=== PATIENT | male | born 1985 | race Caucasian/White ===

== ENCOUNTER → 2017-10-22 01:42 | Outpatient (CLI) | payer MEDICARE, MEDICAID, SELFPAY ==
--- NOTE | 2017-10-22 16:04 | DI.REPORT_ITS ---
SYMPTOM/DIAGNOSIS: HYPOTHYROIDISM E03.9 THYROID ULTRASOUND: The right lobe of the thyroid measures 5.3 x 1.5 x 1.7 cm. The left lobe measures 6 x 17 x 1.4 cm. The overall echotexture is heterogeneous. There are areas of more normal appearing thyroid tissue in both lobes. No solid or cystic masses. The isthmus appears thickened and heterogeneous. IMPRESSION: Enlarged, heterogeneous thyroid.
== END ==
PROVIDERS: PCP Nurse Practitioner; Visit Provider Nurse Practitioner
DX: E03.9 Hypothyroidism, unspecified (principal)
CPT/HCPCS: 76536

== ENCOUNTER → 2017-11-06 14:18 | Outpatient (REF) | payer MEDICARE, MEDICAID, SELFPAY ==
[2017-11-06 22:29] LABS: TSH 4.42 uIU/mL (0.358-3.74)
== END ==
LOC: NCHCN 14:18
PROVIDERS: PCP Nurse Practitioner; Visit Provider Nurse Practitioner
DX: E04.9 Nontoxic goiter, unspecified (principal); E03.9 Hypothyroidism, unspecified
CPT/HCPCS: 84443

== ENCOUNTER 2018-01-09 13:29 | Outpatient (REF) | payer MEDICARE, MEDICAID, SELFPAY ==
[2018-01-09 14:24] LABS: TSH 2.37 uIU/mL (0.358-3.74)
== END 2018-01-09 13:49 ==
LOC: NCHCN 13:29
PROVIDERS: PCP Nurse Practitioner; Visit Provider Nurse Practitioner
DX: E03.9 Hypothyroidism, unspecified (principal)
CPT/HCPCS: 84443

== ENCOUNTER 2018-04-15 10:17 | Outpatient (REF) | payer MEDICARE, MEDICAID, SELFPAY ==
[2018-04-15 13:50] LABS: TSH 1.97 uIU/mL (0.358-3.74)
== END 2018-04-15 10:37 ==
LOC: NCHCN 10:17
PROVIDERS: PCP Nurse Practitioner; Visit Provider Nurse Practitioner
DX: E04.9 Nontoxic goiter, unspecified (principal)
CPT/HCPCS: 84443

== ENCOUNTER 2018-07-04 12:08 | Outpatient (REF) | payer MEDICARE, MEDICAID, SELFPAY ==
[2018-07-04 21:36] LABS: Abs Immature Grans 0.05 k/cumm (0.0-0.09); Absolute Basophil Count 0.05 k/cumm (0.0-0.2); Absolute Eosinophil Count 0.43 k/cumm (0.0-0.7); Absolute Lymphocyte Count 2.55 k/cumm (1.2-3.4); Absolute Monocyte Count 0.87 k/cumm (0.11-0.7); Basophils % 0.4; Eosinophils % 3.6; HCT 40.2 % (40.0-50.0); Immature Grans % 0.4; Lymphocytes % 21.5; Mean Corp. HGB Concentration 32.3 g/dL (32.0-36.0); Mean Corpuscular Volume 86.5 fL (80-95); Mean Platelet Volume 10.8 fL (8.0-11.0); Monocytes % 7.3; Neutrophils % 66.8; Platelet Count 389 x1000/uL (130-400); RBC 4.65 m/cumm (4.50-6.00); RBC Distribution Width 13.2 % (11.8-14.1); White Blood Cell Count 11.87 k/cumm (4.4-10.8)
[2018-07-04 21:37] LABS: Absolute Neutrophil Count 7.93 k/cumm (1.2-6.7)
[2018-07-04 22:04] LABS: C-Reactive Protein 5.84 mg/dL (0.0-0.3); Uric Acid 8.3 mg/dL (3.5-7.2)
[2018-07-04 23:03] LABS: ESR 50 MM/HR (0-15)
[2018-07-08 11:12] LABS: Rheumatoid Factor <8 IU/mL (<12.5)
[2018-07-08 11:51] LABS: Cyclic Citrullinated Peptide <2.5 U/mL (<5.0)
== END 2018-07-04 12:28 ==
LOC: NCHCN 12:08
PROVIDERS: PCP Nurse Practitioner; Visit Provider Internal Medicine
DX: R05 Cough (principal); M12.872 Other specific arthropathies, not elsewhere classified, left ankle and foot
CPT/HCPCS: 85652; 86200; 84550; 85025; 86140; 86431

== ENCOUNTER 2018-07-04 13:53 | Outpatient (CLI) | payer MEDICARE, MEDICAID, SELFPAY ==
--- NOTE | 2018-07-04 12:17 | DI.RAD_ITS ---
SYMPTOMS/DIAGNOSIS: LT ANKLE PAIN, M25.572, ACUTE PAIN AND SWELLING LATERAL ASPECT OF FOOT AND ANKLE LEFT ANKLE: There is some soft tissue swelling about the ankle. There is no evidence of a fracture or dislocation. The mortise joint is well maintained.
== END 2018-07-04 14:13 ==
PROVIDERS: PCP Nurse Practitioner; Visit Provider Internal Medicine
DX: M25.572 Pain in left ankle and joints of left foot (principal); M79.89 Other specified soft tissue disorders
CPT/HCPCS: 73610

== ENCOUNTER 2018-08-20 09:58 | Outpatient (REF) | payer MEDICARE, MEDICAID, SELFPAY ==
[2018-08-20 13:32] LABS: Uric Acid 7.8 mg/dL (3.5-7.2)
== END 2018-08-20 10:18 ==
LOC: NCHCN 09:58
PROVIDERS: PCP Nurse Practitioner; Visit Provider Internal Medicine
DX: M10.9 Gout, unspecified (principal); E79.0 Hyperuricemia without signs of inflammatory arthritis and tophaceous disease
CPT/HCPCS: 84550

== ENCOUNTER 2018-09-24 08:54 | Outpatient (REF) | payer MEDICARE, MEDICAID, SELFPAY ==
[2018-09-24 13:32] LABS: Uric Acid 5.8 mg/dL (3.5-7.2)
== END 2018-09-24 09:14 ==
LOC: NCHCN 08:54
PROVIDERS: PCP Nurse Practitioner; Visit Provider Nurse Practitioner Family
DX: M10.9 Gout, unspecified (principal)
CPT/HCPCS: 84550

== ENCOUNTER 2019-05-02 12:13 | Outpatient (REF) | payer MEDICARE, MEDICAID, SELFPAY ==
[2019-05-02 13:29] LABS: Glucose 133 mg/dL (74-106); TSH 3.46 uIU/mL (0.36-3.74)
== END 2019-05-02 12:33 ==
LOC: NCHCN 12:13
PROVIDERS: PCP Nurse Practitioner; Visit Provider Internal Medicine
DX: E03.9 Hypothyroidism, unspecified (principal); R73.03 Prediabetes
CPT/HCPCS: 82947; 84443

== ENCOUNTER 2019-07-24 09:15 | Outpatient (REF) | payer MEDICARE, MEDICAID, SELFPAY ==
[2019-07-25 09:03] LABS: ALT 38 U/L (16-63); AST 19 U/L (15-37); Anion Gap 7.4 mmol/L (3-11); BUN 13 mg/dL (7-18); CO2 30.6 mmol/L (21.0-32.0); CREATININE 1.44 mg/dL (0.70-1.30); Calcium 9.8 mg/dL (8.5-10.1); Chloride 102 mmol/L (98-107); Estimated GFR 56.85 (mL/min/1.73m2); Glucose 102 mg/dL (74-106); Potassium 4.6 mmol/L (3.5-5.1); Sodium 140 mmol/L (136-145)
[2019-07-25 09:10] LABS: Hemoglobin A1C 6.4 % (3.8-5.6)
[2019-07-25 11:35] LABS: Calculated LDL 155 mg/dL (<100); Cholesterol 210 mg/dL (<200); HDL Cholesterol 30 mg/dL (40-60); Triglyceride 128 mg/dL (<150)
== END 2019-07-24 09:35 ==
LOC: NCHCN 09:15
PROVIDERS: PCP Nurse Practitioner; Visit Provider Nurse Practitioner Family
DX: E11.9 Type 2 diabetes mellitus without complications (principal); E78.5 Hyperlipidemia, unspecified; E79.0 Hyperuricemia without signs of inflammatory arthritis and tophaceous disease; E03.9 Hypothyroidism, unspecified
CPT/HCPCS: 80048; 80061; 83036; 84450; 84460

== ENCOUNTER 2019-08-22 13:32 | Outpatient (REF) | payer MEDICARE, MEDICAID, SELFPAY ==
[2019-08-22 21:23] LABS: BUN 15 mg/dL (7-18); CREATININE 1.45 mg/dL (0.70-1.30); Calcium 9.6 mg/dL (8.5-10.1); Chloride 102 mmol/L (98-107); Glucose 120 mg/dL (74-106); Potassium 4.4 mmol/L (3.5-5.1); Sodium 140 mmol/L (136-145)
== END 2019-08-22 13:52 ==
LOC: NCHCN 13:32
PROVIDERS: PCP Nurse Practitioner; Visit Provider Nurse Practitioner Family
DX: E11.9 Type 2 diabetes mellitus without complications (principal); R94.4 Abnormal results of kidney function studies
CPT/HCPCS: 80048

== ENCOUNTER 2019-10-30 20:02 | Outpatient (REF) | payer MEDICARE, MEDICAID, SELFPAY ==
[2019-10-30 21:18] LABS: Anion Gap 8.7 mmol/L (3-11); BUN 20 mg/dL (7-18); CO2 29.3 mmol/L (21.0-32.0); CREATININE 1.37 mg/dL (0.70-1.30); Calcium 9.7 mg/dL (8.5-10.1); Chloride 101 mmol/L (98-107); Estimated GFR 59.84 (mL/min/1.73m2); Glucose 102 mg/dL (74-106); Sodium 139 mmol/L (136-145); Uric Acid 5.9 mg/dL (3.5-7.2)
== END 2019-10-30 20:22 ==
LOC: NCHCN 20:02
PROVIDERS: PCP Nurse Practitioner; Visit Provider Nurse Practitioner Family
DX: E11.9 Type 2 diabetes mellitus without complications (principal); R94.4 Abnormal results of kidney function studies; M10.9 Gout, unspecified
CPT/HCPCS: 80048; 84550

== ENCOUNTER 2020-02-07 22:40 | Emergency (ER) | payer MEDICARE, MEDICAID, SELFPAY ==
[2020-02-07 22:45] VITALS: BP 131/99; PULSE 114; RESP 16; TEMP 36.6; O2SAT 97
--- NOTE | 2020-02-07 22:52 | ED.GENADUL_ITS ---
Discharge Plan Disposition Patient Disposition: HOME Condition: Stable Discharge Details Clinical Impression: Laceration of thumb Primary Care Provider: Makayla Noland ED Provider: Fawn Mancera Home Meds and New Rx's Prescriptions: No Action metformin 500 mg tablet 500 mg PO BID RF: 0 allopurinol 100 mg tablet 200 mg PO DAILY RF: 0 levothyroxine 75 mcg tablet 75 mcg PO DAILY RF: 0 Discharge Instructions Instructions: Laceration (ED) Additional Instructions: Have sutures removed in 5 to 7 days. You may return here or be seen by your primary care provider. Allow to dry every day. No soaking. After 12 to 24 hours you may wash under running soap and water. Return to the ED for any signs of infection including increased redness, swelling, increased pain or concerns. Please take Tylenol or Ibuprofen with food every 4-6 hours as needed for pain and swelling. Referrals: Makayla Noland [Primary Care Provider] - Discharge Data Discharge Date/Time-TO BE ENTERED AT DEPARTURE: 02/08/20 00:35 Medical Decision Making 34-year-old male presents to the ER with left thumb laceration which occurred approximately 20 minutes prior to arrival. Patient states that he was trying to cut a coconut when the knife slipped and lacerated his left thumb. He is up-to-date on his tetanus shot he reports that he has had been this year. Bleeding is controlled upon arrival. There is a approximately 1 cm flap type laceration noted to the lateral aspect of his left thumb. Patient has no other complaints at this time. 2300: Patient became pale, began falling forward, was caught by a staff member. Patient was placed in bed, vital signs taken. He is hypotensive with systolic blood pressure in the 80s, heart rate 63. It appears that patient had a vasovagal response. Incident lasted approximately 5 seconds and he became more alert and oriented. Patient is laying supine at this time. Wound was cleaned irrigated with normal saline, chlorhexidine. Digital block performed with 1% lidocaine for sided ring block, anesthesia achieved. Patient tolerated well. Wound was well approximated with 4 four-point 0 Ethilon sutures simple interrupted sutures placed. See procedure note above. Dressing and splint applied by medical staff physician prior to discharge. Patient instructed to have sutures removed in 5 to 7 days she verbalizes understanding peer discussed home care and strict return instructions, verbalized understanding. HPI General Mode of arrival: ambulatory . Date/Time Provider Initiated Documentation: 02/07/20 22:41 . Limitations to Documentation: no limitations . Information obtained by: patient . HPI Narrative: 34-year-old male presents to the ER with left thumb laceration which occurred approximately 20 minutes prior to arrival. Patient states that he was trying to cut a coconut when the knife slipped and lacerated his left thumb. He is up-to-date on his tetanus shot he reports that he has had been this year. Bleeding is controlled upon arrival. There is a approximately 1 cm flap type laceration noted to the lateral aspect of his left thumb. Patient has no other complaints at this time. Related Data Home Medications Medication Instructions Recorded Confirmed allopurinol 200 mg PO DAILY 02/07/20 02/07/20 levothyroxine 75 mcg PO DAILY 02/07/20 02/07/20 metformin 500 mg PO BID 02/07/20 02/07/20 Allergies Allergy/AdvReac Type Severity Reaction Status Date / Time No Known Allergies Allergy Unverified 02/07/20 22:45 General Stated Complaint: Laceration SCOTT: 4 Review of Systems All systems reviewed & are unremarkable except as noted in HPI and below Integumentary/Breasts Skin/Breast: Reports wounds (Left thumb laceration) PFSH Social History Smoking risk assessment performed?: No Do you feel safe at home: Yes Do you feel safe in your relationship?: Yes Exam Skin Wounds: wounds noted Extrem Left upper extremity: hand Details: laceration (Left thumb 1 cm flap) thumb radial aspect distal Course Vital Signs Vital signs: Vital Signs Temperature 36.6 C 02/07/20 22:45 Pulse 114 H 02/07/20 22:45 Respiratory Rate 16 02/07/20 22:45 Blood Pressure 131/99 H 02/07/20 22:45 Pulse Oximetry 97 02/07/20 22:45 Temperature 36.6 C 02/07/20 22:45 Temperature Source Skin 02/07/20 22:45 Pulse 114 H 02/07/20 22:45 Respiratory Rate 16 02/07/20 22:45 Blood Pressure 131/99 H 02/07/20 22:45 Blood Pressure Position Sitting 02/07/20 22:45 Pulse Oximetry 97 02/07/20 22:45 Oxygen Delivery Method Room Air 02/07/20 22:45 Oxygen Flow Rate 0 02/07/20 22:45 Pain Level 2 02/07/20 22:45 Procedures Laceration Laceration 1: Site: hand (Left thumb) Side (If applicable): left Size (cm): 1.0 Description: flap Depth: simple, single layer Local Anesthetic: Lidocaine 1% Amount of anesthesia used (mL): 3 Pre-repair: wound explored, irrigated extensively and deep structures intact Skin layer closed with: nylon Size (cm): 4-0 Number of sutures: 4 Technique: simple, interrupted
--- NOTE | 2020-02-07 22:55 | NUR.NOTE ---
Nursing Note: Patient called out for assistance, felt warm. Staff to bedside and patient felt faint, set back on the bed and vitals obtained, blood pressure was soft. Gingerale provided, cold cloth provided. Provided Mancera aware.
[2020-02-07 23:00] VITALS: BP 89/46; PULSE 61; O2SAT 93
[2020-02-07 23:06] VITALS: BP 102/71; PULSE 95; O2SAT 94
--- NOTE | 2020-02-07 23:06 | NUR.NOTE ---
Nursing Note: Patient reports feeling better. Reports he gets hot with his mask on sometimes. Blood pressure trending up.
[2020-02-07 23:16] VITALS: BP 105/62; PULSE 84; O2SAT 93
[2020-02-07 23:31] VITALS: BP 102/63; PULSE 79; O2SAT 96
[2020-02-07 23:46] VITALS: BP 105/62; PULSE 83; O2SAT 96
[2020-02-08] MEDS: Lidocaine 1% Pres-Free 30 ML VIAL IJ (00:13)
[2020-02-08 00:31] VITALS: BP 104/55; PULSE 86; O2SAT 96
== END 2020-02-08 00:35 | disposition home or self-care (01) ==
PROVIDERS: Emergency Provider Registered Nurse Emergency; PCP Nurse Practitioner Family
DX: S61.012A Laceration without foreign body of left thumb without damage to nail, initial encounter (principal); W26.0XXA Contact with knife, initial encounter; R55 Syncope and collapse
CPT/HCPCS: 12001

== ENCOUNTER 2020-04-07 13:47 | Outpatient (REF) | payer MEDICARE, MEDICAID, SELFPAY ==
[2020-04-07 14:30] LABS: Anion Gap 9.3 mmol/L (3-11); BUN 17 mg/dL (7-18); CO2 28.7 mmol/L (21.0-32.0); CREATININE 1.43 mg/dL (0.70-1.30); Calcium 9.8 mg/dL (8.5-10.1); Chloride 101 mmol/L (98-107); Estimated GFR 56.95 (mL/min/1.73m2); Glucose 115 mg/dL (74-106); Potassium 4.1 mmol/L (3.5-5.1); Sodium 139 mmol/L (136-145); TSH (W/Ref FT4) 6.86 uIU/mL (0.36-3.74)
[2020-04-07 14:53] LABS: FREE T4 0.88 ng/dL (0.76-1.46)
[2020-04-07 15:12] LABS: Hemoglobin A1C 6.2 % (<5.7)
== END 2020-04-07 14:07 ==
LOC: NCHCN 13:47
PROVIDERS: PCP Nurse Practitioner Family; Visit Provider Nurse Practitioner Family
DX: E03.9 Hypothyroidism, unspecified (principal); E11.9 Type 2 diabetes mellitus without complications; R94.4 Abnormal results of kidney function studies
CPT/HCPCS: 80048; 83036; 84439; 84443

== ENCOUNTER 2020-07-08 16:53 | Outpatient (REF) | payer MEDICARE, MEDICAID, SELFPAY ==
[2020-07-08 14:22] LABS: Hemoglobin A1C 6.2 % (<5.7)
[2020-07-08 14:50] LABS: CREATININE 1.3 mg/dL (0.70-1.30); TSH (W/Ref FT4) 10.07 uIU/mL (0.36-3.74)
[2020-07-08 15:06] LABS: FREE T4 0.79 ng/dL (0.76-1.46)
== END 2020-07-08 16:54 | disposition home or self-care (01) ==
LOC: NCHCN 16:53
PROVIDERS: PCP Nurse Practitioner Family; Visit Provider Nurse Practitioner Family
DX: E03.9 Hypothyroidism, unspecified (principal); E11.9 Type 2 diabetes mellitus without complications; R94.4 Abnormal results of kidney function studies
CPT/HCPCS: 82565; 83036; 84439; 84443

== ENCOUNTER 2020-10-06 12:57 | Outpatient (REF) | payer MEDICARE, MEDICAID, SELFPAY ==
[2020-10-06 22:08] LABS: TSH (W/Ref FT4) 6.56 uIU/mL (0.36-3.74); Uric Acid 7.2 mg/dL (3.5-7.2)
[2020-10-06 22:32] LABS: FREE T4 0.94 ng/dL (0.76-1.46)
== END 2020-10-06 12:58 | disposition home or self-care (01) ==
LOC: NCHCN 12:57
PROVIDERS: PCP Nurse Practitioner Family; Visit Provider Nurse Practitioner Family
DX: E03.9 Hypothyroidism, unspecified (principal); E79.0 Hyperuricemia without signs of inflammatory arthritis and tophaceous disease
CPT/HCPCS: 84439; 84443; 84550

== ENCOUNTER 2021-01-07 10:24 | Outpatient (REF) | payer MEDICARE, MEDICAID, SELFPAY ==
[2021-01-07 14:51] LABS: Hemoglobin A1C 6.2 % (<5.7)
[2021-01-07 15:25] LABS: TSH (W/Ref FT4) 5.31 uIU/mL (0.36-3.74)
[2021-01-07 15:43] LABS: FREE T4 0.89 ng/dL (0.76-1.46)
== END 2021-01-07 10:25 | disposition home or self-care (01) ==
LOC: NCHCN 10:24
PROVIDERS: PCP Nurse Practitioner Family; Visit Provider Nurse Practitioner Family
DX: E11.9 Type 2 diabetes mellitus without complications (principal); E03.9 Hypothyroidism, unspecified
CPT/HCPCS: 83036; 84439; 84443

== ENCOUNTER 2021-04-07 09:32 | Outpatient (REF) | payer MEDICARE, MEDICAID, SELFPAY ==
[2021-04-07 16:14] LABS: Anion Gap 9.4 mmol/L (3-11); BUN 13 mg/dL (7-18); CO2 27.6 mmol/L (21.0-32.0); CREATININE 1.2 mg/dL (0.70-1.30); Calcium 9.1 mg/dL (8.5-10.1); Chloride 104 mmol/L (98-107); Glucose 100 mg/dL (74-106); Potassium 4.2 mmol/L (3.5-5.1); Sodium 141 mmol/L (136-145); TSH (W/Ref FT4) 3.24 uIU/mL (0.36-3.74); Uric Acid 6.4 mg/dL (3.5-7.2)
== END 2021-04-07 09:33 | disposition home or self-care (01) ==
LOC: NCHCN 09:32
PROVIDERS: PCP Nurse Practitioner Family; Visit Provider Nurse Practitioner Family
DX: E03.9 Hypothyroidism, unspecified (principal); E11.9 Type 2 diabetes mellitus without complications; M10.9 Gout, unspecified
CPT/HCPCS: 80048; 84443; 84550

== ENCOUNTER 2022-02-01 21:04 | Emergency (ER) | payer MEDICARE, MEDICAID, SELFPAY ==
[2022-02-01 21:08] VITALS: BP 159/84; PULSE 102; RESP 18; TEMP 36.8
--- NOTE | 2022-02-01 21:26 | W.ED.GENAD ---
Discharge Plan Disposition Patient Disposition: Home Condition: Improving Discharge Details Clinical Impression: Acute effusion of right ear Primary Care Provider: Makayla Noland ED Provider: Costa Xiong Home Meds and New Rx's Prescriptions: New prednisone 50 mg tablet 50 mg PO DAILY 5 Days Qty: 5 0RF Continued metformin 500 mg tablet 500 mg PO BID Label Comments: TAKE ONE TABLET BY MOUTH TWICE A DAY allopurinol 100 mg tablet 200 mg PO DAILY Label Comments: TAKE TWO TABLETS BY MOUTH EVERY DAY levothyroxine 75 mcg tablet 75 mcg PO DAILY Label Comments: TAKE ONE TABLET BY MOUTH EVERY DAY Discharge Instructions Additional Instructions: Benadryl 25 to 50 mg at bedtime for 1 week's time. Claritin 10 mg, available [id number], once daily for 1 week's time. Take prednisone as prescribed. Tylenol and ibuprofen as needed for pain. May return to the ER for any acute concerns. Medical Decision Making 36-year-old male presents with bilateral ear pain for proxy 1 week's time. He has evidence of congestion but not acute otitis media. We will treat with anti-inflammatory as well as decongestion. Discussed with him home management. He is stable for discharge to home. Sign Out No HPI General Mode of arrival: ambulatory. Date/Time Provider Initiated Documentation: 02/01/22 21:06. Limitations to Documentation: no limitations. Information obtained by: patient. History of Present Illness 36 year old M presents to the emergency department with the chief complaint of Bilateral right greater than left ear pain for about 1 week, described as moderate, Quality is described as dull, and is localized to the head. Patient reports no radiation. Patient started experiencing this day(s) and it has been intermittent. No relieving factors improve symptom(s), No exacerbating factors reported . Patient notes denies cough, fever/chills, headaches and nausea/vomiting. Patient did receive the following treatments prior to arrival, none Related Data Home Medications Medication Instructions Recorded Confirmed allopurinol 100 mg tablet 200 mg PO DAILY 02/07/20 02/07/20 levothyroxine 75 mcg tablet 75 mcg PO DAILY 02/07/20 02/07/20 metformin 500 mg tablet 500 mg PO BID 02/07/20 02/07/20 prednisone 50 mg tablet 50 mg PO DAILY 5 days #5 tabs 02/01/22 Previous Rx's Medication Instructions Recorded prednisone 50 mg tablet 50 mg PO DAILY 5 days #5 tabs 02/01/22 Allergies Allergy/AdvReac Type Severity Reaction Status Date / Time No Known Allergies Allergy Unverified 02/07/20 22:45 General Stated Complaint: EarProblem SCOTT: 4 Review of Systems Narrative: No fever, cough, recent illness. Denies smoking or vaping. 6 systems reviewed and otherwise negative over the [facility] All Active Problems (Updated 02/01/22 @ 21:28 by Costa Xiong MD) Acute effusion of right ear (Acute) Social History Smoking/Tobacco Use Status: Never Smoking risk assessment performed?: Yes Alcohol Intake: never Substance use type: does not use Do you feel safe at home: Yes Do you feel safe in your relationship?: Yes Exam Narrative Exam Narrative: GEN: awake, alert, oriented 3. Pleasant, well groomed, interactive. HEAD: Normocephalic, atraumatic ENT: Mucous membranes moist, oropharynx unremarkable, right tympanic membrane is clear with fluid filled behind, no erythema, left tympanic membrane unremarkable. External ear exam unremarkable EYES: PERRL, EOMI NECK: Full ROM, no JEY, no menigismus CHEST/RESP: Nontender, clear to auscultation bilateral, no wheeze/rhonchi/rales CARDIOVASCULAR: RRR, no murmur, rub christofer. 2+ Rad pulse bilateral EXT: Full ROM, no edema, no rash Neuro: Grossly normal neurologic exam, conversant, interactive. Psych: Speech fluent, thoughts congruent, affect normal Course Vital Signs Vital signs: Vital Signs Temperature 36.8 C 02/01/22 21:08 Pulse 102 H 02/01/22 21:08 Respiratory Rate 18 02/01/22 21:08 Blood Pressure 159/84 H 02/01/22 21:08 Temperature 36.8 C 02/01/22 21:08 Temperature Source Oral 02/01/22 21:08 Pulse 102 H 02/01/22 21:08 Respiratory Rate 18 02/01/22 21:08 Respiratory Effort 02/01/22 21:15 Blood Pressure 159/84 H 02/01/22 21:08 Blood Pressure Position Sitting 02/01/22 21:08 Oxygen Delivery Method Room Air 02/01/22 21:08 Oxygen Flow Rate 0 02/01/22 21:08 Pain Level 5 02/01/22 21:15
== END 2022-02-01 21:36 | disposition home or self-care (01) ==
LOC: ER 21:43
PROVIDERS: Emergency Provider Emergency Medicine; PCP Nurse Practitioner Family
DX: H92.01 Otalgia, right ear (principal)
CPT/HCPCS: 99283

== ENCOUNTER 2022-02-10 16:42 | Emergency (ER) | payer MEDICARE, MEDICAID, SELFPAY ==
--- NOTE | 2022-02-10 16:30 | RT.EKG_ITS ---
APPROVED REPORT Exam: Resting ECG Reason for Exam: DIZZINESS Patient Location: E HR:104 bpm ECG Measurements Heart Rate 104 AXIS [place] 131 P 37 QRSd 80 QRS 46 QT 332 T 49 QTc 437 Conclusion Sinus tachycardia...rate> 99 Normal [place] Normal Electrocardiogram except for rate
[2022-02-10 16:47] VITALS: BP 125/89; PULSE 114; RESP 18; TEMP 37; O2SAT 98
--- NOTE | 2022-02-10 17:30 | DI.CT_ITS ---
Exam(s) CT HEAD WO EXAM: CT HEAD WO CLINICAL HISTORY: AMS, Dizziness. TECHNIQUE: Imaging Protocol: Axial computed tomography images with coronal and sagittal reformatted images were created and reviewed COMPARISON: No exams were available for comparison FINDINGS: The ventricular system is normal in appearance. No evidence of acute intracranial hemorrhage, mass effect, or midline shift. The orbital structures are unremarkable. The temporal bone structures appear intact. Calvarium: Normal. Visualized Paranasal sinuses/Mastoids: Clear. IMPRESSION: Normal cranial CT. RADIATION DOSE DELIVERED: 817.9mGy.cm Total DLP 817.9mGy.cm Total DLP DATA REPOSITORY: All CT scans at this facility are submitted to the National Radiology Data Registry (NRDR) Dose Index Registry (DIR) with the [employer] (A[employer]). RADIATION OPTIMIZATION: All CT scans at this facility use at least one of these dose optimization te chniques: automated exposure control; mA and/or kV adjustment per patient size (includes targeted exa ms where dose is matched to clinical indication); or iterative reconstruction.
--- NOTE | 2022-02-10 17:31 | W.ED.GENAD ---
Discharge Plan Disposition Patient Disposition: Home Condition: Stable Discharge Details Clinical Impression: Hypothyroidism, Hyponatremia Primary Care Provider: Makayla Noland ED Provider: Fawn Mancera Home Meds and New Rx's Prescriptions: Continued metformin 500 mg tablet 500 mg PO BID Label Comments: TAKE ONE TABLET BY MOUTH TWICE A DAY allopurinol 100 mg tablet 200 mg PO DAILY Label Comments: TAKE TWO TABLETS BY MOUTH EVERY DAY levothyroxine 75 mcg tablet 75 mcg PO DAILY Label Comments: TAKE ONE TABLET BY MOUTH EVERY DAY Discharge Instructions Instructions: Hyponatremia (ED), Hypothyroidism (ED) Additional Instructions: Your TSH level is high today at 6.07, free T4 0.71, your sodium is slightly low at 130. No evidence of any intracranial abnormality no bleeding. Please discuss this results with your primary care provider please continue to take your levothyroxine and your previously prescribed medications. Follow up with primary care provider in 3-5 days. Return to ED sooner if any worsening or concerns. Increase oral fluids. Please take Tylenol or Ibuprofen with food every 4-6 hours as needed for pain and swelling. If you continue to have these episodes after speaking with your primary care provider you may consider speaking with a behavioral health specialist. [facility] human services office offers counseling. Referrals: Makayla Noland [Primary Care Provider] - 3 days Medical Decision Making 36-year-old transgendered male with a past medical history of hypothyroidism, presents to the ER with a chief complaint of having periods of spacing out states he feels like he knows what is going on around him he can hear people but he cannot respond. He said that it is happened multiple times today. He reports he does have some mild headaches every now and then. Denies any visual disturbances reports before the episodes he gets really tired. He denies any syncopal episodes denies any recent head trauma, denies any fever chills abdominal pain nausea vomiting diarrhea no problems urinating. Denies any other associated symptoms Labs, TSH, CT head without contrast ordered. CT within normal limits, labs see below, sodium 130 glucose 110, TSH is elevated at 6.07 Free T4 0.71. This could account for patient's symptoms. No evidence of any intracranial abnormality. This all may be behavioral as well. Patient avoids eye contact during my exam appears anxious. Instructed on home care and follow-up verbalized understanding. Medical Records Medical records reviewed: Yes I reviewed the patient's medical records. Lab Data Lab results reviewed: Yes I reviewed the patient's lab results. Labs: Laboratory Tests Range/Units 02/10/22 02/10/22 17:50 18:16 WBC (4.4-10.8) 10^3/uL 11.43 H RBC (4.36-5.78) 10^6/uL 4.84 Hgb (13.5-17.5) g/dL 13.9 Hct (40.0-50.0) % 41.3 MCV (80-95) fL 85 MCH (27.0-33.0) pg 28.7 MCHC (32.0-36.0) % 33.7 RDW (11.8-14.1) % 12.5 Plt Count (130-400) 10^3/uL 337 MPV (8.0-11.0) fL 9.9 Immature Gran % 0.3 Neutrophils % 67.6 Lymphocytes % 22.0 Monocytes % 8.6 Eosinophils % 0.9 Basophils % 0.6 Nucleated RBC % (0.0-0.3) % 0.0 Absolute Neutrophils (1.2-6.7) 10^3/uL 7.73 H Absolute Lymphocytes (1.2-3.4) 10^3/uL 2.51 Absolute Monocytes (0.1-0.8) 10^3/uL 0.98 H Absolute Eosinophils (0.0-0.7) 10^3/uL 0.10 Absolute Basophils (0.0-0.2) 10^3/uL 0.07 Sodium (136-145) mmol/L 130 L Potassium (3.5-5.1) mmol/L 4.1 Chloride (98-107) mmol/L 97 L Carbon Dioxide (21.0-32.0) mmol/L 27.7 Anion Gap (3-11) mmol/L 5.3 BUN (7-18) mg/dL 17 Creatinine (0.70-1.30) mg/dL 1.1 Est GFR (CKD-EPI 2020) (mL/min/1.73m2) 89.78 Glucose (74-106) mg/dL 110 H Calcium (8.5-10.1) mg/dL 9.7 Total Bilirubin (0.2-1.0) mg/dL 0.3 AST (15-37) U/L 25 ALT (16-63) U/L 30 Alkaline Phosphatase (46-116) U/L 86 Total Protein (6.4-8.2) g/dL 8.2 Albumin (3.4-5.0) g/dL 4.0 TSH (0.36-3.74) uIU/mL 6.07 H Free T4 (0.76-1.46) ng/dL 0.71 L Sign Out No HPI General Mode of arrival: ambulatory. Date/Time Provider Initiated Documentation: 02/10/22 17:22. Limitations to Documentation: no limitations. Information obtained by: patient, RN notes reviewed and old records reviewed. HPI Narrative: 36-year-old transgendered male with a past medical history of hypothyroidism, presents to the ER with a chief complaint of having periods of spacing out states he feels like he knows what is going on around him he can hear people but he cannot respond. He said that it is happened multiple times today. He reports he does have some mild headaches every now and then. Denies any visual disturbances reports before the episodes he gets really tired. He denies any syncopal episodes denies any recent head trauma, denies any fever chills abdominal pain nausea vomiting diarrhea no problems urinating. Denies any other associated symptoms Related Data Home Medications Medication Instructions Recorded Confirmed allopurinol 100 mg tablet 200 mg PO DAILY 02/07/20 02/07/20 levothyroxine 75 mcg tablet 75 mcg PO DAILY 02/07/20 02/07/20 metformin 500 mg tablet 500 mg PO BID 02/07/20 02/07/20 Allergies Allergy/AdvReac Type Severity Reaction Status Date / Time No Known Allergies Allergy Unverified 02/07/20 22:45 General Stated Complaint: GenMedical SCOTT: 3 Review of Systems All systems reviewed & are unremarkable except as noted in HPI and below Constitutional Constitutional: Reports as per HPI, Denies fever(s) and Reports headache(s) ENT Ears, Nose, Mouth, and Throat: Reports dizziness and Reports headache(s) Cardiovascular Cardiovascular: Denies syncope Musculoskeletal Musculoskeletal: Denies numbness Neurologic Neurologic: Reports as per HPI, Reports behavioral changes, Reports confusion, Reports dizziness, Denies syncope, Reports headache(s), Denies numbness and Denies seizure-like activity Psychiatric Psychiatric: Reports behavioral changes and Reports confusion [facility] All Active Problems (Updated 02/10/22 @ 19:07 by Fawn Mancera NP) Acute effusion of right ear (Acute) Hypothyroidism (Chronic) Hyponatremia (Acute) Social History Smoking/Tobacco Use Status: Never Smoking risk assessment performed?: Yes Alcohol Intake: never Substance use type: does not use Do you feel safe at home: Yes Do you feel safe in your relationship?: Yes Exam Narrative Exam Narrative: Constitutional: Alert and oriented x3. Appears stated age. Normal body habitus. Head: Normocephalic, no trauma. Eyes: Pupils PERRL, Red reflex noted, EOM's intact. Eyelids symmetrical without lesions, discharge, or swelling. ENT: Bilateral TM's WNL, External ear normal to inspection, no mastoid TTP, swelling, or erythema, Nasal turbinates WNL, no nasal discharge. Normal dentition, Posterior pharynx WNL, no exudate. Chest: RRR, Normal S1, S2, distal pulses intact. Resp: Lungs clear to auscultation bilaterally, no wheezes, rales, or rhonchi. Abdomen: Soft, non-distended, Normoactive bowel sounds all 4 quads. Musculoskeletal: Normal gait, 5/5 strength to all four extremities. Skin: No suspicious rashes or lesions. Capillary refill less than 2 sec. Neurologic: Cranial nerves II-XII intact. Alert and oriented x 3. Motor: No deficits noted. Sensory: Intact bilaterally all 4 extremities. Reflexes: DTR's intact bilaterally.. Hematologic/Lymphatic: No ecchymosis, no lymphadenopathy. Psych Appearance: well kempt Affect: blunted Attitude: avoids eye contact Thought Content: normal Insight: insight good Judgment: judgment good Course Vital Signs Vital signs: Vital Signs Temperature 37 C 02/10/22 16:47 Pulse 114 H 02/10/22 16:47 Respiratory Rate 18 02/10/22 16:47 Blood Pressure 125/89 02/10/22 16:47 Pulse Oximetry 98 02/10/22 16:47 Temperature 37 C 02/10/22 16:47 Temperature Source Tympanic 02/10/22 16:47 Pulse 114 H 02/10/22 16:47 Respiratory Rate 18 02/10/22 16:47 Respiratory Effort 02/10/22 17:03 Respiratory Depth Normal 02/10/22 17:03 Respiratory Pattern Normal 02/10/22 17:03 Blood Pressure 125/89 02/10/22 16:47 Blood Pressure Position Supine 02/10/22 16:47 Pulse Oximetry 98 02/10/22 16:47 Oxygen Delivery Method Room Air 02/10/22 16:47 Oxygen Flow Rate 0 02/10/22 16:47 Pain Level 0 02/10/22 16:47
[2022-02-10 18:20] LABS: Abs Immature Grans 0.04 10^3/uL (0.0-0.06); Absolute Basophil Count 0.07 10^3/uL (0.0-0.2); Absolute Monocyte Count 0.98 10^3/uL (0.1-0.8); Basophils % 0.6; Eosinophils % 0.9; HCT 41.3 % (40.0-50.0); HGB 13.9 g/dL (13.5-17.5); Immature Grans % 0.3; MCH 28.7 pg (27.0-33.0); MCHC 33.7 % (32.0-36.0); MCV 85 fL (80-95); MPV 9.9 fL (8.0-11.0); Monocytes % 8.6; Neutrophils % 67.6; Platelet Count 337 10^3/uL (130-400); RBC 4.84 10^6/uL (4.36-5.78); RDW 12.5 % (11.8-14.1); RDW-SD 38.6 fL; WBC 11.43 10^3/uL (4.4-10.8)
[2022-02-10 18:21] LABS: Absolute Lymphocyte Count 2.51 10^3/uL (1.2-3.4); Absolute Neutrophil Count 7.73 10^3/uL (1.2-6.7)
[2022-02-10 18:24] LABS: ALT 30 U/L (16-63); AST 25 U/L (15-37); Alkaline Phosphatase 86 U/L (46-116); Anion Gap 5.3 mmol/L (3-11); BUN 17 mg/dL (7-18); Bilirubin, Total 0.3 mg/dL (0.2-1.0); CO2 27.7 mmol/L (21.0-32.0); CREATININE 1.1 mg/dL (0.70-1.30); Calcium 9.7 mg/dL (8.5-10.1); Chloride 97 mmol/L (98-107); Estimated GFR 89.78 (mL/min/1.73m2); Glucose 110 mg/dL (74-106); Potassium 4.1 mmol/L (3.5-5.1); Sodium 130 mmol/L (136-145); TSH (W/Ref FT4) 6.07 uIU/mL (0.36-3.74); Total Protein 8.2 g/dL (6.4-8.2)
--- NOTE | 2022-02-10 18:40 | DI.VRAD_ITS ---
PROCEDURE INFORMATION: Exam: CT Head Without Contrast Exam date and time: 02/10/2022 6:31 PM Age: 36 years old Clinical indication: Other: AMS, dizziness TECHNIQUE: Imaging protocol: Computed tomography of the head without contrast. COMPARISON: No relevant prior studies available. FINDINGS: Brain: Cerebral sulci show bilateral symmetry with no supratentorial mass or mass effect detected. Brainstem and cerebellum are unremarkable. There is no evidence of acute transcortical infarction or recent intracranial hemorrhage. Cerebral ventricles: Ventricular and cisternal spaces are normal in size and configuration and there is no midline shift or hydrocephalus seen. Paranasal sinuses: Minimal mucosal disease is seen along the posterior margin of the smaller right maxillary sinus with other paranasal sinuses grossly clear throughout. Mastoid air cells: Grossly clear bilaterally. Bones/joints: Bony calvarium and skull base are intact and no acute fractures are detected. Soft tissues: Unremarkable. IMPRESSION: Unremarkable noncontrast head CT with no evidence of an acute intracranial process. Dictated and Authenticated by: Saroj Eduardo MD. Ordering:MILKA Augustine MD
[2022-02-10 18:42] LABS: FREE T4 0.71 ng/dL (0.76-1.46)
[2022-02-10 19:14] VITALS: BP 112/82; PULSE 113; RESP 18; TEMP 36.8; O2SAT 96
== END 2022-02-10 19:18 | disposition home or self-care (01) ==
PROVIDERS: Emergency Provider Registered Nurse Emergency; PCP Nurse Practitioner Family
DX: E87.1 Hypo-osmolality and hyponatremia (principal); E03.9 Hypothyroidism, unspecified; R94.6 Abnormal results of thyroid function studies
CPT/HCPCS: 36415; 80053; 93005; 99284; 70450; 84439; 84443; 85025; 93010; 99285

== ENCOUNTER 2022-02-16 21:17 | Emergency (ER) | payer MEDICARE, MEDICAID, SELFPAY ==
[2022-02-16 21:23] VITALS: BP 120/87; PULSE 112; RESP 15; TEMP 36.8; O2SAT 100
--- NOTE | 2022-02-16 21:45 | RT.EKG_ITS ---
APPROVED REPORT Exam: Resting ECG Reason for Exam: dizziness Patient Location: E HR:101 bpm ECG Measurements Heart Rate 101 AXIS [place] 142 P 34 QRSd 79 QRS 39 QT 328 T 47 QTc 425 Conclusion Sinus tachycardia...rate> 99 Physician: no stemi
--- NOTE | 2022-02-16 21:49 | ED.GENADUL_ITS ---
Discharge Plan Disposition Patient Disposition: Home Condition: Good Discharge Details Clinical Impression: Syncopal episodes Primary Care Provider: Makayla Noland ED Provider: Evan Najera Home Meds and New Rx's Prescriptions: No Action metformin 500 mg tablet 500 mg PO BID Label Comments: TAKE ONE TABLET BY MOUTH TWICE A DAY allopurinol 100 mg tablet 200 mg PO DAILY Label Comments: TAKE TWO TABLETS BY MOUTH EVERY DAY levothyroxine 75 mcg tablet 75 mcg PO DAILY Label Comments: TAKE ONE TABLET BY MOUTH EVERY DAY Discharge Instructions Additional Instructions: At this time your symptoms are concerning for potential absence seizure. You will be contacted by respiratory therapy tomorrow for placement of your Holter monitor. Please get plenty of sleep, stay well-hydrated, avoid climbing ladde rs, operating heavy machinery, utilizing firearms, driving, or swimming out of the concern that 1 of these episodes could occur while performing this. We have placed a referral with our neurologist for follow-up on this. You will likely need an EEG and potentially an MRI in the future. If you notice any worsening of your symptoms, or any new symptoms such as vomiting, diarrhea, fever, chills, shortness of breath, chest pain, numbness, weakness, or fainting , please return immediately to the emergency department for reevaluation. Please follow up with your primary care provider as soon as possible for reassessment and reevaluation. As always, it was a pleasure participating in your medical care today. Referrals: Makayla Noland [Primary Care Provider] - Discharge Orders Other Ambulatory Orders: Holter Monitor (Routine) Timeframe: 1 Week Facility: [facility] - Location: Respiratory Therapy Ordered By: Evan Najera Discharge Data Discharge Date/Time-TO BE ENTERED AT DEPARTURE: 02/16/22 22:01 Medical Decision Making This is a 36-year-old male who identifies as Elsa who presents today for evaluation of seizure-like events. Patient states that for the last 3 months he has been having these events. He develops mild headaches, often brought on by flashes of light or bright lights or loud noise. Shortly after this he will blank out and stare for a few seconds, and then return to his normal actions and habits. He gets slightly dizzy when this occurs. Patient is adopted and does not know his family history well. He does have thyroid dysfunction, and had mild hyponatremia few days ago on recent assessment. Recently on 02/10/2022 the patient was here for headache, CT scan of the head was negative, laboratory work-up was benign aside from minimally low sodium. He is followed up closely with his primary care provider within the last 48 hours, and his Seroquel and levothyroxine have been readjusted. He presents today for continued symptoms of the blackouts which have been going on for the last 3 months. No other complaints at this time. No fever, chills, neck pain, room spinning sensation, vomiting, diarrhea, or trauma. Exam demonstrates a well-appearing patient, no evidence of acute neurologic deficit on exam. No evidence of significant abnormality clinically. Patient had an appropriately thorough work-up on her last visit, and with the notable ch ronicity of her symptoms, and no acute changes otherwise, I do not see any indication at this time for additional laboratory or imaging evaluation. I did discuss this with the patient and the patient's father at bedside, they agree with this plan and do not want additional testing at this time either. However when I do feel the patient would benefit with would be further neurology follow- up on an outpatient basis for potential EEG and MRI not emergently. We will place neurology referral. Additionally I have recommended to the patient to wear glasses/sunglasses at all times to prevent the perpetuation of the symptoms from right and flashes. I recommended avoidance of watching any shows that could potentially have this. I suspect that the patient's symptoms are likely related to absence seizure's potentially, but there may be another psychosocial component as well. Discussed red flags for which to return. I have extensively reviewed the treatment plan and discharge instructions with the patient and their family. I have addressed all patient concerns at this time. The patient and family was made aware of what symptoms to monitor for that would warrant a return to the emergency department. Discussed the plan with the patient and family, they demonstrate verbal understanding and agreement with our assessment and plan at this time. The documentation in this chart was dictated using [employer] dictation software. Please excuse any dictation errors. Additionally screening EKG was performed and is unremarkable. We will place an order for Holter monitor to make sure that there is not a cardiac component associated with the patient's episodes. Sign Out No HPI General Date/Time Provider Initiated Documentation: 02/16/22 21:33 . HPI Narrative: This is a 36-year-old male who identifies as Elsa who presents today for evaluation of seizure-like events. Patient states that for the last 3 months she has been having these events. He develops mild headaches, often brought on by flashes of light or bright lights or loud noise. Shortly after this she will blank out and stare for a few seconds, and then return to her normal actions and habits. SHe gets slightly dizzy when this occurs. Patient is adopted and does not knowher family history well. SHe does have thyroid dysfunction, and had mild hyponatremia few days ago on recent assessment. Recently on 02/10/2022 the patient was here for headache, CT scan of the head was negative, laboratory work-up was benign aside from minimally low sodium. SHe is followed up closely with her primary care provider within the last 48 hours, and her Seroquel and levothyroxine have been readjusted. SHe presents today for continued symptoms of the blackouts which have been going on for the last 3 months. No other complaints at this time. No fever, chills, neck pain, room spinning sensation, vomiting, diarrhea, or trauma. Related Data Home Medications Medication Instructions Recorded Confirmed allopurinol 100 mg tablet 200 mg PO DAILY 02/07/20 02/07/20 levothyroxine 75 mcg tablet 75 mcg PO DAILY 02/07/20 02/07/20 metformin 500 mg tablet 500 mg PO BID 02/07/20 02/07/20 Allergies Allergy/AdvReac Type Severity Reaction Status Date / Time No Known Allergies Allergy Unverified 02/07/20 22:45 General Stated Complaint: GenMedical SCOTT: 3 Review of Systems All systems reviewed & are unremarkable except as noted in HPI and below PFSH All Active Problems Acute effusion of right ear (Acute) Hypothyroidism (Chronic) Hyponatremia (Acute) Syncopal episodes (Chronic) Social History Smoking/Tobacco Use Status: Never Smoking risk assessment performed?: Yes Alcohol Intake: never Substance use type: does not use Do you feel safe at home: Yes Do you feel safe in your relationship?: Yes Exam Narrative Exam Narrative: 1.Const: Well-nourished, Well-developed, appearing stated age 2.Eyes: PERRL, no conjunctival injection, and symmetrical lids. 3.ENT: Atraumatic external nose and ears. Moist MM. Neck: Symmetric, trachea midline, No thyromegaly. No evidence of otitis media. 4.CVS: +S1/S2, No murmurs or gallops. Peripheral pulses 2+ and equal in all extremities. Brisk capillary refill in all extremities. 5.RESP: Unlabored respiratory effort. Clear to auscultation bilaterally. No wheezes rales or rhonchi 6.GI: Soft, Nontender/Nondistended, No hepatosplenomegaly. No guarding or rebound. 7.MSK: Normocephalic/Atraumatic, Extremities w/o deformity or ttp No cyanosis or clubbing, Normal movement of all extremities 8.Skin: Warm, Dry. No rashes or lesions. 9.Neuro: benefits analyst II-XII grossly intact. Sensation grossly intact, no focal neurologic deficits. All 6 cardinal planes of vision are fully intact. No evidence of rotatory or vertical nystagmus. The patient demonstrated a normal [id number], good dexterity. There was no evidence of dysdiadochokinesia. Patient was able to ambulate without difficulty. There was no wide-based gait. Romberg testing was normal. [id number] testing was normal. Sensation was intact bilaterally as well as muscle strength bilaterally for all extremities. Patient was able to verbalize butter cup with no slurring, or miss pronunciation 10.Psych: (AAO) x3. Appropriate mood and affect, but somewhat flat affect Course Vital Signs Vital signs: Vital Signs Temperature 36.8 C 02/16/22 21:23 Pulse 112 H 02/16/22 21:23 Respiratory Rate 15 02/16/22 21:23 Blood Pressure 120/87 02/16/22 21:23 Pulse Oximetry 100 02/16/22 21:23 Temperature 36.8 C 02/16/22 21:23 Temperature Source Tympanic 02/16/22 21:23 Pulse 112 H 02/16/22 21:23 Respiratory Rate 15 02/16/22 21:23 Respiratory Effort 02/16/22 21:34 Respiratory Depth Normal 02/16/22 21:34 Respiratory Pattern Normal 02/16/22 21:34 Blood Pressure 120/87 02/16/22 21:23 Blood Pressure Position Sitting 02/16/22 21:23 Pulse Oximetry 100 02/16/22 21:23 Oxygen Delivery Method Room Air 02/16/22 21:23 Oxygen Flow Rate 0 02/16/22 21:23 Pain Level 6 02/16/22 21:23
--- NOTE | 2022-02-16 22:39 | NUR.NOTE ---
Referral faxed to [facility] Neurology to f/u in 2 weeks for a suspected Absence Seizure.Nursing Note:
== END 2022-02-16 22:01 | disposition home or self-care (01) ==
PROVIDERS: Emergency Provider Student in an Organized Health Care Education/Training Program; PCP Nurse Practitioner Family
DX: R55 Syncope and collapse (principal); E87.1 Hypo-osmolality and hyponatremia; E07.9 Disorder of thyroid, unspecified
CPT/HCPCS: 93005; 99283; 93010; 99282

== ENCOUNTER 2022-03-06 13:21 | Emergency (ER) | payer MEDICARE, MEDICAID, SELFPAY ==
[2022-03-06 13:24] VITALS: BP 129/84; PULSE 94; RESP 16; TEMP 36.8; O2SAT 98
--- NOTE | 2022-03-06 14:05 | NUR.NOTE ---
Nursing Note: patients friend showed this scrip a text from patient to friend; text stated that the patient wants to kill herself because the family is refusing the call her by the correct pronouns or by the preferred name. patient identifies as a female and wants to be called Elsa.
[2022-03-06 15:09] LABS: Abs Immature Grans 0.08 10^3/uL (0.0-0.06); Absolute Basophil Count 0.07 10^3/uL (0.0-0.2); Absolute Eosinophil Count 0.09 10^3/uL (0.0-0.7); Absolute Neutrophil Count 10.85 10^3/uL (1.2-6.7); Basophils % 0.5; Eosinophils % 0.6; HCT 43.9 % (40.0-50.0); HGB 14.5 g/dL (13.5-17.5); Immature Grans % 0.6; Lymphocytes % 18.7; MCH 28.6 pg (27.0-33.0); MCV 87 fL (80-95); MPV 9.8 fL (8.0-11.0); Monocytes % 4.8; Neutrophils % 74.8; Platelet Count 410 10^3/uL (130-400); RBC 5.07 10^6/uL (4.36-5.78); RDW 12.5 % (11.8-14.1); RDW-SD 39.4 fL; WBC 14.51 10^3/uL (4.4-10.8)
[2022-03-06 15:13] LABS: Absolute Lymphocyte Count 2.71 10^3/uL (1.2-3.4)
[2022-03-06 15:14] LABS: *AMPHETAMINES SCREEN URINE Negative (Negative); *BARBITURATES SCREEN URINE Negative (Negative); *BENZODIAZEPINES SCREEN URINE Negative (Negative); Cannabinoids THC Negative (Negative); Cocaine Screen,Urine Negative (Negative); METHADONE URINE SCREEN Negative (Negative); OPIATES URINE SCREEN Negative (Negative)
[2022-03-06 15:15] LABS: Tricyclic Antidepressants Negative (Negative)
--- NOTE | 2022-03-06 15:26 | NUR.NOTE ---
Patient arguing, quietly, with visitor and had asked friend to leave. This health science writer opened door and let visitor know that our priority is to keep the patient safe and comfortable and if the patient wanted her to leave, this health science writer was going to have to ask her to leave. Nursing Note:
--- NOTE | 2022-03-06 15:33 | ED.GENADUL_ITS ---
Discharge Plan Discharge Details Chief Complaint: PsychEval Primary Care Provider: Dao Howell ED Provider: Drew Turpin Home Meds and New Rx's Prescriptions: No Action sertraline 100 mg tablet 100 mg PO DAILY levothyroxine 137 mcg capsule 137 mcg PO DAILY spironolactone 50 mg tablet 50 mg PO BID estradiol 2 mg tablet 2 mg PO BID allopurinol 100 mg tablet 200 mg PO DAILY Label Comments: TAKE TWO TABLETS BY MOUTH EVERY DAY Medical Decision Making 1600 --36-year-old transgender female here with depression and suicidal ideation without specific plan. Patient is here voluntarily. Plan for medical screening and will consult [facility] human services crisis screener. One-to-one patient observer has been ordered. Interim safety care plan established. HPI General Mode of arrival: ambulatory . Date/Time Provider Initiated Documentation: 03/06/22 13:58 . Limitations to Documentation: no limitations . Information obtained by: patient . HPI Narrative: 36-year-old transgender female here with chief complaint of depression. Patient notes depression worsening over the past few weeks and now feeling suicidal. She has no specific suicidal plan. Symptoms are severe. She notes significant stressor including family members not acknowledging her gender status. Patient denies harmful ingestion. She does note that she is attempted to cut her wrist in the past. Related Data Home Medications Medication Instructions Recorded Confirmed allopurinol 100 mg tablet 200 mg PO DAILY 02/07/20 03/06/22 estradiol 2 mg tablet 2 mg PO BID 02/20/22 03/06/22 levothyroxine 137 mcg capsule 137 mcg PO DAILY 02/20/22 03/06/22 sertraline 100 mg tablet 100 mg PO DAILY 02/20/22 03/06/22 spironolactone 50 mg tablet 50 mg PO BID 02/20/22 03/06/22 Allergies Allergy/AdvReac Type Severity Reaction Status Date / Time No Known Allergies Allergy Unverified 03/06/22 13:27 General Stated Complaint: PsychEval SCOTT: 2 Review of Systems All systems reviewed & are unremarkable except as noted in HPI and below Constitutional Constitutional: Denies fever(s) Cardiovascular Cardiovascular: Reports as per HPI PFSH All Active Problems Hypothyroidism (Chronic) Hyponatremia (Acute) Syncopal episodes (Chronic) Medical History Anxiety with depression Developmental delay, mild Dyspraxia Gout Hyperlipidemia Hyperuricemia Nonspecific paroxysmal spell Obesity Suicidal thoughts Transgender Type 2 diabetes mellitus Social History Smoking/Tobacco Use Status: Former Tobacco Use Smoking risk assessment performed?: Yes Alcohol Intake: never Substance use type: does not use Do you feel safe at home: Yes Do you feel safe in your relationship?: Yes Exam Const General: cooperative and no acute distress HENMT Mouth: moist mucous membranes Eyes Conjunctivae: normal conjunctivae Sclera: normal sclerae Neck Neck: trachea midline and supple Thyroid: thyroid normal Resp Auscultation: clear to auscultation bilaterally, no rales, no rhonchi and no wheezes Cardio Rate: regular rate and not tachycardic Rhythm: regular rhythm GI Palpation: soft, not firm, no guarding, no masses, not rigid and nontender Skin General skin exam: no rashes or lesions noted Neuro General: patient alert, patient awake and tone normal Extrem General: no edema Other: Healed scars with no lacerations bilateral wrists Psych Appearance: grossly normal Mental Status: mental status grossly normal and other (depressed) Mood: anxious mood and other (depressed) Affect: sad Attitude: cooperative Course Vital Signs Vital signs: Vital Signs Temperature 36.8 C 03/06/22 13:24 Pulse 94 H 03/06/22 13:24 Respiratory Rate 16 03/06/22 13:24 Blood Pressure 129/84 03/06/22 13:24 Pulse Oximetry 98 03/06/22 13:24 Temperature 36.8 C 03/06/22 13:24 Temperature Source Oral 03/06/22 13:24 Pulse 94 H 03/06/22 13:24 Respiratory Rate 16 03/06/22 13:24 Respiratory Effort 03/06/22 13:29 Blood Pressure 129/84 03/06/22 13:24 Blood Pressure Position Sitting 03/06/22 13:24 Pulse Oximetry 98 03/06/22 13:24 Oxygen Delivery Method Room Air 03/06/22 13:24 Oxygen Flow Rate 0 03/06/22 13:24 Pain Level 0 03/06/22 13:24 Lab/Test Results Lab/Test Results: Laboratory Tests Range/Units 03/06/22 03/06/22 14:55 14:57 WBC (4.4-10.8) 10^3/uL 14.51 H RBC (4.36-5.78) 10^6/uL 5.07 Hgb (13.5-17.5) g/dL 14.5 Hct (40.0-50.0) % 43.9 MCV (80-95) fL 87 MCH (27.0-33.0) pg 28.6 MCHC (32.0-36.0) % 33.0 RDW (11.8-14.1) % 12.5 Plt Count (130-400) 10^3/uL 410 H MPV (8.0-11.0) fL 9.8 Immature Gran % 0.6 Neutrophils % 74.8 Lymphocytes % 18.7 Monocytes % 4.8 Eosinophils % 0.6 Basophils % 0.5 Nucleated RBC % (0.0-0.3) % 0.0 Absolute Neutrophils (1.2-6.7) 10^3/uL 10.85 H Absolute Lymphocytes (1.2-3.4) 10^3/uL 2.71 Absolute Monocytes (0.1-0.8) 10^3/uL 0.70 Absolute Eosinophils (0.0-0.7) 10^3/uL 0.09 Absolute Basophils (0.0-0.2) 10^3/uL 0.07 Urine Opiates Screen (Negative) Negative Urine Methadone Screen (Negative) Negative Ur Barbiturates Screen (Negative) Negative Ur Tricyclics Screen (Negative) Negative Ur Amphetamines Screen (Negative) Negative U Benzodiazepines Scrn (Negative) Negative Urine Cocaine Screen (Negative) Negative Ur THC Screen (Negative) Negative
[2022-03-06 15:41] LABS: Acetaminophen < 2 ug/mL (10-30); Salicylate < 2.8 mg/dL (<2.8)
[2022-03-06 15:43] LABS: ALT 30 U/L (16-63); AST 22 U/L (15-37); Albumin 4.4 g/dL (3.4-5.0); Alkaline Phosphatase 89 U/L (46-116); Anion Gap 7.4 mmol/L (3-11); BUN 21 mg/dL (7-18); Bilirubin, Total 0.4 mg/dL (0.2-1.0); CO2 29.6 mmol/L (21.0-32.0); CREATININE 1.2 mg/dL (0.70-1.30); Calcium 9.7 mg/dL (8.5-10.1); Chloride 99 mmol/L (98-107); Estimated GFR 80.88 (mL/min/1.73m2); Glucose 107 mg/dL (74-106); Potassium 4.1 mmol/L (3.5-5.1); Sodium 136 mmol/L (136-145); TSH (W/Ref FT4) 1.29 uIU/mL (0.36-3.74); Total Protein 9.2 g/dL (6.4-8.2)
[2022-03-06] MEDS: LORazepam 1 MG TAB PO (16:04)
[2022-03-06 16:25] LABS: Source Nasal/Nares
[2022-03-06 16:35] LABS: COVID-19 PCR Negative (Negative)
--- NOTE | 2022-03-06 17:56 | ED.PROG_ITS ---
Date of service: 03/06/22 Time of Service: 17:56 Medical Decision Making This is a 36-year-old male patient who identifies as Elsa, whom I assumed care of from my colleague Dr. Drew Turpin, pending medical clearance and mental health evaluation for ongoing depression and thoughts of SI, no specific plan. Laboratory values reveal mild nonspecific leukocytosis. No obvious signs of infection. Will add on Covid. COVID-negative Patient is now medically cleared and will request a mental health evaluation. Mental health evaluation completed. Please see their note. Disposition is to safety plan home, patient has a therapist appointment tomorrow at 0930 and a care bed may open tomorrow or the next day that the patient may decide to go to. I discussed this plan with the patient who initially felt as though this was appropriate but before discharge wondered if this was the most appropriate plan. Would still like to be discharged home but would like to talk to mental health once again. Denies any active suicidal thoughts or desire to harm themselves. I did request that mental health evaluate the patient once again. Reevaluation was complete and the plan is to check in with the patient this evening between 8-9 PM as a check-in safety call. Patient believes this is satisfactory, feels safe and would like to be discharged home. The new safety plan was provided to the patient. Standard discharge and return precautions were provided. Patient understands, is agreeable to this plan, and has no additional questions or concerns upon discharge. This documentation was generated using [employer] dictation system, please disregard any oddities of phrase or misspellings. Medical Records Medical records reviewed: Yes I reviewed the patient's medical records. Lab Data Lab results reviewed: Yes I reviewed the patient's lab results. Labs: Laboratory Tests Range/Units 03/06/22 03/06/22 03/06/22 14:55 14:57 14:57 WBC (4.4-10.8) 10^3/uL RBC (4.36-5.78) 10^6/uL Hgb (13.5-17.5) g/dL Hct (40.0-50.0) % MCV (80-95) fL MCH (27.0-33.0) pg MCHC (32.0-36.0) % RDW (11.8-14.1) % Plt Count (130-400) 10^3/uL MPV (8.0-11.0) fL Immature Gran % Neutrophils % Lymphocytes % Monocytes % Eosinophils % Basophils % Nucleated RBC % (0.0-0.3) % Absolute Neutrophils (1.2-6.7) 10^3/uL Absolute Lymphocytes (1.2-3.4) 10^3/uL Absolute Monocytes (0.1-0.8) 10^3/uL Absolute Eosinophils (0.0-0.7) 10^3/uL Absolute Basophils (0.0-0.2) 10^3/uL Sodium (136-145) mmol/L 136 Potassium (3.5-5.1) mmol/L 4.1 Chloride (98-107) mmol/L 99 Carbon Dioxide (21.0-32.0) mmol/L 29.6 Anion Gap (3-11) mmol/L 7.4 BUN (7-18) mg/dL 21 H Creatinine (0.70-1.30) mg/dL 1.2 Est GFR (CKD-EPI 2020) (mL/min/1.73m2) 80.88 Glucose (74-106) mg/dL 107 H Calcium (8.5-10.1) mg/dL 9.7 Total Bilirubin (0.2-1.0) mg/dL 0.4 AST (15-37) U/L 22 ALT (16-63) U/L 30 Alkaline Phosphatase (46-116) U/L 89 Total Protein (6.4-8.2) g/dL 9.2 H Albumin (3.4-5.0) g/dL 4.4 TSH (0.36-3.74) uIU/mL 1.29 Salicylates (<2.8) mg/dL < 2.8 Urine Opiates Screen (Negative) Negative Urine Methadone Screen (Negative) Negative Acetaminophen (10-30) ug/mL < 2 Ur Barbiturates Screen (Negative) Negative Ur Tricyclics Screen (Negative) Negative Ur Amphetamines Screen (Negative) Negative U Benzodiazepines Scrn (Negative) Negative Urine Cocaine Screen (Negative) Negative Ur THC Screen (Negative) Negative COVID-19 Source SARS-CoV-2 (PCR) (Negative) Range/Units 03/06/22 03/06/22 14:57 16:00 WBC (4.4-10.8) 10^3/uL 14.51 H RBC (4.36-5.78) 10^6/uL 5.07 Hgb (13.5-17.5) g/dL 14.5 Hct (40.0-50.0) % 43.9 MCV (80-95) fL 87 MCH (27.0-33.0) pg 28.6 MCHC (32.0-36.0) % 33.0 RDW (11.8-14.1) % 12.5 Plt Count (130-400) 10^3/uL 410 H MPV (8.0-11.0) fL 9.8 Immature Gran % 0.6 Neutrophils % 74.8 Lymphocytes % 18.7 Monocytes % 4.8 Eosinophils % 0.6 Basophils % 0.5 Nucleated RBC % (0.0-0.3) % 0.0 Absolute Neutrophils (1.2-6.7) 10^3/uL 10.85 H Absolute Lymphocytes (1.2-3.4) 10^3/uL 2.71 Absolute Monocytes (0.1-0.8) 10^3/uL 0.70 Absolute Eosinophils (0.0-0.7) 10^3/uL 0.09 Absolute Basophils (0.0-0.2) 10^3/uL 0.07 Sodium (136-145) mmol/L Potassium (3.5-5.1) mmol/L Chloride (98-107) mmol/L Carbon Dioxide (21.0-32.0) mmol/L Anion Gap (3-11) mmol/L BUN (7-18) mg/dL Creatinine (0.70-1.30) mg/dL Est GFR (CKD-EPI 2020) (mL/min/1.73m2) Glucose (74-106) mg/dL Calcium (8.5-10.1) mg/dL Total Bilirubin (0.2-1.0) mg/dL AST (15-37) U/L ALT (16-63) U/L Alkaline Phosphatase (46-116) U/L Total Protein (6.4-8.2) g/dL Albumin (3.4-5.0) g/dL TSH (0.36-3.74) uIU/mL Salicylates (<2.8) mg/dL Urine Opiates Screen (Negative) Urine Methadone Screen (Negative) Acetaminophen (10-30) ug/mL Ur Barbiturates Screen (Negative) Ur Tricyclics Screen (Negative) Ur Amphetamines Screen (Negative) U Benzodiazepines Scrn (Negative) Urine Cocaine Screen (Negative) Ur THC Screen (Negative) COVID-19 Source Nasal/Nares SARS-CoV-2 (PCR) (Negative) Negative Exam Const General: cooperative, healthy appearing, comfortable and no acute distress Orientation: alert and awake [facility] Head: normal to inspection, normocephalic and atraumatic Eyes Conjunctivae: conjunctivae normal Neck Neck: normal visual inspection, full ROM, no meningeal signs, trachea midline and supple Resp Effort & Inspection: normal respiratory effort and able to speak in complete sentences Skin General skin exam: no rashes or lesions noted Neuro General: patient alert, patient awake, moves all extremities and no focal motor deficits Cognition: normal cognition Speech: speech normal Gait: normal gait Extrem General: full ROM Psych Appearance: grossly normal Mental Status: mental status grossly normal Speech and Movement: speech and movement normal Mood: dysthymic mood Affect: sad Attitude: cooperative Thought Process: normal Thought Content: normal and suicidality Insight: fair Judgment: fair Sign Out Sign Out Data: Sign Out Comment: Patient is a 36-year-old transgender female who prefers to be addressed as Beverly here voluntarily for suicidality. Plan at signout is to followup labs and consult [facility] when medically clear. Patient was given Ativan 1 mg p.o. for anxiety. Medication reconciliation has been performed. If patient needs to stay overnight, consider initiating home prescriptions Last updated by Drew Turpin MD at 03/06/22 15:41 Discharge Plan Disposition Patient Disposition: Home Condition: Stable Discharge Details Clinical Impression: Depression Primary Care Provider: Dao Howell ED Provider: Zac Mascorro Home Meds and New Rx's Prescriptions: Continued sertraline 100 mg tablet 100 mg PO DAILY levothyroxine 137 mcg capsule 137 mcg PO DAILY spironolactone 50 mg tablet 50 mg PO BID estradiol 2 mg tablet 2 mg PO BID allopurinol 100 mg tablet 200 mg PO DAILY Label Comments: TAKE TWO TABLETS BY MOUTH EVERY DAY Discharge Instructions Instructions: Depression (ED) Additional Instructions: Please follow the safety plan set forth by the mental health team. It appears as though you have a appointment with your therapist tomorrow morning at 9:30 AM and they will also be looking into a care bed. They will be contacting you between 8-9 PM this evening for a safety check in. Please watch for new or worsening symptoms and return to the ER for any concerns.
[2022-03-06 18:17] VITALS: BP 129/84; PULSE 82; RESP 16; TEMP 36.8; O2SAT 98
--- NOTE | 2022-03-06 19:20 | PDOC.MHCN_ITS ---
Date of service: 03/06/22 Time of Service: 18:00 PHQ-9 Over the last 2 weeks, how often have you been bothered by any of the following problems? 1. Little interest or pleasure in doing things: nearly every day 2. Feeling down, depressed, or hopeless: nearly every day 3. Trouble falling or staying asleep, or sleeping too much: several days 4. Feeling tired or having little energy: nearly every day 5. Poor appetite or overeating: several days 6. Feeling bad about yourself - or that you are a failure or have let yourself and your family down: nearly every day 7. Trouble concentrating on things, such as reading the newspaper or watching television: nearly every day 8. Moving or speaking so slowly that other people could have noticed? - Or the opposite - being so fidgety or restless that you have been moving around a lot more than usual: nearly every day 9. Thoughts that you would be better off or of hurting yourself in some way: nearly every day Total score: 23 If you checked off any problems, how difficult have these problems made it for you to do your work, take care of things at home, or get along with other people?: somewhat difficult PHQ-9 Results: Positive Source: Developed by Drs. Pj Woodard, Ariana Mitchell, Rolando Rowley and colleagues, with an educational blair from [employer]. Suicide Severity Rate CSSRS Have you wished you were or wished you could go to sleep and not wake up?: Yes Have you actually had any thoughts of killing yourself?: Yes CSSRS2 Have you been thinking about how you might do this?: No Have you had these thoughts and had some intention of acting on them?: Yes Have you started to work out or worked out the details of how to kill yourself? Do you intend to carry out this plan?: No CSSRS3 Have you ever done anything, started to do anything or prepared to do anything to end your life?: Yes CSSRS4 Was this within the past three months?: No Screening Score Total Score: 6 Screening: Positive Mental Health Emergency Note Release [facility] release signed:: Yes Reason for Visit Client is not known to [facility] and per self report has never received mental health services before. Client presents to [facility] ED with chief complaint of worsening depression and suicidal ideations as evidenced by a score of 23 on the PHQ-9 rating scale. In the last 2 weeks has the pt presented for ES prior to today?: No Client Information Client is: New Well Housed: Yes Non Suicidal Self Injury Current: No History: yes, Client reports hx of harm to self via cutting and intentional overdose on melatonin Safety Risk/Harm to Self or Others Current Ideation to Harm Self or Others: Yes to self. (Client currently endorsing SI rating intent 3/10 and no plan) Intent: yes, has intent. Plan: no.does not have a plan. History of suicide attempt: No history of suicide attempt reported Risk: Does risk to harm exist?: yes. Access to means: No. Risk: Low Risk Duty to warn indicated: No Asssessment/Mental Status Appearance: Disheveled Attitude: Cooperative Behavior: Unremarkable Speech: Soft and Slow Affect: Flat and Cogruent with mood Mood: Depressed Thought process: Unremarkable Hallucinations: No Delusions: No Attention: Unremarkable Perception: Not impaired Orientation: Fully orientated Memory: Intact Insight: Fair Judgement: Fair Neurovegetative Symptoms Sleep: No change Appetitie: No change Interests: Decrease Energy: Decrease Libido: Not applicable Substance Use: Do you use nicotine?: No Have you used substances in the last 7 days?: No Additional Issues: Assaultive/Threatening Behavior: No Medical Concerns: No Client engaged in active self harm w/weapon: No Threatening to run away: No Child reported abuse/neglect: No Voluntarily presenting for services: Yes Domestic violence is a concern: No Extreme Psychosis or extreme behavior is present: No Impression Client is a 36 y/o single transgender female that identifies with the name of Elsa. Client lives in [place], [place] with their parents and is currently disabled and receives SSI. Client is seen by this documentation writer via zoom while at [facility] ED. Client presents with symptoms most congruent with major depressive disorder, as evidenced by self-report, that she feels deeply sad and has had a loss of interest that used to bring her gini and decrease of energy. Client reports that her sleep and appetite have remained the same. Client reports onset of symptoms started about 2 weeks ago after an argument with their family who are not supportive of gender change. Client reports as a result of the argument they have had increased suicidal ideations and worsening depression. Client states that they are endorsing fleeting suicidal ideations reporting: sometimes I think it would be better if I was not here or I in my sleep. She denies intention to act on thoughts and wants to get help to lessen the thoughts. Client would benefit from short term hospital diversion to decrease suicidal ideations and learn coping skills that she can utilize. Client would also benefit from increase in outpatient therapy as well as an appointment with PCP to discuss current medications as client does not feel like they are effective. Resources [facility] reviewed and given:: [phone] and Crisis Bed (Referral will be completed for [facility] care bed. ) Plan/Disposition Recommended Disposition: PCP/Office visit (Schedule follow-up with PCP to discuss medications ), Crisis bed, (Referral will be completed for [facility] crisis bed ) facility contacted. Status of Crisis Bed acceptance: Pending review and Not accepted, no bed availabiltiy and [facility] Services (Check-in phone calls) [facility] Services: Other. Plan: Client will return home on pro-active safety plan which includes check-in phone call at 8p tonight and in the afternoons between 1 and 4 p.m. through 03/09. This documentation writer also will complete [facility] crisis bed referral. Client is provided with [facility] 24/7phone number as well as [phone] to utilize as a resource. Person reported agreement to plan: Yes Reports/communication Outcome discussed with: ED/Personnel (Verbal passover given to ED provider Zac Mascorro)
== END 2022-03-06 18:36 | disposition home or self-care (01) ==
PROVIDERS: Student in an Organized Health Care Education/Training Program; Emergency Provider Physician Assistant; PCP Family Medicine
DX: F32.A Depression, unspecified (principal); E11.9 Type 2 diabetes mellitus without complications; D72.829 Elevated white blood cell count, unspecified; Z20.822 Contact with and (suspected) exposure to COVID-19; F41.9 Anxiety disorder, unspecified; Z79.899 Other long term (current) drug therapy
CPT/HCPCS: 36415; 80053; 80307; 87635; 99284; 99285; 80329; 84443; 85025

== ENCOUNTER 2022-03-12 20:47 | Emergency (ER) | payer MEDICARE, MEDICAID, SELFPAY ==
[2022-03-12 20:54] VITALS: BP 150/93; PULSE 123; TEMP 37; O2SAT 97
--- NOTE | 2022-03-12 21:01 | W.ED.GENAD ---
Discharge Plan Discharge Details Chief Complaint: PsychEval Primary Care Provider: Dao Howell ED Provider: Edilberto Ellison Home Meds and New Rx's Prescriptions: No Action sertraline 100 mg tablet 100 mg PO DAILY levothyroxine 137 mcg capsule 137 mcg PO DAILY spironolactone 50 mg tablet 50 mg PO BID estradiol 2 mg tablet 2 mg PO BID quetiapine 25 mg tablet 25 tab PO DAILY Rx Instructions: pt states 25mg in AM and 50mg in PM allopurinol 100 mg tablet 200 mg PO DAILY Label Comments: TAKE TWO TABLETS BY MOUTH EVERY DAY Medical Decision Making 36-year-old transgender female presents with worsening depression and suicidal ideations. No self-harm this week however around she did take more melatonin that was prescribed. Patient is alert oriented calm cooperative hemodynamically stable afebrile nontoxic no external signs of trauma. No signs of intoxication. Will need evaluation by mental health screener. Will hold voluntarily here. At this time labs and imaging are not warranted. 21: 40 patient resting comfortably. Spoke with [facility] human services who evaluated patient and is sending referral [place] to local inpatient facilities for inpatient services. Patient is here currently voluntarily. 03/13/22 6:56 Patient resting comfortably, calm cooperative overnight; no events; awaiting placment HPI General Date/Time Provider Initiated Documentation: 03/12/22 20:47. HPI Narrative: 36-year-old transgender female presents with worsening depression and suicidal ideations. Lives at home with her parents and 2 sons. Denies thoughts of harming anyone else. Endorses feeling very triana when at home. Has been staying in care bed for some time. Around time took a little more melatonin then is recommended however no recent ingestion or self harming behavior. Patient is currently on quetiapine and sertraline and is compliant with medications. Related Data Home Medications Medication Instructions Recorded Confirmed allopurinol 100 mg tablet 200 mg PO DAILY 02/07/20 03/12/22 estradiol 2 mg tablet 2 mg PO BID 02/20/22 03/12/22 levothyroxine 137 mcg capsule 137 mcg PO DAILY 02/20/22 03/12/22 sertraline 100 mg tablet 100 mg PO DAILY 02/20/22 03/12/22 spironolactone 50 mg tablet 50 mg PO BID 02/20/22 03/12/22 quetiapine 25 mg tablet 25 tab PO DAILY 03/12/22 03/12/22 Allergies Allergy/AdvReac Type Severity Reaction Status Date / Time strawberry AdvReac Verified 03/12/22 21:03 General SCOTT: 2 Review of Systems Narrative: Review of Systems Constitutional: negative Eyes: negative ENT: negative Cardiovascular: negative Respiratory: negative Gastrointestinal: negative : negative Musculoskeletal: negative Skin: negative Neurologic: Depression, SI Psych: negative PFSH All Active Problems (Updated 03/13/22 @ 00:03 by SABRA CARRILLO) Depression (Chronic) Syncopal episodes (Chronic) Medical History Anxiety with depression Developmental delay, mild Dyspraxia Gout Hyperlipidemia Hyperuricemia Nonspecific paroxysmal spell Obesity Suicidal thoughts Transgender Type 2 diabetes mellitus Social History Smoking/Tobacco Use Status: Former Tobacco Use Smoking risk assessment performed?: Yes Alcohol Intake: never Drug use: Occasionally Substance use type: marijuana Details: maybe once a month Do you feel safe at home: Yes (mentally no physically yes) Do you feel safe in your relationship?: Yes Exam Narrative Exam Narrative: Physical Examination General: alert, awake, cooperative, resting comfortably, no acute distress HEENT: normocephalic, atraumatic; PERRL, EOM intact, conjunctiva normal; no nasal discharge; moist mucous membranes, oral and pharyngeal mucosa normal, tolerating secretions Neck: supple, trachea midline; full ROM Chest: normal to inspection Respiratory: normal respiratory effort, speaking in full sentences, clear to auscultation, no wheezing, rales or rhonchi Cardiac: regular rate, regular rhythm, S1S2 intact, no murmurs rubs or gallops GI: abdomen soft, non-tender, non-distended; no palpable mass or hepatosplenomegaly Skin: no lesions, rashes or trauma appreciated Neuro: AAOx3, normal speech, moving all extremities Psych: Depression, SI, slightly withdrawn affect otherwise, cooperative
[2022-03-12] MEDS: LORazepam 1 MG TAB PO (23:26)
[2022-03-13 07:35] VITALS: BP 114/72; PULSE 85; RESP 18; TEMP 36.7; O2SAT 97
[2022-03-13] MEDS: QUEtiapine 25 MG TAB PO (08:07)
[2022-03-13] MEDS: Sertraline 100 MG TAB PO (08:09)
--- NOTE | 2022-03-13 09:20 | NUR.NOTE ---
Nursing Note: Patient chart faxed to [facility]
--- NOTE | 2022-03-13 10:04 | MHPN_ITS ---
Date of service: 03/13/21 Time of Service: 09:42 [facility] Emergency Note Release [facility] release signed:: Yes Reason for Visit Client presented to [facility] ED on the evening of 03/12/22 with chief complaint on SI/Depression. Client was initially screened by [facility] Phoebe Hayes on 03/12/22 at 9:00pm. This staff writer reassessed client on the morning of 03/13/22 at 9:42 am. In the last 2 weeks has the pt presented for ES prior to today?: Yes, presented at [facility] ED (Client presented to the ED on 03/06/22 and was screened by [facility] Ruthy Tabares. Client was discharged from ED on SP and was admitted to [facility] on 03/07. Client was discharged from [facility] on 03/10 (per client's request). ) Client Information Client is: Adult Outpatient (ADULT EMERGENCY) Well Housed: Yes Non Suicidal Self Injury Current: Yes, Client reports 9/10 intent/plan to engage in self cutting behaviors if she were to leave to ED today. History: yes, Client did not wish to disclosed details with this staff writer Safety Risk/Harm to Self or Others Current Ideation to Harm Self or Others: Yes to self. (Client reports 9/10 level of intent with plan to overdose on prescribed medications if she were to leave the ED today. When asked what rx's client would take, client replies, anything I can find.) Intent: yes, has intent. Plan: yes,has a plan. Asssessment/Mental Status Appearance: Disheveled Attitude: Cooperative and Guarded Behavior: Unremarkable Speech: Normal Affect: Flat and Cogruent with mood Mood: Depressed and Anxious Thought process: Unremarkable Hallucinations: No evidence Delusions: No evidence Attention: Unremarkable Perception: Not impaired Orientation: Fully orientated Memory: Intact Insight: Good Judgement: Good Neurovegetative Symptoms Sleep: No change (Client reports sleeping from 11 pm- 5 am since being in the ED.) Appetitie: No change (Client reports eating breakfast) Interests: Decrease Energy: Decrease Libido: Not applicable Impression Client is known to [facility]. Client's legal name is Chapo, preferred name is Elsa. Client is a transgender male to female. Client presented to the ED on 03/12/22 for chief complaint on SI/Depression. Client reports since being discharged from the [facility] on 03/10 (per client's request) she has experienced ongoing fear of her suicidal thoughts. On 03/10, client requested to be discharged from [facility] earlier than original anticipated discharge date of 03/14/22. Client reports to [facility] staff on 03/10 per [facility] note, This client reported she felt ready to return to the community. She was able to identify several connections to life and reported being able to reflect helped them realize they do want to be alive. It is worth noting that the client did state her SI and overall mental status was intensified by being at the [facility], she stated she felt it was due to being in an unfamiliar environment. Client reports she is not actively suicidal or homicidal. SP put into place on 03/10 was for client to check in with ES daily via phone over the weekend. Client reports once returning home, she felt okay for a total of 2 hrs. Client reports being around her family (who she resides with) is a stressor for her. Client reports her parents are not respectful of her preferred pronouns, and it really gets to me. Client reports currently endorsing SI. Client identified multiple plans with intent if she were to leave the ED today. Client described her current mood at really depressed. Plan/Disposition Recommended Disposition: Hospitalization (IP tx.) facilities contacted. Plan: Client is to await in ED until placement can be securred. Client is currently seeking voluntary placement for IP MH tx. Facilities contacted if Applicable [facility] (Pending Review) Not accepted, (referrals sent pending review ) [facility] (Pending Review) Not accepted, (referrals sent pending review) Other Reports/communication Outcome discussed with: ED/Personnel (Dr. Aria De Paz)
--- NOTE | 2022-03-13 11:24 | NUR.NOTE ---
Nursing Note: patient asked this nurse if her dad could take home car keys and earring before transfering to [facility]. Patient and this nurse signed belongings for that items were returned.
[2022-03-13] MEDS: Acetaminophen 325 MG TAB 650 MG PO (13:27)
--- NOTE | 2022-03-13 13:53 | W.EDPROG ---
Date of service: 03/13/22 Time of Service: 13:00 Medical Decision Making 0730 --please see previous providers notes for initial presentation, exam and plan. Case endorsed to continue to monitor while awaiting placement. 1300 --patient excepted to [facility]. Accepting physician Dr. Leroy. No acute events today. Medical Records Medical records reviewed: Yes I reviewed the patient's medical records. Sign Out Sign Out Data: Sign Out Comment: trans female, awaiting placement for depression and SI; voluntary Last updated by Edilberto Ellison MD at 03/13/22 06:57 Discharge Plan Disposition Patient Disposition: Psychiatric Hospital/Unit Specific [facility]iatric [facility] Condition: Stable Discharge Details Chief Complaint: PsychEval Clinical Impression: Major depression, Suicidal ideation Primary Care Provider: Dao Howell ED Provider: Aria De Paz [place] Meds and New Rx's Prescriptions: No Action sertraline 100 mg tablet 100 mg PO DAILY levothyroxine 137 mcg capsule 137 mcg PO DAILY spironolactone 50 mg tablet 50 mg PO BID estradiol 2 mg tablet 2 mg PO BID quetiapine 25 mg tablet 25 tab PO DAILY Rx Instructions: pt states 25mg in AM and 50mg in PM allopurinol 100 mg tablet 200 mg PO DAILY Label Comments: TAKE TWO TABLETS BY MOUTH EVERY DAY
== END 2022-03-13 15:02 ==
PROVIDERS: Emergency Provider Physician Assistant; PCP Family Medicine
DX: F32.A Depression, unspecified (principal); R45.851 Suicidal ideations
CPT/HCPCS: 99285

== ENCOUNTER 2022-03-21 21:19 | Observation (INO) | payer MEDICARE, MEDICAID, SELFPAY ==
[2022-03-21 21:34] VITALS: BP 128/79; PULSE 119; RESP 24; TEMP 36.7; O2SAT 98
--- NOTE | 2022-03-21 21:56 | ED.GENADUL_ITS ---
Discharge Plan Discharge Details Chief Complaint: PsychEval Primary Care Provider: Dao Howell ED Provider: Evan Najera Home Meds and New Rx's Prescriptions: No Action sertraline 100 mg tablet 100 mg PO DAILY levothyroxine 137 mcg capsule 137 mcg PO DAILY spironolactone 50 mg tablet 50 mg PO BID estradiol 2 mg tablet 2 mg PO BID quetiapine 25 mg tablet 25 tab PO HS Rx Instructions: pt states 25mg in AM and 50mg in PM allopurinol [Zyloprim] 100 mg tablet 200 mg PO DAILY Label Comments: TAKE TWO TABLETS BY MOUTH EVERY DAY Medical Decision Making This is a 36-year-old male who identifies as female/Elsa. She presents today for evaluation of depression and suicidal ideation. Patient states that she recently was discharged from [place] just today and on her way back felt notable panic and was concerned that she would hurt herself again. She previously hurt her self by cutting her wrist with a metal piece from the inside of a mask. Patient then came to the ER for further assessment. She denies any homicidal ideations. She denies any auditory or visual hallucinations. No other complaints at this time. No other modifying factors. Patient did take her nightly medications. Exam demonstrates a well-appearing biologic male who identifies as female. No evidence of trauma, no new lacerations. Affect is somewhat flat. Concern for the patient's suicidal ideations. Patient states that she would again cut her wrist with a sharp object including metal found in masks. Mask has been removed. Patient will be observed. We will recruit to help with mental health. 7:30 AM Patient has done well throughout the night. No interventions needed. Daily medication orders have been placed. Pending reassessment by mental health for potential placement. HPI General Date/Time Provider Initiated Documentation: 03/21/22 21:49 . HPI Narrative: This is a 36-year-old male who identifies as female/Elsa. She presents today for evaluation of depression and suicidal ideation. Patient states that she recently was discharged from [facility] just today and on her way back felt notable panic and was concerned that she would hurt herself again. She previously hurt her self by cutting her wrist with a metal piece from the inside of a mask. Patient then came to the ER for further assessment. She denies any homicidal ideations. She denies any auditory or visual hallucinations. No other complaints at this time. No other modifying factors. Patient did take her nightly medications. Related Data Home Medications Medication Instructions Recorded Confirmed allopurinol 100 mg tablet 200 mg PO DAILY 02/07/20 03/21/22 (Zyloprim) estradiol 2 mg tablet 2 mg PO BID 02/20/22 03/21/22 levothyroxine 137 mcg capsule 137 mcg PO DAILY 02/20/22 03/21/22 sertraline 100 mg tablet 100 mg PO DAILY 02/20/22 03/21/22 spironolactone 50 mg tablet 50 mg PO BID 02/20/22 03/21/22 quetiapine 25 mg tablet 25 tab PO HS 03/12/22 03/21/22 Allergies Allergy/AdvReac Type Severity Reaction Status Date / Time strawberry AdvReac Verified 03/12/22 21:03 General Stated Complaint: PsychEval SCOTT: 3 Review of Systems All systems reviewed & are unremarkable except as noted in HPI and below PFSH All Active Problems Depression (Chronic) Major depression (Chronic) Suicidal ideation (Acute) Medical History Anxiety with depression Developmental delay, mild Dyspraxia Gout Hyperlipidemia Hyperuricemia Nonspecific paroxysmal spell Obesity Suicidal thoughts Transgender Type 2 diabetes mellitus Social History Smoking/Tobacco Use Status: Former Tobacco Use Smoking risk assessment performed?: Yes Alcohol Intake: never Drug use: Occasionally Substance use type: marijuana Details: maybe once a month Do you feel safe at home: Yes (mentally no physically yes) Do you feel safe in your relationship?: Yes Exam Narrative Exam Narrative: 1.Const: Well-nourished, Well-developed, appearing stated age 2.Eyes: PERRL, no conjunctival injection, and symmetrical lids. 3.ENT: Atraumatic external nose and ears. Moist MM. Neck: Symmetric, trachea midline, No thyromegaly. 4.CVS: +S1/S2, No murmurs or gallops. Peripheral pulses 2+ and equal in all extremities. Brisk capillary refill in all extremities. 5.RESP: Unlabored respiratory effort. Clear to auscultation bilaterally. No wheezes rales or rhonchi 6.GI: Soft, Nontender/Nondistended, No hepatosplenomegaly. No guarding or rebound. 7.MSK: Normocephalic/Atraumatic, Extremities w/o deformity or ttp No cyanosis or clubbing, Normal movement of all extremities 8.Skin: Warm, Dry. No rashes or lesions. 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 Sensation grossly intact, no focal neurologic deficits. 10.Psych: (AAO) x3. Appropriate mood and affect Course Vital Signs Vital signs: Vital Signs Temperature 36.7 C 03/21/22 21:34 Pulse 119 H 03/21/22 21:34 Respiratory Rate 24 03/21/22 21:34 Blood Pressure 128/79 03/21/22 21:34 Pulse Oximetry 98 03/21/22 21:34 Temperature 36.7 C 03/21/22 21:34 Temperature Source Temporal Artery Scan 03/21/22 21:34 Pulse 119 H 03/21/22 21:34 Respiratory Rate 24 03/21/22 21:34 Respiratory Effort Non-Labored 03/21/22 21:38 Blood Pressure 128/79 03/21/22 21:34 Blood Pressure Position Sitting 03/21/22 21:34 Pulse Oximetry 98 03/21/22 21:34 Oxygen Delivery Method Room Air 03/21/22 21:34 Oxygen Flow Rate 0 03/21/22 21:34 Pain Level 0 03/21/22 21:34
[2022-03-21 22:06] LABS: Abs Immature Grans 0.04 10^3/uL (0.0-0.06); Absolute Basophil Count 0.06 10^3/uL (0.0-0.2); Absolute Eosinophil Count 0.25 10^3/uL (0.0-0.7); Absolute Lymphocyte Count 3.24 10^3/uL (1.2-3.4); Absolute Monocyte Count 0.79 10^3/uL (0.1-0.8); Basophils % 0.5; Eosinophils % 2.1; HCT 39.1 % (40.0-50.0); HGB 12.8 g/dL (13.5-17.5); Immature Grans % 0.3; Lymphocytes % 27.2; MCH 28.6 pg (27.0-33.0); MCHC 32.7 % (32.0-36.0); MCV 88 fL (80-95); MPV 9.8 fL (8.0-11.0); Monocytes % 6.6; Neutrophils % 63.3; Platelet Count 284 10^3/uL (130-400); RBC 4.47 10^6/uL (4.36-5.78); RDW 12.2 % (11.8-14.1)
[2022-03-21 22:06] LABS: Source Nasal/Nares
[2022-03-21 22:09] LABS: Absolute Neutrophil Count 7.53 10^3/uL (1.2-6.7)
[2022-03-21 22:29] LABS: ALT 31 U/L (16-63); AST 20 U/L (15-37); Albumin 3.9 g/dL (3.4-5.0); Alkaline Phosphatase 83 U/L (46-116); BUN 16 mg/dL (7-18); Bilirubin, Total 0.2 mg/dL (0.2-1.0); CREATININE 1.2 mg/dL (0.70-1.30); Calcium 9.4 mg/dL (8.5-10.1); Chloride 100 mmol/L (98-107); Estimated GFR 80.88 (mL/min/1.73m2); Glucose 113 mg/dL (74-106); Sodium 136 mmol/L (136-145); Total Protein 7.8 g/dL (6.4-8.2)
[2022-03-21 22:38] LABS: ETHANOL BLOOD < 3.0 mg/dL (<10)
[2022-03-21 22:38] LABS: COVID-19 PCR Negative (Negative)
[2022-03-21 22:56] LABS: Salicylate < 2.8 mg/dL (<2.8)
[2022-03-21 22:58] LABS: Acetaminophen < 2 ug/mL (10-30)
[2022-03-21 23:03] LABS: FREE T4 0.99 ng/dL (0.76-1.46)
[2022-03-22 01:45] LABS: *AMPHETAMINES SCREEN URINE Negative (Negative); *BARBITURATES SCREEN URINE Negative (Negative); *BENZODIAZEPINES SCREEN URINE Negative (Negative); Cannabinoids THC Negative (Negative); Cocaine Screen,Urine Negative (Negative); METHADONE URINE SCREEN Negative (Negative); OPIATES URINE SCREEN Negative (Negative)
[2022-03-22 01:48] LABS: Tricyclic Antidepressants Negative (Negative)
[2022-03-22] MEDS: LORazepam 1 MG TAB PO ×2 (01:58→14:44)
--- NOTE | 2022-03-22 07:44 | W.EDPROG ---
Date of service: 03/22/22 Time of Service: 07:45 Medical Decision Making Pt pending voluntary placement for depression, calm and cooperative currently, will continue to monitor until placement is found Sign Out Sign Out Data: Sign Out Comment: Patient is depressed with suicidal ideation. Patient here voluntarily, pending admission or transfer to psychiatric facility Last updated by Evan Najera DO at 03/22/22 06:22 Discharge Plan Disposition Condition: Stable Discharge Details Chief Complaint: PsychEval Clinical Impression: Depression Primary Care Provider: Dao Howell ED Provider: Tung Perez [place] Meds and New Rx's Prescriptions: No Action sertraline 100 mg tablet 100 mg PO DAILY levothyroxine 137 mcg capsule 137 mcg PO DAILY spironolactone 50 mg tablet 50 mg PO BID estradiol 2 mg tablet 2 mg PO BID quetiapine 25 mg tablet 25 tab PO HS Rx Instructions: pt states 25mg in AM and 50mg in PM allopurinol [Zyloprim] 100 mg tablet 200 mg PO DAILY Label Comments: TAKE TWO TABLETS BY MOUTH EVERY DAY
[2022-03-22] MEDS: Sertraline 100 MG TAB PO (08:53)
[2022-03-22] MEDS: Spironolactone 50 MG TAB PO ×2 (08:53→23:17)
[2022-03-22] MEDS: Allopurinol 100 MG TAB 200 MG PO (08:53)
[2022-03-22] MEDS: Estradiol 1 MG TAB 2 MG PO ×2 (08:53→23:14)
--- NOTE | 2022-03-22 10:50 | CMSP_ITS ---
- If Service Date Differs Date of service: 03/22/22 Time of Service: 10:50 Care Management Safety Plan Status: Voluntary - Reason for Wait Reason for Wait: Inpatient Admission VOLUNTARY FOR INPATIENT PSYCHIATRIC STABILIZATION. Patient is appropriate in all interactions since arriving at [facility]; Pt has demonstrated appropriate coping and communication skills, has articulated his or her needs and concerns and is fully engaged during staff interactions. Client is known to [facility]. Client's legal name is Chapo, preferred name is Elsa. Client is a transgender male to female. Client presented to the ED on 03/12/22 for chief complaint on SI/Depression. Client reports since being discharged from the [facility] on 03/10 (per client's request) she has experienced ongoing fear of her suicidal thoughts. On 03/10, client requested to be discharged from [facility] earlier than original anticipated discharge date of 03/14/22. Client reports to [facility] staff on 03/10 per [facility] Long Rodgers note, This client reported she felt ready to return to the community. She was able to identify several connections to life and reported being able to reflect helped them realize they do want to be alive. It is worth noting that the client did state her SI and overall mental status was intensified by being at the [facility], she stated she felt it was due to being in an unfamiliar environment. Client reports she is not actively suicidal or homicidal. SP put into place on 03/10 was for client to check in with ES daily via phone over the weekend. Client reports once returning home, she felt okay for a total of 2 hrs. Client reports being around her family (who she resides with) is a stressor for her. Client reports her parents are not respectful of her preferred pronouns, and it really gets to me. Client reports currently endorsing SI. Client identified multiple plans with intent if she were to leave the ED today. Client described her current mood at really depressed. Elsa has been in care bed, or psychiatric stabilization since 03/07/22. Discharged from [facility] yesterday, presented to [facility] ED same day. Safety plan has been established with patient, and care team, to adhere to patient goals, identify restrictions based on behavioral status, address nutrition, and determine allowed personal belongings, tools for hygiene and personal care. Determine level of activity including ambulation, level of sup ervision, visitors, and determine privileges based on behaviors and level of engagement by pt. SAFETY PLAN: 1. Will remain on suicide precautions. In Paper Clothes 2. Will remain in room under direct supervision of one-on-one staff at all times provided by [employer]; DIEGO, GLUELINE WORKER respiratory therapist. 3. May have paper cups, plates, finger foods as well as a cardboard spoon with which to eat meals. 4. Follow [facility] Management of the Admitted Behavioral Health Patient policy. 5. Comfort bath system only, shower permitted with escort at RN discretion. 6. No personal belongings-soft items permitted at RN discretion. 7. Visitors-none at this time. 8. Activities: soft cart items approved per RN discretion. 9. Bathroom privileges with escort in the ED, available in room without limitation on M/S. 10. Phone: contact limited to family at this time, via cordless phone at RN discretion. 11. Due to VOLUNTARY status, if patient wishes to leave [facility], staff will contact [facility] Crisis Screener ([phone]) and On-Call Customer Pricing Manager ([phone]) as soon as possible. In the event of elopement, notify [facility] Police ([phone]). Patient is currently voluntarily at [facility] and seeking inpatient admission when a bed becomes available. [facility] Frontline Typing Section Chief will continue seeking placement. Please contact the Facility Service Associate Customer Pricing Manager ([phone]) and [facility] Typing Section Chief ([phone]) for any needed changes in the Safety Plan. Safety plan has been provided to interdepartmental care team.
--- NOTE | 2022-03-22 11:17 | PDOC.MHCN_ITS ---
Date of service: 03/22/22 Time of Service: 10:14 PHQ-9 Over the last 2 weeks, how often have you been bothered by any of the following problems? 1. Little interest or pleasure in doing things: nearly every day 2. Feeling down, depressed, or hopeless: nearly every day 3. Trouble falling or staying asleep, or sleeping too much: more than half the days 4. Feeling tired or having little energy: nearly every day 5. Poor appetite or overeating: nearly every day 6. Feeling bad about yourself - or that you are a failure or have let yourself and your family down: nearly every day 7. Trouble concentrating on things, such as reading the newspaper or watching television: nearly every day 8. Moving or speaking so slowly that other people could have noticed? - Or the opposite - being so fidgety or restless that you have been moving around a lot more than usual: nearly every day 9. Thoughts that you would be better off or of hurting yourself in some way: nearly every day Total score: 26 Source: Developed by Drs. Pj Woodard, Ariana Mitchell, Rolando Rowley and colleagues, with an educational blair from [employer]. Suicide Severity Rate CSSRS Have you wished you were or wished you could go to sleep and not wake up?: Yes Have you actually had any thoughts of killing yourself?: Yes CSSRS2 Have you been thinking about how you might do this?: Yes Have you had these thoughts and had some intention of acting on them?: Yes Have you started to work out or worked out the details of how to kill yourself? Do you intend to carry out this plan?: Yes CSSRS3 Have you ever done anything, started to do anything or prepared to do anything to end your life?: Yes CSSRS4 Was this within the past three months?: Yes Screening Score Total Score: 8 Screening: Positive Mental Health Emergency Note Release [facility] release signed:: Yes Reason for Visit Client presented to [facility] ED on 03/21 with chief complaint of SI/Depression. Client was just recently discharged from on 03/21. Client reports she left IP tx before she was ready to do so and is requesting to return to tx. In the last 2 weeks has the pt presented for ES prior to today?: Yes, presented at (Client presented to [facility] ED on the evening of 03/12/22 for same chief compliant of SI/Depression. ) Client Information Client is: Adult Outpatient ([facility]) Well Housed: Yes Non Suicidal Self Injury Current: Yes, Client reports engaging in self-cutting on 03/21 prior to coming to the ED. Client reports she cut her wrist/arm by forming a blade out of tinfoil. Client showed this automatic typewriter inspector her wrist, there were multiple superficial cuts present on her wrist. History: yes, Client reports past hx. of engaging in NSSIB's of self-cutting. Safety Risk/Harm to Self or Others Current Ideation to Harm Self or Others: Yes to self. (Client reports currently endorsing SI. Client reports having multiple plans to by suicide, such as: crashing his car and cutting her wrist with the intention to .) Intent: yes, has intent. Plan: yes,has a plan. History of suicide attempt: yes,history of suicide attempt reported. Details of previous suicide attempt: Client reports taking 15 pills of melatonin in the month of February (date was not disclosed to this automatic typewriter inspector) with the intention to by suicide. Risk: Does risk to harm exist?: yes. Access to means: Yes. Types of Means: Medication. Details: Client reports access to sharps are locked, her 15/16 pocketknives are somewhere only her dad knows. However, states, I will find something else, whatever I can find, if I go home I 100% will kill myself. . Counseling provided: Yes Asssessment/Mental Status Appearance: Disheveled Attitude: Cooperative Behavior: Unremarkable Speech: Normal Affect: Flat and Cogruent with mood Mood: Sad, Depressed and Anxious Thought process: Unremarkable Hallucinations: No evidence Delusions: No evidence Attention: Unremarkable Perception: Not impaired Orientation: Fully orientated Memory: Intact Insight: Excellent Judgement: Good Neurovegetative Symptoms Sleep: Decrease (Client reports her sleep habbits last night, were not the greatest, I only got about 5 hrs of sleep due to not being able to get comfortable. ) Appetitie: Decrease (Client reports since returning home, her mother made her favorite meal for her and she was unable to eat due to lack of appetite.) Interests: Decrease (Client reports lack of intrest in completeing tasks such as: eating as well driving. Client reports in the past, when she felt overwhelmed she would take a ride to clear her mind. Recently client reports fleeting thoughts of crashing her car when driving which has prevented her from doing so.) Energy: Decrease Libido: Not applicable Substance Use: Drug Issues: Other (Client reports consuming cannabis on a monthy basis. The amount of THC consumed by client at a time was not disclosed. ) Do you use nicotine?: No Have you used substances in the last 7 days?: No Impression Client is known to [facility]. Client is a male transitioning to female. Client's preferred pronouns are she/her and preferred name is Elsa. Client is a 36 y.o. who resides with her adoptive parents and child. Client reports her adoptive parents have custody of her minor child. Client reports her home life is a stressor for her. Client reports her adoptive parents are not respectful in identifying her by her preferred pronouns. Client reports she was discharged by on 03/21. Client reports she returned home for treatment for a brief period of time and then began feeling anxious. Client reports she removed herself for the environment due to not feeling she could keep herself safe and began having intrusive thoughts of SI. Client reports she left the family home and attempted to go shopping. Client reports while driving she was having thoughts of crashing her car with the intention to by suicide. Client reports intstead of going to the store, she drove herself to the ED instead due to the fear of not being able to keep herself safe. Client rated herself a 10, on a self rated scale of 0 being not at all to 10 being 100%, how likely she felt she would be to act on her thoughts of SI if she were to leave the ED today. Client identified plan/intent, that at this time was not able to be d isabled. Client reports if discharged from the hospital she would engage in self-cutting. Client reports, I would find anything I could to kill myself, my plan would be to cut my wrists until I bleed out and . Client reports, I know if I return home today, 100% I will do anything to kill myself. This automatic typewriter inspector had conversation with client regarding truck terminal manager options pertaining to current living situation. Client reports her current home life is an ongoing trigger for her. This automatic typewriter inspector explained to client, if placement for IP TX is secured for client, their housing situation would remain the same upon discharge from placement. This automatic typewriter inspector encouraged client, a more secured housing plan upon discharge is necessary, Client reports she understood and feels she left treatment yesterday before she was ready to do so. Client reports, She felt she was ready to leave but clearly I am not. It should be noted client reports during the entirety of the screening she was distracted and having a hard time answering questions just due to wanting to by suicide. It is this automatic typewriter inspector's clinical opinion client meets criteria for IP tx at this time based on client's need for stabilization, reduction in SI, and development of coping skills. Plan/Disposition Recommended Disposition: Hospitalization (IP tx for MH) facilities contacted. Plan: Client is currently seeking voluntary placement. Client is to wait in ED until placement for IP Tx is secured. Person reported agreement to plan: Yes Facilities contacted if Applicable [facility] (Referral will be sent) Not accepted, (Pending Review ) Other (Pending Review) [facility] (Referral will be sent) Not accepted, (Pending Review) Other (Pending Review)[facility] (Referral will be sent) Not accepted, (Pending Review ) Other (Pending Review ) Reports/communication Outcome discussed with: ED/Personnel (Attending MD Dr. Perez )
--- NOTE | 2022-03-22 15:16 | PDOC.ERCMPRO ---
- If Service Date Differs Date of service: 03/22/22 Time of Service: 15:16 Care Management Progress Note S/O: Elsa is sitting on the bed when CM comes to meet with her. She is pleasant and openly engages in conversation but makes no eye contact and appears anxious. She shares she discharged from [facility] yesterday and on her way home, she began having suicidal thoughts again. She lives with her parents and says the situation at home is stressful and she needs to find a different place to live. She reports two recent suicide attempts (melatonin overdose and cutting) and says she will definitely kill herself if she returns home. Elsa sees Gonzalo Martin aprn, for medication management and Danile Zapata, for individual therapy. A: Elsa presents at [facility] on 03/21/22 seeking a voluntary psychiatric placement. P: Elsa is assessed by [facility] crisis screener, and is found to meet criteria for a voluntary psychiatric hospitalization. Referrals are faxed to [facility], [facility] and [facility] for review. Elsa will remain at [facility] voluntarily and will be reassessed daily by [facility] until a psych bed is secured for her. CM will continue to follow. - MH Services (Omit if N/A) Current MH Services: [facility] - Status Status: Voluntary - Reason for Wait Reason for Wait: Inpatient Admission
[2022-03-22] MEDS: QUEtiapine 25 MG TAB PO (23:15)
--- NOTE | 2022-03-23 02:11 | W.PM.HP.N ---
Date of service: 03/23/22 Time of Service: 02:11 Assessment and Plan Assessment and plan (1) Major depression: Status: Chronic Assessment and plan: Continuing quetiapine, sertraline (2) Suicidal ideation: Status: Acute Assessment and plan: Mental health already involved, plan for voluntary admission History of Present Illness Narrative: This is a 36 yo who identifies as she/her (Elsa) who was being admitted to observation for depression and suicidal ideation. She was recently discharged from [facility] and on her way back she felt panic and concern that she would hurt herself again. She was boarding in the ED awaiting voluntary psych admission. She remained stable throughout the day and night and it was requested for med surg admission to help with boarding census in the ED. The patient has needed no intervention since presentation to the ED. Mental health has already seen her and facilities have been contacted to find a room for her. She is medically stable at this time and not requiring any intervention currently. Review of Systems All systems reviewed & are unremarkable except as noted in HPI and below PFSH All Active Problems (Updated 03/22/22 @ 07:46 by Tung Perez MD) Depression (Chronic) Major depression (Chronic) Suicidal ideation (Acute) Medical History Anxiety with depression Developmental delay, mild Dyspraxia Gout Hyperlipidemia Hyperuricemia Nonspecific paroxysmal spell Obesity Suicidal thoughts Transgender Type 2 diabetes mellitus Social History Smoking/Tobacco Use Status: Former Tobacco Use Smoking risk assessment performed?: Yes Alcohol Intake: never Drug use: Occasionally Substance use type: marijuana Details: maybe once a month Do you feel safe at home: Yes (mentally no physically yes) Do you feel safe in your relationship?: Yes Meds Allergies and Home Medications Allergies Allergy/AdvReac Type Severity Reaction Status Date / Time strawberry AdvReac Verified 03/12/22 21:03 Home Medications Medication Instructions Recorded Confirmed Type allopurinol 100 mg tablet 200 mg PO DAILY 02/07/20 03/21/22 History (Zyloprim) estradiol 2 mg tablet 2 mg PO BID 02/20/22 03/21/22 History levothyroxine 137 mcg capsule 137 mcg PO DAILY 12/12/22 01/10/23 History sertraline 100 mg tablet 100 mg PO DAILY 02/20/22 03/21/22 History spironolactone 50 mg tablet 50 mg PO BID 02/20/22 03/21/22 History quetiapine 25 mg tablet 25 tab PO HS 03/12/22 03/21/22 History Exam Narrative Exam Narrative: Gen: NAD, normal respiratory effort, well-nourished HENT: PERRL, nasal turbinates normal without erythema or inflammation, moist oral mucosa, Mallampati 2, No LAD or JVD Chest: No respiratory distress, normal appearance of chest, clear to auscultation bilaterally, no crackles or wheezes, normal inspiratory effort Heart: regular rate and rhythym, no murmurs, rubs or gallops Abdomen: Non-distended, soft, non tender Extremities: No clubbing, edema, cyanosis, rashes Neuro: AAOx3 , non focal Psych: cooperative, appropriate mental affect Results Labs Result diagrams: 03/21/22 22:00 03/21/22 22:00 Last Vital Signs Temp 36.7 C 03/21/22 21:34 Pulse 119 H 03/21/22 21:34 Resp 24 03/21/22 21:34 BP 128/79 03/21/22 21:34 Pulse Ox 98 03/21/22 21:34 Time Spent Time spent with Patient: <40 minutes Time was spent: preparing to see the patient(eg.review tests), obtaining and/or reviewing separately otained hiistory, indepentently interpreting results and care coordination
[2022-03-23] MEDS: QUEtiapine 25 MG TAB PO (03:27)
[2022-03-23 08:45] VITALS: BP 97/68; PULSE 76; RESP 15; TEMP 36.3; O2SAT 98
--- NOTE | 2022-03-23 09:52 | PDOC.CMSAFE ---
- If Service Date Differs Date of service: 03/23/22 Time of Service: 09:52 Care Management Safety Plan Status: Voluntary - Reason for Wait Reason for Wait: Inpatient Admission VOLUNTARY FOR INPATIENT PSYCHIATRIC STABILIZATION. Patient is appropriate in all interactions since arriving at [facility]; Pt has demonstrated appropriate coping and communication skills, has articulated his or her needs and concerns and is fully engaged during staff interactions. Client is known to [facility]. Client's legal name is Chapo, preferred name is Elsa. Client is a transgender male to female. Client presented to the ED on 03/12/22 for chief complaint on SI/Depression. Client reports since being discharged from the [facility] on 03/10 (per client's request) she has experienced ongoing fear of her suicidal thoughts. On 03/10, client requested to be discharged from [facility] earlier than original anticipated discharge date of 03/14/22. Client reports to [facility] staff on 03/10 per [facility] Long Rodgers note, This client reported she felt ready to return to the community. She was able to identify several connections to life and reported being able to reflect helped them realize they do want to be alive. It is worth noting that the client did state her SI and overall mental status was intensified by being at the [facility], she stated she felt it was due to being in an unfamiliar environment. Client reports she is not actively suicidal or homicidal. SP put into place on 03/10 was for client to check in with ES daily via phone over the weekend. Client reports once returning home, she felt okay for a total of 2 hrs. Client reports being around her family (who she resides with) is a stressor for her. Client reports her parents are not respectful of her preferred pronouns, and it really gets to me. Client reports currently endorsing SI. Client identified multiple plans with intent if she were to leave the ED today. Client described her current mood at really depressed. Elsa has been in care bed, or psychiatric stabilization since 03/07/22. Discharged from [facility] 03/21/22, presented to [facility] ED same day. Safety plan has been established with patient, and care team, to adhere to patient goals, identify restrictions based on behavioral status, address nutrition, and determine allowed personal belongings, tools for hygiene and personal care. Determine level of activity including ambulation, level of supervision, visitors, and determine privileges based on behaviors and level of engagement by pt. SAFETY PLAN: 1. Will remain on suicide precautions. In Paper Clothes 2. Will remain in room under direct supervision of one-on-one staff at all times provided by [employer]; DIEGO, PATENT PROSECUTION PARALEGAL solution make up operator. 3. May have paper cups, plates, finger foods as well as a cardboard spoon with which to eat meals. 4. Follow [facility] Management of the Admitted Behavioral Health Patient policy. 5. Comfort bath system only, shower permitted with escort at RN discretion. 6. No personal belongings-soft items permitted at RN discretion. 7. Visitors-none at this time. 8. Activities: soft cart items approved per RN discretion. 9. Bathroom privileges with escort in the ED, available in room without limitation on M/S. 10. Phone: contact limited to family at this time, via cordless phone at RN discretion. 11. Due to VOLUNTARY status, if patient wishes to leave [facility], staff will contact [facility] Crisis Screener ([phone]) and On-Call Instructor Warper ([phone]) as soon as possible. In the event of elopement, notify [facility] Police ([phone]). Patient is currently voluntarily at [facility] and seeking inpatient admission when a bed becomes available. [facility] Frontline Retanner will continue seeking placement. Please contact the Manager Inventory Instructor Warper ([phone]) and [facility] Retanner ([phone]) for any needed changes in the Safety Plan. Safety plan has been provided to interdepartmental care team.
--- NOTE | 2022-03-23 09:53 | CMPROGNOTE_ITS ---
- If Service Date Differs Date of service: 03/23/22 Time of Service: 09:53 Care Management Progress Note S/O: Elsa met with [facility] screener shortly after admitting to the [facility] floor, and a safety plan to home was established. A: 36 ear old who identifies as she/her (Elsa) who was being admitted to observation for depression and suicidal ideation. P: Elsa is voluntarily admitted to [facility] while awaiting placement for inpatient treatment at an accepting facility. Referral Status/Per [facility]: [facility] (Referral will be sent) Not accepted, (Pending Review ) Other (Pending Review) [facility] (Referral will be sent) Not accepted, (Pending Review) Other (Pending Review), [facility] (Referral will be sent) Not accepted, (Pending Review ) Other (Pending Review )
--- NOTE | 2022-03-23 09:53 | PDOC.CMPRO ---
- If Service Date Differs Date of service: 03/23/22 Time of Service: 09:53 Care Management Progress Note S/O: Elsa met with [facility] screener shortly after admitting to the MS floor, and a safety plan to home was established. A: 36 ear old who identifies as she/her (Elsa) who was being admitted to observation for depression and suicidal ideation. P: Elsa is voluntarily admitted to [facility] while awaiting placement for inpatient treatment at an accepting facility. Referral Status/Per [facility]: [facility] (Referral will be sent) Not accepted, (Pending Review ) Other (Pending Review) [facility] (Referral will be sent) Not accepted, (Pending Review) Other (Pending Review), [facility] (Referral will be sent) Not accepted, (Pending Review ) Other (Pending Review )
[2022-03-23 10:44] VITALS: BP 97/68; PULSE 76; TEMP 36.3; O2SAT 98
[2022-03-23] MEDS: Spironolactone 50 MG TAB PO (11:28)
[2022-03-23] MEDS: Allopurinol 100 MG TAB 200 MG PO (11:28)
[2022-03-23] MEDS: Sertraline 100 MG TAB PO (11:28)
--- NOTE | 2022-03-23 11:38 | MHPN_ITS ---
Date of service: 03/23/22 Time of Service: 10:09 Mental Health Emergency Note Release [facility] release signed:: Yes Reason for Visit Client presented to [facility] ED on 03/21/22 with chief complaint of increased anxiety/depression and suicidal ideations. Client was discharged from [facility] on 03/21/22 after a 7-day inpatient stay. Upon discharge from [facility] client reports that when he arrived home his anxiety increased and he had thoughts of wanting to drive his car off from the road, however, came to the hospital instead. Client is seen today for re-assessment via zoom at [facility] while seeking voluntary placement. In the last 2 weeks has the pt presented for ES prior to today?: Yes, presented at (Client presented on 03/13/22 for increased SI and was placed at [facility] voluntarily. ) [facility] ED Client Information Client is: Adult Outpatient Non Suicidal Self Injury Current: Yes, superficial cuts to forearms History: yes, superficial cuts to forearms Safety Risk/Harm to Self or Others Current Ideation to Harm Self or Others: No Risk: Does risk to harm exist?: No Duty to warn indicated: No Asssessment/Mental Status Appearance: Disheveled Attitude: Guarded Behavior: Unremarkable Speech: Soft and Slow Affect: Flat and Cogruent with mood Mood: Depressed and Anxious Thought process: Unremarkable Hallucinations: No Delusions: No Attention: Poor concentration Perception: Not impaired Orientation: Fully orientated Memory: Intact Insight: Fair Judgement: Fair Neurovegetative Symptoms Sleep: Decrease (Client reports getting about 5 hours of sleep last night. ) Appetitie: No change Interests: No change Energy: No change Libido: Not applicable Substance Use: Do you use nicotine?: No Have you used substances in the last 7 days?: No Additional Issues: Assaultive/Threatening Behavior: No Medical Concerns: No Client engaged in active self harm w/weapon: No Threatening to run away: No Child reported abuse/neglect: No Voluntarily presenting for services: Yes Domestic violence is a concern: No Extreme Psychosis or extreme behavior is present: No Impression Client is known to [facility]. Client is a male transitioning to female. Client's preferred pronouns are she/her and preferred name is Elsa. Client is a 36 y.o. who resides with her adoptive parents and children in [place], [place]. Client is seen this morning via zoom while at [facility] for re- assessment. Client presents with symptoms most congruent with major depressive disorder mixed with anxiety, as evidenced by poor eye contact, decrease of interest in doing things that used to bring them gini, and increase in anxiety. Client reports to this journalists and other writers that since she was discharged from placement she has noticed an increase in anxiety and reports that home is a trigger for her. When this journalists and other writers asks client why home is a trigger she reports: my parents do not use my proper pronouns and it really bothers me. This journalists and other writers asks client how going to treatment is going to solve the home environment and they stated: I don't know. Alternatives to returning to current living situation was explored with client, however client states that they do not have any other places that they could go even for a short stay. It is this journalists and other writers professional opinion that client does not meet criteria for inpatient hospitalization at this time based on current observations, client being denied at inpatient hospital, and client not being able to problem solve with this journalists and other writers alternatives or partake in their discharge plan. Resources Reosurces reviewed and given:: [phone] and [facility] (Check-in phone calls daily at 10a through 03/27/22.) Plan/Disposition Recommended Disposition: [facility] Services (Check-in phone call at 4p today and at 10a until 03/27/22. ) [facility] Services: Other (Check-in phone calls and DBT group). Plan: Upon conversation with [facility] ES team and clinical pharmaceutical compounding supervisor Alpesh Polo client will be safety planned back home. This journalists and other writers develops pro-active safety plan with client which is as follows: Check-in phone calls with [facility] ES today at 4p and at 10a through 03/27. Access to means has been restricted per this writers conversation with clients father Chau briones has locked up all sharps and will administer clients medications.?Client also agrees to crisis bed referral which will be completed by [facility]. Person reported agreement to plan: Yes Reports/communication Outcome discussed with: ED/Personnel (Verbal passover given to [facility] managed care specialist Ifeoma Carrera)
--- NOTE | 2022-03-23 11:38 | PDOC.CMDIS ---
- If Service Date Differs Date of service: 03/23/22 Time of Service: 11:38 LACE Index Scoring Tool - Questions: Length of Stay (in days): 2 Acuity (Admit via E.D.?): Yes E.D. Visits: 6 - Answers: Total Score: 9 Risk of Readmission: Low Risk Care Management Discharge Reason for Hospitalization: Depression with SI Discharge Plan: Safety plan is established with [facility] video game animator. Hospitalist requested a second video game animator evaluation prior to discharge. Elsa is discharged to parents home via private vehicle with father. [facility] will follow up with pt, per safety plan. Patient/Family Education Needs: Review discharge instructions, limitations, medications and plan to follow up with community providers. Discuss ask me three and goals of self care. - MH Services (Omit if N/A) Current MH Services: [facility] (Safety Plan is Established with [facility] Fish [employer]orter.)
[2022-03-23] MEDS: hydrOXYzine HCL 25 MG TAB 50 MG PO (13:05)
--- NOTE | 2022-03-23 14:50 | W.PM.DS.N ---
Date of service: 03/23/22 Time of Service: 14:53 DS: Diagnosis Discharge Diagnosis (1) Major depression: Status: Chronic (2) Suicidal ideation: Status: Acute Discharge Plan Disposition Patient Disposition: Home Condition: Stable Discharge Details Reason For Visit: Depression with Suicidal Ideation Admit Date/Time: 03/23/22 01:52 Admit Provider: Itzel Carter Attending Provider: Itzel Carter Primary Care Provider: Dao Howell Hospital Course Hospital Course: This is a 36 yo who identifies as she/her (Elsa) who was admitted to observation for depression and suicidal ideation. She was recently discharged from [facility] and on her way back she felt panic and concern that she would hurt herself again. She was boarding in the ED awaiting voluntary psych admission. She remained stable throughout the day and night and it was requested for med surg admission to help with boarding census in the ED. The patient has needed no intervention since presentation to the ED. Mental health has already seen her and facilities have been contacted to find a room for her. While on med/surg no behavioral issues, she was medicated with hydroxyzine for some mild anxiety. She was re-screened by mental health and now agreeable to a discharge plan to home. She has remained medically stable at this time and not requiring any intervention currently. she has safety planned with mental health for a discharge to home with close outpatient follow up. she will contact and self refer to community care beds if needed. Discussed with DR Davidson Home Meds and New Rx's Prescriptions: Continued sertraline 100 mg tablet 100 mg PO DAILY levothyroxine 137 mcg capsule 137 mcg PO DAILY spironolactone 50 mg tablet 50 mg PO BID estradiol 2 mg tablet 2 mg PO BID quetiapine 25 mg tablet 25 tab PO HS Rx Instructions: pt states 25mg in AM and 50mg in PM allopurinol [Zyloprim] 100 mg tablet 200 mg PO DAILY Label Comments: TAKE TWO TABLETS BY MOUTH EVERY DAY Discharge Instructions Instructions: Depression (DC), Help Prevent Suicide (DC) Stand Alone Forms: Nursing Discharge Form Referrals: Dao Howell MD [Primary Care Provider] - 03/29/22 3:20 pm ( Please keep your appointment with Dr. Caterina Howell ) Activity:: Activity as Tolerated Equipment/Supplies:: No Equipment Needed Diet:: As Tolerated Discharge Orders Discharge Orders: Discharge Order (Routine); Ordered 03/23/22 Ordered By: Modesta Negron Discharge Data Discharge Date/Time-TO BE ENTERED AT DEPARTURE: 03/23/22 16:19 DS: Summary Time Spent with Patient providing and/or coordinating discharge services: Less than 30 minutes Status at Discharge Functional status at discharge: independent ambulation Overall status at discharge: patient is back to baseline Mental Status: other (withdrawn) Speech and Movement: slowed movement Mood: other (withdrawn) Affect: blunted Exam Const General: disheveled Nutritional Appearance: average body habitus Orientation: alert, awake and oriented x3 HENMT Head: normocephalic and atraumatic Mouth: oral mucosae normal Resp Effort & Inspection: normal respiratory effort Auscultation: clear to auscultation bilaterally Cardio Rate: regular rate Rhythm: regular rhythm Skin General skin exam: no rashes or lesions noted Neuro General: patient alert, patient awake, patient oriented x3 and no focal motor deficits Extrem General: normal to inspection and full ROM Psych Appearance: disheveled Mental Status: other (withdrawn) Speech and Movement: slowed movement Mood: other (withdrawn) Affect: blunted Attitude: cooperative and avoids eye contact Insight: poor Judgment: poor DS: Data Vitals/I&O Vitals and I&O: Vital Signs Temperature 36.3 C L 03/23/22 10:44 Temperature Source Tympanic 03/23/22 10:44 Pulse 76 03/23/22 10:44 Pulse Rhythm Regular 03/23/22 08:45 Respiratory Rate 15 03/23/22 08:45 Respiratory Effort Non-Labored 03/23/22 08:45 Respiratory Depth Normal 03/23/22 08:45 Respiratory Pattern Normal 03/23/22 08:45 Blood Pressure 97/68 L 03/23/22 10:44 Blood Pressure Position Sitting 03/21/22 21:34 Pulse Oximetry 98 03/23/22 10:44 Oxygen Delivery Method Room Air 03/23/22 10:44 Oxygen Flow Rate 0 03/23/22 10:44 Pain Level 0 03/21/22 21:34 Intake & Output 03/22/22 03/23/22 03/23/22 23:59 11:59 23:59 Other: Urine Appearance Clear PFSH All Active Problems (Updated 03/22/22 @ 07:46 by Tung Perez MD) Depression (Chronic) Major depression (Chronic) Suicidal ideation (Acute) Medical History Anxiety with depression Developmental delay, mild Dyspraxia Gout Hyperlipidemia Hyperuricemia Nonspecific paroxysmal spell Obesity Suicidal thoughts Transgender Type 2 diabetes mellitus Social History Smoking/Tobacco Use Status: Former Tobacco Use Smoking risk assessment performed?: Yes Alcohol Intake: never Drug use: Occasionally Substance use type: marijuana Details: maybe once a month Do you feel safe at home: Yes (mentally no physically yes) Do you feel safe in your relationship?: Yes Time Spent with Patient Time Spent with Patient: <45 minutes Time was spent: counseling the patient and care coordination
--- NOTE | 2022-03-23 15:19 | NUR.NOTE ---
Nursing Note: 12:00 Request from CPSO to see patient. She had heard patient state that patient that she now had intention to harm herself. I went to the area. First observation, patient had refused her lunch. Second observation from the doorway to patient's room. Patient was laying in a left lateral recumbent position, Patient's head was turned down towards the bedding in a manner that this scribe was unable to see if patients eyes were open or closed. Scribe knocked and asked for permission to enter. This was granted by the patient. I asked the patient what had changed since we had last spoken. All she woul say is that she now had suicide ideation. She stated that if she were released, she would go home and either overdose on medication, or cut herself. she further told me she tried to cut herself with the drinking straw I gave patient for the drink at [employer]. A very faint scratch was noted on the left hand. My next question was would she remain safe while here. She told me she would try, but would offer no guarantee. I reminded her that are mission was to keep her safe, and her cooperation would be appreciated. She had no further comment. and rolled to the side on the stretcher. This nurse instructed the CPSO to keep a strong watch on the individual. This nurse proceeded to advise the charge nurse, provider , and CM of the developments. all parties were made aware. Patient will be closely monitored for safety
--- NOTE | 2022-03-23 15:32 | NUR.NOTE ---
Nursing Note: Communicated concern with Process Mechanic Angelina Sousa RN and Modesta Negron APRN that pt has verbalized today that if she goes home she will do anything possible to kill herself. They explained that has screened the pt three times, the last time being in person by Reanna. They cleared the pt to go home on a safety plan. States the pt can self refer to a care bed for when one becomes available. Awaiting father to pick pt up.
--- NOTE | 2022-03-24 09:55 | PDOC.MHPN2 ---
Date of service: 03/23/22 Time of Service: 09:55 PHQ-9 Over the last 2 weeks, how often have you been bothered by any of the following problems? 1. Little interest or pleasure in doing things: nearly every day 2. Feeling down, depressed, or hopeless: nearly every day 3. Trouble falling or staying asleep, or sleeping too much: more than half the days 4. Feeling tired or having little energy: nearly every day 5. Poor appetite or overeating: nearly every day 6. Feeling bad about yourself - or that you are a failure or have let yourself and your family down: nearly every day 7. Trouble concentrating on things, such as reading the newspaper or watching television: nearly every day 8. Moving or speaking so slowly that other people could have noticed? - Or the opposite - being so fidgety or restless that you have been moving around a lot more than usual: nearly every day 9. Thoughts that you would be better off or of hurting yourself in some way: nearly every day Total score: 26 Source: Developed by Drs. Pj Woodard, Ariana Mitchell, Rolando Rowley and colleagues, with an educational blair from [employer]. Suicide Severity Rate CSSRS Have you wished you were or wished you could go to sleep and not wake up?: Yes Have you actually had any thoughts of killing yourself?: Yes CSSRS2 Have you been thinking about how you might do this?: Yes Have you had these thoughts and had some intention of acting on them?: Yes Have you started to work out or worked out the details of how to kill yourself? Do you intend to carry out this plan?: Yes CSSRS3 Have you ever done anything, started to do anything or prepared to do anything to end your life?: Yes CSSRS4 Was this within the past three months?: Yes Screening Score Total Score: 8 Screening: Positive Mental Health Emergency Note Release [facility] release signed:: Yes Reason for Visit Client was screened earlier by [facility] and was safety planned home however, when the provider went to discuss this with the client he endorsed continued SI and shared that he had scratched the top layer of his left wrist with a plastic straw. A new face to face assessment was requested. In the last 2 weeks has the pt presented for ES prior to today?: Yes, presented at [facility] ED Client Information Client is: Adult Outpatient Well Housed: Yes Non Suicidal Self Injury Current: Yes, scratched top layer of left wrist with a plastic straw to feel pain History: yes, Client reported she cut her self while in treatment at the [facility]. Safety Risk/Harm to Self or Others Current Ideation to Harm Self or Others: Yes to self. Intent: yes, has intent. Plan: yes,has a plan. History of suicide attempt: No history of suicide attempt reported Risk: Does risk to harm exist?: yes. Risk: Moderate Risk Duty to warn indicated: No Asssessment/Mental Status Appearance: Disheveled Attitude: Guarded Behavior: Unremarkable Speech: Soft and Slow Affect: Flat and Cogruent with mood Mood: Depressed and Anxious Thought process: Poverty of content Hallucinations: No Delusions: No Attention: Unremarkable Perception: Not impaired Orientation: Fully orientated Memory: Intact Insight: Poor Judgement: Poor Neurovegetative Symptoms Sleep: No change Appetitie: Decrease Interests: Decrease Energy: Decrease Libido: Not applicable Substance Use: Do you use nicotine?: No Have you used substances in the last 7 days?: No Additional Issues: Assaultive/Threatening Behavior: No Medical Concerns: No Client engaged in active self harm w/weapon: No Threatening to run away: No Child reported abuse/neglect: No Voluntarily presenting for services: Yes Domestic violence is a concern: No Extreme Psychosis or extreme behavior is present: Yes Impression Client is a 36 y/o single transgender female that identifies with the name of Elsa. Client lives in [place], [place] with their parents and is currently disabled and receives SSI.? She is observed lying in bed facing the wall and rolls over once this clinician enters the room to meet. She has the blankets pulled up to her chin and her hair is tousled around her face. She does not make any eye contact and presents with an [place] presentation. She makes statements like she is suicidal because she does not want to go home because her parents do not use her proper pronouns or her preferred name. She wants to go to a hospital however, cannot identify what she would get from a hospital that she did not already just get during her recent stay. She was discharged from [facility] on 1.9 after a 7 day program and went straight to [facility] seeking inpatient again. We discussed that she has been declined by all possible hospitals and so hospitalization is not an option at this time. A conversation was attempted to problem solve where she could go even if temporarily until she could find housing or we can find placement. Client again, could not give any solutions. This clinician followed up with [facility]'s recommendation for a crisis bed referral and client agreed however, did not want to go to [facility]ARE Bed. Resources Reosurces reviewed and given:: Crisis Bed and [facility] Plan/Disposition Recommended Disposition: Crisis bed, facility contacted. Status of Crisis Bed acceptance: Pending review and Therapy. Plan: Client was given numbers to [facility] and [facility] both of which are per run and have to self referred so she could call prior to her being discharged home. Collateral was had with the client's therapist and a message was left on the client's voicemail that he has an appointment at 11 am with Taisha in person. Person reported agreement to plan: Yes Reports/communication Outcome discussed with: ED/Personnel
== END 2022-03-23 16:19 | disposition home or self-care (01) ==
LOC: ER 03-23 09:05 → MS 03-23 09:20
PROVIDERS: Student in an Organized Health Care Education/Training Program; Admitting Provider Student in an Organized Health Care Education/Training Program; Emergency Provider Physician Assistant; PCP Family Medicine; Visit Provider Student in an Organized Health Care Education/Training Program
DX: F32.9 Major depressive disorder, single episode, unspecified (principal); R45.851 Suicidal ideations; F64.9 Gender identity disorder, unspecified; Z79.899 Other long term (current) drug therapy; F41.8 Other specified anxiety disorders; R27.8 Other lack of coordination; M10.9 Gout, unspecified; E78.5 Hyperlipidemia, unspecified; E11.9 Type 2 diabetes mellitus without complications; F12.90 Cannabis use, unspecified, uncomplicated; Z20.822 Contact with and (suspected) exposure to COVID-19
CPT/HCPCS: 80053; 80307; 87635; 99285; 80320; 80329; 84439; 84443; 85025; 99223; 99238; G0378

== ENCOUNTER 2022-03-26 01:35 | Emergency (ER) | payer MEDICARE, MEDICAID, SELFPAY ==
[2022-03-26 01:37] VITALS: BP 139/92; PULSE 102; RESP 16; TEMP 36.5; O2SAT 99
--- NOTE | 2022-03-26 01:51 | W.ED.GENAD ---
Discharge Plan Discharge Details Chief Complaint: Suicide-Atempt Clinical Impression: Suicidal ideation Primary Care Provider: Dao Howell ED Provider: Evan Najera Home Meds and New Rx's Prescriptions: No Action sertraline 100 mg tablet 100 mg PO DAILY levothyroxine 137 mcg capsule 137 mcg PO DAILY spironolactone 50 mg tablet 50 mg PO BID estradiol 2 mg tablet 2 mg PO BID quetiapine 25 mg tablet 25 tab PO HS Rx Instructions: pt states 25mg in AM and 50mg in PM Medical Decision Making This is a 36-year-old male who identifies as female/Lesa.? She presents today for evaluation of depression and suicidal ideation.? Patient states that she recently was discharged from [facility] yesterday, and felt notably anxious this evening and wanted to kill herself by cutting her wrist with metal objects. All sharp objects were taken away from the home and so she had to use a piece of metal..? She previously hurt her self by cutting her wrist with a metal piece from the inside of a mask.? Prior to this she was recently discharged from [facility]. Patient then came to the ER for further assessment.? She denies any homicidal ideations.? She denies any auditory or visual hallucinations.? No other complaints at this time.? No other modifying factors. Patient demonstrates small abrasions noted on left forearm. No other abnormalities. We will have mental health come and evaluate the patient. We will monitor closely and reassess. 7:34 AM Mental health has seen and evaluated the patient. They will be looking for placement for the patient's voluntary placement. Patient will be signed out to my colleague Dr. Derik Taylor for follow-up on disposition. HPI General Date/Time Provider Initiated Documentation: 03/26/22 01:42. HPI Narrative: This is a 36-year-old male who identifies as female/Elsa.? She presents today for evaluation of depression and suicidal ideation.? Patient states that she recently was discharged from [facility] yesterday, and felt notably anxious this evening and wanted to kill herself by cutting her wrist with metal objects. All sharp objects were taken away from the home and so she had to use a piece of metal..? She previously hurt her self by cutting her wrist with a metal piece from the inside of a mask.? Prior to this she was recently discharged from [facility]. Patient then came to the ER for further assessment.? She denies any homicidal ideations.? She denies any auditory or visual hallucinations.? No other complaints at this time.? No other modifying factors. Related Data Home Medications Medication Instructions Recorded Confirmed estradiol 2 mg tablet 2 mg PO BID 02/20/22 03/26/22 levothyroxine 137 mcg capsule 137 mcg PO DAILY 02/20/22 03/26/22 sertraline 100 mg tablet 100 mg PO DAILY 02/20/22 03/26/22 spironolactone 50 mg tablet 50 mg PO BID 02/20/22 03/26/22 quetiapine 25 mg tablet 25 tab PO HS 03/12/22 03/26/22 Allergies Allergy/AdvReac Type Severity Reaction Status Date / Time strawberry AdvReac Verified 03/12/22 21:03 General Stated Complaint: Suicide-Atempt SCOTT: 2 Review of Systems All systems reviewed & are unremarkable except as noted in HPI and below PFSH All Active Problems (Updated 03/26/22 @ 07:35 by Evan Najera DO) Depression (Chronic) Major depression (Chronic) Suicidal ideation (Acute) Medical History Anxiety with depression Developmental delay, mild Dyspraxia Gout Hyperlipidemia Hyperuricemia Nonspecific paroxysmal spell Obesity Suicidal thoughts Transgender Type 2 diabetes mellitus Social History Smoking/Tobacco Use Status: Former Tobacco Use Smoking risk assessment performed?: Yes Alcohol Intake: never Drug use: Occasionally Substance use type: marijuana Details: maybe once a month Do you feel safe at home: Yes (mentally no physically yes) Do you feel safe in your relationship?: Yes Exam Narrative Exam Narrative: 1.Const: Well-nourished, Well-developed, appearing stated age 2.Eyes: PERRL, no conjunctival injection, and symmetrical lids. 3.ENT: Atraumatic external nose and ears. Moist MM. Neck: Symmetric, trachea midline, No thyromegaly. 4.CVS: +S1/S2, No murmurs or gallops. Peripheral pulses 2+ and equal in all extremities. Brisk capillary refill in all extremities. 5.RESP: Unlabored respiratory effort. Clear to auscultation bilaterally. No wheezes rales or rhonchi 6.GI: Soft, Nontender/Nondistended, No hepatosplenomegaly. No guarding or rebound. 7.MSK: Normocephalic/Atraumatic, Extremities w/o deformity or ttp No cyanosis or clubbing, Normal movement of all extremities 8.Skin: Warm, Dry. No rashes or lesions. Superficial scratches noted on the left forearm. No lacerations 9.Neuro: quality assurance practice manager II-XII grossly intact. Sensation grossly intact, no focal neurologic deficits. 10.Psych: (AAO) x3. Appropriate mood and affect Course Vital Signs Vital signs: Vital Signs Temperature 36.5 C 03/26/22 01:37 Pulse 102 H 03/26/22 01:37 Respiratory Rate 16 03/26/22 01:37 Blood Pressure 139/92 H 03/26/22 01:37 Pulse Oximetry 99 03/26/22 01:37 Temperature 36.5 C 03/26/22 01:37 Temperature Source Oral 03/26/22 01:37 Pulse 102 H 03/26/22 01:37 Respiratory Rate 16 03/26/22 01:37 Respiratory Effort 03/26/22 01:42 Blood Pressure 139/92 H 03/26/22 01:37 Blood Pressure Position Sitting 03/26/22 01:37 Pulse Oximetry 99 03/26/22 01:37 Oxygen Delivery Method Room Air 03/26/22 01:37 Oxygen Flow Rate 0 03/26/22 01:37 Pain Level 10 03/26/22 01:37
[2022-03-26 02:02] LABS: Source Nasal/Nares
[2022-03-26 02:04] LABS: Abs Immature Grans 0.05 10^3/uL (0.0-0.06); Absolute Basophil Count 0.08 10^3/uL (0.0-0.2); Absolute Lymphocyte Count 4.25 10^3/uL (1.2-3.4); Absolute Monocyte Count 1.06 10^3/uL (0.1-0.8); Basophils % 0.6; Eosinophils % 1.9; HCT 41.6 % (40.0-50.0); HGB 13.4 g/dL (13.5-17.5); Immature Grans % 0.4; Lymphocytes % 30.4; MCH 28.3 pg (27.0-33.0); MCHC 32.2 % (32.0-36.0); MCV 88 fL (80-95); MPV 9.9 fL (8.0-11.0); Monocytes % 7.6; Neutrophils % 59.1; Platelet Count 342 10^3/uL (130-400); RBC 4.73 10^6/uL (4.36-5.78); RDW 12.2 % (11.8-14.1); WBC 13.98 10^3/uL (4.4-10.8)
[2022-03-26 02:06] LABS: Absolute Eosinophil Count 0.27 10^3/uL (0.0-0.7); Absolute Neutrophil Count 8.26 10^3/uL (1.2-6.7)
[2022-03-26 02:20] LABS: ALT 28 U/L (16-63); AST 20 U/L (15-37); Albumin 4.3 g/dL (3.4-5.0); Alkaline Phosphatase 88 U/L (46-116); Anion Gap 7.5 mmol/L (3-11); BUN 21 mg/dL (7-18); Bilirubin, Total 0.3 mg/dL (0.2-1.0); CO2 27.5 mmol/L (21.0-32.0); CREATININE 1.3 mg/dL (0.70-1.30); Chloride 101 mmol/L (98-107); ETHANOL BLOOD < 3.0 mg/dL (<10); Estimated GFR 73.47 (mL/min/1.73m2); Glucose 113 mg/dL (74-106); Magnesium 2.3 mg/dL (1.8-2.4); Potassium 3.6 mmol/L (3.5-5.1); Sodium 136 mmol/L (136-145); Total Protein 8.5 g/dL (6.4-8.2)
[2022-03-26 02:22] LABS: *AMPHETAMINES SCREEN URINE Negative (Negative); *BARBITURATES SCREEN URINE Negative (Negative); *BENZODIAZEPINES SCREEN URINE Negative (Negative); Cannabinoids THC Negative (Negative); Cocaine Screen,Urine Negative (Negative); METHADONE URINE SCREEN Negative (Negative); OPIATES URINE SCREEN Negative (Negative); Tricyclic Antidepressants Negative (Negative)
[2022-03-26 02:23] LABS: Salicylate < 2.8 mg/dL (<2.8)
[2022-03-26 02:24] LABS: Acetaminophen < 2 ug/mL (10-30)
[2022-03-26 02:29] LABS: TSH (W/Ref FT4) 0.53 uIU/mL (0.36-3.74)
[2022-03-26 02:32] LABS: COVID-19 PCR Negative (Negative)
--- NOTE | 2022-03-26 09:04 | CMSP_ITS ---
- If Service Date Differs Date of service: 03/26/22 Time of Service: 09:04 Care Management Safety Plan Status: Voluntary - Reason for Wait Reason for Wait: Inpatient Admission VOLUNTARY FOR INPATIENT PSYCHIATRIC STABILIZATION. Patient is appropriate in all interactions since arriving at [facility]; Pt has demonstrated appropriate coping and communication skills, has articulated his or her needs and concerns and is fully engaged during staff interactions. Safety plan has been established with patient, and care team, to adhere to patient goals, identify restrictions based on behavioral status, address nutri tion, and determine allowed personal belongings, tools for hygiene and personal care. Determine level of activity including ambulation, level of supervision, visitors, and determine privileges based on behaviors and level of engagement by pt. Elsa presented to the ED after cutting her wrist with a metal object (all sharps in the home were not accessible due to active safety plan). She drove he rself to the ED after feeling suicidal. She reported that she did not call [facility] prior to going to the ED, and did not reach out to any identified supports. She identified a few friends from her recent stay at [facility], as well as a local friend. She stated that she spoke to her therapist, Rox (unsure of last name), a few days ago. She reports having a good relationship with Rox, so she was not upset when Rox reported her for feeling SI. JERAMIE asked about her experience in treatment, and she stated that while at [facility] she attempted suicide, therefore she did not feel that it helped her. She reported that while at the Care Bed, she did not attempt suicide, and was kept stable. JERAMIE discussed the safety plan with staff, noting that Elsa has used items for self harm on previous admissions (per chart review and staff reports- a straw, plastic cover of paper cup). JERAMIE discussed this with [facility] as well. JERAMIE contacted [facility] emergency services clinician Michelle, who will send referrals for inpatient admission. JERAMIE also suggested a referral to [facility] due to frequency of ED visits and instability in the community. SAFETY PLAN: 1. Will remain on suicide precautions. In Paper Clothes 2. Will remain in room under direct supervision of one-on-one staff at all times provided by [employer]; DIEGO, MANAGER OF CARE electronic data processing auditor. 3. May have paper cups, plates, finger foods as well as a cardboard spoon with which to eat meals. No plastic cover on drinks/straws. 4. Follow [facility] Management of the Admitted Behavioral Health Patient policy. 5. Comfort bath system only, shower permitted with escort at RN discretion. 6. No personal belongings-soft items permitted at RN discretion. 7. Visitors-none at this time. 8. Activities: soft cart items approved per RN discretion. 9. Bathroom privileges with escort in the ED, available in room without limitation on M/S. 10. Phone: incoming/outgoing, via cordless phone at RN discretion. 11. Due to VOLUNTARY status, if patient wishes to leave [facility], staff will contact [facility] Crisis Screener ([phone]) and On-Call Hand I Tube Bender ([phone]) as soon as possible. In the event of elopement, notify [facility] Police ([phone]). Patient is currently voluntarily at [facility] and seeking inpatient admission when a bed becomes available. [facility] Frontline Model Maker will continue seeking placement. Please contact the Rail Bender Hand I Tube Bender ([phone]) and [facility] C risis Worker ([phone]) for any needed changes in the Safety Plan. Safety plan has been provided to interdepartmental care team.
[2022-03-26] MEDS: Sertraline 100 MG TAB PO (09:05)
[2022-03-26] MEDS: Spironolactone 50 MG TAB PO ×2 (09:05→20:46)
[2022-03-26] MEDS: Estradiol 1 MG TAB 2 MG PO ×2 (09:05→20:46)
[2022-03-26] MEDS: QUEtiapine 25 MG TAB PO (09:05)
--- NOTE | 2022-03-26 09:34 | PDOC.MHCN_ITS ---
Date of service: 03/26/22 Time of Service: 02:11 PHQ-9 Over the last 2 weeks, how often have you been bothered by any of the following problems? 1. Little interest or pleasure in doing things: nearly every day 2. Feeling down, depressed, or hopeless: nearly every day 3. Trouble falling or staying asleep, or sleeping too much: more than half the days 4. Feeling tired or having little energy: nearly every day 5. Poor appetite or overeating: nearly every day 6. Feeling bad about yourself - or that you are a failure or have let yourself and your family down: nearly every day 7. Trouble concentrating on things, such as reading the newspaper or watching television: more than half the days 8. Moving or speaking so slowly that other people could have noticed? - Or the opposite - being so fidgety or restless that you have been moving around a lot more than usual: nearly every day 9. Thoughts that you would be better off or of hurting yourself in some way: nearly every day Total score: 25 If you checked off any problems, how difficult have these problems made it for you to do your work, take care of things at home, or get along with other people?: extremely difficult PHQ-9 Results: Positive Source: Developed by Drs. Pj Woodard, Ariana Mitchell, Rolando Rowley and colleagues, with an educational blair from [employer]. Suicide Severity Rate CSSRS Have you wished you were or wished you could go to sleep and not wake up?: Yes Have you actually had any thoughts of killing yourself?: Yes CSSRS2 Have you been thinking about how you might do this?: Yes Have you had these thoughts and had some intention of acting on them?: Yes Have you started to work out or worked out the details of how to kill yourself? Do you intend to carry out this plan?: Yes CSSRS3 Have you ever done anything, started to do anything or prepared to do anything to end your life?: Yes CSSRS4 Was this within the past three months?: Yes Screening Score Total Score: 8 Screening: Positive Mental Health Emergency Note Release [facility] release signed:: Yes Reason for Visit Elsa is at [facility] Due to her suicidal ideation. Elsa has been screened several times by [facility] within the past week. Elsa had an intense safety plan with [facility] after being discharged from [facility] and rescreened at the office. In the last 2 weeks has the pt presented for ES prior to today?: Yes, presented at [facility] ED, [facility] and Therapist Client Information Client is: Adult Outpatient Well Housed: Yes Non Suicidal Self Injury Current: Yes, Elsa attempted to cut herself earlier in the day. History: yes, Client has a history of cutting their wrists. Safety Risk/Harm to Self or Others Current Ideation to Harm Self or Others: Yes to self. (Elsa reports she wants to by suicide via cutting her wrist.) Intent: yes, has intent. Plan: yes,has a plan. History of suicide attempt: yes,history of suicide attempt reported. Details of previous suicide attempt: Elsa reports to this tech writer she attempted suicide earlier today when she attempted to make a blade and cut herself; but the blade did not cut her skin. Risk: Does risk to harm exist?: No Risk: N/A Duty to warn indicated: No Asssessment/Mental Status Appearance: Disheveled and Poor hygiene Attitude: Passive and Guarded Behavior: Poor impulse control and Repetitive movements Speech: Slow and Hesitant Affect: Cogruent with mood Mood: Anxious Thought process: Unremarkable Hallucinations: No evidence Delusions: No evidence Attention: Unremarkable Perception: Not impaired Orientation: Fully orientated Memory: Intact Insight: Poor Judgement: Poor Neurovegetative Symptoms Sleep: No change Appetitie: No change Interests: No change Energy: No change Libido: No change Substance Use: Do you use nicotine?: No Have you used substances in the last 7 days?: No Additional Issues: Assaultive/Threatening Behavior: No Medical Concerns: No Client engaged in active self harm w/weapon: No Threatening to run away: No Child reported abuse/neglect: No Voluntarily presenting for services: Yes Domestic violence is a concern: No Extreme Psychosis or extreme behavior is present: No Impression Elsa presents to [facility] due to her recent suicidal ideation. Elsa reports she attempted suicide earlier today when she made a blade and attempted to cut herself. Elsa also reports that all she can think about is suicide. When Elsa was seen at [facility] on 03/24 Elsa did not want to go back to treatment or a care bed; today 03/26 Elsa reports feeling like that is her only option. This tech writer and Elsa had a conversation about the safety plan that was made on 03/24 and Elsa reports she has not followed it. Elsa is seeking voluntary treatment at this time. Resources Reosurces reviewed and given:: 988, Crisis Bed, Community therapist and [facility] Plan/Disposition Recommended Disposition: Hospitalization (Hospitals will be contacted once medical info is obtianed by [facility].) No. Plan: Elsa will remian at [facility] seeking voluntary treatment. Person reported agreement to plan: Yes Reports/communication Outcome discussed with: ED/Personnel
[2022-03-26] MEDS: LORazepam 1 MG TAB (13:24)
[2022-03-26 13:40] VITALS: BP 117/80; PULSE 84; RESP 18; O2SAT 98
--- NOTE | 2022-03-26 15:25 | MHPN_ITS ---
Date of service: 03/26/22 Time of Service: 12:10 Mental Health Emergency Note Release [facility] release signed:: Yes Reason for Visit Elsa is seeking voluntary treatment due to her suicidal ideation. In the last 2 weeks has the pt presented for ES prior to today?: Yes, presented at [facility] ED, [facility] and Therapist Client Information Client is: Adult Outpatient and New Well Housed: Yes Safety Risk/Harm to Self or Others Current Ideation to Harm Self or Others: Yes to self. (Elsa reports if she found a sharp object she would harm herself with it. Elsa reports thinking about this often.) Intent: no, has no intent. Plan: yes,has a plan. History of suicide attempt: yes,history of suicide attempt reported. Details of previous suicide attempt: Elsa reports previous cutting as suicide attempts in addition to taking too much melatonin and aspirin on 03/04 and 03/06 but did not seek medical attention. Risk: Does risk to harm exist?: No Risk: N/A Duty to warn indicated: No Asssessment/Mental Status Appearance: Disheveled and Poor hygiene Attitude: Passive and Guarded Behavior: Poor impulse control and Repetitive movements Speech: Soft and Hesitant Affect: Cogruent with mood Mood: Stressed, Depressed and Anxious Thought process: Goal directed Hallucinations: No evidence Delusions: No evidence Attention: Unremarkable Perception: Not impaired Orientation: Fully orientated Memory: Intact Insight: Poor Judgement: Poor Neurovegetative Symptoms Sleep: Increase (Elsa reports an additionally 3 hours of sleep last night.) Appetitie: No change Interests: No change Energy: No change Libido: Not applicable Substance Use: Do you use nicotine?: No Have you used substances in the last 7 days?: No Additional Issues: Assaultive/Threatening Behavior: No Medical Concerns: No Client engaged in active self harm w/weapon: No Threatening to run away: No Child reported abuse/neglect: No Voluntarily presenting for services: Yes Domestic violence is a concern: No Extreme Psychosis or extreme behavior is present: No Impression Elsa reports having active suicidal ideation with thoughts of self harming. Elsa had an increase in sleep, no change in appetite, and no change in energy and interests. Elsa was extremely guarded and brief with this assembly instructions writer. Elsa reports laying in bed and thinking as she waits for treatment. Elsa will continue to wait for treatment. Plan/Disposition Recommended Disposition: Hospitalization facilities contacted. Plan: Elsa is waiting for voluntary treatment. Person reported agreement to plan: Yes Facilities contacted if Applicable [facility] Not accepted, No bed available [facility] Not accepted, Only accepting in house referrals [facility] Not accepted, Only accepting in house referrals, [facility] Not accepted, No bed available Reports/communication Outcome discussed with: ED/Personnel
--- NOTE | 2022-03-26 16:46 | NUR.NOTE ---
patient showed this nurse a self inflicted (via fingernails) scratch. scratch is superficial, not bleeding. In addition, father called and patient was asked if she would like her father to come get her car and she stated she desired this.
[2022-03-26] MEDS: Haloperidol 5 MG/ML VIAL 2 MG IM (19:04)
--- NOTE | 2022-03-27 07:08 | W.EDPROG ---
Date of service: 03/27/22 Time of Service: 07:00 Medical Decision Making 0730 --no events overnight. Case endorsed to oncoming provider to continue to monitor while awaiting placement. Medical Records Medical records reviewed: Yes I reviewed the patient's medical records. Sign Out Sign Out Data: Sign Out Comment: Suicidal ideations, here voluntarily, pending placement Last updated by Evan Najera DO at 03/26/22 07:37 Sign Out Comment: depression, SI, given haldol for rest today; pending placement, voluntary Last updated by Edilberto Ellison MD at 03/26/22 20:09 Sign Out Comment: No issues overnight. Awaiting placement. Last updated by Aria De Paz DO at 03/27/22 02:20 Discharge Plan Disposition Patient Disposition: Psychiatric Hospital/Unit Specific Psychiatric Facility: [facility] Condition: Stable Discharge Details Clinical Impression: Suicidal ideation Primary Care Provider: Dao Howell ED Provider: Costa Xiong Home Meds and New Rx's Prescriptions: No Action sertraline 100 mg tablet 100 mg PO DAILY levothyroxine 137 mcg capsule 137 mcg PO DAILY spironolactone 50 mg tablet 50 mg PO BID estradiol 2 mg tablet 2 mg PO BID quetiapine 25 mg tablet 25 tab PO HS Rx Instructions: pt states 25mg in AM and 50mg in PM Discharge Data Discharge Date/Time-TO BE ENTERED AT DEPARTURE: 03/27/22 14:44
[2022-03-27] MEDS: QUEtiapine 25 MG TAB PO (07:59)
[2022-03-27 08:00] VITALS: BP 108/64; PULSE 68; RESP 16; TEMP 36.2
[2022-03-27] MEDS: Sertraline 100 MG TAB PO (08:00)
[2022-03-27] MEDS: Spironolactone 50 MG TAB PO (08:00)
[2022-03-27] MEDS: Estradiol 1 MG TAB 2 MG PO (08:00)
--- NOTE | 2022-03-27 10:26 | NUR.NOTE ---
Nursing Note: Telephone SBAR delivered to DOTTIE Rea at [facility].
--- NOTE | 2022-03-27 16:45 | PDOC.CMSAFED ---
- If Service Date Differs Date of service: 03/27/22 Time of Service: 16:45
--- NOTE | 2022-03-27 16:50 | PDOC.CMSAFED ---
- If Service Date Differs Date of service: 03/27/22 Time of Service: 16:50 Care Management Safety Plan Status: Voluntary - Reason for Wait Reason for Wait: Inpatient Admission Elsa discharged to [facility] today for psychiatric stabilization. She transported via [employer], coordinated by this machine sign writer.
== END 2022-03-27 14:44 ==
PROVIDERS: Student in an Organized Health Care Education/Training Program; Emergency Provider Emergency Medicine; PCP Family Medicine
DX: R45.851 Suicidal ideations (principal); F32.A Depression, unspecified; Z79.899 Other long term (current) drug therapy
CPT/HCPCS: 36415; 80053; 80307; 87635; 96372; 99285; 80320; 80329; 83735; 84443; 85025; J1630

== ENCOUNTER 2022-04-06 14:33 | Emergency (ER) | payer MEDICARE, MEDICAID, SELFPAY ==
[2022-04-06 14:33] VITALS: BP 127/83; PULSE 128; RESP 18; TEMP 37.5; O2SAT 97
--- NOTE | 2022-04-06 14:41 | ED.GENADUL_ITS ---
Discharge Plan Discharge Details Chief Complaint: PsychEval Clinical Impression: Depression, Suicidal ideation Primary Care Provider: Dao Howell ED Provider: Zac Mascorro Home Meds and New Rx's Prescriptions: No Action sertraline 100 mg tablet 100 mg PO DAILY levothyroxine 137 mcg capsule 137 mcg PO DAILY spironolactone 50 mg tablet 50 mg PO BID estradiol 2 mg tablet 2 mg PO BID quetiapine 25 mg tablet 25 tab PO HS Rx Instructions: pt states 25mg in AM and 50mg in PM Medical Decision Making This is a 36-year-old male who identifies as a female named Elsa, reports having been hospitalized at [facility] up until yesterday, released back into the care of his parents who are not supportive of his decisions, he then received bad news from her friend today which caused increased depression with self harming behavior and SI. Denies recent illness or trauma. Using the [employer] medical clearance form, patient has been medically cleared. Will obtain urine tox as well as a COVID swab for potential psychiatric placement. We will request a mental health evaluation, initiate a interim care plan and CPSO. Patient does tell me that while at home talking to local law enforcement and EMS she wonders if being an involuntary placement would be better than a voluntary placement so that she could not leave a facility when she begins to feel better. Currently she is voluntarily here seeking evaluation. I spoke with [facility] human services to make them aware of the need for consultation. Urinalysis unremarkable. COVID-negative. Tox screen pending Patient now reports auditory hallucinations, voices being mean to her and telling her to harm herself. This documentation was generated using [employer] dictation system, please disregard any oddities of phrase or misspellings. Medical Records Medical records reviewed: Yes I reviewed the patient's medical records. Lab Data Lab results reviewed: Yes I reviewed the patient's lab results. Labs: Laboratory Tests Range/Units 04/06/22 04/06/22 14:49 14:49 Urine Color (Yellow) Yellow Urine Clarity (Clear) Clear Urine pH (5-8) 6.0 Ur Specific Enterprise (1.005-1.025) 1.020 Urine Protein (Negative) mg/dL Negative Urine Ketones (Negative) mg/dL Negative Urine Blood (Negative) Negative Urine Nitrite (Negative) Negative Urine Bilirubin (Negative) Negative Urine Urobilinogen (Up TO 0.2) EU/dL 0.2 Ur Leukocyte Esterase (Negative) Negative Urine Glucose (Negative) mg/dL Negative COVID-19 Source Nasal/Nares SARS-CoV-2 (PCR) (Negative) Negative HPI General Mode of arrival: EMS . Date/Time Provider Initiated Documentation: 04/06/22 14:39 . Limitations to Documentation: no limitations . Information obtained by: patient and EMS . HPI Narrative: This is a 36-year-old male who identifies as a female named Elsa, presenting to the ER via EMS for evaluation of worsening depression and SI. Patient reports cutting herself with a screwdriver on her left wrist, feeling suicidal and reports that she had thoughts of taking her medications but did not do anything else today to harm herself. Patient was recently seen in our facility last Sunday, held until Sunday, at that point transferred to [facility], discharged yesterday. Patient reports that she received bad news from a friend in [place] which prompted her worsening depression today. Patient reports that she returned home with her parents after her release from [facility] yesterday. She denies smoking cigarettes, alcohol use or drug use. Has no acute medical concerns or complaints at this time. Denies recent illness or trauma Related Data Home Medications Medication Instructions Recorded Confirmed estradiol 2 mg tablet 2 mg PO BID 02/20/22 03/26/22 levothyroxine 137 mcg capsule 137 mcg PO DAILY 02/20/22 03/26/22 sertraline 100 mg tablet 100 mg PO DAILY 02/20/22 03/26/22 spironolactone 50 mg tablet 50 mg PO BID 02/20/22 03/26/22 quetiapine 25 mg tablet 25 tab PO HS 03/12/22 03/26/22 Allergies Allergy/AdvReac Type Severity Reaction Status Date / Time strawberry AdvReac Verified 03/12/22 21:03 General Stated Complaint: PsychEval SCOTT: 2 Review of Systems Constitutional Constitutional: Denies fatigue, Denies fever(s), Denies headache(s) and Denies weakness ENT Ears, Nose, Mouth, and Throat: Denies headache(s) Cardiovascular Cardiovascular: Denies chest pain and Denies dyspnea Respiratory Respiratory: Denies cough and Denies dyspnea Gastrointestinal Gastrointestinal: Denies abdominal pain, Denies nausea and Denies vomiting Genitourinary Genitourinary: Denies dysuria Musculoskeletal Musculoskeletal: Denies numbness and Denies tingling Integumentary/Breasts Skin/Breast: Denies rash Neurologic Neurologic: Denies headache(s), Denies numbness, Denies tingling and Denies weakness Psychiatric Psychiatric: Reports depression, Denies homicidal ideation and Reports suicidal ideation Endocrine Endocrine: Denies fatigue Hematologic/Lymphatic Hematologic/Lymphatic: Denies easy bleeding and Denies easy bruising PFSH All Active Problems (Updated 04/06/22 @ 15:39 by CANDY Clemente) Depression (Chronic) Major depression (Chronic) Suicidal ideation (Acute) Medical History Anxiety with depression Developmental delay, mild Dyspraxia Gout Hyperlipidemia Hyperuricemia Nonspecific paroxysmal spell Obesity Suicidal thoughts Transgender Type 2 diabetes mellitus Social History Smoking/Tobacco Use Status: Former Tobacco Use Smoking risk assessment performed?: Yes Alcohol Intake: never Drug use: Occasionally Substance use type: marijuana Details: maybe once a month Do you feel safe at home: Yes (mentally no physically yes) Do you feel safe in your relationship?: Yes Exam Const General: cooperative, healthy appearing, comfortable and no acute distress Orientation: alert, awake and oriented x3 HENMT Head: normal to inspection, normocephalic and atraumatic Face and sinus: normal facial exam Mouth: moist mucous membranes Throat: posterior oropharynx normal Eyes General: appearance normal, both eyes and all related structures Conjunctivae: conjunctivae normal Neck Neck: normal visual inspection, full ROM, no meningeal signs, trachea midline and supple Resp Effort & Inspection: normal respiratory effort and able to speak in complete sentences Auscultation: clear to auscultation bilaterally Cardio Rate: tachycardic (106) Rhythm: regular rhythm GI Palpation: soft, not firm, no guarding and nontender Back/Spine/Pelvis Back: No back tenderness Skin General skin exam: no rashes or lesions noted Neuro General: patient alert, patient awake, patient oriented x3, moves all extremities and no focal motor deficits Cognition: normal cognition Speech: speech normal Gait: normal gait Motor: muscle tone normal throughout Sensory Exam: no sensory deficits noted Extrem General: full ROM and capillary refill normal Other: Multiple superficial abrasions left forearm. No signs of secondary infection Psych Appearance: grossly normal Mental Status: mental status grossly normal Speech and Movement: speech and movement normal Mood: dysthymic mood Affect: sad Attitude: cooperative Thought Process: normal Thought Content: suicidality Insight: limited Judgment: limited Course Vital Signs Vital signs: Vital Signs Temperature 37.5 C 04/06/22 14:33 Pulse 128 H 04/06/22 14:33 Respiratory Rate 18 04/06/22 14:33 Blood Pressure 127/83 04/06/22 14:33 Pulse Oximetry 97 04/06/22 14:33 Temperature 37.5 C 04/06/22 14:33 Temperature Source Oral 04/06/22 14:33 Pulse 128 H 04/06/22 14:33 Respiratory Rate 18 04/06/22 14:33 Respiratory Effort 04/06/22 14:37 Blood Pressure 127/83 04/06/22 14:33 Blood Pressure Position Supine 04/06/22 14:33 Pulse Oximetry 97 04/06/22 14:33 Oxygen Delivery Method Room Air 04/06/22 14:33 Oxygen Flow Rate 0 04/06/22 14:33 Pain Level 4 04/06/22 14:33
[2022-04-06 14:55] LABS: Source Nasal/Nares
[2022-04-06 15:02] LABS: Bilirubin Negative (Negative); Blood Negative (Negative); Clarity Clear (Clear); Glucose Negative (Negative); Ketones Negative (Negative); Leukocyte Esterase Negative (Negative); Nitrite Negative (Negative); Urobilinogen 0.2 EU/dL (Up TO 0.2)
[2022-04-06 15:26] VITALS: PULSE 105; RESP 18; O2SAT 95
--- NOTE | 2022-04-06 15:26 | NUR.NOTE ---
Upon assessment, pt admits to thoughts of harming self. States parents do not use correct pronouns and that is what started this particular episode of SI. Pt also states hearing voices that are telling pt to kill myself. Provider notified at this time.
[2022-04-06 15:27] LABS: COVID-19 PCR Negative (Negative)
--- NOTE | 2022-04-06 15:29 | PDOC.CMSAFED ---
- If Service Date Differs Date of service: 04/06/22 Time of Service: 15:29 Care Management Safety Plan Status: Interim - Reason for Wait Reason for Wait: Medical Clearance Chief Complaint: Elsa presents in the ED for suicidal ideation for the 4th time this month. She has a history of depression and anxiety and is well known to [facility]. Her last psychiatric hospitalization was at the [facility]. She discharged home on 03/21/22 and returned to the ED that same day due to a return of SI. She was subsequently discharged home on a safety plan. CM will respond to ED to assess patient after patient has been medically cleared and assessed by screener. If screener deems patient meets criteria for psychiatric stabilization CM will facilitate interdepartmental huddle with [facility] screener for safety planning considerations and meet with patient to review [facility] policy and safety plan, establish individual wishes for treatment and maintain patient rights. In the interim; please note safety plan below to guide patient care while awaiting further assessment in the ED. SAFETY PLAN: 1. Will remain on suicide precautions and in paper clothes. 2. Will remain in room under direct supervision of one-on-one staff at all times provided by CPSO, DIEGO, [employer]ATION ARCHITECT supervisor bakery sanitation. 3. May have paper cups, plates, finger foods as well as a cardboard spoon with which to eat meals. 4. Follow [facility] Management of the Admitted Behavioral Health Patient policy. 5. Comfort bath system only. 6. No personal belongings 7. No visitors at this time. 8. Phone: contact limited to family at this time, via [employer] hospital phone at RN discretion. 9. Due to VOLUNTARY status, if patient wishes to leave [facility], staff will contact [facility] Crisis Screener ([phone]) and On-Call Breastfeeding Educator ([phone]) as soon as possible. In the event of elopement, notify [place] [employer] ([phone]). If deemed appropriate for inpatient psychiatric care, safety plan will be established with patient, and care team, to adhere to patient goals, identify restrictions based on behavioral status, address nutrition, and determine allowed personal belongings, tools for hygiene and personal care. As well plan will determine level of activity including ambulation, level of supervision, visitors, and determine privileges based on level of acuity, behaviors and level of engagement by patient.
[2022-04-06 15:34] LABS: *AMPHETAMINES SCREEN URINE Negative (Negative); *BARBITURATES SCREEN URINE Negative (Negative); *BENZODIAZEPINES SCREEN URINE Negative (Negative); Cannabinoids THC Negative (Negative); Cocaine Screen,Urine Negative (Negative); METHADONE URINE SCREEN Negative (Negative); OPIATES URINE SCREEN Negative (Negative)
[2022-04-06 15:36] LABS: Tricyclic Antidepressants Negative (Negative)
--- NOTE | 2022-04-06 21:26 | PDOC.MHCN_ITS ---
Date of service: 04/06/22 Time of Service: 16:06 PHQ-9 Over the last 2 weeks, how often have you been bothered by any of the following problems? 1. Little interest or pleasure in doing things: nearly every day 2. Feeling down, depressed, or hopeless: nearly every day 3. Trouble falling or staying asleep, or sleeping too much: nearly every day 4. Feeling tired or having little energy: nearly every day 5. Poor appetite or overeating: nearly every day 6. Feeling bad about yourself - or that you are a failure or have let yourself and your family down: nearly every day 7. Trouble concentrating on things, such as reading the newspaper or watching television: nearly every day 8. Moving or speaking so slowly that other people could have noticed? - Or the opposite - being so fidgety or restless that you have been moving around a lot more than usual: nearly every day 9. Thoughts that you would be better off or of hurting yourself in some way: nearly every day Total score: 27 If you checked off any problems, how difficult have these problems made it for you to do your work, take care of things at home, or get along with other people?: very difficult Source: Developed by Drs. Pj Woodard, Ariana Mitchell, Rolando Rowley and colleagues, with an educational blair from [employer]. Suicide Severity Rate CSSRS Have you wished you were or wished you could go to sleep and not wake up?: Yes Have you actually had any thoughts of killing yourself?: Yes CSSRS2 Have you been thinking about how you might do this?: Yes Have you had these thoughts and had some intention of acting on them?: Yes Have you started to work out or worked out the details of how to kill yourself? Do you intend to carry out this plan?: Yes CSSRS4 Was this within the past three months?: No Screening Score Total Score: 4 Screening: Positive Mental Health Emergency Note Release [facility] release signed:: Yes Reason for Visit Client was opened to [facility] in February of 2022 when she presented to [facility] for suicidal ideations. Client has been assessed numerous times by [facility] and has been hospitalized on voluntary status 2x within the past month once at [facility] and the other at [facility]. Client was released from [facility] yesterday after a 9 day voluntary stay for increased suicidal ideations and anxiety. Client presented to [facility] ED via ambulance with chief complaint of increased suicidal ideations with plan to overdose on medications and NSSI. Client reports to [facility] triage nurse: I want to know if I can be held involuntary so I can't leave treatment when I am feeling better. This assembly instructions writer assess client via zoom. In the last 2 weeks has the pt presented for ES prior to today?: Yes, presented at [facility] ED (on 03/27 to seek voluntary inpsychiatrict treatment.) and [facility] Client Information Client is: Adult Outpatient Well Housed: Yes Current Treatment Team if applicable First care steam conditioning operator: Name: Rox Hayes Role: Outpatient community therapist Non Suicidal Self Injury Current: Yes, Client used screw personal driver to make superficial cuts on forearm. History: yes, hx of NSSI when triggered by parents and they do not use their proper pronouns. Safety Risk/Harm to Self or Others Current Ideation to Harm Self or Others: Yes to self. (Client currently endorsing SI with intent and plan to overdose on their prescribed medications. ) Intent: yes, has intent. Plan: yes,has a plan. History of suicide attempt: No history of suicide attempt reported Risk: Does risk to harm exist?: yes. Risk: Low Risk Duty to warn indicated: No Asssessment/Mental Status Appearance: Disheveled Attitude: Cooperative Behavior: Unremarkable Speech: Normal Affect: Flat and Cogruent with mood Mood: Sad and Depressed Thought process: Unremarkable Hallucinations: yes, (Client reports that they hear voices that either tell them to run or to kill themselves. Client is unable to identify to this assembly instructions writer if the voices are female or male and how often they hear the voices. ) Auditory Delusions: No Perception: Not impaired Orientation: Fully orientated Memory: Intact Insight: Fair Judgement: Fair Neurovegetative Symptoms Sleep: Decrease (Client reports that they wake up frequently with nightmares. ) Appetitie: Decrease (Client reports they need to force themselves to eat. ) Interests: Decrease Energy: Decrease Libido: Not applicable Substance Use: Do you use nicotine?: No Have you used substances in the last 7 days?: No Additional Issues: Assaultive/Threatening Behavior: No Medical Concerns: No Client engaged in active self harm w/weapon: No Threatening to run away: No Child reported abuse/neglect: No Voluntarily presenting for services: Yes Domestic violence is a concern: No Extreme Psychosis or extreme behavior is present: No Impression Client is a 36 y/o single transgender female that identifies with the name of Elsa. Client lives in [place], [place] with their parents and is currently disabled and receives SSI. Client is seen by this assembly instructions writer via zoom while at [facility] ED. Client presents with symptoms most congruent with major depressive disorder, as evidenced by self-report, that she feels deeply sad and triggered within home environment, and has had decrease in appetite and interrupted sleep. Client reports that onset of recent symptoms started as they were en-route home yesterday from inpatient treatment. Client reports that they were triggered when their father did not use their preferred pro-nouns of she/her. This assembly instructions writer is able to have a conversation with client regarding what is triggering regarding proper pro-nouns and they stated: my parents don't even try and they won't allow me to have a conversation with my sons as they state that it wi confuse them. If I was able to have a conversation with my children and parents and let them know how it makes me feel I think I would feel a lot better. This assembly instructions writer consults with [facility] Mary who states that clients outpatient therapist Rox Hayes has offered to mediate family meeting with client, clients parents and children. When this assembly instructions writer offers to consult with outpatient therapist and advocate for clients current needs, client is receptive. It appears that during the assessment client has a moment of clarity where they state: I am sorry I should have utilized the support line instead of coming to the hospital. This assembly instructions writer is able to validate and process clients feelings and offer positive praise for recognizing changes that could be implemented in the future. Client would benefit from continuing outpatient services with community therapist Rox Hayes, which they have an appointment scheduled for tomorrow morning at 9a. By the end of the assessment client is able to show good insight and judgment and is willing to participate in their treatment as to offer suggestions for pro-active safety plan which includes providing lock box for medications and items from junk drawer where they will provide alvarenga to father to restrict access. Resources Reosurces reviewed and given:: [facility] (Client will be released on pro-active safety plan with follow-up tonight with [facility] and tomorrow morning as well. ) Plan/Disposition Recommended Disposition: [facility] Services (Check-in phone calls with [facility] ES tonight at 8p and tomorrow morning following therapy appointment. ) [facility] Services: Other and Therapy (Follow-up appointment scheduled with outpatient therapist Rox Hayes tomorrow. ). Plan: Client will be discharged from [facility] ED on pro-active safety plan which includes: client will provide father with lockbox and alvarenga for father to lock up medications and items from junk drawer and clients father will administer medications to client. Client will follow-up with community therapist Rox Hayes on 04/07/22 @ 9a for scheduled therapy appointment where they will discuss scheduling family meeting to discuss triggers on proper pro-nouns. This assembly instructions writer will also outreach to Rox Hayes on 04/07 prior to clients appointment to debrief her on interaction today. Client will call [facility] ES for check-in phone call tonight by 8p and will also call for check-in phone call after therapy appointment on 04/07. Client is provided with 988 and [place] crisis text line to utilize as additional resources if needed as well. Verbal Passover given to [facility] ED provider Kelsey Brochures who agrees with plan. Person reported agreement to plan: Yes Reports/communication Outcome discussed with: ED/Personnel (Verbal passover given to ED provider Kelsey Brochhiren)
== END 2022-04-06 17:45 | disposition home or self-care (01) ==
PROVIDERS: Physician Assistant; Emergency Provider Physician Assistant; PCP Family Medicine
DX: F32.A Depression, unspecified (principal); R45.851 Suicidal ideations; S50.812A Abrasion of left forearm, initial encounter; E11.9 Type 2 diabetes mellitus without complications; R00.0 Tachycardia, unspecified; Z20.822 Contact with and (suspected) exposure to COVID-19; X78.9XXA Intentional self-harm by unspecified sharp object, initial encounter; Z79.899 Other long term (current) drug therapy
CPT/HCPCS: 80307; 87635; 99285; 81003

== ENCOUNTER 2022-04-08 13:28 | Emergency (ER) | payer MEDICARE, MEDICAID, SELFPAY ==
[2022-04-08 13:27] VITALS: BP 122/86; PULSE 102; RESP 18; TEMP 36.9; O2SAT 97
--- NOTE | 2022-04-08 13:45 | RT.EKG_ITS ---
APPROVED REPORT Exam: Resting ECG Reason for Exam: overdose Patient Location: E HR:66 bpm ECG Measurements Heart Rate 66 AXIS OK 139 P 24 QRSd 81 QRS 41 QT 403 T 43 QTc 424 Conclusion Sinus rhythm...normal P axis, V-rate 60- 99
--- NOTE | 2022-04-08 13:53 | ED.GENADUL_ITS ---
Discharge Plan Disposition Patient Disposition: Home Condition: Improving Discharge Details Clinical Impression: Suicide gesture, Depression Primary Care Provider: Dao Howell ED Provider: Costa Xiong Home Meds and New Rx's Prescriptions: Continued sertraline 100 mg tablet 100 mg PO DAILY levothyroxine 137 mcg capsule 137 mcg PO DAILY spironolactone 50 mg tablet 50 mg PO BID estradiol 2 mg tablet 2 mg PO BID quetiapine 25 mg tablet 25 tab PO HS Rx Instructions: pt states 25mg in AM and 50mg in PM buspirone 5 mg tablet 1 tab PO BID hydroxyzine pamoate 25 mg capsule 1 cap PO BID Discharge Instructions Instructions: Depression (ED) Additional Instructions: Please see the enclosed copy of your safety plan. [facility] will continue to check in with you. Please have your medications and sharp materials in the home locked up as discussed with the mental health screener. Resume your routine medications, no further hydroxyzine/Vistaril today. Medical Decision Making This is a 36-year-old male who states that they prefer the female pronouns and the first name of Elsa. Reports recurrent and ongoing depression that led to suicidal gesture this morning of taking 5 or 6 hydroxyzine pills and single tablet of BuSpar. States that they were recently admitted to [facility]. Was seen in the ER 2 days ago and discharged home with a safety plan. No evidece of anticholinergic symptoms at this time. Medical screen examination including laboratory analysis performed. Case discussed with poison center and patient will require observation/monitoring for 6 hours given the potential anticholinergic exposure. Patient remains without signs of anticholinergic toxicity. I do feel that they are medically stable for further evaluation by mental health provider. A safety plan was enacted with the patient. We will have her medications and sharps locked up and she will have outpatient check-in's with [facility]. She is stable and improved. HPI General Mode of arrival: ambulatory . Date/Time Provider Initiated Documentation: 04/08/22 13:56 . Limitations to Documentation: no limitations . Information obtained by: patient . History of Present Illness 36 year old M presents to the emergency department with the chief complaint of Recurrent depression, suicidal gesture, described as moderate and similar to prior episodes, Quality is described as constant, and is localized to the head. Patient started experiencing this day(s) and it has been constant. No relieving factors improve symptom(s), No exacerbating factors reported . Patient notes denies fever/chills, headaches and loss of appetite. Patient did receive the following treatments prior to arrival, none Related Data Home Medications Medication Instructions Recorded Confirmed estradiol 2 mg tablet 2 mg PO BID 02/20/22 04/08/22 levothyroxine 137 mcg capsule 137 mcg PO DAILY 02/20/22 04/08/22 sertraline 100 mg tablet 100 mg PO DAILY 02/20/22 04/08/22 spironolactone 50 mg tablet 50 mg PO BID 02/20/22 04/08/22 quetiapine 25 mg tablet 25 tab PO HS 03/12/22 04/08/22 buspirone 5 mg tablet 1 tab PO BID 04/08/22 04/08/22 hydroxyzine pamoate 25 mg capsule 1 cap PO BID 04/08/22 04/08/22 Allergies Allergy/AdvReac Type Severity Reaction Status Date / Time strawberry AdvReac Verified 04/08/22 13:35 General Stated Complaint: PsychEval SCOTT: 2 Review of Systems Narrative: States that she took 5 or 6 hydroxyzine and 1 BuSpar. No recent illness. Last admitted to [facility] approximately 1 week ago. 7 systems were reviewed. PFSH All Active Problems (Updated 04/08/22 @ 19:56 by Costa Xiong MD) Suicide gesture (Acute) Depression (Chronic) Major depression (Chronic) Suicidal ideation (Acute) Medical History Anxiety with depression Developmental delay, mild Dyspraxia Gout Hyperlipidemia Hyperuricemia Nonspecific paroxysmal spell Obesity Suicidal thoughts Transgender Type 2 diabetes mellitus Social History Smoking/Tobacco Use Status: Former Tobacco Use Smoking risk assessment performed?: Yes Alcohol Intake: never Drug use: Occasionally Substance use type: marijuana Details: maybe once a month Do you feel safe at home: Yes (mentally no physically yes) Do you feel safe in your relationship?: Yes Exam Narrative Exam Narrative: GEN: awake, alert, oriented 3. interactive. HEAD: Normocephalic, atraumatic ENT: Mucous membranes moist, oropharynx unremarkable, External ear exam unremarkable EYES: PERRL, EOMI NECK: Full ROM, no JEY, no menigismus CHEST/RESP: Nontender, clear to auscultation bilateral, no wheeze/rhonchi/rales CARDIOVASCULAR: RRR, no murmur, rub christofer. 2+ Rad pulse bilateral ABDOMEN: Soft, nontender, no mass. +Bowel sounds EXT: Full ROM, no edema, no rash Neuro: Grossly normal neurologic exam, conversant, interactive. Psych: Speech fluent, thoughts congruent, affect flat Course Vital Signs Vital signs: Vital Signs Temperature 36.9 C 04/08/22 13:27 Pulse 102 H 04/08/22 13:27 Respiratory Rate 18 04/08/22 13:27 Blood Pressure 122/86 04/08/22 13:27 Pulse Oximetry 97 04/08/22 13:27 Temperature 36.9 C 04/08/22 13:27 Temperature Source Oral 04/08/22 13:27 Pulse 102 H 04/08/22 13:27 Respiratory Rate 18 04/08/22 13:27 Respiratory Effort Non-Labored 04/08/22 13:31 Blood Pressure 122/86 04/08/22 13:27 Blood Pressure Position Sitting 04/08/22 13:27 Pulse Oximetry 97 04/08/22 13:27 Oxygen Delivery Method Room Air 04/08/22 13:27 Oxygen Flow Rate 0 04/08/22 13:27 Pain Level 0 04/08/22 13:27
[2022-04-08 14:04] LABS: Abs Immature Grans 0.05 10^3/uL (0.0-0.06); Absolute Basophil Count 0.07 10^3/uL (0.0-0.2); Absolute Eosinophil Count 0.33 10^3/uL (0.0-0.7); Absolute Lymphocyte Count 2.94 10^3/uL (1.2-3.4); Absolute Monocyte Count 0.75 10^3/uL (0.1-0.8); Absolute Neutrophil Count 7.26 10^3/uL (1.2-6.7); Basophils % 0.6; Eosinophils % 2.9; HCT 40.5 % (40.0-50.0); HGB 13.2 g/dL (13.5-17.5); Immature Grans % 0.4; Lymphocytes % 25.8; MCH 28.6 pg (27.0-33.0); MCHC 32.6 % (32.0-36.0); MCV 88 fL (80-95); MPV 9.8 fL (8.0-11.0); Monocytes % 6.6; Neutrophils % 63.7; Platelet Count 326 10^3/uL (130-400); RBC 4.61 10^6/uL (4.36-5.78); RDW 12.4 % (11.8-14.1); RDW-SD 40.1 fL
[2022-04-08 14:27] LABS: Source Nasal/Nares
[2022-04-08 14:27] LABS: ALT 33 U/L (16-63); AST 26 U/L (15-37); Albumin 3.9 g/dL (3.4-5.0); Alkaline Phosphatase 73 U/L (46-116); Anion Gap 6.9 mmol/L (3-11); BUN 15 mg/dL (7-18); Bilirubin, Total 0.2 mg/dL (0.2-1.0); CO2 27.1 mmol/L (21.0-32.0); CREATININE 1.1 mg/dL (0.70-1.30); Calcium 9.1 mg/dL (8.5-10.1); Chloride 103 mmol/L (98-107); Estimated GFR 89.78 (mL/min/1.73m2); Glucose 109 mg/dL (74-106); Potassium 4.3 mmol/L (3.5-5.1); Sodium 137 mmol/L (136-145); TSH (W/Ref FT4) 0.27 uIU/mL (0.36-3.74); Total Protein 7.6 g/dL (6.4-8.2)
[2022-04-08 14:28] LABS: ETHANOL BLOOD < 3.0 mg/dL (<10)
[2022-04-08 14:30] LABS: Salicylate < 2.8 mg/dL (<2.8)
[2022-04-08 14:42] LABS: FREE T4 0.94 ng/dL (0.76-1.46)
[2022-04-08 14:43] LABS: Acetaminophen < 2 ug/mL (10-30)
[2022-04-08 14:43] LABS: Bilirubin Negative (Negative); Blood Negative (Negative); Clarity Clear (Clear); Glucose Negative (Negative); Ketones Negative (Negative); Leukocyte Esterase Negative (Negative); Nitrite Negative (Negative); Specific Gravity 1.025 (1.005-1.025); Urobilinogen 0.2 EU/dL (Up TO 0.2)
[2022-04-08 14:47] LABS: *AMPHETAMINES SCREEN URINE Negative (Negative); *BARBITURATES SCREEN URINE Negative (Negative); *BENZODIAZEPINES SCREEN URINE Negative (Negative); Cannabinoids THC Negative (Negative); Cocaine Screen,Urine Negative (Negative); METHADONE URINE SCREEN Negative (Negative); OPIATES URINE SCREEN Negative (Negative)
[2022-04-08 14:49] LABS: Tricyclic Antidepressants Negative (Negative)
[2022-04-08 15:27] LABS: COVID-19 PCR Negative (Negative)
--- NOTE | 2022-04-08 16:41 | PDOC.CMSAFED ---
- If Service Date Differs Date of service: 04/08/22 Time of Service: 16:41 Care Management Safety Plan Status: Interim - Reason for Wait Reason for Wait: Medical Clearance Chief Complaint: Elsa presents in the ED for suicidal ideation for the 5th time this month. Pt was seen in the ER 2 days ago and discharged home with a safety plan. She has a history of depression and anxiety and is well known to [facility]. Per provider note, Elsa reports recurrent and ongoing depression that led to suicidal gesture this morning of taking 5 or 6 hydroxyzine pills and single tablet of BuSpar. Elsa reports that she was recently admitted to [facility]. CM will respond to ED to assess patient after patient has been medically cleared and assessed by screener. If screener deems patient meets criteria for psychiatric stabilization CM will facilitate interdepartmental huddle with [facility] screener for safety planning considerations and meet with patient to review [facility] policy and safety plan, establish individual wishes for treatment and maintain patient rights. In the interim; please note safety plan below to guide patient care while awaiting further assessment in the ED. SAFETY PLAN: 1. Will remain on suicide precautions and in paper clothes. 2. Will remain in room under direct supervision of one-on-one staff at all times provided by DIEGO, [employer] ATTENDANT air traffic control operator. 3. May have paper cups, plates, finger foods as well as a cardboard spoon with which to eat meals. 4. Follow [facility] Management of the Admitted Behavioral Health Patient policy. 5. Personal care: Comfort bath system only at this time. 6. Bathroom privileges: with escort in ED. Available in room without limitation on Med/Surg. 6. No personal belongings at this time; per RN discretion. 7. No visitors at this time. 8. Phone contact limited to legal contact at this time. 9. Activities: Music tablet per RN discretion. Med/Surg: Television and remote available at RN discretion. 10. Due to VOLUNTARY status, if patient wishes to leave [facility], staff will contact [facility] Crisis Screener ([phone]) and On-Call Level Vial Grinder ([phone]) as soon as possible. In the event of elopement, notify [facility] Police ([phone]). If deemed appropriate for inpatient psychiatric care, safety plan will be established with patient, and care team, to adhere to patient goals, identify restrictions based on behavioral status, address nutrition, and determine allowed personal belongings, tools for hygiene and personal care. As well plan will determine level of activity including ambulation, level of supervision, visitors, and determine privileges based on level of acuity, behaviors and level of engagement by patient.
[2022-04-08 18:48] VITALS: BP 115/75; PULSE 89; RESP 16; TEMP 36.9; O2SAT 96
[2022-04-08 20:13] VITALS: BP 120/75; PULSE 86; RESP 14; TEMP 36.7; O2SAT 97
== END 2022-04-08 20:31 | disposition home or self-care (01) ==
PROVIDERS: Emergency Provider Emergency Medicine; PCP Family Medicine
DX: F32.A Depression, unspecified (principal); R45.851 Suicidal ideations; E11.9 Type 2 diabetes mellitus without complications; Z20.822 Contact with and (suspected) exposure to COVID-19; Z79.899 Other long term (current) drug therapy
CPT/HCPCS: 36415; 80053; 80307; 87635; 93005; 99285; 80320; 80329; 81003; 84439; 84443; 85025; 93010

== ENCOUNTER 2022-04-09 13:15 | Emergency (ER) | payer MEDICARE, MEDICAID, SELFPAY ==
[2022-04-09 13:14] VITALS: BP 136/90; PULSE 90; RESP 14; TEMP 37; O2SAT 98
--- NOTE | 2022-04-09 13:15 | RT.EKG_ITS ---
APPROVED REPORT Exam: Resting ECG Reason for Exam: chest pain Patient Location: E HR:75 bpm ECG Measurements Heart Rate 75 AXIS ME 177 P 115 QRSd 89 QRS 40 QT 387 T 53 QTc 433 Conclusion Sinus rhythm...normal P axis, V-rate 60- 99
[2022-04-09 13:57] LABS: Abs Immature Grans 0.04 10^3/uL (0.0-0.06); Absolute Basophil Count 0.06 10^3/uL (0.0-0.2); Absolute Eosinophil Count 0.26 10^3/uL (0.0-0.7); Absolute Lymphocyte Count 2.42 10^3/uL (1.2-3.4); Absolute Monocyte Count 0.93 10^3/uL (0.1-0.8); Absolute Neutrophil Count 8.17 10^3/uL (1.2-6.7); Basophils % 0.5; Eosinophils % 2.2; HCT 39.1 % (40.0-50.0); HGB 13.1 g/dL (13.5-17.5); Immature Grans % 0.3; Lymphocytes % 20.4; MCHC 33.5 % (32.0-36.0); MCV 87 fL (80-95); MPV 9.7 fL (8.0-11.0); Monocytes % 7.8; Neutrophils % 68.8; Platelet Count 303 10^3/uL (130-400); RBC 4.52 10^6/uL (4.36-5.78); RDW 12.1 % (11.8-14.1); RDW-SD 38.5 fL; WBC 11.88 10^3/uL (4.4-10.8)
[2022-04-09 14:11] LABS: ALT 33 U/L (16-63); AST 21 U/L (15-37); Albumin 3.7 g/dL (3.4-5.0); Alkaline Phosphatase 67 U/L (46-116); Anion Gap 6.7 mmol/L (3-11); BUN 17 mg/dL (7-18); Bilirubin, Total 0.3 mg/dL (0.2-1.0); CO2 28.3 mmol/L (21.0-32.0); Calcium 9.1 mg/dL (8.5-10.1); Chloride 102 mmol/L (98-107); Estimated GFR 100.66 (mL/min/1.73m2); Glucose 115 mg/dL (74-106); Potassium 4.2 mmol/L (3.5-5.1); Sodium 137 mmol/L (136-145); Total Protein 7.2 g/dL (6.4-8.2)
[2022-04-09 14:24] LABS: Salicylate < 2.8 mg/dL (<2.8)
[2022-04-09 14:25] LABS: Acetaminophen < 2 ug/mL (10-30)
--- NOTE | 2022-04-09 15:06 | ED.GENADUL_ITS ---
Discharge Plan Disposition Patient Disposition: Home Condition: Improving Discharge Details Clinical Impression: Suicide gesture, Depression Primary Care Provider: Dao Howell ED Provider: Zac Mascorro Home Meds and New Rx's Prescriptions: Continued sertraline 100 mg tablet 100 mg PO DAILY levothyroxine 137 mcg capsule 137 mcg PO DAILY spironolactone 50 mg tablet 50 mg PO BID estradiol 2 mg tablet 2 mg PO BID quetiapine 25 mg tablet 25 tab PO HS Rx Instructions: pt states 25mg in AM and 50mg in PM buspirone 5 mg tablet 1 tab PO BID hydroxyzine pamoate 25 mg capsule 1 cap PO BID Discharge Instructions Instructions: Depression (ED), Suicide Prevention (ED) Additional Instructions: You have been provided a medical screening examination that does not reveal any obvious emergent process. Mental health has then evaluated you, able to safety plan you home, please follow the instructions given to you by the mental health team. Please watch for new or worsening symptoms and return to the ER for any concerns. Discharge Data Discharge Date/Time-TO BE ENTERED AT DEPARTURE: 04/09/22 20:48 Medical Decision Making <CANDY Mann - Last Filed: 04/10/22 09:44> 36-year-old male transitioning to female who is alert, oriented x4, appears tired Endorses taking 5 tablets of oxycodone codon and attempt to harm herself States she is signing the safety plan because she has to to . States she does not feel safe at home. <CANDY Clemente - Last Filed: 04/09/22 20:22> 36-year-old male transitioning to female who is alert, oriented x4, appears tired Endorses taking 5 tablets of oxycodone codon and attempt to harm herself States she is signing the safety plan because she has to to . States she does not feel safe at home. 1530: Zac Mascorro PA-C I assumed care at this 36-year-old transgender male who identifies as a female named Elsa from my colleague CANDY Garsia, please see her initial HPI and examination. At time of signout awaiting medical clearance at 1915 per poison control. Patient was witnessed ambulating safely and steadily to the restroom without assistance. Able to tolerate p.o. intake without difficulty. Reports to be feeling asymptomatic. Admits that the ER feels like a safe place. Awaiting 1914. Poison control contacted and requested a repeat Tylenol level. Repeat salicylate less than 2.8, acetaminophen less than 2 Patient has been medically cleared and mental health has been contacted. Mental health evaluation completed, please see their note. Patient is able to comply to a safety plan and will be released home into the care of her father. Both patient and father are comfortable with this plan. Patient reports feeling safe. Denies any active SI or HI. No signs of decompensation while here in the ER during this time of observation. Remains hemodynamically stable. Standard discharge and return precautions were provided. Patient understands, is agreeable to this plan, and has no additional questions or concerns upon discharge. This documentation was generated using [employer] system, please disregard any oddities of phrase or misspellings. Medical Records Medical records reviewed: Yes I reviewed the patient's medical records. Lab Data Lab results reviewed: Yes I reviewed the patient's lab results. Labs: Laboratory Tests Range/Units 04/09/22 04/09/22 04/09/22 13:47 13:47 13:47 WBC (4.4-10.8) 10^3/uL 11.88 H RBC (4.36-5.78) 10^6/uL 4.52 Hgb (13.5-17.5) g/dL 13.1 L Hct (40.0-50.0) % 39.1 L MCV (80-95) fL 87 MCH (27.0-33.0) pg 29.0 MCHC (32.0-36.0) % 33.5 RDW (11.8-14.1) % 12.1 Plt Count (130-400) 10^3/uL 303 MPV (8.0-11.0) fL 9.7 Immature Gran % 0.3 Neutrophils % 68.8 Lymphocytes % 20.4 Monocytes % 7.8 Eosinophils % 2.2 Basophils % 0.5 Nucleated RBC % (0.0-0.3) % 0.0 Absolute Neutrophils (1.2-6.7) 10^3/uL 8.17 H Absolute Lymphocytes (1.2-3.4) 10^3/uL 2.42 Absolute Monocytes (0.1-0.8) 10^3/uL 0.93 H Absolute Eosinophils (0.0-0.7) 10^3/uL 0.26 Absolute Basophils (0.0-0.2) 10^3/uL 0.06 Sodium (136-145) mmol/L 137 Potassium (3.5-5.1) mmol/L 4.2 Chloride (98-107) mmol/L 102 Carbon Dioxide (21.0-32.0) mmol/L 28.3 Anion Gap (3-11) mmol/L 6.7 BUN (7-18) mg/dL 17 Creatinine (0.70-1.30) mg/dL 1.0 Est GFR (CKD-EPI 2020) (mL/min/1.73m2) 100.66 Glucose (74-106) mg/dL 115 H Calcium (8.5-10.1) mg/dL 9.1 Total Bilirubin (0.2-1.0) mg/dL 0.3 AST (15-37) U/L 21 ALT (16-63) U/L 33 Alkaline Phosphatase (46-116) U/L 67 Total Protein (6.4-8.2) g/dL 7.2 Albumin (3.4-5.0) g/dL 3.7 Salicylates (<2.8) mg/dL < 2.8 Urine Opiates Screen (Negative) Urine Methadone Screen (Negative) Acetaminophen (10-30) ug/mL < 2 Ur Barbiturates Screen (Negative) Ur Tricyclics Screen (Negative) Ur Amphetamines Screen (Negative) U Benzodiazepines Scrn (Negative) Urine Cocaine Screen (Negative) Ur THC Screen (Negative) Range/Units 04/09/22 04/09/22 04/09/22 14:48 18:35 18:40 WBC (4.4-10.8) 10^3/uL RBC (4.36-5.78) 10^6/uL Hgb (13.5-17.5) g/dL Hct (40.0-50.0) % MCV (80-95) fL MCH (27.0-33.0) pg MCHC (32.0-36.0) % RDW (11.8-14.1) % Plt Count (130-400) 10^3/uL MPV (8.0-11.0) fL Immature Gran % Neutrophils % Lymphocytes % Monocytes % Eosinophils % Basophils % Nucleated RBC % (0.0-0.3) % Absolute Neutrophils (1.2-6.7) 10^3/uL Absolute Lymphocytes (1.2-3.4) 10^3/uL Absolute Monocytes (0.1-0.8) 10^3/uL Absolute Eosinophils (0.0-0.7) 10^3/uL Absolute Basophils (0.0-0.2) 10^3/uL Sodium (136-145) mmol/L Potassium (3.5-5.1) mmol/L Chloride (98-107) mmol/L Carbon Dioxide (21.0-32.0) mmol/L Anion Gap (3-11) mmol/L BUN (7-18) mg/dL Creatinine (0.70-1.30) mg/dL Est GFR (CKD-EPI 2020) (mL/min/1.73m2) Glucose (74-106) mg/dL Calcium (8.5-10.1) mg/dL Total Bilirubin (0.2-1.0) mg/dL AST (15-37) U/L ALT (16-63) U/L Alkaline Phosphatase (46-116) U/L Total Protein (6.4-8.2) g/dL Albumin (3.4-5.0) g/dL Salicylates (<2.8) mg/dL < 2.8 Urine Opiates Screen (Negative) Negative Urine Methadone Screen (Negative) Negative Acetaminophen (10-30) ug/mL < 2 Ur Barbiturates Screen (Negative) Negative Ur Tricyclics Screen (Negative) Negative Ur Amphetamines Screen (Negative) Negative U Benzodiazepines Scrn (Negative) Negative Urine Cocaine Screen (Negative) Negative Ur THC Screen (Negative) Negative HPI <CANDY Mann - Last Filed: 04/10/22 09:44> General Date/Time Provider Initiated Documentation: 04/09/22 13:20 . HPI Narrative: This 36-year-old male transitioning to female reports with intentional ingestion of 5 tablets of 25 mg hydroxyzine within the last several hours. States she was trying to take her life . States she has been very depressed. States she was at this facility yesterday and was evaluated for similar episode. She was safety planned home and felt very depressed today. Denies any additional attempts to harm self. Denies any additional ingestions. Related Data Home Medications Medication Instructions Recorded Confirmed estradiol 2 mg tablet 2 mg PO BID 02/20/22 04/09/22 levothyroxine 137 mcg capsule 137 mcg PO DAILY 02/20/22 04/09/22 sertraline 100 mg tablet 100 mg PO DAILY 02/20/22 04/09/22 spironolactone 50 mg tablet 50 mg PO BID 02/20/22 04/09/22 quetiapine 25 mg tablet 25 tab PO HS 03/12/22 04/09/22 buspirone 5 mg tablet 1 tab PO BID 04/08/22 04/09/22 hydroxyzine pamoate 25 mg capsule 1 cap PO BID 04/08/22 04/09/22 Allergies Allergy/AdvReac Type Severity Reaction Status Date / Time strawberry AdvReac Verified 04/09/22 13:20 General Stated Complaint: PsychEval SCOTT: 2 PFSH <CANDY Mann - Last Filed: 04/10/22 09:44> All Active Problems (Updated 04/09/22 @ 20:18 by CANDY Clemente) Suicide gesture (Acute) Depression (Chronic) Major depression (Chronic) Suicidal ideation (Acute) Medical History Anxiety with depression Developmental delay, mild Dyspraxia Gout Hyperlipidemia Hyperuricemia Nonspecific paroxysmal spell Obesity Suicidal thoughts Transgender Type 2 diabetes mellitus Social History Smoking/Tobacco Use Status: Former Tobacco Use Smoking risk assessment performed?: Yes Alcohol Intake: never Drug use: Occasionally Substance use type: marijuana Details: maybe once a month Do you feel safe at home: Yes (mentally no physically yes) Do you feel safe in your relationship?: Yes Exam <CANDY Mann - Last Filed: 04/10/22 09:44> Eyes Pupils: PERRL Resp Effort & Inspection: normal respiratory effort Cardio Rate: regular rate Rhythm: regular rhythm GI Inspection: normal to inspection Skin General skin exam: no rashes or lesions noted Neuro General: patient alert Cranial Nerves: CN's II-XI intact bilaterally Cognition: normal cognition Speech: speech normal Gait: normal gait Psych Appearance: disheveled Mental Status: mental status grossly normal Affect: labile affect Attitude: cooperative Thought Process: tangential Thought Content: suicidality Insight: poor Judgment: poor Course <CANDY Mann - Last Filed: 04/10/22 09:44> Vital Signs Vital signs: Vital Signs Temperature 37 C 04/09/22 13:14 Pulse 90 04/09/22 13:14 Respiratory Rate 14 04/09/22 13:14 Blood Pressure 136/90 04/09/22 13:14 Pulse Oximetry 98 04/09/22 13:14 Temperature 37 C 04/09/22 13:14 Temperature Source Skin 04/09/22 13:14 Pulse 90 04/09/22 13:14 Respiratory Rate 14 04/09/22 13:14 Respiratory Effort Non-Labored 04/09/22 13:37 Blood Pressure 136/90 04/09/22 13:14 Blood Pressure Position Sitting 04/09/22 13:14 Pulse Oximetry 98 04/09/22 13:14 Oxygen Delivery Method Room Air 04/09/22 13:14 Oxygen Flow Rate 0 04/09/22 13:14 Pain Level 8 04/09/22 13:14 Lab/Test Results Lab/Test Results: Laboratory Tests Range/Units 04/09/22 04/09/22 04/09/22 13:47 13:47 13:47 WBC (4.4-10.8) 10^3/uL 11.88 H RBC (4.36-5.78) 10^6/uL 4.52 Hgb (13.5-17.5) g/dL 13.1 L Hct (40.0-50.0) % 39.1 L MCV (80-95) fL 87 MCH (27.0-33.0) pg 29.0 MCHC (32.0-36.0) % 33.5 RDW (11.8-14.1) % 12.1 Plt Count (130-400) 10^3/uL 303 MPV (8.0-11.0) fL 9.7 Immature Gran % 0.3 Neutrophils % 68.8 Lymphocytes % 20.4 Monocytes % 7.8 Eosinophils % 2.2 Basophils % 0.5 Nucleated RBC % (0.0-0.3) % 0.0 Absolute Neutrophils (1.2-6.7) 10^3/uL 8.17 H Absolute Lymphocytes (1.2-3.4) 10^3/uL 2.42 Absolute Monocytes (0.1-0.8) 10^3/uL 0.93 H Absolute Eosinophils (0.0-0.7) 10^3/uL 0.26 Absolute Basophils (0.0-0.2) 10^3/uL 0.06 Sodium (136-145) mmol/L 137 Potassium (3.5-5.1) mmol/L 4.2 Chloride (98-107) mmol/L 102 Carbon Dioxide (21.0-32.0) mmol/L 28.3 Anion Gap (3-11) mmol/L 6.7 BUN (7-18) mg/dL 17 Creatinine (0.70-1.30) mg/dL 1.0 Est GFR (CKD-EPI 2020) (mL/min/1.73m2) 100.66 Glucose (74-106) mg/dL 115 H Calcium (8.5-10.1) mg/dL 9.1 Total Bilirubin (0.2-1.0) mg/dL 0.3 AST (15-37) U/L 21 ALT (16-63) U/L 33 Alkaline Phosphatase (46-116) U/L 67 Total Protein (6.4-8.2) g/dL 7.2 Albumin (3.4-5.0) g/dL 3.7 Salicylates (<2.8) mg/dL < 2.8 Acetaminophen (10-30) ug/mL < 2
[2022-04-09 15:21] LABS: *AMPHETAMINES SCREEN URINE Negative (Negative); *BARBITURATES SCREEN URINE Negative (Negative); *BENZODIAZEPINES SCREEN URINE Negative (Negative); Cannabinoids THC Negative (Negative); Cocaine Screen,Urine Negative (Negative); METHADONE URINE SCREEN Negative (Negative); OPIATES URINE SCREEN Negative (Negative)
[2022-04-09 15:30] LABS: Tricyclic Antidepressants Negative (Negative)
--- NOTE | 2022-04-09 16:35 | PDOC.CMSAFED ---
- If Service Date Differs Date of service: 04/09/22 Time of Service: 16:35 Care Management Safety Plan Status: Interim - Reason for Wait Reason for Wait: Medical Clearance Chief Complaint: Elsa presents in the ED for suicidal ideation for the 6th time this month. Pt was last seen in the ER yesterday and discharged home with a safety plan. She has a history of depression and anxiety and is well known to [facility]. Per provider note, Elsa reports recurrent and ongoing depression that led to her intentional ingestion of 5 tablets of 25 mg hydroxyzine. Pt stated she was trying to take her life and reported a plan to crash her car. Elsa reports that she was recently admitted to [facility]. CM will respond to ED to assess patient after patient has been medically cleared and assessed by screener. If screener deems patient meets criteria for psychiatric stabilization CM will facilitate interdepartmental huddle with [facility] screener for safety planning considerations and meet with patient to review [facility] policy and safety plan, establish individual wishes for treatment and maintain patient rights. In the interim; please note safety plan below to guide patient care while awaiting further assessment in the ED. SAFETY PLAN: 1. Will remain on suicide precautions and in paper clothes. 2. Will remain in room under direct supervision of one-on-one staff at all times provided by DIEGO, TRAVEL PTA supervisor payroll. 3. May have paper cups, plates, finger foods as well as a cardboard spoon with which to eat meals. 4. Follow [facility] Management of the Admitted Behavioral Health Patient policy. 5. Personal care: Comfort bath system only at this time. 6. Bathroom privileges: with escort in ED. Available in room without limitation on Med/Surg. 6. No personal belongings at this time; per RN discretion. 7. No visitors at this time. 8. Phone contact limited to legal contact at this time. 9. Activities: Music tablet per RN discretion. Med/Surg: Television and remote available at RN discretion. 10. Due to VOLUNTARY status, if patient wishes to leave [facility], staff will contact [facility] Crisis Screener ([phone]) and On-Call Machine Shorthand Teacher ([phone]) as soon as possible. In the event of elopement, notify [facility] Police ([phone]). If deemed appropriate for inpatient psychiatric care, safety plan will be established with patient, and care team, to adhere to patient goals, identify restrictions based on behavioral status, address nutrition, and determine allowed personal belongings, tools for hygiene and personal care. As well plan will determine level of activity including ambulation, level of supervision, visitors, and determine privileges based on level of acuity, behaviors and level of engagement by patient.
[2022-04-09 18:39] VITALS: BP 125/83; PULSE 82; RESP 16; TEMP 36.5; O2SAT 98
[2022-04-09 18:59] LABS: Salicylate < 2.8 mg/dL (<2.8)
[2022-04-09 19:17] LABS: Acetaminophen < 2 ug/mL (10-30)
--- NOTE | 2022-04-09 19:20 | NUR.NOTE ---
@1920-Acetaminophen level is negative per lab. Poison control called and updated with updated labs and VS. Mental Health Eval is pending.
--- NOTE | 2022-04-09 19:53 | NUR.NOTE ---
@1952-Psych eval in progress
[2022-04-09 20:23] VITALS: BP 112/73; PULSE 95; RESP 16; TEMP 36.8; O2SAT 95
--- NOTE | 2022-04-09 20:24 | NUR.NOTE ---
Per psych consult pt can be safely discharged at this time. Pt's father called to transport pt home.
== END 2022-04-09 20:48 | disposition home or self-care (01) ==
PROVIDERS: Physician Assistant; Emergency Provider Physician Assistant; PCP Family Medicine
DX: F32.A Depression, unspecified (principal); T43.592A Poisoning by other antipsychotics and neuroleptics, intentional self-harm, initial encounter; E11.9 Type 2 diabetes mellitus without complications
CPT/HCPCS: 80053; 80307; 93005; 99285; 80329; 85025; 93010; 99284

== ENCOUNTER 2022-04-14 19:25 | Inpatient (IN) | payer MEDICARE, MEDICAID, SELFPAY ==
[2022-04-14] VITALS (29 sets, daily range): BP systolic 129–137; BP diastolic 80–87; PULSE 73–118; RESP 18–63; TEMP 36.3; O2SAT 96
--- NOTE | 2022-04-14 19:27 | ED.GENADUL_ITS ---
Discharge Plan Discharge Details Chief Complaint: PsychEval Primary Care Provider: Dao Howell ED Provider: Pj Kitchen [place] Meds and New Rx's Prescriptions: No Action sertraline 100 mg tablet 100 mg PO DAILY levothyroxine 137 mcg capsule 137 mcg PO DAILY spironolactone 50 mg tablet 50 mg PO BID estradiol 2 mg tablet 2 mg PO BID quetiapine 25 mg tablet 25 tab PO HS Rx Instructions: pt states 25mg in AM and 50mg in PM buspirone 5 mg tablet 1 tab PO BID hydroxyzine pamoate 25 mg capsule 1 cap PO BID allopurinol 100 mg tablet 100 mg PO DAILY Label Comments: TAKE 2 TABLETS BY MOUTH DAILY Medical Decision Making Patient presenting to ED after reported suicide attempt by taking 10 hydroxyzine. Denies any other medication, drugs, alcohol. Patient in no distress but has flat affect and poor eye contact. Noted to be mildly tachycardic otherwise normal vitals. Will obtain EKG, laboratory studies, monitor on telemetry. CPSO present. Will need mental health evaluation once medically cleared. Patient's EKG is sinus tachycardia with normal axis, normal intervals, normal ST segments. Laboratory studies unremarkable except for white count of 14 and hemoglobin 12.4 both of which seem to be this patient's baseline in regards to previous labs. Chemistries and liver function are normal. Alcohol, Tylenol, salicylate negative. Urine drug screen is still pending. Patient's heart rate is coming down. Will monitor for 4 hours and if resolution of tachycardia with no other evidence of anticholinergic toxicity will clear for mental health evaluation. Signed out to oncoming physician Dr. Najera. Medical Records Medical records reviewed: Yes I reviewed the patient's medical records. Medical records narrative: previous ED visits last month Lab Data Lab results reviewed: Yes I reviewed the patient's lab results. ECG Data Attestation: I personally reviewed and interpreted this ECG (s) as follows: Prior ECG tracings: available for review Interpretation: see EKG HPI General Mode of arrival: ambulatory . Date/Time Provider Initiated Documentation: 04/14/22 19:27 . Limitations to Documentation: no limitations . Information obtained by: patient . HPI Narrative: Patient presents to the ED stating she took 10 hydroxyzine tonight along with her regular medications. Reports she was trying to kill herself. Drove herself here afterwards. Reports having headache and dizziness now. Has had few presentations in the last month with similar complaints. Currently denies having chest pain, palpitations, shortness of breath, abdominal pain, nausea. Unable to answer question regarding why she wishes to kill herself. Related Data Home Medications Medication Instructions Recorded Confirmed estradiol 2 mg tablet 2 mg PO BID 02/20/22 04/14/22 levothyroxine 137 mcg capsule 137 mcg PO DAILY 02/20/22 04/14/22 sertraline 100 mg tablet 100 mg PO DAILY 02/20/22 04/14/22 spironolactone 50 mg tablet 50 mg PO BID 02/20/22 04/14/22 quetiapine 25 mg tablet 25 tab PO HS 03/12/22 04/14/22 buspirone 5 mg tablet 1 tab PO BID 04/08/22 04/14/22 hydroxyzine pamoate 25 mg capsule 1 cap PO BID 04/08/22 04/14/22 allopurinol 100 mg tablet 100 mg PO DAILY 04/14/22 04/14/22 Allergies Allergy/AdvReac Type Severity Reaction Status Date / Time strawberry AdvReac Verified 04/14/22 19:39 General SCOTT: 2 Review of Systems Narrative: Per HPI PFSH All Active Problems Suicidal thoughts (Acute) Suicide gesture (Acute) Depression (Chronic) Medical History Anxiety with depression Developmental delay, mild Dyspraxia Gout Hyperlipidemia Hyperuricemia Obesity Transgender Type 2 diabetes mellitus Surgical History No significant past surgical history Social History Smoking/Tobacco Use Status: Former Tobacco Use Smoking risk assessment performed?: Yes Alcohol Intake: never Drug use: Occasionally Substance use type: marijuana Details: maybe once a month Do you feel safe at home: Yes (mentally no physically yes) Do you feel safe in your relationship?: Yes Exam Narrative Exam Narrative: Const: NAD. HEENT: NC/AT. Normal facial exam. Eyes: Normal conjunctiva and sclera. Neck: Supple. Trachea midline. Lungs: Normal respiratory effort. Lungs are clear. Cor: RRR without murmur/gallop. Good radial pulses. GI: Soft. NT/ND. No guarding or rebound Neuro: A+O x 3. Normal speech, mentation, gait. Cranial nerves II - XII grossly intact. No gross motor or sensory deficit. Ext: No C/C/E. Skin: Warm and dry. Psych: Flat affect. Poor eye contact.
--- NOTE | 2022-04-14 19:30 | RT.EKG_ITS ---
APPROVED REPORT Exam: Resting ECG Reason for Exam: intentional OD Patient Location: E HR:107 bpm ECG Measurements Heart Rate 107 AXIS UT 142 P 29 QRSd 77 QRS 21 QT 341 T 32 QTc 456 Conclusion Sinus tachycardia...rate> 99 Low voltage, precordial leads...precordial leads <1.0mV Normal [place] Otherwise normal ECG
[2022-04-14 19:58] LABS: Abs Immature Grans 0.08 10^3/uL (0.0-0.06); Absolute Basophil Count 0.06 10^3/uL (0.0-0.2); Absolute Lymphocyte Count 4.14 10^3/uL (1.2-3.4); Absolute Monocyte Count 0.97 10^3/uL (0.1-0.8); Absolute Neutrophil Count 8.41 10^3/uL (1.2-6.7); Basophils % 0.4; Eosinophils % 2.4; HCT 37.3 % (40.0-50.0); HGB 12.4 g/dL (13.5-17.5); Immature Grans % 0.6; Lymphocytes % 29.6; MCH 28.7 pg (27.0-33.0); MCHC 33.2 % (32.0-36.0); MCV 86 fL (80-95); MPV 9.9 fL (8.0-11.0); Monocytes % 6.9; Neutrophils % 60.1; Platelet Count 294 10^3/uL (130-400); RBC 4.32 10^6/uL (4.36-5.78); RDW 12.3 % (11.8-14.1); RDW-SD 38.7 fL; WBC 13.99 10^3/uL (4.4-10.8)
[2022-04-14 20:05] LABS: Absolute Eosinophil Count 0.34 10^3/uL (0.0-0.7)
[2022-04-14 20:13] LABS: ALT 30 U/L (16-63); AST 17 U/L (15-37); Albumin 3.6 g/dL (3.4-5.0); Alkaline Phosphatase 71 U/L (46-116); Anion Gap 9.5 mmol/L (3-11); BUN 12 mg/dL (7-18); Bilirubin, Total 0.2 mg/dL (0.2-1.0); CO2 25.5 mmol/L (21.0-32.0); CREATININE 1.2 mg/dL (0.70-1.30); Calcium 8.8 mg/dL (8.5-10.1); Chloride 104 mmol/L (98-107); Estimated GFR 80.88 (mL/min/1.73m2); Glucose 147 mg/dL (74-106); Potassium 3.7 mmol/L (3.5-5.1); Sodium 139 mmol/L (136-145)
[2022-04-14 20:23] LABS: ETHANOL BLOOD < 3.0 mg/dL (<10)
[2022-04-14 20:30] LABS: Salicylate < 2.8 mg/dL (<2.8)
[2022-04-14 20:37] LABS: Acetaminophen < 2 ug/mL (10-30)
[2022-04-14 22:50] LABS: *AMPHETAMINES SCREEN URINE Negative (Negative); *BARBITURATES SCREEN URINE Negative (Negative); *BENZODIAZEPINES SCREEN URINE Negative (Negative); Cannabinoids THC Negative (Negative); Cocaine Screen,Urine Negative (Negative); METHADONE URINE SCREEN Negative (Negative); OPIATES URINE SCREEN Negative (Negative)
[2022-04-14 22:53] LABS: Tricyclic Antidepressants Negative (Negative)
[2022-04-15] VITALS (9 sets, daily range): BP systolic 107–116; BP diastolic 67–83; PULSE 63–82; RESP 16–18; TEMP 36.5–37.2; O2SAT 96–98
--- NOTE | 2022-04-15 00:47 | NUR.NOTE ---
pt currently on zoom call with mental health art consultant
--- NOTE | 2022-04-15 02:52 | W.EDPROG ---
Date of service: 04/15/22 Time of Service: 02:53 Medical Decision Making Patient was signed out to me by my colleague Dr. Kitchen. Please refer to his HPI, physical exam, assessment and plan. At midnight patient was reassessed and is notably medically stable. No clinical evidence of overdose, vital sign abnormalities or other concerning components. Mental health was consulted. They have evaluated the patient and will recommend voluntary admission. Patient remained stable. Patient will be signed out to my colleague in the morning for disposition. Sign Out Sign Out Data: Sign Out Comment: pending mental health eval Last updated by Pj Kitchen MD at 04/14/22 23:04 Discharge Plan Discharge Details Chief Complaint: PsychEval Clinical Impression: Suicide gesture Primary Care Provider: Dao Howell ED Provider: Evan Najera Home Meds and New Rx's Prescriptions: No Action sertraline 100 mg tablet 100 mg PO DAILY levothyroxine 137 mcg capsule 137 mcg PO DAILY spironolactone 50 mg tablet 50 mg PO BID estradiol 2 mg tablet 2 mg PO BID quetiapine 25 mg tablet 25 tab PO HS Rx Instructions: pt states 25mg in AM and 50mg in PM buspirone 5 mg tablet 1 tab PO BID hydroxyzine pamoate 25 mg capsule 1 cap PO BID allopurinol 100 mg tablet 100 mg PO DAILY Label Comments: TAKE 2 TABLETS BY MOUTH DAILY
--- NOTE | 2022-04-15 06:13 | NUR.NOTE ---
pt OOB ambulatory to BR and back to bed without difficulty
--- NOTE | 2022-04-15 08:51 | ED.PROG_ITS ---
Date of service: 04/15/22 Time of Service: 08:51 Medical Decision Making pt currently seeking voluntary placement for depression/si. Currently calm and cooperative, will continue to monitor Sign Out Sign Out Data: Sign Out Comment: pending mental health eval Last updated by Pj Kitchen MD at 04/14/22 23:04 Sign Out Comment: Voluntary, pending placement Last updated by Evan Najera DO at 04/15/22 07:45 Discharge Plan Discharge Details Chief Complaint: PsychEval Clinical Impression: Suicide gesture Primary Care Provider: Dao Howell ED Provider: Tung Perez [place] Meds and New Rx's Prescriptions: No Action sertraline 100 mg tablet 100 mg PO DAILY levothyroxine 137 mcg capsule 137 mcg PO DAILY spironolactone 50 mg tablet 50 mg PO BID estradiol 2 mg tablet 2 mg PO BID quetiapine 25 mg tablet 25 tab PO HS Rx Instructions: pt states 25mg in AM and 50mg in PM buspirone 5 mg tablet 1 tab PO BID hydroxyzine pamoate 25 mg capsule 1 cap PO BID allopurinol 100 mg tablet 100 mg PO DAILY Label Comments: TAKE 2 TABLETS BY MOUTH DAILY
[2022-04-15] MEDS: Sertraline 100 MG TAB PO (09:17)
[2022-04-15] MEDS: Spironolactone 50 MG TAB PO ×2 (09:18→20:02)
[2022-04-15] MEDS: Estradiol 1 MG TAB 2 MG PO ×2 (09:32→20:01)
[2022-04-15 12:30] LABS: Source Nasal/Nares
--- NOTE | 2022-04-15 12:39 | CMSP_ITS ---
- If Service Date Differs Date of service: 04/15/22 Time of Service: 12:39 Care Management Safety Plan Status: Voluntary - Reason for Wait Reason for Wait: Inpatient Admission VOLUNTARY FOR INPATIENT PSYCHIATRIC STABILIZATION. Patient is appropriate in all interactions since arriving at [facility]; Pt has demonstrated appropriate coping and communication skills, has articulated his or her needs and concerns and is fully engaged during staff interactions. Safety plan has been established with patient, and care team, to adhere to patient goals, identify restrictions based on behavioral status, address nutr ition, and determine allowed personal belongings, tools for hygiene and personal care. Determine level of activity including ambulation, level of supervision, visitors, and determine privileges based on behaviors and level of engagement by pt. CM discussed the safety plan with staff, noting that Elsa has used items for self harm on previous admissions (per chart review and staff reports- a straw, plastic cover of paper cup). CM previously suggested a referral to MAINTENANCE SERVICE TECHNICIAN due to frequency of ED visits and instability in the community. SAFETY PLAN: 1. Will remain on suicide precautions. In Paper Clothes 2. Will remain in room under direct supervision of one-on-one staff at all times provided by CPSO; DIEGO, TELECOMMUNICATIONS REPAIRER cash shortage investigator. 3. May have paper cups, plates, finger foods as well as a cardboard spoon with which to eat meals. No plastic cover on drinks/straws. 4. Follow [facility] Management of the Admitted Behavioral Health Patient policy. 5. Comfort bath system, shower permitted with escort at RN discretion. 6. No personal belongings-soft items permitted at RN discretion. 7. Visitors-none at this time. 8. Activities: soft cart items approved per RN discretion. 9. Bathroom privileges with escort in the ED, available in room without limitation on M/S. 10. Phone: incoming/outgoing, via cordless phone at RN discretion. 11. Due to VOLUNTARY status, if patient wishes to leave [facility], staff will contact [facility] Crisis Screener ([phone]) and On-Call Shape Brick Molder ([phone]) as soon as possible. In the event of elopement, notify [facility] Police ([phone]). Patient is currently voluntarily at [facility] and seeking inpatient admission when a bed becomes available. [facility] Frontline Laundry Or Dry Cleaners Counter Clerk will continue seeking placement. Please contact the Marketing Operations Manager Shape Brick Molder ([phone]) and [facility] Laundry Or Dry Cleaners Counter Clerk ([phone]) for any needed changes in the Safety Plan. Safety plan has been provided to interdepartmental care team.
[2022-04-15 13:10] LABS: COVID-19 PCR Negative (Negative)
--- NOTE | 2022-04-15 13:38 | PDOC.MHPN2 ---
Date of service: 04/15/22 Time of Service: 09:40 PHQ-9 Over the last 2 weeks, how often have you been bothered by any of the following problems? 1. Little interest or pleasure in doing things: nearly every day 2. Feeling down, depressed, or hopeless: nearly every day 3. Trouble falling or staying asleep, or sleeping too much: nearly every day 4. Feeling tired or having little energy: nearly every day 5. Poor appetite or overeating: nearly every day 6. Feeling bad about yourself - or that you are a failure or have let yourself and your family down: nearly every day 7. Trouble concentrating on things, such as reading the newspaper or watching television: nearly every day 8. Moving or speaking so slowly that other people could have noticed? - Or the opposite - being so fidgety or restless that you have been moving around a lot more than usual: nearly every day 9. Thoughts that you would be better off or of hurting yourself in some way: nearly every day Total score: 27 If you checked off any problems, how difficult have these problems made it for you to do your work, take care of things at home, or get along with other people?: very difficult Source: Developed by Drs. Pj Woodard, Ariana Mitchell, Rolando Rowley and colleagues, with an educational blair from [employer]. Suicide Severity Rate CSSRS Have you wished you were or wished you could go to sleep and not wake up?: Yes Have you actually had any thoughts of killing yourself?: Yes CSSRS2 Have you been thinking about how you might do this?: Yes Have you had these thoughts and had some intention of acting on them?: Yes Have you started to work out or worked out the details of how to kill yourself? Do you intend to carry out this plan?: Yes CSSRS4 Was this within the past three months?: No Screening Score Total Score: 4 Screening: Positive Mental Health Emergency Note Release [facility] release signed:: Yes Reason for Visit Client was opened to [facility] in February of 2022 when she presented to [facility] for suicidal ideations. Client has been assessed numerous times by [facility] and has been hospitalized on voluntary status 2x within the past month once at [facility] and the other at [facility]. Client was released from [facility] yesterday after a 9 day voluntary stay for increased suicidal ideations and anxiety. Client presented to [facility] ED via ambulance with chief complaint of increased suicidal ideations with plan to overdose on medications and NSSI. Client reports to [facility] triage nurse: I want to know if I can be held involuntary so I can't leave treatment when I am feeling better. This technical writer and editor assess client via zoom. In the last 2 weeks has the pt presented for ES prior to today?: Yes, presented at [facility] ED (on 03/27 to seek voluntary [facility] treatment.) and [facility] Client Information Client is: Adult Outpatient Well Housed: Yes Current Treatment Team if applicable First care steamfitter apprentice: Name: Rox Hayes Role: Outpatient community therapist Non Suicidal Self Injury Current: Yes, Client has been thinking about cutting herself. History: yes, hx of NSSI when triggered by parents and they do not use their proper pronouns. Safety Risk/Harm to Self or Others Current Ideation to Harm Self or Others: Yes to self. (Client currently endorsing SI with intent and plan to overdose on their medications. ) Intent: no, has no intent. Plan: no.does not have a plan. History of suicide attempt: No history of suicide attempt reported Risk: Does risk to harm exist?: No Risk: N/A Duty to warn indicated: No Asssessment/Mental Status Appearance: Disheveled Attitude: Passive Behavior: Unremarkable Speech: Normal Affect: Flat and Cogruent with mood Mood: Sad and Depressed Thought process: Goal directed Hallucinations: No evidence Delusions: No evidence Attention: Unremarkable Perception: Not impaired Orientation: Fully orientated Memory: Intact Insight: Poor Judgement: Poor Neurovegetative Symptoms Sleep: No change (Client reports that they wake up frequently with nightmares. ) Appetitie: No change (Client reports they need to force themselves to eat. ) Interests: No change Energy: No change Libido: Not applicable Substance Use: Do you use nicotine?: No Have you used substances in the last 7 days?: No Additional Issues: Assaultive/Threatening Behavior: No Medical Concerns: No Client engaged in active self harm w/weapon: No Threatening to run away: No Child reported abuse/neglect: No Voluntarily presenting for services: Yes Domestic violence is a concern: No Extreme Psychosis or extreme behavior is present: No Impression Client reports attempting to overdose last night but then drove herself to the hospital. Client reports continuos suicidal ideation with thoughts of NSSI as well. Client is seeking voluntary treatment. Resources Reosurces reviewed and given:: [facility] (Client will be released on pro-active safety plan with follow-up tonight with [facility] and tomorrow morning as well. ) Plan/Disposition Recommended Disposition: [facility] Services (Check-in phone calls with [facility] ES tonight at 8p and tomorrow morning following therapy appointment. ) [facility] Services: Other and Therapy (Follow-up appointment scheduled with outpatient therapist Rox Hayes tomorrow. ). Plan: Client is seeking voluntary treatment. Waiting for a bed to be available. Person reported agreement to plan: Yes Reports/communication Outcome discussed with: ED/Personnel (Verbal passover given to ED provider Kelsey Brochures)
--- NOTE | 2022-04-15 19:56 | HPE_ITS ---
Date of service: 04/15/22 Time of Service: 17:00 Assessment and Plan Assessment and plan (1) Major depression: Status: Inactive Assessment and plan: Continuing quetiapine, sertraline (2) Suicidal ideation: Status: Inactive Assessment and plan: Mental health already involved, plan for voluntary admission History of Present Illness History of Present Illness Chief Complaint: Overdose of Hydroxyzine; suicidal ideation; depression Narrative: This is a 36 yo who identifies as she/her (Elsa) who presented to the [facility] ED for depression and suicidal ideation. ?She has had multiple visits to the ED and has been admitted to many psychiatric facilities many times. Today she states she took an overdose of ten - 25 mg hydroxyzine capsules along with her regular medications.?Patient reported she was trying to kill herself.? Drove herself to the ED afterwards.? Reported having headache and dizziness when she arrived. Patient denied having chest pain, palpitations, shortness of breath, abdominal pain, nausea.? The patient did not need intervention since presentation to the ED. She had cardiac monitoring while she was in the ED and remained in normal sinus rhythm. Mental health has already seen her and facilities have been contacted to find placement. She is medically stable at this time and not requiring any intervention currently. discussed with Dr Kent ? Review of Systems All systems reviewed & are unremarkable except as noted in HPI and below PFSH All Active Problems (Updated 04/15/22 @ 02:53 by Evan Najera DO) Suicidal thoughts (Acute) Suicide gesture (Acute) Depression (Chronic) Medical History (Updated 04/15/22 @ 02:53 by Evan Najera DO) Anxiety with depression Developmental delay, mild Dyspraxia Gout Hyperlipidemia Hyperuricemia Obesity Transgender Type 2 diabetes mellitus Surgical History No significant past surgical history Social History Smoking/Tobacco Use Status: Former Tobacco Use Smoking risk assessment performed?: Yes Alcohol Intake: never Drug use: Occasionally Substance use type: marijuana Details: maybe once a month Do you feel safe at home: Yes (mentally no physically yes) Do you feel safe in your relationship?: Yes Meds Allergies and Home Medications Allergies Allergy/AdvReac Type Severity Reaction Status Date / Time strawberry AdvReac Verified 04/14/22 19:39 Home Medications Medication Instructions Recorded Confirmed Type estradiol 2 mg tablet 2 mg PO BID 02/20/22 04/14/22 History levothyroxine 137 mcg capsule 137 mcg PO DAILY 02/20/22 04/14/22 History spironolactone 50 mg tablet 50 mg PO BID 02/20/22 04/14/22 History quetiapine 25 mg tablet 25 tab PO QAM 03/12/22 04/15/22 History buspirone 5 mg tablet 1 tab PO BID 04/08/22 04/14/22 History hydroxyzine pamoate 25 mg capsule 1 cap PO Q4H PRN PRN 04/08/22 04/15/22 History allopurinol 100 mg tablet 200 mg PO DAILY 04/14/22 04/15/22 History quetiapine 25 mg tablet (Seroquel) 50 mg PO HS 04/15/22 04/15/22 History sertraline 100 mg tablet 100 mg PO DAILY 04/15/22 04/15/22 History sertraline 25 mg tablet 25 mg PO DAILY 04/15/22 04/15/22 History Exam Narrative Exam Narrative: Const: NAD. HEENT: NC/AT. Normal facial exam. Eyes: Normal conjunctiva and sclera. Neck: Supple. Trachea midline. Lungs: Normal respiratory effort. Lungs are clear. Cor: RRR without murmur/gallop. Good radial pulses. GI: Soft. NT/ND. No guarding or rebound Neuro: A+O x 3. Normal speech, mentation, gait. Cranial nerves II - XII grossly intact. No gross motor or sensory deficit. Ext: No C/C/E. Skin: Warm and dry. Psych: Flat affect. Poor eye contact. Results Labs Result diagrams: 04/14/22 19:51 04/14/22 19:51 Labs: Laboratory Results - last 24 hr 04/14/22 04/14/22 04/14/22 19:51 19:51 19:51 WBC 13.99 H RBC 4.32 L Hgb 12.4 L Hct 37.3 L MCV 86 MCH 28.7 MCHC 33.2 RDW 12.3 Plt Count 294 MPV 9.9 Immature Gran % 0.6 Neutrophils % 60.1 Lymphocytes % 29.6 Monocytes % 6.9 Eosinophils % 2.4 Basophils % 0.4 Nucleated RBC % 0.0 Absolute Neutrophils 8.41 H Absolute Lymphocytes 4.14 H Absolute Monocytes 0.97 H Absolute Eosinophils 0.34 Absolute Basophils 0.06 Sodium 139 Potassium 3.7 Chloride 104 Carbon Dioxide 25.5 Anion Gap 9.5 BUN 12 Creatinine 1.2 Est GFR (CKD-EPI 2020) 80.88 Glucose 147 H Calcium 8.8 Total Bilirubin 0.2 AST 17 ALT 30 Alkaline Phosphatase 71 Total Protein 7.0 Albumin 3.6 Salicylates < 2.8 Urine Opiates Screen Urine Methadone Screen Acetaminophen < 2 Ur Barbiturates Screen Ur Tricyclics Screen Ur Amphetamines Screen U Benzodiazepines Scrn Urine Cocaine Screen Ur THC Screen Ethyl Alcohol < 3.0 COVID-19 Source SARS-CoV-2 (PCR) 04/14/22 04/15/22 22:25 12:28 WBC RBC Hgb Hct MCV MCH MCHC RDW Plt Count MPV Immature Gran % Neutrophils % Lymphocytes % Monocytes % Eosinophils % Basophils % Nucleated RBC % Absolute Neutrophils Absolute Lymphocytes Absolute Monocytes Absolute Eosinophils Absolute Basophils Sodium Potassium Chloride Carbon Dioxide Anion Gap BUN Creatinine Est GFR (CKD-EPI 2020) Glucose Calcium Total Bilirubin AST ALT Alkaline Phosphatase Total Protein Albumin Salicylates Urine Opiates Screen Negative Urine Methadone Screen Negative Acetaminophen Ur Barbiturates Screen Negative Ur Tricyclics Screen Negative Ur Amphetamines Screen Negative U Benzodiazepines Scrn Negative Urine Cocaine Screen Negative Ur THC Screen Negative Ethyl Alcohol COVID-19 Source Nasal/Nares SARS-CoV-2 (PCR) Negative Last Vital Signs Temp 37.1 C 04/15/22 15:51 Pulse 77 04/15/22 15:51 Resp 17 04/15/22 15:51 BP 107/74 04/15/22 15:51 Pulse Ox 96 04/15/22 15:51 Time Spent Time spent with Patient: 40-54 minutes Time was spent: preparing to see the patient(eg.review tests), obtaining and/or reviewing separately otained hiistory, ordering medications,tests, procedures, referring, communicating with other health resident care aid, indepentently interpreting results, counseling the patient and care coordination
[2022-04-15] MEDS: QUEtiapine 50 MG TAB (20:01)
[2022-04-15] MEDS: busPIRone 5 MG TAB PO (20:02)
[2022-04-15] MEDS: Melatonin 3 MG TAB 6 MG PO (21:32)
[2022-04-16 01:15] VITALS: BP 108/77; PULSE 72; RESP 16; TEMP 36.5; O2SAT 98
[2022-04-16 03:24] VITALS: BP 102/57; PULSE 80; RESP 19; TEMP 37.6; O2SAT 95
[2022-04-16 03:34] VITALS: BP 121/67; PULSE 70; RESP 16; TEMP 36.1; O2SAT 98
[2022-04-16 07:15] VITALS: BP 100/66; PULSE 61; RESP 16; TEMP 36.6; O2SAT 98
[2022-04-16] MEDS: Allopurinol 100 MG TAB 200 MG PO (07:51)
[2022-04-16] MEDS: QUEtiapine 25 MG TAB PO (07:51)
[2022-04-16] MEDS: Spironolactone 50 MG TAB PO ×2 (07:52→19:10)
[2022-04-16] MEDS: busPIRone 5 MG TAB PO ×2 (07:52→19:10)
[2022-04-16] MEDS: Sertraline 100 MG TAB PO (07:52)
[2022-04-16] MEDS: Estradiol 1 MG TAB 2 MG PO ×2 (07:52→19:10)
--- NOTE | 2022-04-16 10:23 | PHA.REVIEW2 ---
Pharmacy Admission Review - Admission Clinical Review (Last Reviewed 04/14/22 @ 19:35 by Pj Kitchen MD) Suicide gesture (Acute) strawberry Adverse Reaction (Verified 04/14/22 19:39) Resuscitation Status Full Code Height 6 ft 2 in Weight 107.501 kg - Comments Comments/Follow Ups: Suicide attempt taking Hydroxyzine tablets. Need to verify Sertraline and Levothyroxine doses. (see note below about [facility] records), External med refill history also has Sertraline 25mg tablets daily from provider: Fortunato Merritt, not sure if this is in addition to the 100mg Sertraline or dose decrease. [facility] pharmacy closed, unlear about medication compliance with Levothyroxine. Patient was recently admitted ~ 3 weeks ago, so continued the same doses as that admission. Please clarify and adjust home med list for Levothyroxine and Sertraline. - Renal Dosing Renal Dosing: BUN 12 mg/dL (7-18) 04/14/22 19:51 Creatinine 1.2 mg/dL (0.70-1.30) 04/14/22 19:51 - Anticoagulation Anticoagulation: Hgb 12.4 g/dL (13.5-17.5) L 04/14/22 19:51 Hct 37.3 % (40.0-50.0) L 04/14/22 19:51 Plt Count 294 10^3/uL (130-400) 04/14/22 19:51 Creatinine 1.2 mg/dL (0.70-1.30) 04/14/22 19:51 - Relevant Labs Sodium 139 mmol/L (136-145) 04/14/22 19:51 Potassium 3.7 mmol/L (3.5-5.1) 04/14/22 19:51 Chloride 104 mmol/L (98-107) 04/14/22 19:51 - DM Control DM Control: Glucose 147 mg/dL (74-106) H 04/14/22 19:51 - Home Meds Home Med List reviewed: Intervened (Spent alot of time reconciling home med list. Obtained PCP records [facility], not 100% clear about Sertraline dose and Levothyroxine dose. patient's [place] med list contains several different Levothyroxine doses. TSH levels have been fluctuating, hence it appears frequent dose adjustments) - Comments Comments/Follow Ups: Awaiting voluntary placement, previous admissions to [facility] and [facility]-just discharged 04/14/22
[2022-04-16 11:37] VITALS: BP 106/70; PULSE 71; RESP 16; TEMP 36.7; O2SAT 98
[2022-04-16 15:27] VITALS: BP 116/83; PULSE 92; RESP 16; TEMP 37; O2SAT 95
--- NOTE | 2022-04-16 16:52 | W.PM.PROGNOT ---
Date of Service Date of service: 04/16/22 Time of Service: 16:52 Assessment and Plan Assessment and plan (1) Major depression: Status: Inactive Assessment and plan: Continuing quetiapine, sertraline no behavioral issues (2) Suicidal ideation: Status: Inactive Assessment and plan: Mental health already involved, plan for voluntary admission Discussed with DR Kent Subjective Subjective Patient reports: no new complaints, tolerating liquids well, tolerating a regular diet, voiding w/o difficulty and afebrile; denies shortness of breath Exam Const General: disheveled Nutritional Appearance: average body habitus Orientation: alert, awake and oriented x3 HENMT Head: normocephalic and atraumatic Mouth: oral mucosae normal Resp Effort & Inspection: normal respiratory effort Auscultation: clear to auscultation bilaterally Cardio Rate: regular rate Rhythm: regular rhythm Skin General skin exam: no rashes or lesions noted Neuro General: patient alert, patient awake, patient oriented x3 and no focal motor deficits Extrem General: normal to inspection and full ROM Psych Appearance: disheveled Mental Status: other (withdrawn) Speech and Movement: slowed movement Mood: other (withdrawn) Affect: blunted Attitude: cooperative and avoids eye contact Insight: poor Judgment: poor Objective Last Vital Signs Temp 37 C 04/16/22 15:27 Pulse 92 H 04/16/22 15:27 Resp 16 04/16/22 15:27 BP 116/83 04/16/22 15:27 Pulse Ox 95 04/16/22 15:27 Time Spent with Patient Time Spent with Patient: 25-34 minutes Time was spent: obtaining and/or reviewing separately [facility]
--- NOTE | 2022-04-16 17:19 | PDOC.CMSAFE ---
- If Service Date Differs Date of service: 04/16/22 Time of Service: 17:19 Care Management Safety Plan Status: Voluntary - Reason for Wait Reason for Wait: Inpatient Admission VOLUNTARY FOR INPATIENT PSYCHIATRIC STABILIZATION. Elsa slept through most of the day. CM brought tablet in for [facility] screening; Elsa was pleasant in interaction, has remained calm and compliant with all expectations. Safety plan has been established with patient, and care team, to adhere to patient goals, identify restrictions based on behavioral status, address nutrition, and determine allowed personal belongings, tools for hygiene and personal care. Determine level of activity including ambulation, level of supervision, visitors, and determine privileges based on behaviors and level of engagement by pt. CM discussed the safety plan with staff, noting that Elsa has used items for self harm on previous admissions (per chart review and staff reports- a straw, plastic cover of paper cup). CM previously suggested a referral to WEB EDITOR due to frequency of ED visits and instability in the community. SAFETY PLAN: 1. Will remain on suicide precautions. In Paper Clothes 2. Will remain in room under direct supervision of one-on-one staff at all times provided by [employer]; DIEGO, SHIPS OR BARGES LOADER drying frame operator. 3. May have paper cups, plates, finger foods as well as a cardboard spoon with which to eat meals. No plastic cover on drinks/straws. 4. Follow [facility] Management of the Admitted Behavioral Health Patient policy. 5. Comfort bath system, shower permitted with escort at RN discretion. 6. No personal belongings-soft items permitted at RN discretion. 7. Visitors-none at this time. 8. Activities: soft cart items approved per RN discretion. 9. Bathroom privileges with escort in the ED, available in room without limitation on M/S. 10. Phone: incoming/outgoing, via cordless phone at RN discretion. 11. Due to VOLUNTARY status, if patient wishes to leave [facility], staff will contact [facility] Crisis Screener ([phone]) and On-Call Stone Driller ([phone]) as soon as possible. In the event of elopement, notify [facility] Police ([phone]). Patient is currently voluntarily at [facility] and seeking inpatient admission when a bed becomes available. [facility] Frontline Instrument Tech will continue seeking placement. Please contact the Brake Assembler Stone Driller ([phone]) and [facility] Instrument Tech ([phone]) for any needed changes in the Safety Plan. Safety plan has been provided to interdepartmental care team.
[2022-04-16] MEDS: LORazepam 0.5 MG TAB PO (18:27)
[2022-04-16] MEDS: Acetaminophen 500 MG TAB 1000 MG PO (19:27)
[2022-04-16] MEDS: QUEtiapine 25 MG TAB 50 MG PO (20:50)
[2022-04-16] MEDS: Melatonin 3 MG TAB 6 MG PO (20:50)
[2022-04-17] MEDS: Levothyroxine 125 MCG TAB PO (06:06)
[2022-04-17 08:20] VITALS: BP 101/65; PULSE 62; RESP 16; TEMP 36.6; O2SAT 96
[2022-04-17] MEDS: Spironolactone 50 MG TAB PO (09:13)
[2022-04-17] MEDS: busPIRone 5 MG TAB PO (09:13)
[2022-04-17] MEDS: Estradiol 1 MG TAB 2 MG PO (09:13)
[2022-04-17] MEDS: Sertraline 25 MG TAB PO (09:13)
[2022-04-17] MEDS: QUEtiapine 25 MG TAB PO (09:13)
[2022-04-17] MEDS: Allopurinol 100 MG TAB 200 MG PO (09:13)
[2022-04-17] MEDS: Sertraline 100 MG TAB PO (09:14)
--- NOTE | 2022-04-17 09:57 | PDOC.CMSAFE ---
- If Service Date Differs Date of service: 04/17/22 Time of Service: 09:57 Care Management Safety Plan Status: Voluntary - Reason for Wait Reason for Wait: Inpatient Admission VOLUNTARY FOR INPATIENT PSYCHIATRIC STABILIZATION. Safety plan has been established with patient, and care team, to adhere to patient goals, identify restrictions based on behavioral status, address nutrition, and determine allowed personal belongings, tools for hygiene and personal care. Determine level of activity including ambulation, level of supervision, visitors, and determine privileges based on behaviors and level of engagement by pt. CM discussed the safety plan with staff, noting that Elsa has used items for self harm on previous admissions (per chart review and staff reports- a straw, plastic cover of paper cup). CM previously suggested a referral to TECHNICIAN INVENTORY SPECIALIST due to frequency of ED visits and instability in the community. SAFETY PLAN: 1. Will remain on suicide precautions. In Paper Clothes 2. Will remain in room under direct supervision of one-on-one staff at all times provided by [employer]; DIEGO, BUFFING AND POLISHING WHEEL REPAIRER strap machine operator automatic. 3. May have paper cups, plates, finger foods as well as a cardboard spoon with which to eat meals. No plastic cover on drinks/straws. 4. Follow [facility] Management of the Admitted Behavioral Health Patient policy. 5. Comfort bath system, shower permitted with escort at RN discretion. 6. No personal belongings-soft items permitted at RN discretion. 7. Visitors-none at this time. 8. Activities: soft cart items approved per RN discretion. 9. Bathroom privileges with escort in the ED, available in room without limitation on M/S. 10. Phone: incoming/outgoing, via cordless phone at RN discretion. 11. Due to VOLUNTARY status, if patient wishes to leave [facility], staff will contact [facility] Crisis Screener ([phone]) and On-Call Engraved Roller Inspector ([phone]) as soon as possible. In the event of elopement, notify [place] [facility] Police ([phone]). Patient is currently voluntarily at [facility] and seeking inpatient admission when a bed becomes available. [facility] Frontline Radiologic Technology Instructor will continue seeking placement. Please contact the Legal Manager Engraved Roller Inspector ([phone]) and [facility] Radiologic Technology Instructor ([phone]) for any needed changes in the Safety Plan. Safety plan has been provided to interdepartmental care team.
--- NOTE | 2022-04-17 13:22 | MHPN_ITS ---
Date of service: 04/17/22 Time of Service: 12:30 Mental Health Emergency Note Release [facility] release signed:: Yes Reason for Visit Per ESC Michelle Ramos report, Client was opened to [facility] in February of 2022 when she presented to [facility] for suicidal ideations. Client has been assessed numerous times by [facility] and has been hospitalized on voluntary status 2x within the past month once at [facility] and the other at [facility]. Client was released from [facility] yesterday after a 9 day voluntary stay for increased suicidal ideations and anxiety. Client presented to [facility] ED via ambulance with chief complaint of increased suicidal ideations with plan to overdose on medications and NSSI. Client reports to [facility] triage nurse: I want to know if I can be held involuntary so I can't leave treatment when I am feeling better. This race and sports book writer reassessed client via zoom on 04/17 for same chief complaint. In the last 2 weeks has the pt presented for ES prior to today?: Yes, presented at (on 03/27 to seek voluntary inpatient treatment.) [facility] ED Client Information Client is: Adult Outpatient (Adult Emergency ) Well Housed: Yes Non Suicidal Self Injury Current: Yes, Client reports currently endorsing NSSI. However, client does not currently have access to means at [facility]. Upon discharge, client also does not have access to sharps per proactive SP in place with his parents, who she resides with. History: yes, yes, hx of NSSI when triggered by parents and they do not use their proper pronouns. Safety Risk/Harm to Self or Others Current Ideation to Harm Self or Others: Yes to self. (Client reports currently endorsing SI. Client reports having suiciadal thoughts, here and there, I really don't know. Client reports having plan to ) Intent: yes, has intent. Plan: yes,has a plan. History of suicide attempt: No history of suicide attempt reported Asssessment/Mental Status Appearance: Disheveled Attitude: Cooperative and Guarded Behavior: Unremarkable Speech: Soft Affect: Flat and Cogruent with mood Mood: Sad and Depressed Thought process: Unremarkable Hallucinations: No evidence Delusions: No evidence Attention: Unremarkable Perception: Not impaired Orientation: Fully orientated Memory: Intact Insight: Fair Judgement: Fair Neurovegetative Symptoms Sleep: Increase (Client reports sleeping well last night and reports not having any nightmares. ) Appetitie: No change (Client reports to eating 3 meals per day) Interests: No change Energy: Increase Libido: Not applicable Additional Issues: Assaultive/Threatening Behavior: No Medical Concerns: No Client engaged in active self harm w/weapon: Yes Threatening to run away: No Child reported abuse/neglect: No Voluntarily presenting for services: Yes Domestic violence is a concern: No Extreme Psychosis or extreme behavior is present: No Impression Client is a 36 y/o single transgender female that identifies with the name of Elsa. Client lives in [place], [place] with their parents and is currently disabled and receives SSI. Client is seen by this race and sports book writer via zoom while at [facility] ED. Client presents with symptoms most congruent with major depressive disorder, as evidenced by self-report, that she feels deeply sad and triggered within home environment. Client reports she presented to [facility] ED after taking 10 pills of her prescribed medication hydroxyzine, then drove self to the Emergency Department at [facility]. Client was held in the ED for 5 hours until medically cleared. Client would benefit from continuing outpatient services with community therapist Rox Hayes, which they have an appointment scheduled for tomorrow morning at . By the end of the assessment client is able to show good insight and judgment and is willing to participate in their treatment as to offer suggestions for pro-active safety plan which includes providing lock box for medications and items from junk drawer where they will provide alvarenga to father to restrict access. Plan/Disposition Recommended Disposition: [facility] Services [facility] Services: Other (Case Managment appointment on 04/18) and Community resources. Plan: Client will be discharged from [facility] ED on pro-active safety plan which includes: client will provide father with lockbox and alvarenga for father to lock up medications and items from junk drawer and clients father will administer medications to client. Follow-up Steps: 1.Client is to attend upcoming Therapy Appointment with Therapist Rox Hayes on 04/18 at 9:00 am. Client?s parents are to attend and be a part of session to have family discussion about client?s current struggles. 2.Client is to attend in-person Care Management appointment at [facility] on 04/18 at 11:30 am. 3.Client is to attend zoom medication provider appointment with Ludwig Martin through [facility] on 04/19 at 10:30 am. 4.METALLURGICAL ENGINEERING TEACHER referral has been submitted, METALLURGICAL ENGINEERING TEACHER Eligibility Intake is TBD. 5.First Sunday of every month at from 6-8 pm there is a LGBTQ support group that meets via zoo; to get more information you can email directly or use text line for support as needed for LGBTQ support [phone] Client is provided with 988 and [place] crisis text line to utilize as additional re sources if needed as well. Verbal Passover given to [facility] ED CM Makayla and informed client's assigend CM Angelina to director of scout work with any further concerns. Copy of Proactive SP was provided to CM via email on 04/17. Person reported agreement to plan: Yes Reports/communication Outcome discussed with: ED/Personnel
--- NOTE | 2022-04-17 13:48 | W.PM.DS.N ---
Date of service: 04/17/22 Time of Service: 13:49 DS: Diagnosis Discharge Diagnosis (1) Major depression: Status: Inactive (2) Suicidal ideation: Status: Inactive Discharge Plan Disposition Patient Disposition: Home Condition: Stable Discharge Details Reason For Visit: Depression; Suicidal Ideation Admit Date/Time: 04/15/22 12:18 Admit Provider: Edilberto Kent Attending Provider: Edilberto Kent Primary Care Provider: Dao Howell Hospital Course Hospital Course: This is a 36-year-old who identifies as Elsa, she/her, who presented to the emergency department after overdosing on ten 25 mg hydroxyzine capsules in a reported suicide attempt. patient suffers from depression with suicidal ideation and has had multiple visits to the emergency department with some psychiatric admissions secondary to. She was medically cleared in the emergency department and was held under voluntary status on medical surgical unit while awaiting inpatient psychiatric treatment for depression with suicidal ideation. There were no behavioral issues while hospitalized. Mental health was following closely. She has now been deemed safe and appropriate for discharge to home with safety plan. She will continue to follow with mental health outpatient. She should resume all of her medications as previously directed we will defer any medication changes to her outpatient team. discharge is discussed with DR Kent Home Meds and New Rx's Prescriptions: Continued spironolactone 50 mg tablet 50 mg PO BID estradiol 2 mg tablet 2 mg PO BID quetiapine 25 mg tablet 25 tab PO QAM Rx Instructions: pt states 25mg in AM and 50mg in PM buspirone 5 mg tablet 1 tab PO BID hydroxyzine pamoate 25 mg capsule 1 cap PO Q4H PRN MDD MAX 50MG/DAY PRN Rx Instructions: Maxiumum of 2 capsules/day allopurinol 100 mg tablet 200 mg PO DAILY Label Comments: TAKE 2 TABLETS BY MOUTH DAILY Rx Instructions: 2 tablets daily per [facility] records quetiapine [Seroquel] 25 mg Tablet 50 mg PO HS sertraline 25 mg Tablet 25 mg PO DAILY Rx Instructions: TOTAL DAILY DOSE: 125MG PER [place] [facility] 04/16/22 sertraline 100 mg Tablet 100 mg PO DAILY Rx Instructions: TOTAL DAILY DOSE: 125MG PER [place] [facility] 04/16/22 levothyroxine 125 mcg Tablet 125 mcg PO DAILY@0600 Discharge Instructions Instructions: Depression (DC), Suicide Prevention (DC) Additional Instructions: follow safety plan as arranged and agreed upon with mental health. take all your medication as directed only Referrals: Dao Howell MD [Primary Care Provider] - Activity:: Activity as Tolerated Equipment/Supplies:: No Equipment Needed Diet:: As Tolerated Discharge Orders Discharge Orders: Discharge Order (Routine); Ordered 04/17/22 Ordered By: Modesta Negron DS: Summary Time Spent with Patient providing and/or coordinating discharge services: Less than 30 minutes Status at Discharge Functional status at discharge: independent ambulation Overall status at discharge: patient is back to baseline Mental Status: mental status grossly normal Speech and Movement: speech and movement normal Mood: congruent mood Affect: blunted Exam Const General: disheveled Nutritional Appearance: average body habitus Orientation: alert, awake and oriented x3 HENMT Head: normocephalic and atraumatic Mouth: oral mucosae normal Resp Effort & Inspection: normal respiratory effort Auscultation: clear to auscultation bilaterally Cardio Rate: regular rate Rhythm: regular rhythm Skin General skin exam: no rashes or lesions noted Neuro General: patient alert, patient awake, patient oriented x3 and no focal motor deficits Extrem General: normal to inspection and full ROM Psych Appearance: disheveled Mental Status: mental status grossly normal Speech and Movement: speech and movement normal Mood: congruent mood Affect: blunted Attitude: cooperative Insight: limited and poor Judgment: limited and poor DS: Data Vitals/I&O Vitals and I&O: Vital Signs Temperature 36.6 C 04/17/22 08:20 Temperature Source Tympanic 04/17/22 08:20 Pulse 62 04/17/22 08:20 Pulse Rhythm Regular 04/17/22 03:19 Pulse 68 04/15/22 00:40 Respiratory Rate 16 04/17/22 08:20 Respiratory Effort Non-Labored 04/17/22 03:19 Respiratory Depth Normal 04/17/22 03:19 Respiratory Pattern Normal 04/17/22 03:19 Blood Pressure 101/65 04/17/22 08:20 Blood Pressure Mean 90 04/14/22 19:47 Blood Pressure Position Supine 04/14/22 19:35 Pulse Oximetry 96 04/17/22 08:20 Oxygen Delivery Method Room Air 04/17/22 08:20 Oxygen Flow Rate 0 02/06/23 08:20 Pain Level 0 04/17/22 08:20 Comment 04/16/22 15:27 Intake & Output 04/16/22 04/17/22 04/17/22 23:59 11:59 23:59 Intake Total 360 / 470 360 / 360 Balance 360 / 470 360 / 360 Intake: Oral 360 / 470 360 / 360 Other: Voiding Methods Toilet PFSH All Active Problems (Updated 04/15/22 @ 02:53 by Evan Najera DO) Suicidal thoughts (Acute) Suicide gesture (Acute) Depression (Chronic) Medical History (Updated 04/15/22 @ 02:53 by Evan Najera DO) Anxiety with depression Developmental delay, mild Dyspraxia Gout Hyperlipidemia Hyperuricemia Obesity Transgender Type 2 diabetes mellitus Surgical History No significant past surgical history Social History Smoking/Tobacco Use Status: Former Tobacco Use Smoking risk assessment performed?: Yes Alcohol Intake: never Drug use: Occasionally Substance use type: marijuana Details: maybe once a month Do you feel safe at home: Yes (mentally no physically yes) Do you feel safe in your relationship?: Yes Time Spent with Patient Time Spent with Patient: <45 minutes Time was spent: preparing to see the patient(eg.review tests), counseling the patient and care coordination
--- NOTE | 2022-04-17 14:05 | PDOC.CMDIS ---
- If Service Date Differs Date of service: 04/17/22 Time of Service: 14:05 LACE Index Scoring Tool - Questions: Length of Stay (in days): 2 Acuity (Admit via E.D.?): Yes Comorbidities: Diabetes w/o Complication E.D. Visits: 11 - Answers: Total Score: 10 Risk of Readmission: High Risk Care Management Discharge Reason for Hospitalization: Depression, SI Discharge Plan: A safety plan is established between Elsa and [facility] Clinician and is discharged home via private vehicle with father Chau. Esla will follow up with community providers and [facility] per safety plan. Patient/Family Education Needs: Review discharge education and plan to follow up with [facility] per Safety plan. Discuss ask me three and goals of self care.
[2022-04-17] MEDS: LORazepam 0.5 MG TAB PO (14:37)
[2022-04-17 14:42] VITALS: BP 130/83; PULSE 100; RESP 19; TEMP 37.2; O2SAT 99
== END 2022-04-17 15:24 | disposition home or self-care (01) | DRG 918 ==
LOC: ER 04-15 12:58 → MS 04-15 13:37
PROVIDERS: Emergency Medicine; Admitting Provider Family Medicine; Emergency Provider Emergency Medicine; PCP Family Medicine; Visit Provider Family Medicine
DX: T43.592A Poisoning by other antipsychotics and neuroleptics, intentional self-harm, initial encounter (principal); R45.851 Suicidal ideations; R00.0 Tachycardia, unspecified; F32.9 Major depressive disorder, single episode, unspecified; R51.9 Headache, unspecified; F41.8 Other specified anxiety disorders; M10.9 Gout, unspecified; E78.5 Hyperlipidemia, unspecified; E66.9 Obesity, unspecified; E11.9 Type 2 diabetes mellitus without complications; R27.8 Other lack of coordination; F89 Unspecified disorder of psychological development; F12.90 Cannabis use, unspecified, uncomplicated; Z87.891 Personal history of nicotine dependence; F64.0 Transsexualism
CPT/HCPCS: 80053; 80307; 87635; 93005; 99285; 80320; 80329; 85025; 93010; 99222; 99232; 99238

== ENCOUNTER 2022-04-19 10:52 | Outpatient (REF) | payer MEDICARE, MEDICAID, SELFPAY ==
[2022-04-19 15:11] LABS: TSH (W/Ref FT4) 1.73 uIU/mL (0.36-3.74)
== END 2022-04-19 10:53 | disposition home or self-care (01) ==
LOC: NCHCN 10:52
PROVIDERS: PCP Family Medicine; Visit Provider Nurse Practitioner Family
DX: E03.9 Hypothyroidism, unspecified (principal)
CPT/HCPCS: 84443

== ENCOUNTER 2022-05-09 00:35 | Emergency (ER) | payer MEDICARE, MEDICAID, SELFPAY ==
[2022-05-09 00:31] VITALS: BP 130/89; PULSE 103; RESP 18; TEMP 36.4; O2SAT 97
--- NOTE | 2022-05-09 00:33 | ED.GENADUL_ITS ---
Discharge Plan Disposition Patient Disposition: Home Condition: Stable Discharge Details Clinical Impression: Depression, Suicide gesture, Suicidal thoughts Primary Care Provider: Dao Howell ED Provider: Paradise Richard Home Meds and New Rx's Prescriptions: Continued spironolactone 50 mg tablet 50 mg PO BID estradiol 2 mg tablet 2 mg PO BID quetiapine 25 mg tablet 25 tab PO QAM Rx Instructions: pt states 25mg in AM and 50mg in PM buspirone 5 mg tablet 1 tab PO BID hydroxyzine pamoate 25 mg capsule 1 cap PO Q4H PRN MDD MAX 50MG/DAY PRN Rx Instructions: Maxiumum of 2 capsules/day allopurinol 100 mg tablet 200 mg PO DAILY Patient Comments: TAKE 2 TABLETS BY MOUTH DAILY Rx Instructions: 2 tablets daily per [facility] records quetiapine [Seroquel] 25 mg Tablet 50 mg PO HS sertraline 25 mg Tablet 25 mg PO DAILY Rx Instructions: TOTAL DAILY DOSE: 125MG PER [facility] RETREAT 04/16/22 sertraline 100 mg Tablet 100 mg PO DAILY Rx Instructions: TOTAL DAILY DOSE: 125MG PER [place] RETREAT 04/16/22 levothyroxine 125 mcg Tablet 125 mcg PO DAILY@0600 Discharge Instructions Instructions: Depression (ED), Help Prevent Suicide (ED) Additional Instructions: Please continue with your medications as previously prescribed. Please continue with the safety plan as was outlined by mental health. This will include following up with case management tomorrow as well. Please stay in a safe environment such as when with your parents. Please stay in close contact with mental health and if you have any questions, concerns or just want to speak you may reach out to them anytime at [phone]. They are currently working on getting new placement at [facility] for restorative care. If you develop any increased thoughts of self-harm, increased depression or other new/worsening symptoms to seek care urgently once again. Please follow up with primary care in the next week for reevaluation. Referrals: Dao Howell MD [Primary Care Provider] - Discharge Data Discharge Date/Time-TO BE ENTERED AT DEPARTURE: 05/09/22 10:20 Medical Decision Making <Evan Najera DO - Last Filed: 05/09/22 01:22> 36-year-old male who is transitioning to female who goes by the name of Elsa presents today for suicidal ideations. Patient states that she wants to end her life, and she would do so by taking extra hydroxyzine or cutting her wrist. She states that she did not take any extra medication or drink any alcohol today, however she was trying to cut her wrist when the real estate broker associate interrupted her. It was being performed with a blunt metal object. Patient did not actually cut her lower wrist, but there is a small abrasion. Patient was brought in for further mental health evaluation. Patient was not willing to speak with mental health step at the patient's home. No other complaints at this time. No auditory visual hallucinations. No homicidal ideations. Physical exam demonstrates no evidence of significant laceration or other abnormality. Patient is otherwise stable. We will recruit the help of mental health for further direction. And is otherwise medically cleared and stable he has a smart form. 1:21 AM Patient was seen and assessed by mental health, patient was initially notably uncooperative with mental health and would not have a full conversation about the scenario. I then did have a separate conversation with the patient and made very clear the expectations while here in the emergency department further requirements for mental health assessment. Patient then went and had a repeat discussion with mental health which was a bit more productive, but mental health still feels that they do need the entire team involvement. They will reconvene and reassess at 9/10 in the morning. Patient will remain here in the emergency department under observation. <CANDY Suresh - Last Filed: 05/17/22 09:00> 36-year-old male who is transitioning to female who goes by the name of Elsa presents today for suicidal ideations. Patient states that she wants to end her life, and she would do so by taking extra hydroxyzine or cutting her wrist. She states that she did not take any extra medication or drink any alcohol today, however she was trying to cut her wrist when the real estate broker associate interrupted her. It was being performed with a blunt metal object. Patient did not actually cut her lower wrist, but there is a small abrasion. Patient was brought in for further mental health evaluation. Patient was not willing to speak with mental health step at the patient's home. No other complaints at this time. No auditory visual hallucinations. No homicidal ideations. Physical exam demonstrates no evidence of significant laceration or other abnormality. Patient is otherwise stable. We will recruit the help of mental health for further direction. And is otherwise medically cleared and stable he has a smart form. 1:21 AM Patient was seen and assessed by mental health, patient was initially notably uncooperative with mental health and would not have a full conversation about the scenario. I then did have a separate conversation with the patient and made very clear the expectations while here in the emergency department further requirements for mental health assessment. Patient then went and had a repeat discussion with mental health which was a bit more productive, but mental health still feels that they do need the entire team involvement. They will reconvene and reassess at 9/10 in the morning. Patient will remain here in the emergency department under observation. [place]: Care transitioned to myself from Dr. Najera. Please see his initial note regarding history, presentation and exam. In brief, patient is a pleasant 36-year-old biologically male, transitioning to female, patient that he is presenting with increased depression and suicidal thoughts and suicidal gesture. At the time I assumed care, we are waiting evaluation with mental health. Mental health was able to evaluate the patient, knows her well. They are able to contract for safety. Patient lives with her parents and does feel safe in this environment and feels safe with the plan set up. Patient will be able to stay in touch with mental health. She has an appointment tomorrow morning with her case management team. They are working on getting bed placement at [facility] for restorative care. Again, patient feels safe with this plan and feels like she is getting good support with mental health. We did discuss that she may return anytime should she have new or worsening symptoms. All of her questions and concerns were addressed and she is in agreement this plan. HPI <Evan Najera, DO - Last Filed: 05/09/22 01:22> General Date/Time Provider Initiated Documentation: 05/09/22 01:21 . HPI Narrative: 36-year-old male who is transitioning to female who goes by the name of Elsa presents today for suicidal ideations. Patient states that she wants to end her life, and she would do so by taking extra hydroxyzine or cutting her wrist. She states that she did not take any extra medication or drink any alcohol today, however she was trying to cut her wrist when the real estate broker associate interrupted her. It was being performed with a blunt metal object. Patient did not actually cut her lower wrist, but there is a small abrasion. Patient was brought in for further mental health evaluation. Patient was not willing to speak with mental health step at the patient's home. No other complaints at this time. No auditory visual hallucinations. No homicidal ideations. Related Data Home Medications Medication Instructions Recorded Confirmed estradiol 2 mg tablet 2 mg PO BID 02/20/22 05/09/22 spironolactone 50 mg tablet 50 mg PO BID 02/20/22 05/09/22 quetiapine 25 mg tablet 25 tab PO QAM 03/12/22 05/09/22 buspirone 5 mg tablet 1 tab PO BID 04/08/22 05/09/22 hydroxyzine pamoate 25 mg capsule 1 cap PO Q4H PRN PRN 04/08/22 05/09/22 allopurinol 100 mg tablet 200 mg PO DAILY 04/14/22 05/09/22 quetiapine 25 mg tablet (Seroquel) 50 mg PO HS 04/15/22 05/09/22 sertraline 100 mg tablet 100 mg PO DAILY 04/15/22 05/09/22 sertraline 25 mg tablet 25 mg PO DAILY 04/15/22 05/09/22 levothyroxine 125 mcg tablet 125 mcg PO DAILY@0600 04/16/22 05/09/22 Allergies Allergy/AdvReac Type Severity Reaction Status Date / Time strawberry AdvReac Verified 04/14/22 19:39 General SCOTT: 2 Review of Systems <Evan Najera DO - Last Filed: 05/09/22 01:22> All systems reviewed & are unremarkable except as noted in HPI and below PFSH <Evan Najera DO - Last Filed: 05/09/22 01:22> All Active Problems (Updated 05/09/22 @ 10:06 by CANDY Suresh) Suicidal thoughts (Acute) Suicide gesture (Acute) Depression (Chronic) Medical History Anxiety with depression Developmental delay, mild Dyspraxia Gout Hyperlipidemia Hyperuricemia Obesity Transgender Type 2 diabetes mellitus Surgical History No significant past surgical history Social History Smoking/Tobacco Use Status: Former Tobacco Use Smoking risk assessment performed?: Yes Alcohol Intake: never Drug use: Occasionally Substance use type: marijuana Details: maybe once a month Do you feel safe at home: Yes (mentally no physically yes) Do you feel safe in your relationship?: Yes Exam <Evan Najera DO - Last Filed: 05/09/22 01:22> Narrative Exam Narrative: 1.Const: Well-nourished, Well-developed, appearing stated age 2.Eyes: PERRL, no conjunctival injection, and symmetrical lids. 3.ENT: Atraumatic external nose and ears. Moist MM. Neck: Symmetric, trachea midline, No thyromegaly. 4.CVS: +S1/S2, No murmurs or gallops. Peripheral pulses 2+ and equal in all extremities. Brisk capillary refill in all extremities. 5.RESP: Unlabored respiratory effort. Clear to auscultation bilaterally. No wheezes rales or rhonchi 6.GI: Soft, Nontender/Nondistended, No hepatosplenomegaly. No guarding or rebound. 7.MSK: Normocephalic/Atraumatic, Extremities w/o deformity or ttp No cyanosis or clubbing, Normal movement of all extremities 8.Skin: Warm, Dry. No rashes or lesions. Minimal single superficial abrasion noted on the left wrist 9.Neuro: osteopathic medicine teacher II-XII grossly intact. Sensation grossly intact, no focal neurologic deficits. 10.Psych: (AAO) x3. Appropriate mood and affect Sign Out <Evan Najera DO - Last Filed: 05/09/22 01:22> Sign Out Data: Sign Out Comment: Depression, suicidality, follow-up with mental health. Last updated by Evan Najera DO at 05/09/22 08:15
--- NOTE | 2022-05-09 01:23 | NUR.NOTE ---
Mental health eval completed. Pt guarded and uncooperative with assessment. Plan to keep pt here until morning for re-eval around 1000.
[2022-05-09 10:18] VITALS: BP 122/87; PULSE 80; RESP 18; O2SAT 97
--- NOTE | 2022-05-09 11:51 | MHPN_ITS ---
Date of service: 05/09/22 Time of Service: 10:00 Mental Health Emergency Note Release [facility] release signed:: Yes Reason for Visit Elsa presented to the hospital last night and was screened by [facility] Saur[facility]. Elsa presents due to increased depression and SI. In the last 2 weeks has the pt presented for ES prior to today?: Unknown Client Information Client is: Adult Outpatient Well Housed: Yes Non Suicidal Self Injury Current: Yes, Client reports last night they cut themself with a sharp piece of metal attempting to end their life. History: yes, Elsa has a history of self harming. Safety Risk/Harm to Self or Others Current Ideation to Harm Self or Others: Yes to self. (Elsa reports last night was a suicide attempt when she was actively endorsing NSSI, this parts data writer explained the difference between NSSI and SI: Elsa did not understand.) Intent: no, has no intent. Plan: no.does not have a plan. History of suicide attempt: No history of suicide attempt reported Risk: Does risk to harm exist?: yes. Access to means: No. Risk: Low Risk Duty to warn indicated: No Asssessment/Mental Status Appearance: Disheveled Attitude: Passive Behavior: Repetitive movements Speech: Slow and Hesitant Affect: Flat Mood: Stressed and Anxious Thought process: Circumstational and Poverty of content Hallucinations: No evidence Delusions: No evidence Attention: Unremarkable Perception: Not impaired Orientation: Fully orientated Memory: Intact Insight: Poor Judgement: Poor Neurovegetative Symptoms Sleep: Decrease Appetitie: No change Interests: No change Energy: No change Libido: Not applicable Substance Use: Do you use nicotine?: No Have you used substances in the last 7 days?: No Additional Issues: Assaultive/Threatening Behavior: No Medical Concerns: No Client engaged in active self harm w/weapon: No Threatening to run away: No Child reported abuse/neglect: No Voluntarily presenting for services: Yes Domestic violence is a concern: No Extreme Psychosis or extreme behavior is present: No Impression Elsa presented to the emergency room due to increased depression and SI. Elsa reports to this parts data writer she was forced to come to the hospital due to [facility] and EMS being at her house; Elsa reports not wanting to be at the house and not having intention to end her life. Elsa reports poor sleep due to nightmares, no change in appetite, energy, or interests. Elsa reports she did not use coping skills last night before telling her friend she wanted to end her life. Elsa reports she knows she can contact [facility] access hospital or [facility] when she is feeling this way but chose not to do so. This parts data writer spoke to Elsa about utilizing us while at home and then deciding if the hospital is a need. Elsa will be discharged on a safety plan, with an appointment at [facility] tomorrow kristyn, and a crisis bed referral throughout the state. Resources Reosurces reviewed and given:: [id number], Crisis Bed, Community therapist and [facility] Plan/Disposition Recommended Disposition: Crisis bed, facility contacted. Status of Crisis Bed acceptance: Not accepted, no bed availabiltiy, [facility] Services [facility] Services: [facility] and Other, [facility] and Therapy. Plan: Elsa will be discharged on a safety plan with the intention to have a follow up appointment with Christa Howard from [facility] and a referral to other crisis beds in the community. Person reported agreement to plan: Yes Reports/communication Outcome discussed with: ED/Personnel
== END 2022-05-09 10:20 | disposition home or self-care (01) ==
PROVIDERS: Emergency Provider Physician Assistant; PCP Family Medicine
DX: F32.A Depression, unspecified (principal); R45.851 Suicidal ideations; X79.XXXA Intentional self-harm by blunt object, initial encounter; S60.812A Abrasion of left wrist, initial encounter
CPT/HCPCS: 99285

== ENCOUNTER 2022-05-26 20:00 | Emergency (ER) | payer MEDICARE, MEDICAID, SELFPAY ==
[2022-05-26 20:00] VITALS: BP 142/88; PULSE 111; RESP 18; TEMP 36.4; O2SAT 97
--- NOTE | 2022-05-26 20:03 | ED.GENADUL_ITS ---
Discharge Plan Disposition Patient Disposition: Home Condition: Stable Discharge Details Clinical Impression: Depression Primary Care Provider: Makayla Noland ED Provider: Tung Perez Home Meds and New Rx's Prescriptions: Continued spironolactone 50 mg tablet 50 mg PO BID estradiol 2 mg tablet 2 mg PO BID quetiapine 25 mg tablet 25 tab PO QAM Rx Instructions: pt states 25mg in AM and 50mg in PM buspirone 5 mg tablet 1 tab PO BID hydroxyzine pamoate 25 mg capsule 1 cap PO Q4H PRN MDD MAX 50MG/DAY PRN Rx Instructions: Maxiumum of 2 capsules/day allopurinol 100 mg tablet 200 mg PO DAILY Patient Comments: TAKE 2 TABLETS BY MOUTH DAILY Rx Instructions: [facility] quetiapine [Seroquel] 25 mg Tablet 50 mg PO HS sertraline 25 mg Tablet 25 mg PO DAILY Rx Instructions: TOTAL DAILY DOSE: 125MG PER [facility] 04/16/22 sertraline 100 mg Tablet 100 mg PO DAILY Rx Instructions: TOTAL DAILY DOSE: [facility]MG [facility] 04/16/22 levothyroxine 125 mcg Tablet 125 mcg PO DAILY@0600 Discharge Instructions Instructions: Depression (ED) Additional Instructions: follow up with [facility] services and your primary care provider if you feel more ill or having worsening thoughts of self harm return to the emergency department Discharge Data Discharge Date/Time-TO BE ENTERED AT DEPARTURE: 05/27/22 12:13 Medical Decision Making <Modesta Negron NP - Last Filed: 05/30/22 17:58> patient presents after ingesting 14 (fourteen) 25 mg hydroxyzine tabs as a suicide attempt. case discussed with Nivia from poison control. plan is for medical clearance, ED observation, with [facility]. will repeat apap level in 4 hours and plan for psychiatric evaluation at 8 am tomorrow morning if medically cleared. Patient will be signed out to oncoming provider for medical clearance, psychiatric evaluation, and final disposition <Costa Xiong MD - Last Filed: 05/27/22 07:17> Lab Data Lab results reviewed: Yes I reviewed the patient's lab results. Lab results narrative: Patient stable through overnight shift. 4-hour acetaminophen level is negative. Labs: Laboratory Results - last 24 hr 05/26/22 05/26/22 05/26/22 20:44 20:44 20:44 WBC RBC Hgb Hct MCV MCH MCHC RDW Plt Count MPV Immature Gran % Neutrophils % Lymphocytes % Monocytes % Eosinophils % Basophils % Nucleated RBC % Absolute Neutrophils Absolute Lymphocytes Absolute Monocytes Absolute Eosinophils Absolute Basophils Sodium 134 L Potassium 3.9 Chloride 101 Carbon Dioxide 25.6 Anion Gap 7.4 BUN 17 Creatinine 1.2 Est GFR (CKD-EPI 2020) 80.88 Glucose 174 H Calcium 9.1 Magnesium 1.9 Total Bilirubin 0.2 AST 12 L ALT 24 Alkaline Phosphatase 75 Total Protein 7.3 Albumin 3.7 Salicylates < 2.8 Urine Opiates Screen Urine Methadone Screen Acetaminophen < 2 Ur Barbiturates Screen Ur Tricyclics Screen Ur Amphetamines Screen U Benzodiazepines Scrn Urine Cocaine Screen Ur THC Screen Ethyl Alcohol < 3.0 05/26/22 05/26/22 05/27/22 20:44 20:47 01:04 WBC 14.38 H RBC 4.48 Hgb 12.8 L Hct 37.6 L MCV 84 MCH 28.6 MCHC 34.0 RDW 11.9 Plt Count 323 MPV 9.8 Immature Gran % 0.4 Neutrophils % 68.9 Lymphocytes % 20.2 Monocytes % 6.3 Eosinophils % 3.6 Basophils % 0.6 Nucleated RBC % 0.0 Absolute Neutrophils 9.91 H Absolute Lymphocytes 2.90 Absolute Monocytes 0.91 H Absolute Eosinophils 0.52 Absolute Basophils 0.09 Sodium Potassium Chloride Carbon Dioxide Anion Gap BUN Creatinine Est GFR (CKD-EPI 2020) Glucose Calcium Magnesium Total Bilirubin AST ALT Alkaline Phosphatase Total Protein Albumin Salicylates Urine Opiates Screen Negative Urine Methadone Screen Negative Acetaminophen < 2 Ur Barbiturates Screen Negative Ur Tricyclics Screen Negative Ur Amphetamines Screen Negative U Benzodiazepines Scrn Negative Urine Cocaine Screen Negative Ur THC Screen Negative Ethyl Alcohol HPI <Modesta Negron NP - Last Filed: 05/30/22 17:58> General Mode of arrival: ambulatory . Date/Time Provider Initiated Documentation: 05/26/22 20:00 . Information obtained by: patient . HPI Narrative: This is a 36-year-old male who identifies as a female patient with a significant psychiatric history with suicidal attempts cutting major depression, who presents to the emergency department after taking 14 hydroxyzine 25 mg tablets approximately 45 minutes prior to arrival. Denies any other ingestion does have some superficial cuts to forearm that are healing no sign of infection. Medically has been stable with no fever chills or recent illness Related Data Home Medications Medication Instructions Recorded Confirmed estradiol 2 mg tablet 2 mg PO BID 02/20/22 05/27/22 spironolactone 50 mg tablet 50 mg PO BID 02/20/22 05/27/22 quetiapine 25 mg tablet 25 tab PO QAM 03/12/22 05/27/22 buspirone 5 mg tablet 1 tab PO BID 04/08/22 05/27/22 hydroxyzine pamoate 25 mg capsule 1 cap PO Q4H PRN PRN 04/08/22 05/27/22 allopurinol 100 mg tablet 200 mg PO DAILY 04/14/22 05/27/22 quetiapine 25 mg tablet (Seroquel) 50 mg PO HS 04/15/22 05/27/22 sertraline 100 mg tablet 100 mg PO DAILY 04/15/22 05/27/22 sertraline 25 mg tablet 25 mg PO DAILY 04/15/22 05/27/22 levothyroxine 125 mcg tablet 125 mcg PO DAILY@0600 04/16/22 05/27/22 Allergies Allergy/AdvReac Type Severity Reaction Status Date / Time strawberry AdvReac Verified 05/27/22 10:41 General SCOTT: 2 Review of Systems <Modesta Negron NP - Last Filed: 05/30/22 17:58> All systems reviewed & are unremarkable except as noted in HPI and below PFSH <Modesta Negron NP - Last Filed: 05/30/22 17:58> All Active Problems (Updated 05/27/22 @ 11:59 by Tung Perez MD) Suicidal thoughts (Acute) Suicide gesture (Acute) Depression (Chronic) Medical History Anxiety with depression Developmental delay, mild Dyspraxia Gout Hyperlipidemia Hyperuricemia Obesity Transgender Type 2 diabetes mellitus Surgical History No significant past surgical history Social History Smoking/Tobacco Use Status: Former Tobacco Use Smoking risk assessment performed?: Yes Alcohol Intake: never Drug use: Occasionally Substance use type: marijuana Details: maybe once a month Do you feel safe at home: Yes (mentally no physically yes) Do you feel safe in your relationship?: Yes Exam <Modesta Negron NP - Last Filed: 05/30/22 17:58> Const General: disheveled Nutritional Appearance: overweight Orientation: alert, awake and oriented x3 HENMT Head: normocephalic and atraumatic Mouth: oral mucosae normal Chest Chest: normal inspection of the chest Resp Effort & Inspection: normal respiratory effort Auscultation: clear to auscultation bilaterally Cardio Rate: regular rate Rhythm: regular rhythm Skin Lesions: lesion noted (Superficial self-inflicted lacerations no in infection noted) Rashes: no rashes Neuro General: patient alert, patient awake, patient oriented x3 and no focal motor deficits Extrem General: normal to inspection and full ROM Psych Appearance: disheveled Mental Status: other (withdrawn) Speech and Movement: slowed movement Mood: other (withdrawn) Affect: blunted Attitude: cooperative and avoids eye contact Insight: poor Judgment: poor Sign Out <Modesta Negron NP - Last Filed: 05/30/22 17:58> Sign Out Data: Sign Out Comment: 36-year-old male who identifies as a female extensive psychiatric history took 14 (fourteen) 25 mg hydroxyzine tablets as a suicide attempt. Needs repeat Tylenol level at 1 AM. Will be observed overnight in the emergency department and if medically cleared will have psychiatric evaluation at 8 AM Last updated by Modesta Negron NP at 05/26/22 22:45 Sign Out Comment: Follow-up mental health consult for suicidal ideation Last updated by Costa Xiong MD at 05/27/22 07:14
[2022-05-26 20:24] VITALS: RESP 18
--- NOTE | 2022-05-26 20:30 | RT.EKG_ITS ---
APPROVED REPORT Exam: Resting ECG Reason for Exam: overdose Patient Location: E HR:98 bpm ECG Measurements Heart Rate 98 AXIS SD [id number] P [id number] QRSd 86 QRS 14 QT 375 T 14 QTc 479 Conclusion Atrial fibrillation...V-rate 96- 99, irreg A-activity Low voltage, precordial leads...precordial leads <1.0mV Suspect sinus with artifact, will repeat
--- NOTE | 2022-05-26 20:45 | RT.EKG_ITS ---
APPROVED REPORT Exam: Resting ECG Reason for Exam: OD/repeat EKG Patient Location: E HR:97 bpm ECG Measurements Heart Rate 97 AXIS AK 147 P 29 QRSd 79 QRS 23 QT 354 T 28 QTc 450 Conclusion Sinus rhythm...normal P axis, V-rate 60- 99 Low voltage, precordial leads...precordial leads <1.0mV
[2022-05-26 20:50] LABS: Abs Immature Grans 0.06 10^3/uL (0.0-0.06); Absolute Basophil Count 0.09 10^3/uL (0.0-0.2); Absolute Eosinophil Count 0.52 10^3/uL (0.0-0.7); Absolute Monocyte Count 0.91 10^3/uL (0.1-0.8); Basophils % 0.6; Eosinophils % 3.6; HCT 37.6 % (40.0-50.0); HGB 12.8 g/dL (13.5-17.5); Immature Grans % 0.4; Lymphocytes % 20.2; MCH 28.6 pg (27.0-33.0); MCV 84 fL (80-95); MPV 9.8 fL (8.0-11.0); Monocytes % 6.3; Neutrophils % 68.9; Platelet Count 323 10^3/uL (130-400); RBC 4.48 10^6/uL (4.36-5.78); RDW 11.9 % (11.8-14.1); WBC 14.38 10^3/uL (4.4-10.8)
[2022-05-26 20:52] LABS: Absolute Neutrophil Count 9.91 10^3/uL (1.2-6.7)
[2022-05-26 21:02] LABS: Magnesium 1.9 mg/dL (1.8-2.4)
[2022-05-26 21:10] LABS: ETHANOL BLOOD < 3.0 mg/dL (<10)
[2022-05-26 21:12] LABS: ALT 24 U/L (16-63); AST 12 U/L (15-37); Albumin 3.7 g/dL (3.4-5.0); Alkaline Phosphatase 75 U/L (46-116); Anion Gap 7.4 mmol/L (3-11); BUN 17 mg/dL (7-18); Bilirubin, Total 0.2 mg/dL (0.2-1.0); CO2 25.6 mmol/L (21.0-32.0); CREATININE 1.2 mg/dL (0.70-1.30); Calcium 9.1 mg/dL (8.5-10.1); Chloride 101 mmol/L (98-107); Estimated GFR 80.88 (mL/min/1.73m2); Glucose 174 mg/dL (74-106); Potassium 3.9 mmol/L (3.5-5.1); Sodium 134 mmol/L (136-145); Total Protein 7.3 g/dL (6.4-8.2)
[2022-05-26 21:16] LABS: Acetaminophen < 2 ug/mL (10-30); Salicylate < 2.8 mg/dL (<2.8)
[2022-05-26 21:22] LABS: *AMPHETAMINES SCREEN URINE Negative (Negative); *BARBITURATES SCREEN URINE Negative (Negative); *BENZODIAZEPINES SCREEN URINE Negative (Negative); Cannabinoids THC Negative (Negative); Cocaine Screen,Urine Negative (Negative); METHADONE URINE SCREEN Negative (Negative); OPIATES URINE SCREEN Negative (Negative)
[2022-05-26 21:23] LABS: Tricyclic Antidepressants Negative (Negative)
[2022-05-27 01:01] VITALS: BP 102/61; PULSE 73; RESP 16; TEMP 36.9; O2SAT 96
[2022-05-27 01:39] LABS: Acetaminophen < 2 ug/mL (10-30)
[2022-05-27 10:15] VITALS: BP 95/62; PULSE 64; RESP 18; TEMP 35.4; O2SAT 96
--- NOTE | 2022-05-27 11:53 | PDOC.MHCN ---
Date of service: 05/27/22 Time of Service: 10:50 Mental Health Emergency Note Release [facility] release signed:: No Reason for Visit Client presented to the ED after cutting her arms and ingesting hydroxyzine per her report. Peter was assessed by [facility] Minaya. [facility] Rodgers reassess via zoom. In the last 2 weeks has the pt presented for ES prior to today?: No Client Information Client is: Adult Outpatient Well Housed: Yes Non Suicidal Self Injury Current: No History: yes, Client engages in self harm by cutting. Safety Risk/Harm to Self or Others Current Ideation to Harm Self or Others: No Risk: Does risk to harm exist?: yes. Access to means: Yes. Types of Means: Other weapons. Counseling provided: Yes Risk: Low Risk Duty to warn indicated: No Asssessment/Mental Status Appearance: Disheveled Attitude: Cooperative Behavior: Unremarkable Speech: Normal Affect: Cogruent with mood Mood: Stressed and Anxious Thought process: Unremarkable Hallucinations: No evidence Delusions: No evidence Attention: Unremarkable Perception: Not impaired Orientation: Fully orientated Memory: Intact Insight: Fair Judgement: Fair Neurovegetative Symptoms Sleep: No change Appetitie: No change Interests: No change Energy: No change Substance Use: Do you use nicotine?: No Have you used substances in the last 7 days?: No Additional Issues: Assaultive/Threatening Behavior: No Medical Concerns: No Client engaged in active self harm w/weapon: Yes Threatening to run away: No Child reported abuse/neglect: No Voluntarily presenting for services: Yes Domestic violence is a concern: No Extreme Psychosis or extreme behavior is present: No Impression Peter presented to the ED after cutting her arms and reportedly ingesting hydroxyzine. This client stated she was feeling depressed which led her to doing so, Peter drove herself to the ED after to seek medical attention. This client was re-assessed and sent home on a saftely plan, client will check in once she arrives at home to make a plan with this clinician for the rest of her day (Completing DBT homework, grocery shopping etc) and will check in again around 2100 hours to see how much headway she made and to plan for the rest of the night. This client's affect was normal throughout the assessment and followed tones/diction being utilized. This client seems to be struggling but is unable to identify why/what she feels she needs for help. This client reported she wants to go home to work on her DBT workbook. Resources Reos[facility]ces reviewed and given:: [facility] Plan/Disposition Recommended Disposition: [facility] Services [facility] Services: Therapy and Other and Community resources. Person reported agreement to plan: Yes Reports/communication Outcome discussed with: ED/Personnel
--- NOTE | 2022-05-27 11:59 | ED.PROG_ITS ---
Date of service: 05/27/22 Time of Service: 11:59 Medical Decision Making Patient calm and cooperative, no longer having si/hi and reassessed by [facility] and safety plan for d/c. HE is in agreement with this, return precautions given Sign Out Sign Out Data: Sign Out Comment: 36-year-old male who identifies as a female extensive psychiatric history took 14 (fourteen) 25 mg hydroxyzine tablets as a suicide attempt. Needs repeat Tylenol level at 1 AM. Will be observed overnight in the emergency department and if medically cleared will have psychiatric evaluation at 8 AM Last updated by Modesta Negron NP at 05/26/22 22:45 Sign Out Comment: Follow-up mental health consult for suicidal ideation Last updated by Costa Xiong MD at 05/27/22 07:14 Discharge Plan Disposition Patient Disposition: Home Condition: Stable Discharge Details Clinical Impression: Depression Primary Care Provider: Makayla Noland ED Provider: Tung Perez Home Meds and New Rx's Prescriptions: Continued spironolactone 50 mg tablet 50 mg PO BID estradiol 2 mg tablet 2 mg PO BID quetiapine 25 mg tablet 25 tab PO QAM Rx Instructions: pt states 25mg in AM and 50mg in PM buspirone 5 mg tablet 1 tab PO BID hydroxyzine pamoate 25 mg capsule 1 cap PO Q4H PRN MDD MAX 50MG/DAY PRN Rx Instructions: Maxiumum of 2 capsules/day allopurinol 100 mg tablet 200 mg PO DAILY Patient Comments: TAKE 2 TABLETS BY MOUTH DAILY Rx Instructions: 2 tablets daily per [facility] records quetiapine [Seroquel] 25 mg Tablet 50 mg PO HS sertraline 25 mg Tablet 25 mg PO DAILY Rx Instructions: TOTAL DAILY DOSE: 125MG PER [place] 04/16/22 sertraline 100 mg Tablet 100 mg PO DAILY Rx Instructions: TOTAL DAILY DOSE: 125MG PER [place] 04/16/22 levothyroxine 125 mcg Tablet 125 mcg PO DAILY@0600 Discharge Instructions Instructions: Depression (ED) Additional Instructions: follow up with [facility] human services and your primary care provider if you feel more ill or having worsening thoughts of self harm return to the emergency department
[2022-05-27 12:07] VITALS: BP 121/84; PULSE 90; RESP 18; O2SAT 98
== END 2022-05-27 12:13 | disposition home or self-care (01) ==
PROVIDERS: Nurse Practitioner Acute Care; Emergency Provider Emergency Medicine; PCP Nurse Practitioner Family
DX: F32.A Depression, unspecified (principal); T43.592A Poisoning by other antipsychotics and neuroleptics, intentional self-harm, initial encounter; E11.9 Type 2 diabetes mellitus without complications; T14.8XXA Other injury of unspecified body region, initial encounter; X78.9XXA Intentional self-harm by unspecified sharp object, initial encounter
CPT/HCPCS: 36415; 80053; 80307; 93005; 99284; 80320; 80329; 83735; 85025; 93010; 99285

== ENCOUNTER 2022-06-08 06:38 | Emergency (ER) | payer MEDICARE, MEDICAID, SELFPAY ==
[2022-06-08 06:42] VITALS: BP 144/92; PULSE 99; RESP 19; TEMP 37.1; O2SAT 99
--- NOTE | 2022-06-08 06:50 | NUR.NOTE ---
Nursing Note: Patient reporting the inability to sleep. Patient also states feeling suicidal. Denies a plan or intent at this time. States, I'm not worried about that right now, I have an appointment tomorrow with my pillowcase folder. I just want something to help me sleep. made aware.
--- NOTE | 2022-06-08 07:00 | W.ED.GENAD ---
Discharge Plan Discharge Details Chief Complaint: GenMedical Primary Care Provider: Makayla Noland ED Provider: Drew Turpin Home Meds and New Rx's Prescriptions: No Action spironolactone 50 mg tablet 50 mg PO BID estradiol 2 mg tablet 2 mg PO BID quetiapine 25 mg tablet 25 tab PO QAM Rx Instructions: pt states 25mg in AM and 50mg in PM buspirone 5 mg tablet 1 tab PO BID hydroxyzine pamoate 25 mg capsule 1 cap PO Q4H PRN MDD MAX 50MG/DAY PRN Rx Instructions: Maxiumum of 2 capsules/day allopurinol 100 mg tablet 200 mg PO DAILY Patient Comments: TAKE 2 TABLETS BY MOUTH DAILY Rx Instructions: 2 tablets daily per [facility] records quetiapine [Seroquel] 25 mg Tablet 50 mg PO HS sertraline 25 mg Tablet 25 mg PO DAILY Rx Instructions: TOTAL DAILY DOSE: 125MG PER [place] 04/16/22 sertraline 100 mg Tablet 100 mg PO DAILY Rx Instructions: TOTAL DAILY [facility]: [facility]22 levothyroxine 125 mcg Tablet 125 mcg PO DAILY@0600 Medical Decision Making 700 --36-year-old male transitioning to female, with history of anxiety and depression, here with severe anxiety and difficulty sleeping over the past 2 days. Patient notes drinking a fair amount of caffeine this morning with multiple cups of coffee. Patient is depressed and does feel suicidal intermittently. She is not currently suicidal. Plan to treat anxiety with Ativan 1 mg orally. Plan to reassess. I am hopeful that we will be able to stabilize her so that she may be discharged to follow-up with her therapist later today. HPI General Mode of arrival: ambulatory. Date/Time Provider Initiated Documentation: 06/08/22 06:39. Limitations to Documentation: no limitations. Information obtained by: patient. HPI Narrative: 36-year-old patient that identifies as a female, has a history of anxiety, depression, here with severe anxiety. Elsa notes she is having difficulty processing things and has had difficulty sleeping over the past 2 days. She does note she is taking her medications as prescribed. Related Data Home Medications Medication Instructions Recorded Confirmed estradiol 2 mg tablet 2 mg PO BID 02/20/22 05/27/22 spironolactone 50 mg tablet 50 mg PO BID 02/20/22 05/27/22 quetiapine 25 mg tablet 25 tab PO QAM 03/12/22 05/27/22 buspirone 5 mg tablet 1 tab PO BID 04/08/22 05/27/22 hydroxyzine pamoate 25 mg capsule 1 cap PO Q4H PRN PRN 04/08/22 05/27/22 allopurinol 100 mg tablet 200 mg PO DAILY 04/14/22 05/27/22 quetiapine 25 mg tablet (Seroquel) 50 mg PO HS 04/15/22 05/27/22 sertraline 100 mg tablet 100 mg PO DAILY 04/15/22 05/27/22 sertraline 25 mg tablet 25 mg PO DAILY 04/15/22 05/27/22 levothyroxine 125 mcg tablet 125 mcg PO DAILY@0600 04/16/22 05/27/22 Allergies Allergy/AdvReac Type Severity Reaction Status Date / Time strawberry AdvReac Verified 05/27/22 10:41 General Stated Complaint: GenMedical SCOTT: 3 Review of Systems All systems reviewed & are unremarkable except as noted in HPI and below Cardiovascular Cardiovascular: Denies chest pain and Denies dyspnea Respiratory Respiratory: Denies dyspnea PFSH All Active Problems Suicidal thoughts (Acute) Suicide gesture (Acute) Depression (Chronic) Medical History Anxiety with depression Developmental delay, mild Dyspraxia Gout Hyperlipidemia Hyperuricemia Obesity Transgender Type 2 diabetes mellitus Surgical History No significant past surgical history Social History Smoking/Tobacco Use Status: Former Tobacco Use Smoking risk assessment performed?: Yes Alcohol Intake: never Drug use: Occasionally Substance use type: marijuana Details: maybe once a month Do you feel safe at home: Yes (mentally no physically yes) Do you feel safe in your relationship?: Yes Exam Const General: cooperative HENMT Mouth: moist mucous membranes Eyes Conjunctivae: normal conjunctivae Sclera: normal sclerae Resp Auscultation: clear to auscultation bilaterally, no rales, no rhonchi and no wheezes Cardio Rate: regular rate and not tachycardic Rhythm: regular rhythm Neuro General: patient alert, patient awake and tone normal Extrem General: no edema Psych Appearance: grossly normal Mental Status: mental status grossly normal Mood: anxious mood Affect: anxious affect Attitude: avoids eye contact Course Vital Signs Vital signs: Vital Signs Temperature 37.1 C 06/08/22 06:42 Pulse 99 H 06/08/22 06:42 Respiratory Rate 19 06/08/22 06:42 Blood Pressure 144/92 H 06/08/22 06:42 Pulse Oximetry 99 06/08/22 06:42 Temperature 37.1 C 06/08/22 06:42 Temperature Source Tympanic 06/08/22 06:42 Pulse 99 H 06/08/22 06:42 Respiratory Rate 19 06/08/22 06:42 Respiratory Effort Normal 06/08/22 06:48 Respiratory Depth Normal 06/08/22 06:48 Respiratory Pattern Normal 06/08/22 06:48 Blood Pressure 144/92 H 06/08/22 06:42 Blood Pressure Position Sitting 06/08/22 06:42 Pulse Oximetry 99 06/08/22 06:42 Oxygen Delivery Method Room Air 06/08/22 06:42 Oxygen Flow Rate 0 06/08/22 06:42
[2022-06-08] MEDS: LORazepam 1 MG TAB PO (07:01)
--- NOTE | 2022-06-08 09:02 | W.EDPROG ---
Date of service: 06/08/22 Time of Service: 09:02 Medical Decision Making Patient resting notably no acute distress. No SI no HI. Feeling better after medications. Has an appointment with her therapist and needs twice a week. Given home care instructions and return precautions. Sign Out Sign Out Data: Sign Out Comment: Patient here for his anxiety and depression, not sleeping. She has received Ativan 1 mg orally. Plan to reassess. Last updated by Drew Turpin MD at 06/08/22 08:07 Discharge Plan Disposition Patient Disposition: Home Condition: Improving Discharge Details Chief Complaint: GenMedical Clinical Impression: Anxiety Primary Care Provider: Makayla Noland ED Provider: Edilberto Ellison Home Meds and New Rx's Prescriptions: No Action spironolactone 50 mg tablet 50 mg PO BID estradiol 2 mg tablet 2 mg PO BID quetiapine 25 mg tablet 25 tab PO QAM Rx Instructions: pt states 25mg in AM and 50mg in PM buspirone 5 mg tablet 1 tab PO BID hydroxyzine pamoate 25 mg capsule 1 cap PO Q4H PRN MDD MAX 50MG/DAY PRN Rx Instructions: Maxiumum of 2 capsules/day allopurinol 100 mg tablet 200 mg PO DAILY Patient Comments: TAKE 2 TABLETS BY MOUTH DAILY Rx Instructions: 2 tablets daily per [facility] records quetiapine [Seroquel] 25 mg Tablet 50 mg PO HS sertraline 25 mg Tablet 25 mg PO DAILY Rx Instructions: TOTAL DAILY DOSE: 125MG PER [place] 04/16/22 sertraline 100 mg Tablet 100 mg PO DAILY Rx Instructions: TOTAL DAILY DO[facility]: [facility] levothyroxine 125 mcg Tablet 125 mcg PO DAILY@0600 Discharge Instructions Instructions: Anxiety (ED)
== END 2022-06-08 09:21 | disposition home or self-care (01) ==
PROVIDERS: Emergency Provider Emergency Medicine; PCP Nurse Practitioner Family
DX: F32.A Depression, unspecified (principal); F41.9 Anxiety disorder, unspecified
CPT/HCPCS: 99283

== ENCOUNTER 2022-08-05 19:18 | Emergency (ER) | payer MEDICARE, MEDICAID, SELFPAY ==
[2022-08-05 19:22] VITALS: BP 127/102; PULSE 101; RESP 16; TEMP 37.1; O2SAT 99
--- NOTE | 2022-08-05 19:58 | NUR.NOTE ---
Nursing states she is in sensory overload right now. is asking that we take her hospital ID braclet off.Note:
[2022-08-05 20:11] LABS: Bilirubin Negative (Negative); Blood Trace-intact (Negative); Clarity Clear (Clear); Glucose Negative (Negative); Ketones Trace mg/dL (Negative); Leukocyte Esterase Negative (Negative); Nitrite Negative (Negative); Specific Gravity 1.025 (1.005-1.025); Urobilinogen 0.2 mg/dL (Up to 0.2); pH 5.5 (5-8)
[2022-08-05 20:20] LABS: Bacteria Rare HPF (Negative); C & S Indicated? No/Sq. Contamination; Casts Negative LPF (Negative); Crystals Negative HPF (Negative); Epithelial Cells Many HPF (Negative); Mucus Negative (Negative); RBC 0-2 HPF (0-2); WBC 0-2 HPF (0-5)
[2022-08-05 20:31] LABS: *AMPHETAMINES SCREEN URINE Negative (Negative); *BARBITURATES SCREEN URINE Negative (Negative); *BENZODIAZEPINES SCREEN URINE Negative (Negative); Cannabinoids THC Negative (Negative); Cocaine Screen,Urine Negative (Negative); METHADONE URINE SCREEN Negative (Negative); OPIATES URINE SCREEN Negative (Negative)
[2022-08-05 20:32] LABS: Tricyclic Antidepressants Negative (Negative)
[2022-08-05 20:35] LABS: Abs Immature Grans 0.09 10^3/uL (0.0-0.06); Absolute Basophil Count 0.09 10^3/uL (0.0-0.2); Absolute Lymphocyte Count 2.99 10^3/uL (1.2-3.4); Absolute Monocyte Count 0.79 10^3/uL (0.1-0.8); Absolute Neutrophil Count 11.26 10^3/uL (1.2-6.7); Basophils % 0.6; Eosinophils % 1.3; HCT 41.1 % (40.0-50.0); HGB 13.9 g/dL (13.5-17.5); Immature Grans % 0.6; Lymphocytes % 19.4; MCH 28.4 pg (27.0-33.0); MCHC 33.8 % (32.0-36.0); MCV 84 fL (80-95); MPV 9.7 fL (8.0-11.0); Monocytes % 5.1; Platelet Count 393 10^3/uL (130-400); RBC 4.89 10^6/uL (4.36-5.78); RDW 12.8 % (11.8-14.1); RDW-SD 39.3 fL; WBC 15.43 10^3/uL (4.4-10.8)
[2022-08-05 20:38] VITALS: BP 125/77; BP 131/93; BP 136/88; PULSE 102; PULSE 89
[2022-08-05 20:59] LABS: ALT 20 U/L (16-63); AST 20 U/L (15-37); Albumin 3.9 g/dL (3.4-5.0); Alkaline Phosphatase 88 U/L (46-116); Anion Gap 12.7 mmol/L (3-11); BUN 16 mg/dL (7-18); Bilirubin, Total 0.3 mg/dL (0.2-1.0); CO2 23.3 mmol/L (21.0-32.0); CREATININE 1.2 mg/dL (0.70-1.30); Calcium 9.6 mg/dL (8.5-10.1); Chloride 99 mmol/L (98-107); Estimated GFR 80.88 (mL/min/1.73m2); Glucose 116 mg/dL (74-106); Potassium 4.2 mmol/L (3.5-5.1); Sodium 135 mmol/L (136-145); Total Protein 8.4 g/dL (6.4-8.2)
[2022-08-05 21:00] LABS: ETHANOL BLOOD < 3.0 mg/dL (<10); Salicylate < 2.8 mg/dL (<2.8)
[2022-08-05 21:01] LABS: Acetaminophen < 2 ug/mL (10-30)
--- NOTE | 2022-08-05 21:24 | ED.GENADUL_ITS ---
Discharge Plan Disposition Patient Disposition: Home Condition: Improving Discharge Details Clinical Impression: Depression Primary Care Provider: Makayla Noland ED Provider: Modesta Negron Home Meds and New Rx's Prescriptions: Continued spironolactone 50 mg tablet 200 mg PO BID estradiol 2 mg tablet 2 mg PO BID quetiapine 25 mg tablet 25 tab PO QAM Rx Instructions: pt states 25mg in AM and 50mg in PM buspirone 5 mg tablet 1 tab PO BID allopurinol 100 mg tablet 200 mg PO DAILY Patient Comments: TAKE 2 TABLETS BY MOUTH DAILY Rx Instructions: 2 tablets daily per [facility] records quetiapine [Seroquel] 25 mg Tablet 50 mg PO HS sertraline 25 mg Tablet 25 mg PO DAILY Rx Instructions: TOTAL DAILY DO[facility]: [facility]/16[facility]22 sertraline 100 mg Tablet 100 mg PO DAILY Rx Instructions: TOTAL DAILY DOSE: 125MG [facility] 04/16/22 levothyroxine 125 mcg Tablet 125 mcg PO DAILY@0600 Discharge Instructions Instructions: Depression (ED) Additional Instructions: Take all your medications as prescribed. 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 Does have superficial healing lacerations from last week where she self cut in her left forearm. There is no evidence of infection. Wounds are superficial and healed. Patient reports generalized malaise not feeling well now attributing to insomnia which has had history of. We will chec k routine lab in case psychiatric evaluation needed and check electrolytes kidney function urine for sign of abnormality to explain symptoms of generalized malaise. Possibly due to insomnia as she attributes it to based on past history but also could be symptoms of depression. Reports she has been taking her medication as previously prescribed. Labs reviewed and medical screening is unremarkable. A meal has been provided and patient reports feeling markedly improved and feels safe for discharge to home. I think it is reasonable to defer mental health evaluation to outpatient as needed. She reports she has a counselor and mental health provider she can contact if needed and will return sooner for new or worsening symptoms Medical Records Medical records reviewed: Yes I reviewed the patient's medical records. Lab Data Lab results reviewed: Yes I reviewed the patient's lab results. Lab results narrative: lab Laboratory Tests Range/Units 08/05/22 08/05/22 08/05/22 19:45 19:45 20:25 WBC (4.4-10.8) 10^3/uL RBC (4.36-5.78) 10^6/uL Hgb (13.5-17.5) g/dL Hct (40.0-50.0) % MCV (80-95) fL MCH (27.0-33.0) pg MCHC (32.0-36.0) % RDW (11.8-14.1) % Plt Count (130-400) 10^3/uL MPV (8.0-11.0) fL Immature Gran % Neutrophils % Lymphocytes % Monocytes % Eosinophils % Basophils % Nucleated RBC % (0.0-0.3) % Absolute Neutrophils (1.2-6.7) 10^3/uL Absolute Lymphocytes (1.2-3.4) 10^3/uL Absolute Monocytes (0.1-0.8) 10^3/uL Absolute Eosinophils (0.0-0.7) 10^3/uL Absolute Basophils (0.0-0.2) 10^3/uL Sodium (136-145) mmol/L 135 L Potassium (3.5-5.1) mmol/L 4.2 Chloride (98-107) mmol/L 99 Carbon Dioxide (21.0-32.0) mmol/L 23.3 Anion Gap (3-11) mmol/L 12.7 H BUN (7-18) mg/dL 16 Creatinine (0.70-1.30) mg/dL 1.2 Est GFR (CKD-EPI 2020) (mL/min/1.73m2) 80.88 Glucose (74-106) mg/dL 116 H Calcium (8.5-10.1) mg/dL 9.6 Total Bilirubin (0.2-1.0) mg/dL 0.3 AST (15-37) U/L 20 ALT (16-63) U/L 20 Alkaline Phosphatase (46-116) U/L 88 Total Protein (6.4-8.2) g/dL 8.4 H Albumin (3.4-5.0) g/dL 3.9 Urine Color (Yellow) Yellow Urine Clarity (Clear) Clear Urine pH (5-8) 5.5 Ur Specific [place] (1.005-1.025) 1.025 Urine Protein (Negative) mg/dL Negative Urine Ketones (Negative) mg/dL Trace H Urine Blood (Negative) Trace-intact H Urine Nitrite (Negative) Negative Urine Bilirubin (Negative) Negative Urine Urobilinogen (Up to 0.2) mg/dL 0.2 Ur Leukocyte Esterase (Negative) Negative Urine RBC (0-2) HPF 0-2 Urine WBC (0-5) HPF 0-2 Ur Epithelial Cells (Negative) HPF Many Urine Crystals (Negative) HPF Negative Urine Bacteria (Negative) HPF Rare Urine Casts (Negative) LPF Negative Urine Mucus (Negative) Negative Ur Culture Indicated? No/Sq. Contamination Urine Glucose (Negative) mg/dL Negative Salicylates (<2.8) mg/dL Urine Opiates Screen (Negative) Negative Urine Methadone Screen (Negative) Negative Acetaminophen (10-30) ug/mL Ur Barbiturates Screen (Negative) Negative Ur Tricyclics Screen (Negative) Negative Ur Amphetamines Screen (Negative) Negative U Benzodiazepines Scrn (Negative) Negative Urine Cocaine Screen (Negative) Negative Ur THC Screen (Negative) Negative Ethyl Alcohol (<10) mg/dL < 3.0 Range/Units 08/05/22 08/05/22 20:25 20:25 WBC (4.4-10.8) 10^3/uL 15.43 H RBC (4.36-5.78) 10^6/uL 4.89 Hgb (13.5-17.5) g/dL 13.9 Hct (40.0-50.0) % 41.1 MCV (80-95) fL 84 MCH (27.0-33.0) pg 28.4 MCHC (32.0-36.0) % 33.8 RDW (11.8-14.1) % 12.8 Plt Count (130-400) 10^3/uL 393 MPV (8.0-11.0) fL 9.7 Immature Gran % 0.6 Neutrophils % 73.0 Lymphocytes % 19.4 Monocytes % 5.1 Eosinophils % 1.3 Basophils % 0.6 Nucleated RBC % (0.0-0.3) % 0.0 Absolute Neutrophils (1.2-6.7) 10^3/uL 11.26 H Absolute Lymphocytes (1.2-3.4) 10^3/uL 2.99 Absolute Monocytes (0.1-0.8) 10^3/uL 0.79 Absolute Eosinophils (0.0-0.7) 10^3/uL 0.20 Absolute Basophils (0.0-0.2) 10^3/uL 0.09 Sodium (136-145) mmol/L Potassium (3.5-5.1) mmol/L Chloride (98-107) mmol/L Carbon Dioxide (21.0-32.0) mmol/L Anion Gap (3-11) mmol/L BUN (7-18) mg/dL Creatinine (0.70-1.30) mg/dL Est GFR (CKD-EPI 2020) (mL/min/1.73m2) Glucose (74-106) mg/dL Calcium (8.5-10.1) mg/dL Total Bilirubin (0.2-1.0) mg/dL AST (15-37) U/L ALT (16-63) U/L Alkaline Phosphatase (46-116) U/L Total Protein (6.4-8.2) g/dL Albumin (3.4-5.0) g/dL Urine Color (Yellow) Urine Clarity (Clear) Urine pH (5-8) Ur Specific [place] (1.005-1.025) Urine Protein (Negative) mg/dL Urine Ketones (Negative) mg/dL Urine Blood (Negative) Urine Nitrite (Negative) Urine Bilirubin (Negative) Urine Urobilinogen (Up to 0.2) mg/dL Ur Leukocyte Esterase (Negative) Urine RBC (0-2) HPF Urine WBC (0-5) HPF Ur Epithelial Cells (Negative) HPF Urine Crystals (Negative) HPF Urine Bacteria (Negative) HPF Urine Casts (Negative) LPF Urine Mucus (Negative) Ur Culture Indicated? Urine Glucose (Negative) mg/dL Salicylates (<2.8) mg/dL < 2.8 Urine Opiates Screen (Negative) Urine Methadone Screen (Negative) Acetaminophen (10-30) ug/mL < 2 Ur Barbiturates Screen (Negative) Ur Tricyclics Screen (Negative) Ur Amphetamines Screen (Negative) U Benzodiazepines Scrn (Negative) Urine Cocaine Screen (Negative) Ur THC Screen (Negative) Ethyl Alcohol (<10) mg/dL HPI General Mode of arrival: ambulatory . Date/Time Provider Initiated Documentation: 08/05/22 19:18 . Limitations to Documentation: no limitations . Information obtained by: patient . HPI Narrative: This is a 36-year-old male who identifies as a female presents to the emergency department for evaluation reporting generalized not feeling well . Reports insomnia and states this is a chronic problem and the symptoms are similar to symptoms experienced when unable to sleep. States she has been trying to stay connected with a friend who is in [place] so makes it hard to sleep at night because they are in communications. During screening for safety does report suicidality but states that this is typical. Denies any specific plan. Declines need for psychiatric evaluation, denies that this presentation is for psychiatric purposes states she feels safe and not at risk. There is no recent illness reported denies fever chills nausea vomiting diarrhea or abdominal pain rash lesion. Does have 4 healed lesions from cutting, self- inflicted last week with no sign of infection Related Data Home Medications Medication Instructions Recorded Confirmed estradiol 2 mg tablet 2 mg PO BID 02/20/22 08/05/22 spironolactone 50 mg tablet 200 mg PO BID 02/20/22 08/05/22 quetiapine 25 mg tablet 25 tab PO QAM 03/12/22 08/05/22 buspirone 5 mg tablet 1 tab PO BID 04/08/22 08/05/22 allopurinol 100 mg tablet 200 mg PO DAILY 04/14/22 08/05/22 quetiapine 25 mg tablet (Seroquel) 50 mg PO HS 04/15/22 08/05/22 sertraline 100 mg tablet 100 mg PO DAILY 04/15/22 08/05/22 sertraline 25 mg tablet 25 mg PO DAILY 04/15/22 08/05/22 levothyroxine 125 mcg tablet 125 mcg PO DAILY@0600 04/16/22 08/05/22 Allergies Allergy/AdvReac Type Severity Reaction Status Date / Time strawberry AdvReac Verified 08/05/22 19:31 General Stated Complaint: PsychEval SCOTT: 2 Review of Systems All systems reviewed & are unremarkable except as noted in HPI and below PFSH All Active Problems (Updated 08/05/22 @ 21:35 by Modesta Negron NP) Suicidal thoughts (Acute) Suicide gesture (Acute) Depression (Chronic) Medical History Anxiety with depression Developmental delay, mild Dyspraxia Gout Hyperlipidemia Hyperuricemia Obesity Transgender Type 2 diabetes mellitus Surgical History No significant past surgical history Social History Smoking/Tobacco Use Status: Former Tobacco Use Smoking risk assessment performed?: Yes Drug use: Daily Substance use type: marijuana Do you feel safe at home: Yes (mentally no physically yes) Do you feel safe in your relationship?: Yes Exam Const General: cooperative, comfortable and no acute distress Nutritional Appearance: overweight Orientation: alert, awake and oriented x3 HENMT Head: normal to inspection, normocephalic and atraumatic Face and sinus: normal facial exam Mouth: oral mucosae normal Resp Effort & Inspection: normal respiratory effort Cardio Rate: regular rate GI Inspection: normal to inspection Skin Lesions: lesion noted (four 2 cm superficial healing lacerations to inner left forearm) Neuro General: patient alert, patient awake and patient oriented x3 Psych Appearance: disheveled Speech and Movement: speech and movement normal Affect: blunted Attitude: cooperative Thought Content: suicidality (Reports this is a daily thought but no plan and no active suicidality now) Course Vital Signs Vital signs: Vital Signs Temperature 37.1 C 08/05/22 19:22 Pulse 101 H 08/05/22 19:22 Respiratory Rate 16 08/05/22 19:22 Blood Pressure 127/102 H 08/05/22 19:22 Pulse Oximetry 99 08/05/22 19:22 Temperature 37.1 C 08/05/22 19:22 Temperature Source Oral 08/05/22 19:22 Pulse 89 08/05/22 20:38 Respiratory Rate 16 08/05/22 19:22 Respiratory Effort Normal 08/05/22 19:55 Blood Pressure 125/77 08/05/22 20:38 Blood Pressure Position Sitting 08/05/22 19:22 Pulse Oximetry 99 08/05/22 19:22 Oxygen Delivery Method Room Air 08/05/22 19:22 Oxygen Flow Rate 0 08/05/22 19:22 Lab/Test Results Lab/Test Results: Laboratory Tests Range/Units 08/05/22 08/05/22 08/05/22 19:45 19:45 20:25 WBC (4.4-10.8) 10^3/uL RBC (4.36-5.78) 10^6/uL Hgb (13.5-17.5) g/dL Hct (40.0-50.0) % MCV (80-95) fL MCH (27.0-33.0) pg MCHC (32.0-36.0) % RDW (11.8-14.1) % Plt Count (130-400) 10^3/uL MPV (8.0-11.0) fL Immature Gran % Neutrophils % Lymphocytes % Monocytes % Eosinophils % Basophils % Nucleated RBC % (0.0-0.3) % Absolute Neutrophils (1.2-6.7) 10^3/uL Absolute Lymphocytes (1.2-3.4) 10^3/uL Absolute Monocytes (0.1-0.8) 10^3/uL Absolute Eosinophils (0.0-0.7) 10^3/uL Absolute Basophils (0.0-0.2) 10^3/uL Sodium (136-145) mmol/L 135 L Potassium (3.5-5.1) mmol/L 4.2 Chloride (98-107) mmol/L 99 Carbon Dioxide (21.0-32.0) mmol/L 23.3 Anion Gap (3-11) mmol/L 12.7 H BUN (7-18) mg/dL 16 Creatinine (0.70-1.30) mg/dL 1.2 Est GFR (CKD-EPI 2020) (mL/min/1.73m2) 80.88 Glucose (74-106) mg/dL 116 H Calcium (8.5-10.1) mg/dL 9.6 Total Bilirubin (0.2-1.0) mg/dL 0.3 AST (15-37) U/L 20 ALT (16-63) U/L 20 Alkaline Phosphatase (46-116) U/L 88 Total Protein (6.4-8.2) g/dL 8.4 H Albumin (3.4-5.0) g/dL 3.9 Urine Color (Yellow) Yellow Urine Clarity (Clear) Clear Urine pH (5-8) 5.5 Ur Specific [place] (1.005-1.025) 1.025 Urine Protein (Negative) mg/dL Negative Urine Ketones (Negative) mg/dL Trace H Urine Blood (Negative) Trace-intact H Urine Nitrite (Negative) Negative Urine Bilirubin (Negative) Negative Urine Urobilinogen (Up to 0.2) mg/dL 0.2 Ur Leukocyte Esterase (Negative) Negative Urine RBC (0-2) HPF 0-2 Urine WBC (0-5) HPF 0-2 Ur Epithelial Cells (Negative) HPF Many Urine Crystals (Negative) HPF Negative Urine Bacteria (Negative) HPF Rare Urine Casts (Negative) LPF Negative Urine Mucus (Negative) Negative Ur Culture Indicated? No/Sq. Contamination Urine Glucose (Negative) mg/dL Negative Salicylates (<2.8) mg/dL Urine Opiates Screen (Negative) Negative Urine Methadone Screen (Negative) Negative Acetaminophen (10-30) ug/mL Ur Barbiturates Screen (Negative) Negative Ur Tricyclics Screen (Negative) Negative Ur Amphetamines Screen (Negative) Negative U Benzodiazepines Scrn (Negative) Negative Urine Cocaine Screen (Negative) Negative Ur THC Screen (Negative) Negative Ethyl Alcohol (<10) mg/dL < 3.0 Range/Units 08/05/22 08/05/22 20:25 20:25 WBC (4.4-10.8) 10^3/uL 15.43 H RBC (4.36-5.78) 10^6/uL 4.89 Hgb (13.5-17.5) g/dL 13.9 Hct (40.0-50.0) % 41.1 MCV (80-95) fL 84 MCH (27.0-33.0) pg 28.4 MCHC (32.0-36.0) % 33.8 RDW (11.8-14.1) % 12.8 Plt Count (130-400) 10^3/uL 393 MPV (8.0-11.0) fL 9.7 Immature Gran % 0.6 Neutrophils % 73.0 Lymphocytes % 19.4 Monocytes % 5.1 Eosinophils % 1.3 Basophils % 0.6 Nucleated RBC % (0.0-0.3) % 0.0 Absolute Neutrophils (1.2-6.7) 10^3/uL 11.26 H Absolute Lymphocytes (1.2-3.4) 10^3/uL 2.99 Absolute Monocytes (0.1-0.8) 10^3/uL 0.79 Absolute Eosinophils (0.0-0.7) 10^3/uL 0.20 Absolute Basophils (0.0-0.2) 10^3/uL 0.09 Sodium (136-145) mmol/L Potassium (3.5-5.1) mmol/L Chloride (98-107) mmol/L Carbon Dioxide (21.0-32.0) mmol/L Anion Gap (3-11) mmol/L BUN (7-18) mg/dL Creatinine (0.70-1.30) mg/dL Est GFR (CKD-EPI 2020) (mL/min/1.73m2) Glucose (74-106) mg/dL Calcium (8.5-10.1) mg/dL Total Bilirubin (0.2-1.0) mg/dL AST (15-37) U/L ALT (16-63) U/L Alkaline Phosphatase (46-116) U/L Total Protein (6.4-8.2) g/dL Albumin (3.4-5.0) g/dL Urine Color (Yellow) Urine Clarity (Clear) Urine pH (5-8) Ur Specific [place] (1.005-1.025) Urine Protein (Negative) mg/dL Urine Ketones (Negative) mg/dL Urine Blood (Negative) Urine Nitrite (Negative) Urine Bilirubin (Negative) Urine Urobilinogen (Up to 0.2) mg/dL Ur Leukocyte Esterase (Negative) Urine RBC (0-2) HPF Urine WBC (0-5) HPF Ur Epithelial Cells (Negative) HPF Urine Crystals (Negative) HPF Urine Bacteria (Negative) HPF Urine Casts (Negative) LPF Urine Mucus (Negative) Ur Culture Indicated? Urine Glucose (Negative) mg/dL Salicylates (<2.8) mg/dL < 2.8 Urine Opiates Screen (Negative) Urine Methadone Screen (Negative) Acetaminophen (10-30) ug/mL < 2 Ur Barbiturates Screen (Negative) Ur Tricyclics Screen (Negative) Ur Amphetamines Screen (Negative) U Benzodiazepines Scrn (Negative) Urine Cocaine Screen (Negative) Ur THC Screen (Negative) Ethyl Alcohol (<10) mg/dL
== END 2022-08-05 21:49 | disposition home or self-care (01) ==
PROVIDERS: Emergency Provider Nurse Practitioner Acute Care; PCP Nurse Practitioner Family
DX: R42 Dizziness and giddiness (principal); R06.02 Shortness of breath; F41.9 Anxiety disorder, unspecified; R45.851 Suicidal ideations; F32.A Depression, unspecified; Z91.51 Personal history of suicidal behavior; Z79.899 Other long term (current) drug therapy
CPT/HCPCS: 36415; 80053; 80307; 99285; 80320; 80329; 81003; 81015; 85025; 99284

== ENCOUNTER 2022-08-07 16:09 | Emergency (ER) | payer MEDICARE, MEDICAID, SELFPAY ==
[2022-08-07 16:15] VITALS: BP 128/79; PULSE 108; RESP 18; TEMP 36.5; O2SAT 98
--- NOTE | 2022-08-07 17:01 | ED.GENADUL_ITS ---
Discharge Plan Discharge Details Chief Complaint: PsychEval Primary Care Provider: Makayla Noland ED Provider: Evan Najera Home Meds and New Rx's Prescriptions: No Action spironolactone 50 mg tablet 200 mg PO BID estradiol 2 mg tablet 2 mg PO BID quetiapine 25 mg tablet 25 tab PO QAM Patient Comments: pt states they have not taken in 2 weeks Rx Instructions: pt states 25mg in AM and 50mg in PM buspirone 5 mg tablet 1 tab PO BID Patient Comments: pt states they have not taken in 2 weeks allopurinol 100 mg tablet 200 mg PO DAILY Patient Comments: TAKE 2 TABLETS BY MOUTH DAILY Rx Instructions: 2 tablets daily per [facility] records quetiapine [Seroquel] 25 mg Tablet 50 mg PO HS Patient Comments: pt states they have not taken in 2 weeks sertraline 25 mg Tablet 25 mg PO DAILY Patient Comments: pt states they have not taken in 2 weeks Rx Instructions: TOTAL DAILY DOSE: 125MG PER [facility] [facility] 04/16/22 sertraline 100 mg Tablet 100 mg PO DAILY Patient Comments: pt states they have not taken in 2 weeks Rx Instructions: TOTAL DAILY DOSE: 125MG PER [place] [facility] 04/16/22 levothyroxine 125 mcg Tablet 125 mcg PO DAILY@0600 Patient Comments: pt states they have not taken in 2 weeks Medical Decision Making 36-year-old transgender male who identifies as a female presents to the ER with a chief complaint of suicidal ideation with a plan to overdose. Patient does have a history of attempting to slit wrists. The patient states that feelings of suicidal have been present for approximately a week and worse the last few days. Has not taken patient's normal medications for the last 2 weeks which she reports is due to the fear. She reports that she is overdosed in the past. Does have a past medical history of type 2 diabetes, obesity hyperlipidemia anxiety with depression. Denies any headache nausea vomiting diarrhea abdominal pain or any other associated symptoms. [employer] medical clearance form filled out. BGL ordered due to history of type 2 diabetes. Mental health eval ordered. Patient's belongings collected patient is in paper scrubs a clinical patient safety observer ordered. Patient is in the line of sight of nurses station. At this time she is calm and cooperative. 1747: Spoke with Ruthy with [facility] regarding patient, she will eval her via Zoom. 1833: Per [facility] patient is stating that 10 out of 10 suicidal ideation if she were to be discharged home. They will send referrals for voluntary placement. They will contact her casework supervisor in the a.m. for reeval. Patient is a [facility]AL[facility] patient. 2028: Patient complaining of anxiety and requesting Sertraline, Quetiapine, and Buspirone. Med orders placed. 2104: Patient is now refusing his medications and requesting to go home. with [facility] paged. 2108: Ruthy with [facility] called and is speaking to patient again on phone. 2120: Spoke again with Ruthy [place], patient is refusing to safety plan to be discharged home, and now requesting to go home despite 10/10 suicial ideations. Plan is for [facility] liason to fill out EE paperwork. 2201: Patient is appearing anxious, awaiting paperwork. 2243: EE paperwork filled out and signed. Patient agreeing and requesting to take night time medications. Given by billing and accounting staff assistant. Care is to be handed off to ER provider Dr. Najera pending placement and re-eval in am. Medical Records Medical records reviewed: Yes I reviewed the patient's medical records. Lab Data Lab results reviewed: Yes I reviewed the patient's lab results. Labs: Laboratory Tests Range/Units 08/07/22 17:20 Urine Opiates Screen (Negative) Negative Urine Methadone Screen (Negative) Negative Ur Barbiturates Screen (Negative) Negative Ur Tricyclics Screen (Negative) Negative Ur Amphetamines Screen (Negative) Negative U Benzodiazepines Scrn (Negative) Negative Urine Cocaine Screen (Negative) Negative Ur THC Screen (Negative) Negative HPI General Mode of arrival: ambulatory . Date/Time Provider Initiated Documentation: 08/07/22 16:20 . Limitations to Documentation: no limitations . Information obtained by: patient, RN notes reviewed and old records reviewed . HPI Narrative: 36-year-old transgender male who identifies as a female presents to the ER with a chief complaint of suicidal ideation with a plan to overdose. Patient does have a history of attempting to slit wrists. The patient states that feelings of suicidal have been present for approximately a week and worse the last few days. Has not taken patient's normal medications for the last 2 weeks which she reports is due to the fear. She reports that she is overdosed in the past. Does have a past medical history of type 2 diabetes, obesity hyperlipidemia anxiety with depression. Denies any headache nausea vomiting diarrhea abdominal pain or any other associated symptoms. Related Data Home Medications Medication Instructions Recorded Confirmed estradiol 2 mg tablet 2 mg PO BID 02/20/22 08/07/22 spironolactone 50 mg tablet 200 mg PO BID 02/20/22 08/07/22 quetiapine 25 mg tablet 25 tab PO QAM 03/12/22 08/05/22 buspirone 5 mg tablet 1 tab PO BID 04/08/22 08/05/22 allopurinol 100 mg tablet 200 mg PO DAILY 04/14/22 08/05/22 quetiapine 25 mg tablet (Seroquel) 50 mg PO HS 04/15/22 08/05/22 sertraline 100 mg tablet 100 mg PO DAILY 04/15/22 08/05/22 sertraline 25 mg tablet 25 mg PO DAILY 04/15/22 08/05/22 levothyroxine 125 mcg tablet 125 mcg PO DAILY@0600 04/16/22 08/05/22 Allergies Allergy/AdvReac Type Severity Reaction Status Date / Time strawberry AdvReac Verified 08/07/22 16:33 General Stated Complaint: PsychEval SCOTT: 2 Review of Systems Psychiatric Psychiatric: Reports abnormal sleep pattern, Reports change in appetite and Reports suicidal ideation PFSH All Active Problems Suicidal thoughts (Acute) Suicide gesture (Acute) Depression (Chronic) Medical History Anxiety with depression Developmental delay, mild Dyspraxia Gout Hyperlipidemia Hyperuricemia Obesity Transgender Type 2 diabetes mellitus Surgical History No significant past surgical history Social History Smoking/Tobacco Use Status: Former Tobacco Use Smoking risk assessment performed?: Yes Drug use: Daily Substance use type: marijuana Do you feel safe at home: Yes (mentally no physically yes) Do you feel safe in your relationship?: Yes Exam Narrative Exam Narrative: Constitutional: Alert and oriented x3. Appears stated age. Normal body habitus. Head: Normocephalic, no trauma. Eyes: Pupils PERRL, Red reflex noted, EOM's intact. Eyelids symmetrical without lesions, discharge, or swelling. ENT: Bilateral TM's WNL, External ear normal to inspection, no mastoid TTP, swelling, or erythema, Nasal turbinates WNL, no nasal discharge. Normal dentition, Posterior pharynx WNL, no exudate. Chest: RRR, Normal S1, S2, distal pulses intact. Resp: Lungs clear to auscultation bilaterally, no wheezes, rales, or rhonchi. Abdomen: Soft, non-distended, Normoactive bowel sounds all 4 quads. Musculoskeletal: Normal gait, 5/5 strength to all four extremities. Skin: Old healed linear horizontal scars to right wrist, capillary refill less than 2 sec. Psych: See below Neurologic: Cranial nerves II-XII intact. Alert and oriented x 3. Motor: No deficits noted. Sensory: Intact bilaterally all 4 extremities. Reflexes: DTR's intact bilaterally.. Hematologic/Lymphatic: No ecchymosis, no lymphadenopathy. Psych Speech and Movement: speech clear Mood: anxious mood Affect: indifferent Attitude: cooperative, guarded and avoids eye contact Thought Process: normal Thought Content: suicidality Insight: limited Judgment: limited Course Vital Signs Vital signs: Vital Signs Temperature 36.5 C 08/07/22 16:15 Pulse 108 H 08/07/22 16:15 Respiratory Rate 18 08/07/22 16:15 Blood Pressure 128/79 08/07/22 16:15 Pulse Oximetry 98 08/07/22 16:15 Temperature 36.5 C 08/07/22 16:15 Temperature Source Temporal Artery Scan 08/07/22 16:15 Pulse 108 H 08/07/22 16:15 Respiratory Rate 18 08/07/22 16:15 Respiratory Effort Normal, Non-Labored 08/07/22 16:16 Blood Pressure 128/79 08/07/22 16:15 Pulse Oximetry 98 08/07/22 16:15 Oxygen Delivery Method Room Air 08/07/22 16:15 Oxygen Flow Rate 0 08/07/22 16:15 Sign Out Sign Out Data: Sign Out Comment: Transgendered male transitioning to female with Suicidal ideation. EE'd seeking placement. Due to refusal to sign a safety plan. Hx of Depression and Bipolar, thoughts of wanting to overdose. Given Seroquel, Sertraline and Buspirone regular pm medications. Is a CRYSTALIZER patient, will see casework supervisor hopefully in am. Last updated by Fawn Mancera NP at 08/07/22 23:13
[2022-08-07 17:43] LABS: *AMPHETAMINES SCREEN URINE Negative (Negative); *BARBITURATES SCREEN URINE Negative (Negative); *BENZODIAZEPINES SCREEN URINE Negative (Negative); Cannabinoids THC Negative (Negative); Cocaine Screen,Urine Negative (Negative); METHADONE URINE SCREEN Negative (Negative); OPIATES URINE SCREEN Negative (Negative)
[2022-08-07 17:51] LABS: Tricyclic Antidepressants Negative (Negative)
--- NOTE | 2022-08-07 19:16 | NUR.NOTE ---
Nursing Note:[facility]
[2022-08-07] MEDS: Sertraline 25 MG TAB PO (22:43)
[2022-08-07] MEDS: QUEtiapine 25 MG TAB PO (22:43)
[2022-08-07] MEDS: busPIRone 5 MG TAB PO (22:43)
--- NOTE | 2022-08-07 22:43 | NUR.NOTE ---
Nursing Note: 2104 - Patient refused medications 2109 - Patient speaking with [facility]
--- NOTE | 2022-08-07 22:45 | NUR.NOTE ---
Nursing Note: 2230 - Patient requested medications and requesting to speak with [facility] again. Provider notfied
--- NOTE | 2022-08-07 23:14 | NUR.NOTE ---
Nursing Note:exhibit b/second cert faxed [facility] [facility]
--- NOTE | 2022-08-07 23:54 | PDOC.MHCN_ITS ---
Date of service: 08/07/22 Time of Service: 17:44 PHQ-9 Over the last 2 weeks, how often have you been bothered by any of the following problems? 1. Little interest or pleasure in doing things: nearly every day 2. Feeling down, depressed, or hopeless: nearly every day 3. Trouble falling or staying asleep, or sleeping too much: nearly every day 4. Feeling tired or having little energy: nearly every day 5. Poor appetite or overeating: nearly every day 6. Feeling bad about yourself - or that you are a failure or have let yourself and your family down: nearly every day 7. Trouble concentrating on things, such as reading the newspaper or watching television: nearly every day 8. Moving or speaking so slowly that other people could have noticed? - Or the opposite - being so fidgety or restless that you have been moving around a lot more than usual: nearly every day 9. Thoughts that you would be better off or of hurting yourself in some way: nearly every day Total score: 27 If you checked off any problems, how difficult have these problems made it for you to do your work, take care of things at home, or get along with other people?: somewhat difficult PHQ-9 Results: Positive Source: Developed by Drs. Pj Woodard, Ariana Mitchell, Rolando Rowley and colleagues, with an educational blair from [employer]. Suicide Severity Rate CSSRS Have you wished you were or wished you could go to sleep and not wake up?: Yes Have you actually had any thoughts of killing yourself?: Yes CSSRS2 Have you been thinking about how you might do this?: Yes Have you had these thoughts and had some intention of acting on them?: Yes Have you started to work out or worked out the details of how to kill yourself? Do you intend to carry out this plan?: Yes CSSRS3 Have you ever done anything, started to do anything or prepared to do anything to end your life?: Yes CSSRS4 Was this within the past three months?: Yes Screening Score Total Score: 8 Screening: Positive Mental Health Emergency Note Release [facility] release signed:: Yes Reason for Visit Client was opened to [facility] in February of 2022 when she presented to [facility] for suicidal ideations. Client has been assessed numerous times by [facility] and has been hospitalized on voluntary status at both [facility] and [facility] Client presents to [facility] ED this evening with chief complaint of increased suicidal ideations that has been worsening over the past few days. Client is seen via zoom. 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 (Current SI with intent 12/19 and multiple plans that the client would not disclose to this medical writer. ) Intent: yes, has intent. Plan: yes,has a plan. History of suicide attempt: No history of suicide attempt reported Risk: Does risk to harm exist?: yes. Access to means: No. Risk: Moderate Risk Duty to warn indicated: No Asssessment/Mental Status Appearance: Disheveled and Poor hygiene Attitude: Cooperative and Guarded Behavior: Unremarkable Speech: Soft and Slow Affect: Flat and Cogruent with mood Mood: Depressed and Anxious Thought process: Flight of ideas Hallucinations: No Delusions: No Attention: Wandering and Poor concentration Perception: Not impaired Orientation: Fully orientated Memory: Intact Insight: Poor Judgement: Poor Neurovegetative Symptoms Sleep: Decrease Appetitie: Decrease Interests: Decrease Energy: Decrease Libido: Not applicable Substance Use: Do you use nicotine?: No Have you used substances in the last 7 days?: No Additional Issues: Assaultive/Threatening Behavior: No Medical Concerns: No Client engaged in active self harm w/weapon: No Threatening to run away: No Child reported abuse/neglect: No Voluntarily presenting for services: Yes Domestic violence is a concern: No Extreme Psychosis or extreme behavior is present: No Impression Client is a 36 y/o single transgender female that identifies with the name of Elsa. Client lives in [place], [place] with their parents and is currently disabled and receives SSI. Client is seen by this medical writer via zoom while at [facility] ED. Client presents with symptoms most congruent with major depressive disorder, as evidenced by self-report, that she feels deeply sad, and has had decrease in appetite and lack of sleep averaging about 2 hours of sleep nightly. Client reports that onset on symptoms started about a week ago, however has been getting increasingly worse within the past couple of days. Client is currently endorsing suicidal ideations with intent 10/10 if she were to leave the hospital and multiple plans, which she would not disclose to this medical writer. Client scores a 27/27 on the PHQ-9 and answers yes to all of the CSSRS questions. Client reports to this medical writer: I don't know what to say, I have given up, I don't care anymore. This is the worst I have felt in my entire life. When this medical writer asks the client what help looks like for them today she states: I don't know I know I need something, but I am not sure what. Client is willing to stay to seek voluntary treatment at this time, as she is not able to contract for safety if she leaves the hospital. Plan/Disposition Recommended Disposition: Hospitalization facilities contacted. Plan: Client will remain at [facility] ED on voluntary status pending inpatient treatment. Referrals will be faxed to [facility] [place], [facility], [facility], and [facility]. Client will be re-assessed daily by [facility] until placement is secured or client's acuity level decreases and she is able to be safety planned back to the community. Reports/communication Outcome discussed with: ED/Personnel (Verbal passover given to [facility] ED provider Fawn Mancera)
--- NOTE | 2022-08-08 07:32 | W.EDPROG ---
Date of service: 08/08/22 Time of Service: 07:32 Medical Decision Making Patient stable throughout the night. No interventions needed Sign Out Sign Out Data: Sign Out Comment: Transgendered male transitioning to female with Suicidal ideation. EE'd seeking placement. Due to refusal to sign a safety plan. Hx of Depression and Bipolar, thoughts of wanting to overdose. Given Seroquel, Sertraline and Buspirone regular pm medications. 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 Last updated by Fawn Mancera NP at 08/07/22 23:13 Discharge Plan Discharge Details Chief Complaint: PsychEval Primary Care Provider: Makayla Noland ED Provider: Evan Najera Home Meds and New Rx's Prescriptions: No Action spironolactone 50 mg tablet 200 mg PO BID estradiol 2 mg tablet 2 mg PO BID quetiapine 25 mg tablet 25 tab PO QAM Patient Comments: pt states they have not taken in 2 weeks Rx Instructions: pt states 25mg in AM and 50mg in PM buspirone 5 mg tablet 1 tab PO BID Patient Comments: pt states they have not taken in 2 weeks allopurinol 100 mg tablet 200 mg PO DAILY Patient Comments: TAKE 2 TABLETS BY MOUTH DAILY Rx Instructions: [address] [facility] records quetiapine [Seroquel] 25 mg Tablet 50 mg PO HS Patient Comments: pt states they have not taken in 2 weeks sertraline 25 mg Tablet 25 mg PO DAILY Patient Comments: pt states they have not taken in 2 weeks Rx Instructions: TOTAL DAILY DOSE: 125MG PER [place] [facility] 04/16/22 sertraline 100 mg Tablet 100 mg PO DAILY Patient Comments: pt states they have not taken in 2 weeks Rx Instructions: TOTAL DAILY DOSE: 125MG PER [place] 04/16/22 levothyroxine 125 mcg Tablet 125 mcg PO DAILY@0600 Patient Comments: pt states they have not taken in 2 weeks
--- NOTE | 2022-08-08 08:10 | ED.PROG_ITS ---
Date of service: 08/08/22 Time of Service: 08:10 Medical Decision Making I received signout on this patient who is on an EE in the emergency department. Patient has home medications ordered. Patient has required no medications overnight. We will update documentation as clinically warranted. 9:38am I spoke to Juanita Barbosa from the [facility] who graciously accepted pt the retreat. Will complete nurse to nurse. 2:48 PM Patient's second certification did not hold up however patient elected to go voluntarily to the [facility]. Rosmery from care management will update the retreat. Urine drug screen negative. 4:15 PM Patient accepted again by the [facility]. Patient will go with the department chairperson's. I will sign transfer paperwork. Patient reported headache for which patient typically takes acetaminophen which I ordered. Sign Out Sign Out Data: Sign Out Comment: Transgendered male transitioning to female with Suicidal ideation. EE'd seeking placement. Due to refusal to sign a safety plan. Hx of Depression and Bipolar, thoughts of wanting to overdose. Given Seroquel, Sertraline and Buspirone regular pm medications. 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 Last updated by Fawn Mancera NP at 08/07/22 23:13 Sign Out Comment: Involuntary EE. Patient refused to sign safety plan. Pending placement Last updated by Evan Najera DO at 08/08/22 07:33 Discharge Plan Disposition Patient Disposition: Psychiatric Hospital/Unit Specific Psychiatric Facility: [facility] Discharge Details Clinical Impression: Suicidal thoughts Primary Care Provider: Makayla Noland ED Provider: Darrick Bocanegra Home Meds and New Rx's Prescriptions: No Action spironolactone 50 mg tablet 200 mg PO BID estradiol 2 mg tablet 2 mg PO BID quetiapine 25 mg tablet 25 tab PO QAM Patient Comments: pt states they have not taken in 2 weeks Rx Instructions: pt states 25mg in AM and 50mg in PM buspirone 5 mg tablet 1 tab PO BID Patient Comments: pt states they have not taken in 2 weeks allopurinol 100 mg tablet 200 mg PO DAILY Patient Comments: TAKE 2 TABLETS BY MOUTH DAILY Rx Instructions: 2 tablets daily per [facility] records quetiapine [Seroquel] 25 mg Tablet 50 mg PO HS Patient Comments: pt states they have not taken in 2 weeks sertraline 25 mg Tablet 25 mg PO DAILY Patient Comments: pt states they have not taken in 2 weeks Rx Instructions: TOTAL DAILY DOSE: 125MG PER [place] 04/16/22 sertraline 100 mg Tablet 100 mg PO DAILY Patient Comments: pt states they have not taken in 2 weeks Rx Instructions: TOTAL DAILY DOSE: 125MG PER [place] [facility] 04/16/22 levothyroxine 125 mcg Tablet 125 mcg PO DAILY@0600 Patient Comments: pt states they have not taken in 2 weeks Discharge Data Discharge Date/Time-TO BE ENTERED AT DEPARTURE: 08/08/22 17:00
--- NOTE | 2022-08-08 08:34 | CMSP_ITS ---
Date of service: 08/08/22 Time of Service: 08:34 Care Management Safety Plan Status Status: Involuntary Reason for Wait Reason for Wait: Inpatient Admission Safety Plan Safety Plan: INVOLUNTARY FOR INPATIENT PSYCHIATRIC STABILIZATION. Safety plan has been established to meet the needs of the patient, and consideration of the care team, to adhere to patient goals, identify restrictions based on behavioral status, address nutrition, and determine allowed personal belongings, tools for hygiene and personal care. Determine level of activity including ambulation, level of supervision, visitors, and determine privileges based on behaviors and level of engagement by pt. SAFETY PLAN: 1. Will remain on SI/HI precautions. In Paper Clothes 2. Will remain in room under direct supervision of one-on-one staff at all times provided by [employer], TRANSPORTATION MAINTENANCE SUPERVISOR, EQUINE PHARMACOLOGY TECHNICIAN vacuum forming machine operator. 3. May have paper cups, plates, finger foods as well as a cardboard spoon 4. Follow [facility] Management of the Admitted Behavioral Health Patient policy. 5. Comfort bath system only. 6. No personal belongings 7. Visitors: Per [facility] visitor policy and at RN discretion. 8. Activities: Soft cart items, music tablet, television and other activities at RN discretion. 9. Bathroom privileges with supervision. 10. Phone: Limited to legal contacts via hospital cordless phone at RN discretion. 11. Due to INVOLUNTARY status, patient is being held at [facility] by the Department of Mental Health ([facility]) until 2nd certification by [facility] Psychiatrist can be perfor med (within 24 hours). Staff will provide de-escalation support (CPI) as needed. If patient wishes to leave [facility], staff will contact [facility] Crisis Screener ([phone]) and On-Call Senior Backup Administrator ([phone]) as soon as possible. In the event of elopement, notify [place] [employer] ([phone]). Patient is currently involuntarily at [facility]. [facility] Frontline Staple Side Laster will continue seeking placement. Please contact the Accounts Receivable Executive Senior Backup Administrator ([phone]) for any needed changes to Safety Plan. Safety plan has been provided to interdepartmental care team. Patient will be transported by [employer] at time of discharge.
--- NOTE | 2022-08-08 08:34 | PDOC.CMSAFE ---
Date of service: 08/08/22 Time of Service: 08:34 Care Management Safety Plan Status Status: Involuntary Reason for Wait Reason for Wait: Inpatient Admission Safety Plan Safety Plan: INVOLUNTARY FOR INPATIENT PSYCHIATRIC STABILIZATION. Safety plan has been established to meet the needs of the patient, and consideration of the care team, to adhere to patient goals, identify restrictions based on behavioral status, address nutrition, and determine allowed personal belongings, tools for hygiene and personal care. Determine level of activity including ambulation, level of supervision, visitors, and determine privileges based on behaviors and level of engagement by pt. SAFETY PLAN: 1. Will remain on SI/HI precautions. In Paper Clothes 2. Will remain in room under direct supervision of one-on-one staff at all times provided by [employer], MOTION GRAPHICS ARTIST, PORTFOLIO MANAGER steeping press operator. 3. May have paper cups, plates, finger foods as well as a cardboard spoon 4. Follow [facility] Management of the Admitted Behavioral Health Patient policy. 5. Comfort bath system only. 6. No personal belongings 7. Visitors: Per [facility] visitor policy and at RN discretion. 8. Activities: Soft cart items, music tablet, television and other activities at RN discretion. 9. Bathroom privileges with supervision. 10. Phone: Limited to legal contacts via hospital cordless phone at RN discretion. 11. Due to INVOLUNTARY status, patient is being held at [facility] by the Department of Mental Health ([facility]) until 2nd certification by [facility] Psychiatrist can be performed (within 24 hours). Staff will provide de-escalation support (CPI) as needed. If patient wishes to leave [facility], staff will contact [facility] Crisis Screener ([phone]) and On-Call Timing Machine Operator ([phone]) as soon as possible. In the event of elopement, notify [place] [employer] ([phone]). Patient is currently involuntarily at [facility]. [facility] Frontline Window Treatment Installer will continue seeking placement. Please contact the Yard Warehouse Worker Timing Machine Operator ([phone]) for any needed changes to Safety Plan. Safety plan has been provided to interdepartmental care team. Patient will be transported by [employer] at time of discharge.
[2022-08-08] MEDS: busPIRone 5 MG TAB PO (11:00)
[2022-08-08] MEDS: Levothyroxine 125 MCG TAB PO (11:00)
[2022-08-08] MEDS: Estradiol 1 MG TAB 2 MG PO (11:00)
--- NOTE | 2022-08-08 13:45 | PDOC.MHPN2 ---
Date of service: 08/08/22 Time of Service: 13:46 PHQ-9 Over the last 2 weeks, how often have you been bothered by any of the following problems? 1. Little interest or pleasure in doing things: nearly every day 2. Feeling down, depressed, or hopeless: nearly every day 3. Trouble falling or staying asleep, or sleeping too much: nearly every day 4. Feeling tired or having little energy: nearly every day 5. Poor appetite or overeating: nearly every day 6. Feeling bad about yourself - or that you are a failure or have let yourself and your family down: nearly every day 7. Trouble concentrating on things, such as reading the newspaper or watching television: nearly every day 8. Moving or speaking so slowly that other people could have noticed? - Or the opposite - being so fidgety or restless that you have been moving around a lot more than usual: nearly every day 9. Thoughts that you would be better off or of hurting yourself in some way: nearly every day Total score: 27 If you checked off any problems, how difficult have these problems made it for you to do your work, take care of things at home, or get along with other people?: somewhat difficult PHQ-9 Results: Positive Source: Developed by Drs. Pj Woodard, Ariana Mitchell, Rolando Rowley and colleagues, with an educational blair from [employer]. Suicide Severity Rate CSSRS Have you wished you were or wished you could go to sleep and not wake up?: Yes Have you actually had any thoughts of killing yourself?: Yes CSSRS2 Have you been thinking about how you might do this?: Yes Have you had these thoughts and had some intention of acting on them?: Yes Have you started to work out or worked out the details of how to kill yourself? Do you intend to carry out this plan?: Yes CSSRS3 Have you ever done anything, started to do anything or prepared to do anything to end your life?: Yes CSSRS4 Was this within the past three months?: Yes Screening Score Total Score: 8 Screening: Positive Mental Health Emergency Note Release [facility] release signed:: Yes Reason for Visit Client was held on an EE last evening after endorsing SI with at rating of 10/10 and would not share ways or agree to a safety plan. This assessment is done face to face. 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 Intent: yes, has intent. Plan: yes,has a plan. History of suicide attempt: yes,history of suicide attempt reported. Details of previous suicide attempt: Client has hx of NSSI per self-report of cutting and attempting to overdose on prescribed medications. Risk: Does risk to harm exist?: yes. Access to means: Yes. Types of Means: Other weapons and Medication. Details: If at home . Counseling provided: Yes Risk: Moderate Risk Duty to warn indicated: No Asssessment/Mental Status Appearance: Disheveled Attitude: Cooperative Behavior: Unremarkable Speech: Normal Affect: Flat Mood: Anxious Thought process: Unremarkable Hallucinations: No Delusions: No Attention: Unremarkable Perception: Not impaired Orientation: Fully orientated Memory: Intact Insight: Fair Judgement: Fair Neurovegetative Symptoms Appetitie: Increase Interests: Decrease Energy: Decrease Libido: Not applicable Substance Use: Do you use nicotine?: No Have you used substances in the last 7 days?: No Additional Issues: Assaultive/Threatening Behavior: No Medical Concerns: No Client engaged in active self harm w/weapon: No Threatening to run away: No Child reported abuse/neglect: No Voluntarily presenting for services: No Domestic violence is a concern: No Extreme Psychosis or extreme behavior is present: No Impression Client is a 36 year old single, born male transitioning to female who lives with her adoptive parents and biological sons in [facility]. Client was held on EE status on 08.07.22 after endrosing SI a 140/10 with numerous plans but would not share plans or engage in lesser restrictive means of treatment. Today the client presented resting in bed. She startled when this clinician called her name. Client stated that she is not great but better. I have very high anxiety today from being at the hospital because I only recognize one person. Client reported she has been eating and slept better last night once she was able to settle down. She has been using coping skills learned from her field nurse case manager Desire, i.e. counting and touching. When asked if she would go voluntarily to a hospital the client stated I think I'd be better off involuntary. Plan/Disposition Recommended Disposition: Hospitalization facilities contacted. Plan: Client will be transported to today 08.08.2022. [facility] notification completed. Person reported agreement to plan: Yes Facilities contacted if Applicable [facility]BER Accepted, Accepted/transfer pending. Information Sent [facility]: Referral Reports/communication Outcome discussed with: ED/Personnel
--- NOTE | 2022-08-08 16:03 | CMSP_ITS ---
Date of service: 08/08/22 Time of Service: 16:04 Care Management Safety Plan Status Status: Voluntary Reason for Wait Reason for Wait: Inpatient Admission Safety Plan Safety Plan: VOLUNTARY FOR INPATIENT PSYCHIATRIC STABILIZATION.? Patient is appropriate in all interactions since arriving at [facility]; Pt has demonstrated appropriate coping and communication skills, has articulated his or her needs and concerns and is fully engaged during staff interactions. Safety plan has been established with patient, and care team, to adhere to patient goals, identify restrictions based on behavioral status, address nutrition, and determine allowed personal belongings, tools for hygiene and personal care. Determine level of activity including ambulation, level of supervision, visitors, and determine privileges based on behaviors and level of engagement by pt. SAFETY PLAN: 1. Will remain on suicide precautions. In Paper Clothes 2. Will remain in room under direct supervision of one-on-one staff at all times provided by CPSO, PRESETTER OPERATOR, AGRICULTURAL EQUIPMENT SALES MANAGER can inspector. 3. May have paper cups, plates, finger foods as well as a cardboard spoon with which to eat meals. 4. Follow [facility] Management of the Admitted Behavioral Health Patient policy. 5. Comfort bath system only, shower permitted with escort at RN discretion. 6. No personal belongings-soft items permitted at RN discretion. 7. Visitors-none at this time. 8. Activities: soft cart items approved per RN discretion. 9.?Bathroom privileges with escort in the ED. 10. Phone: contact limited to family at this time, via cordless phone at RN discretion. 11. Due to VOLUNTARY status, if patient wishes to leave [facility], staff will contact [facility] Crisis Screener ([phone]) and On-Call Broadcast Checker ([phone]) as soon as possible. In the event of elopement, notify [facility] Police ([phone]). Patient is currently voluntarily at [facility] and seeking inpatient admission when a bed becomes available. [facility] Frontline Refinery Operator [employer] will continue seeking placement. Please contact the Independent Consultant Broadcast Checker ([phone]) and [facility] Refinery Operator [employer]ization Plant ([phone]) for any needed changes in the Safety Plan. Safety plan has been provided to interdepartmental care team.
--- NOTE | 2022-08-08 16:07 | PDOC.CMPRO ---
Date of service: 08/08/22 Time of Service: 16:07 Care Management Progress Note Progress Note Text Progress Note Text: DISPOSITION: Patient is accepted for a voluntary admission by the [facility]. Patient will follow up with PCP, [facility] and plan of care upon discharge from the [facility]. [facility] provide transportation to [place]. 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
[2022-08-08] MEDS: Acetaminophen 500 MG TAB 1000 MG PO (16:28)
[2022-08-08 16:45] VITALS: PULSE 94
== END 2022-08-08 17:00 ==
PROVIDERS: Registered Nurse Emergency; Emergency Provider Emergency Medicine; PCP Nurse Practitioner Family
DX: F32.A Depression, unspecified (principal); R45.851 Suicidal ideations; E11.9 Type 2 diabetes mellitus without complications
CPT/HCPCS: 36416; 80307; 82962; 99285

== ENCOUNTER 2022-10-20 00:25 | Emergency (ER) | payer MEDICARE, MEDICAID, SELFPAY ==
[2022-10-20 00:31] VITALS: BP 129/86; PULSE 94; RESP 16; TEMP 36.6; O2SAT 99
[2022-10-20 01:13] LABS: Abs Immature Grans 0.08 10^3/uL (0.0-0.06); Absolute Lymphocyte Count 5.27 10^3/uL (1.2-3.4); Basophils % 0.6; Eosinophils % 1.7; HGB 13.2 g/dL (13.5-17.5); Immature Grans % 0.5; Lymphocytes % 30.4; MCH 28.1 pg (27.0-33.0); MCHC 33.8 % (32.0-36.0); MCV 83 fL (80-95); Neutrophils % 61.8; Platelet Count 387 10^3/uL (130-400); RBC 4.69 10^6/uL (4.36-5.78); RDW 12.2 % (11.8-14.1); RDW-SD 36.8 fL; WBC 17.35 10^3/uL (4.4-10.8)
[2022-10-20] MEDS: hydrOXYzine HCL 25 MG TAB PO ×2 (01:14→10:50)
[2022-10-20 01:17] LABS: Bilirubin Negative (Negative); Blood Negative (Negative); Clarity Clear (Clear); Glucose Negative (Negative); Ketones Negative (Negative); Leukocyte Esterase Trace (Negative); Nitrite Negative (Negative); Specific Gravity 1.015 (1.005-1.025); Urobilinogen 0.2 mg/dL (Up to 0.2); pH 5.5 (5-8)
[2022-10-20 01:19] LABS: Absolute Eosinophil Count 0.29 10^3/uL (0.0-0.7); Absolute Monocyte Count 0.87 10^3/uL (0.1-0.8); Absolute Neutrophil Count 10.72 10^3/uL (1.2-6.7); RBC Morphology Normal
--- NOTE | 2022-10-20 01:19 | W.ED.GENAD ---
Discharge Plan Disposition Condition: Stable Discharge Details Chief Complaint: PsychEval Clinical Impression: Anxiety, Suicidal ideation Primary Care Provider: Makayla Noland ED Provider: Nola Clark Home Meds and New Rx's Prescriptions: No Action spironolactone 50 mg tablet 200 mg PO BID estradiol 2 mg tablet 2 mg PO BID quetiapine 25 mg tablet 25 tab PO QAM Patient Comments: pt states they have not taken in 2 weeks Rx Instructions: pt states 25mg in AM and 50mg in PM buspirone 5 mg tablet 1 tab PO BID Patient Comments: pt states they have not taken in 2 weeks allopurinol 100 mg tablet 200 mg PO DAILY Patient Comments: TAKE 2 TABLETS BY MOUTH DAILY Rx Instructions: 2 tablets daily per [facility] records quetiapine [Seroquel] 25 mg Tablet 50 mg PO HS Patient Comments: pt states they have not taken in 2 weeks sertraline 25 mg Tablet 25 mg PO DAILY Patient Comments: pt states they have not taken in 2 weeks Rx Instructions: TOTAL DAILY DOSE: 125MG PER [facility] 04/16/22 sertraline 100 mg Tablet 100 mg PO DAILY Patient Comments: pt states they have not taken in 2 weeks Rx Instructions: TOTAL DAILY DOSE: 125MG PER [facility] 04/16/22 levothyroxine 125 mcg Tablet 125 mcg PO DAILY@0600 Patient Comments: pt states they have not taken in 2 weeks hydroxyzine HCl 25 mg tablet 25 mg PO DAILY Medical Decision Making 37-year-old patient presents for evaluation of anxiety and suicidal ideation. Medically cleared for psychiatric evaluation. Patient seen by crisis and is voluntary for psychiatric admission. No issues overnight. HPI General Date/Time Provider Initiated Documentation: 10/20/22 00:30. HPI Narrative: 37-year-old patient presents for evaluation of anxiety and suicidal ideation. Patient states that they have had significant difficulty with anxiety tonight. They took their normal dose of hydroxyzine without significant improvement. They also had thoughts of jumping off a bridge. Patient with longstanding mental health issues and multiple psychiatric admissions. They were seen at home by mental health and PD earlier this evening. They were able to contract for safety at that time. They now feel like they are. Denies any other medical issues at this time. Denies any alcohol or recreational drug use. Denies any ingestions. Denies any self-harm tonight. Related Data Home Medications Medication Instructions Recorded Confirmed estradiol 2 mg tablet 2 mg PO BID 02/20/22 10/20/22 spironolactone 50 mg tablet 200 mg PO BID 02/20/22 10/20/22 quetiapine 25 mg tablet 25 tab PO QAM 03/12/22 10/20/22 buspirone 5 mg tablet 1 tab PO BID 04/08/22 10/20/22 allopurinol 100 mg tablet 200 mg PO DAILY 04/14/22 10/20/22 quetiapine 25 mg tablet (Seroquel) 50 mg PO HS 04/15/22 10/20/22 sertraline 100 mg tablet 100 mg PO DAILY 04/15/22 10/20/22 sertraline 25 mg tablet 25 mg PO DAILY 04/15/22 10/20/22 levothyroxine 125 mcg tablet 125 mcg PO DAILY@0600 04/16/22 10/20/22 hydroxyzine HCl 25 mg tablet 25 mg PO DAILY 10/20/22 10/20/22 Allergies Allergy/AdvReac Type Severity Reaction Status Date / Time strawberry AdvReac Verified 10/20/22 00:36 General Stated Complaint: PsychEval SCOTT: 2 Review of Systems Narrative: Remainder of review of systems otherwise negative except for as noted in HPI x 10. PFSH All Active Problems (Updated 10/20/22 @ 06:43 by Nola Clark MD) Anxiety (Chronic) Suicidal ideation (Acute) Suicidal thoughts (Acute) Suicide gesture (Acute) Depression (Chronic) Medical History Anxiety with depression Developmental delay, mild Dyspraxia Gout Hyperlipidemia Hyperuricemia Obesity Transgender Type 2 diabetes mellitus Surgical History No significant past surgical history Social History Smoking/Tobacco Use Status: Former Tobacco Use Smoking risk assessment performed?: Yes Drug use: Daily Substance use type: marijuana Do you feel safe at home: Yes (mentally no physically yes) Do you feel safe in your relationship?: Yes Exam Narrative Exam Narrative: General: non-toxic, no respiratory distress, comfortable HEENT: normocephalic, atraumatic, lids and lashes normal, PERRL, EOMI, anicteric sclera, no conjunctival injection, moist oral mucosa Card: regular rate and rhythm, S1S2, no murmurs, rubs, or gallops Lungs: good air entry, clear to auscultation bilaterally. no wheezes, rales, rhonchi, or retractions Abd: soft, non-tender, non-distended, normal bowel sounds, no rebound or guarding, no peritoneal signs Musculoskeletal: full range of motion of arms and legs, no tenderness to palpation. no clubbing, cyanosis, or edema Neurologic: appropriate for age, strength normal Psych: alert and oriented, + anxious, + suicidal ideation Skin: no petechiae, no lesions, warm and dry Course Vital Signs Vital signs: Vital Signs Temperature 36.6 C 10/20/22 00:31 Pulse 94 H 10/20/22 00:31 Respiratory Rate 16 10/20/22 00:31 Blood Pressure 129/86 10/20/22 00:31 Pulse Oximetry 99 10/20/22 00:31 Temperature 36.6 C 10/20/22 00:31 Temperature Source Temporal Artery Scan 10/20/22 00:31 Pulse 94 H 10/20/22 00:31 Respiratory Rate 16 10/20/22 00:31 Respiratory Effort Normal 10/20/22 00:31 Blood Pressure 129/86 10/20/22 00:31 Blood Pressure Position Sitting 10/20/22 00:31 Pulse Oximetry 99 10/20/22 00:31 Oxygen Delivery Method Room Air 10/20/22 00:31 Oxygen Flow Rate 0 10/20/22 00:31 Pain Level 0 10/20/22 00:31 Sign Out Sign Out Data: Sign Out Comment: Patient presented with increased anxiety and suicidal ideation. Seen by crisis and is voluntary for psychiatric admission. Received a dose of hydroxyzine upon arrival. Was able to sleep throughout the night. Awaiting placement. Last updated by Nola Clark MD at 10/20/22 06:44 PAWSS Have you Been Recently Intoxicated or Drunk Within the Last 30 days?: Yes Have you Ever Experienced Previous Episodes of Alcohol Withdrawal?: No Have you ever Experienced Withdrawal Seizures?: No Have you ever Experienced Delirium Tremens(DT)s?: No Have you ever undergone Alcohol Rehabilitation Treatment (i.e, inpt ot outpatient treatment programs)?: No Have you ever Experienced Blackouts?: No Have you ever Combined Alcohol with other Downers within the last 90 days?: No Have you ever Combined Alcohol with any other Substance of Abuse during the last 90 days?: No Positive Blood Alcohol level on Presentation? [PCS.BAL]: No Evidence of Increased Autonomic Activity (i.e. HR>120, tremor, sweating, agitation, nausea)?: No Result: 1
[2022-10-20 01:20] LABS: Diff Comment Agrees w/ Instrument
[2022-10-20 01:22] LABS: Bacteria Rare HPF (Negative); C & S Indicated? Yes; Casts Negative LPF (Negative); Crystals Negative HPF (Negative); Epithelial Cells Few HPF (Negative); Mucus Negative (Negative); RBC Negative HPF (0-2)
[2022-10-20 01:29] LABS: ALT 19 U/L (16-63); AST 14 U/L (15-37); Albumin 3.8 g/dL (3.4-5.0); Alkaline Phosphatase 73 U/L (46-116); Anion Gap 12.2 mmol/L (3-11); BUN 20 mg/dL (7-18); Bilirubin, Total 0.2 mg/dL (0.2-1.0); CO2 23.8 mmol/L (21.0-32.0); CREATININE 1.2 mg/dL (0.70-1.30); Calcium 9.3 mg/dL (8.5-10.1); Chloride 101 mmol/L (98-107); Estimated GFR 80.38 (mL/min/1.73m2); Glucose 145 mg/dL (74-106); Potassium 3.9 mmol/L (3.5-5.1); Sodium 137 mmol/L (136-145); Total Protein 7.7 g/dL (6.4-8.2)
[2022-10-20 01:33] LABS: Salicylate < 2.8 mg/dL (<2.8)
[2022-10-20 01:44] LABS: Acetaminophen < 2 ug/mL (10-30); ETHANOL BLOOD < 3.0 mg/dL (<10)
--- NOTE | 2022-10-20 03:20 | PDOC.MHCN ---
Date of service: 10/20/22 Time of Service: 01:00 PHQ-9 Over the last 2 weeks, how often have you been bothered by any of the following problems? 1. Little interest or pleasure in doing things: nearly every day 2. Feeling down, depressed, or hopeless: nearly every day 3. Trouble falling or staying asleep, or sleeping too much: more than half the days 4. Feeling tired or having little energy: nearly every day 5. Poor appetite or overeating: nearly every day 6. Feeling bad about yourself - or that you are a failure or have let yourself and your family down: nearly every day 7. Trouble concentrating on things, such as reading the newspaper or watching television: nearly every day 8. Moving or speaking so slowly that other people could have noticed? - Or the opposite - being so fidgety or restless that you have been moving around a lot more than usual: nearly every day 9. Thoughts that you would be better off or of hurting yourself in some way: nearly every day Total score: 26 If you checked off any problems, how difficult have these problems made it for you to do your work, take care of things at home, or get along with other people?: somewhat difficult Source: Developed by Drs. Pj Woodard, Ariana Mitchell, Rolando Rowley and colleagues, with an educational blair from [employer]. Suicide Severity Rate CSSRS Have you wished you were or wished you could go to sleep and not wake up?: Yes Have you actually had any thoughts of killing yourself?: Yes CSSRS2 Have you been thinking about how you might do this?: Yes Have you had these thoughts and had some intention of acting on them?: Yes Have you started to work out or worked out the details of how to kill yourself? Do you intend to carry out this plan?: Yes CSSRS3 Have you ever done anything, started to do anything or prepared to do anything to end your life?: Yes CSSRS4 Was this within the past three months?: Yes Screening Score Total Score: 8 Screening: Positive Mental Health Emergency Note Release [facility] release signed:: Yes Reason for Visit In the last 2 weeks has the pt presented for ES prior to today?: No Client Information Well Housed: Yes Non Suicidal Self Injury Current: No History: yes, Client reported cutting herself Safety Risk/Harm to Self or Others Current Ideation to Harm Self or Others: Yes to self. Intent: yes, has intent. Plan: yes,has a plan. History of suicide attempt: yes,history of suicide attempt reported. Details of previous suicide attempt: client has attempted 6-7 different times in her life to by suicide. Risk: Does risk to harm exist?: yes. Access to means: Yes. Types of Means: Other weapons (sharps and ropes) and Medication. Risk: High Risk Duty to warn indicated: No Asssessment/Mental Status Appearance: Disheveled and Poor hygiene Attitude: Cooperative and Guarded Behavior: Agitated Speech: Normal and Hesitant Affect: Blunted Mood: Depressed Thought process: Unremarkable Hallucinations: yes, Visual and Auditory Delusions: No evidence Attention: Inattention Perception: Not impaired Orientation: Fully orientated Memory: Intact Insight: Fair Judgement: Fair Neurovegetative Symptoms Sleep: Decrease Appetitie: Disordered Interests: Decrease Energy: Decrease Libido: Not applicable Substance Use: Intoxication Drug Issues: Other (no) Do you use nicotine?: No Have you used substances in the last 7 days?: yes, Acohol Additional Issues: Assaultive/Threatening Behavior: No Medical Concerns: No Client engaged in active self harm w/weapon: No Threatening to run away: No Child reported abuse/neglect: No Voluntarily presenting for services: Yes Domestic violence is a concern: No Extreme Psychosis or extreme behavior is present: No Impression Please note that the client is a transgender female so client will be referred to as she her throughout this assessment. Client is Chapo Ferguson, preferred name Elsa, a transgender female. Client admitted herself into the Ed after feeling very suicidal and having to different plans on how she intends to cause by suicide. Client's appearance was disheveled and did not appear well groomed. Client was guarded towards this program writer during the assessment. But was cooperative when answering questions. Client reports that she on a ?good night? sleeps 4 hours and eats one meal a day. Plants scored a 26 to 27 on the PHQ 9, answered yes to all the CSRS questions, and answered yes to all the questions on the PC-PTSD-5. Client reported the occasional usage of alcohol her last consumption being Saturday 10/14 with the intention to drink to get drunk, is that is her intention when she does drink. During the assessment. Client was experiencing suicidal ideations And rated her intent a 10 out of 10 and reports access to cause harm with medications, sharps, and ropes. Client reports that she would first try overdosing and then if that did not work immediately after go someplace very high and jump. Currently client is willing to seek voluntary inpatient treatment to seek additional help for her mental health as she already sees a therapist. Plan/Disposition Recommended Disposition: Hospitalization No. Reports/communication Outcome discussed with: ED/Personnel
[2022-10-20] MEDS: QUEtiapine 25 MG TAB PO (10:50)
[2022-10-20] MEDS: Allopurinol 100 MG TAB 200 MG PO (10:50)
[2022-10-20] MEDS: Spironolactone 50 MG TAB 200 MG PO (10:50)
[2022-10-20] MEDS: Sertraline 100 MG TAB PO (10:50)
[2022-10-20] MEDS: Estradiol 1 MG TAB 2 MG PO (10:50)
[2022-10-20] MEDS: Sertraline 25 MG TAB PO (10:50)
[2022-10-20] MEDS: busPIRone 5 MG TAB PO (10:50)
[2022-10-20 11:56] LABS: *AMPHETAMINES SCREEN URINE Negative (Negative); *BARBITURATES SCREEN URINE Negative (Negative); *BENZODIAZEPINES SCREEN URINE Negative (Negative); Cannabinoids THC Negative (Negative); Cocaine Screen,Urine Negative (Negative); METHADONE URINE SCREEN Negative (Negative); OPIATES URINE SCREEN Negative (Negative)
[2022-10-20 11:57] LABS: Tricyclic Antidepressants Negative (Negative)
== END 2022-10-20 11:41 ==
PROVIDERS: Emergency Medicine Emergency Medical Services; Emergency Provider Emergency Medicine; PCP Nurse Practitioner Family
DX: R45.851 Suicidal ideations (principal); F64.0 Transsexualism; F41.8 Other specified anxiety disorders; Z79.899 Other long term (current) drug therapy
CPT/HCPCS: 80053; 80307; 99285; 80320; 80329; 81003; 81015; 85025; 87086

== ENCOUNTER 2022-10-31 17:31 | Emergency (ER) | payer MEDICARE, MEDICAID, SELFPAY ==
[2022-10-31 17:59] VITALS: BP 134/89; PULSE 85; RESP 20; TEMP 36.8; O2SAT 98
--- NOTE | 2022-10-31 18:28 | ED.GENADUL_ITS ---
Discharge Plan Discharge Details Chief Complaint: PsychEval Primary Care Provider: Makayla Noland ED Provider: Edilberto Ellison Home Meds and New Rx's Prescriptions: No Action spironolactone 50 mg tablet 200 mg PO BID estradiol 2 mg tablet 2 mg PO BID quetiapine 25 mg tablet 25 tab PO QAM Patient Comments: pt states they have not taken in 2 weeks Rx Instructions: pt states 25mg in AM and 50mg in PM buspirone 5 mg tablet 1 tab PO BID Patient Comments: pt states they have not taken in 2 weeks allopurinol 100 mg tablet 200 mg PO DAILY Patient Comments: TAKE 2 TABLETS BY MOUTH DAILY Rx Instructions: 2 tablets daily per [facility] records quetiapine [Seroquel] 25 mg Tablet 50 mg PO HS Patient Comments: pt states they have not taken in 2 weeks sertraline 25 mg Tablet 25 mg PO DAILY Patient Comments: pt states they have not taken in 2 weeks Rx Instructions: T[facility] sertraline 100 mg Tablet 100 mg PO DAILY Patient Comments: pt states they have not taken in 2 weeks Rx Instructions: TOTAL DAILY DOSE: [facility] 04[facility]22 levothyroxine 125 mcg Tablet 125 mcg PO DAILY@0600 Patient Comments: pt states they have not taken in 2 weeks hydroxyzine HCl 25 mg tablet 25 mg PO DAILY Medical Decision Making 37-year-old trans female presents with worsening depressive symptoms and suicidal ideations. Thoughts of overdosing cutting herself and/or jumping off of bridges. No signs of intoxication no signs of self-harm currently, brought in by her friend. Hemodynamically stable no acute distress. Will initiate screening by [facility] human services, will obtain U tox 18: 38 given patient presentation and symptomatology, no the skin and human services screener has determined that patient will be in need of an involuntary hold. HPI General Date/Time Provider Initiated Documentation: 10/31/22 18:13 . HPI Narrative: 37-year-old trans female presents with worsening depressive symptoms and suicidal ideations, thoughts of overdosing on pills and/or jumping off bridges and/or cutting herself. No self injures behavior today. Recent discharge from [facility]. Brought in by friend Related Data Home Medications Medication Instructions Recorded Confirmed estradiol 2 mg tablet 2 mg PO BID 02/20/22 10/20/22 spironolactone 50 mg tablet 200 mg PO BID 02/20/22 10/20/22 quetiapine 25 mg tablet 25 tab PO QAM 03/12/22 10/20/22 buspirone 5 mg tablet 1 tab PO BID 04/08/22 10/20/22 allopurinol 100 mg tablet 200 mg PO DAILY 04/14/22 10/20/22 quetiapine 25 mg tablet (Seroquel) 50 mg PO HS 04/15/22 10/20/22 sertraline 100 mg tablet 100 mg PO DAILY 04/15/22 10/20/22 sertraline 25 mg tablet 25 mg PO DAILY 04/15/22 10/20/22 levothyroxine 125 mcg tablet 125 mcg PO DAILY@0600 04/16/22 10/20/22 hydroxyzine HCl 25 mg tablet 25 mg PO DAILY 10/20/22 10/20/22 Allergies Allergy/AdvReac Type Severity Reaction Status Date / Time strawberry AdvReac Verified 10/20/22 00:36 General Stated Complaint: PsychEval SCOTT: 2 Review of Systems Narrative: Review of Systems Constitutional: negative Eyes: negative ENT: negative Cardiovascular: negative Respiratory: negative Gastrointestinal: negative : negative Musculoskeletal: negative Skin: negative Neurologic: negative Psych: Depression, SI PFSH All Active Problems (Updated 10/20/22 @ 06:43 by Nola Clark MD) Anxiety (Chronic) Suicidal ideation (Acute) Suicidal thoughts (Acute) Suicide gesture (Acute) Depression (Chronic) Medical History Anxiety with depression Developmental delay, mild Dyspraxia Gout Hyperlipidemia Hyperuricemia Obesity Transgender Type 2 diabetes mellitus Surgical History No significant past surgical history Social History Smoking/Tobacco Use Status: Former Tobacco Use Smoking risk assessment performed?: Yes Drug use: Daily Substance use type: marijuana Do you feel safe at home: Yes (mentally no physically yes) Do you feel safe in your relationship?: Yes Exam Narrative Exam Narrative: Physical Examination General: alert, awake, cooperative, resting comfortably, no acute distress HEENT: normocephalic, atraumatic; PERRL, EOM intact, conjunctiva normal; no nasal discharge; moist mucous membranes, oral and pharyngeal mucosa normal, tolerating secretions Neck: supple, trachea midline; full ROM Chest: normal to inspection Respiratory: normal respiratory effort, speaking in full sentences, clear to auscultation, no wheezing, rales or rhonchi Cardiac: regular rate, regular rhythm, S1S2 intact, no murmurs rubs or gallops GI: abdomen soft, non-tender, non-distended; no palpable mass or hepatosplenomegaly Skin: no lesions, rashes or trauma appreciated Neuro: AAOx3, normal speech, moving all extremities Psych: Depression, SI Course Vital Signs Vital signs: Vital Signs Temperature 36.8 C 10/31/22 17:59 Pulse 85 10/31/22 17:59 Respiratory Rate 20 10/31/22 17:59 Blood Pressure 134/89 10/31/22 17:59 Pulse Oximetry 98 10/31/22 17:59 Temperature 36.8 C 10/31/22 17:59 Temperature Source Temporal Artery Scan 10/31/22 17:59 Pulse 85 10/31/22 17:59 Respiratory Rate 20 10/31/22 17:59 Blood Pressure 134/89 10/31/22 17:59 Blood Pressure Position Sitting 10/31/22 17:59 Pulse Oximetry 98 10/31/22 17:59 Oxygen Delivery Method Room Air 10/31/22 17:59 Oxygen Flow Rate 0 10/31/22 17:59
[2022-10-31 19:09] LABS: *AMPHETAMINES SCREEN URINE Negative (Negative); *BARBITURATES SCREEN URINE Negative (Negative); *BENZODIAZEPINES SCREEN URINE Negative (Negative); Cannabinoids THC Positive (Negative); Cocaine Screen,Urine Negative (Negative); METHADONE URINE SCREEN Negative (Negative); OPIATES URINE SCREEN Negative (Negative)
[2022-10-31 19:10] LABS: Tricyclic Antidepressants Negative (Negative)
[2022-10-31 19:50] LABS: Source Nasopharynx
[2022-10-31 20:27] LABS: COVID-19 PCR Negative (Negative)
--- NOTE | 2022-10-31 22:26 | PDOC.MHCN_ITS ---
Date of service: 10/31/22 Time of Service: 22:26 PHQ-9 Over the last 2 weeks, how often have you been bothered by any of the following problems? 1. Little interest or pleasure in doing things: nearly every day 2. Feeling down, depressed, or hopeless: nearly every day 3. Trouble falling or staying asleep, or sleeping too much: nearly every day 4. Feeling tired or having little energy: nearly every day 5. Poor appetite or overeating: nearly every day 6. Feeling bad about yourself - or that you are a failure or have let yourself and your family down: nearly every day 7. Trouble concentrating on things, such as reading the newspaper or watching television: nearly every day 8. Moving or speaking so slowly that other people could have noticed? - Or the opposite - being so fidgety or restless that you have been moving around a lot more than usual: nearly every day 9. Thoughts that you would be better off or of hurting yourself in some way: nearly every day Total score: 27 If you checked off any problems, how difficult have these problems made it for you to do your work, take care of things at home, or get along with other people?: very difficult Source: Developed by Drs. Pj Woodard, Ariana Mitchell, Rolando Rowley and colleagues, with an educational blair from [employer]. Suicide Severity Rate CSSRS Have you wished you were or wished you could go to sleep and not wake up?: Yes Have you actually had any thoughts of killing yourself?: Yes CSSRS2 Have you been thinking about how you might do this?: Yes Have you had these thoughts and had some intention of acting on them?: Yes Have you started to work out or worked out the details of how to kill yourself? Do you intend to carry out this plan?: Yes CSSRS3 Have you ever done anything, started to do anything or prepared to do anything to end your life?: Yes CSSRS4 Was this within the past three months?: Yes Screening Score Total Score: 8 Screening: Positive Mental Health Emergency Note Release [facility] release signed:: Yes Reason for Visit In the last 2 weeks has the pt presented for ES prior to today?: Yes, presented at [facility] ED Non Suicidal Self Injury Current: Yes, Cutting History: yes, Cutting Safety Risk/Harm to Self or Others Current Ideation to Harm Self or Others: Yes to self. Intent: yes, has intent. Plan: yes,has a plan. History of suicide attempt: yes,history of suicide attempt reported. Details of previous suicide attempt: overdose Risk: Does risk to harm exist?: yes. Access to means: Yes. Types of Means: Other weapons. Details: knives and blades . Counseling provided: Yes Risk: High Risk Duty to warn indicated: No Asssessment/Mental Status Appearance: Disheveled Attitude: Guarded, Hostile and Other (Uncooperative) Behavior: Agitated Speech: Normal and Hesitant Affect: Blunted Mood: Irritable Thought process: Unremarkable Hallucinations: No evidence Delusions: No evidence Attention: Unremarkable Perception: Not impaired Orientation: Fully orientated Memory: Intact Insight: Fair Judgement: Fair Neurovegetative Symptoms Sleep: No change (Client reports 3-4 hours a night) Appetitie: Disordered Interests: Decrease Energy: Decrease Libido: Not applicable Substance Use: Other (No) Drug Issues: Other (No) Do you use nicotine?: No Have you used substances in the last 7 days?: yes, CBD Additional Issues: Assaultive/Threatening Behavior: No Medical Concerns: No Client engaged in active self harm w/weapon: Yes Threatening to run away: No Child reported abuse/neglect: No Voluntarily presenting for services: No Domestic violence is a concern: No Extreme Psychosis or extreme behavior is present: No Plan/Disposition Recommended Disposition: Hospitalization facilities contacted. Plan: Client birthname is Chapo Green but client is currently transitioning from male to female. Clients preferred name is Elsa, Client was brought into the ED due to texting friends that she wanted to kill herself on several different occasions since her release from 10/26. Client reported, a on the PHQ-9, yes to all the CSSRS questions. Clients' appearance was disheveled and when asked questions, client responded 'I don't know' before responding with her answer. Client complained that she was called earlier 10/31 several times for a welfare check, saying that she will not respond to calls from [facility]. Client reported two plans, overdosing and jumping off a bridge. client also reported intent and NSSI behaviors of cutting. last episode of NSSI was cutting 10/30. Client also reported access to means to cause harm to herself. Client was unable to identify natural supports and strength at this time. After speaking with SANTOSH Bliss, client decided to go voluntary to seek inpatient mental health treatment at this time. Reports/communication Outcome discussed with: ED/Personnel and Other (SANTOSH Bliss )
[2022-10-31] MEDS: diphenhydrAMINE 25 MG CAP 50 MG PO (23:37)
--- NOTE | 2022-11-01 07:58 | W.EDPROG ---
Date of service: 11/01/22 Time of Service: 07:58 Medical Decision Making pt signed out to me pending voluntary psych placement for si/depression, currently calm and cooperative without acute complaints, will continue to observe until safe dispo found Sign Out Sign Out Data: Sign Out Comment: trans female, hx of depression, SI; worsening depression SI, on voluntary; [facility] has screened, will reassess in AM for safety plan v placement options Last updated by Edilberto Ellison MD at 10/31/22 19:25 Sign Out Comment: Patient stable throughout the night. No interventions needed Last updated by Evan Najera DO at 11/01/22 07:56 Discharge Plan Discharge Details Chief Complaint: PsychEval Primary Care Provider: Makayla Noland ED Provider: Tung Perez [place] Meds and New Rx's Prescriptions: No Action spironolactone 50 mg tablet 200 mg PO BID estradiol 2 mg tablet 2 mg PO BID quetiapine 25 mg tablet 25 tab PO QAM Patient Comments: pt states they have not taken in 2 weeks Rx Instructions: pt states 25mg in AM and 50mg in PM buspirone 5 mg tablet 1 tab PO BID Patient Comments: pt states they have not taken in 2 weeks allopurinol 100 mg tablet 200 mg PO DAILY Patient Comments: TAKE 2 TABLETS BY MOUTH DAILY Rx Instructions: [address] [facility] records quetiapine [Seroquel] 25 mg Tablet 50 mg PO HS Patient Comments: pt states they have not taken in 2 weeks sertraline 25 mg Tablet 25 mg PO DAILY Patient Comments: pt states they have not taken in 2 weeks Rx Instructions: TOTAL DAILY DOSE: 125MG PER [place] [facility] 04/16/22 sertraline 100 mg Tablet 100 mg PO DAILY Patient Comments: pt states they have not taken in 2 weeks Rx Instructions: TOTAL DAILY DOSE: 125MG PER [place] [facility] 04/16/22 levothyroxine 125 mcg Tablet 125 mcg PO DAILY@0600 Patient Comments: pt states they have not taken in 2 weeks hydroxyzine HCl 25 mg tablet 25 mg PO DAILY
--- NOTE | 2022-11-01 11:13 | ED.PROG_ITS ---
Date of service: 11/01/22 Time of Service: 11:13 Medical Decision Making pt stable, spoke with INTERNAL CONTROLS ANALYST Corine Barbosa at [facility] and she accepts for transfer to their facility. 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 No interventions needed Last updated by Evan Najera DO at 11/01/22 07:56 Discharge Plan Disposition Specific Psychiatric Facility: [facility] Condition: Stable Discharge Details Chief Complaint: PsychEval Clinical Impression: Depression Primary Care Provider: Makayla Noland ED Provider: Tung Perez Home Meds and New Rx's Prescriptions: No Action spironolactone 50 mg tablet 200 mg PO BID estradiol 2 mg tablet 2 mg PO BID quetiapine 25 mg tablet 25 tab PO QAM Patient Comments: pt states they have not taken in 2 weeks Rx Instructions: pt states 25mg in AM and 50mg in PM buspirone 5 mg tablet 1 tab PO BID Patient Comments: pt states they have not taken in 2 weeks allopurinol 100 mg tablet 200 mg PO DAILY Patient Comments: TAKE 2 TABLETS BY MOUTH DAILY Rx Instructions: 2 tablets daily per [facility] records quetiapine [Seroquel] 25 mg Tablet 50 mg PO HS Patient Comments: pt states they have not taken in 2 weeks sertraline 25 mg Tablet 25 mg PO DAILY Patient Comments: pt states they have not taken in 2 weeks Rx Instructions: TOTAL DAILY [facility]: [facility] sertraline 100 mg Tablet 100 mg PO DAILY Patient Comments: pt states they have not taken in 2 weeks Rx Instructions: TOTAL DAILY DOSE: [facility] 04/16[facility]22 levothyroxine 125 mcg Tablet 125 mcg PO DAILY@0600 Patient Comments: pt states they have not taken in 2 weeks hydroxyzine HCl 25 mg tablet 25 mg PO DAILY
[2022-11-01 13:07] VITALS: BP 111/74; PULSE 93; RESP 16; TEMP 36.7; O2SAT 98
--- NOTE | 2022-11-01 16:25 | CMDISCH_ITS ---
Date of service: 11/01/22 Time of Service: 16:25 LACE Index Scoring Tool Questions: Length of Stay (in days): 1 Was the patient admitted via the E.D.?: Yes E.D. Visits: 18 Answers: Total Score: 8 Risk of Readmission: Low Risk Care Management Discharge Plan Reason for Hospitalization: Suicidal ideation Discharge Plan: [facility]. She will follow up with [facility] and plan of care as instructed upon discharge from the [place]. She is transported to [place] via [facility] coordinated by CM. Disposition Disposition: [facility] Transport via of: [facility] ([place])
== END 2022-11-01 13:44 ==
PROVIDERS: Emergency Medicine; Emergency Provider Emergency Medicine; PCP Nurse Practitioner Family
DX: F32.A Depression, unspecified (principal); R45.851 Suicidal ideations
CPT/HCPCS: 80307; 87635; 99285

== ENCOUNTER 2022-11-13 23:40 | Emergency (ER) | payer MEDICARE, MEDICAID, SELFPAY ==
--- NOTE | 2022-11-13 23:45 | RT.EKG_ITS ---
APPROVED REPORT Exam: Resting ECG Reason for Exam: dizzy Patient Location: E HR:93 bpm ECG Measurements Heart Rate 93 AXIS MS 151 P 24 QRSd 80 QRS 12 QT 372 T 28 QTc 462 Conclusion Sinus rhythm...normal P axis, V-rate 60- 99 Low voltage, precordial leads...precordial leads <1.0mV
[2022-11-13 23:47] VITALS: BP 134/78; PULSE 110; RESP 18; TEMP 36.6; O2SAT 98
--- NOTE | 2022-11-13 23:56 | ED.GENADUL_ITS ---
Discharge Plan Disposition Patient Disposition: Home Condition: Stable Discharge Details Clinical Impression: Light-headed Primary Care Provider: Makayla Noland ED Provider: Tung Perze Home Meds and New Rx's Prescriptions: Continued spironolactone 50 mg tablet 200 mg PO BID estradiol 2 mg tablet 2 mg PO BID quetiapine 25 mg tablet 25 tab PO QAM Patient Comments: pt states they have not taken in 2 weeks Rx Instructions: pt states 25mg in AM and 50mg in PM buspirone 5 mg tablet 1 tab PO BID Patient Comments: pt states they have not taken in 2 weeks allopurinol 100 mg tablet 200 mg PO DAILY Patient Comments: TAKE 2 TABLETS BY MOUTH DAILY Rx Instructions: [address] [facility] records quetiapine [Seroquel] 25 mg Tablet 50 mg PO HS Patient Comments: pt states they have not taken in 2 weeks sertraline 25 mg Tablet 25 mg PO DAILY Patient Comments: pt states they have not taken in 2 weeks Rx Instructions: TOTAL DAILY DOSE: 125MG PER [place] [facility] 04/16/22 sertraline 100 mg Tablet 100 mg PO DAILY Patient Comments: pt states they have not taken in 2 weeks Rx Instructions: TOTAL DAILY DOSE: [facility] 04/16/22 levothyroxine 125 mcg Tablet 125 mcg PO DAILY@0600 Patient Comments: pt states they have not taken in 2 weeks hydroxyzine HCl 25 mg tablet 25 mg PO DAILY trazodone 50 mg Tablet 50 mg PO DAILY Discharge Instructions Instructions: Lightheadedness (ED) Additional Instructions: your blood work did not show concerning findings and your ekg was also normal follow up with your primary care provider within 1 week return to the emergency department if you feel more ill, have persistent vomiting or fevers. Medical Decision Making 37 yo born male identifies as female with hx of depression, recent admission to [place], who comes in with feeling lightheaded and chest discomfort throughout the day today. Denies fevers, chills, dyspnea. No increased pain or symptoms with exertion. She did self cut on her wrist 2 days ago that are superficial, denies any si/hi currently. caox4 on arrival, clear speech, normal gait, clear lungs, no jvd, no leg swelling. Given her complaints of lightheadedness and chest pain will proceed with cbc, cmp, ekg/troponin and given her HR on arrival is 110 will also send d dimer. Has no tearing back pain and normal peripheral pulses so doubt dissection LAbs unremarkable, pt stable resting in no distress, given over 3 hours of symptoms do not feel delta troponin indicated. Given reassuring workup and stable vitals and reassuring exam feel she can follow up with her pcp, return precautions given. Pt still denies si/hi so do not feel mental health evaluation indicated. Differential Diagnosis Differential Diagnosis: anxiety, pe, nstemi Medical Records Medical records reviewed: Yes I reviewed the patient's medical records. Lab Data Lab results reviewed: Yes I reviewed the patient's lab results. ECG Data Attestation: I personally reviewed and interpreted this ECG (s) as follows: Prior ECG tracings: available for review Interpretation: sinus rate of 93, pr 151, qtc 462 no stemi HPI General Mode of arrival: ambulatory . Date/Time Provider Initiated Documentation: 11/13/22 23:41 . Limitations to Documentation: no limitations . Information obtained by: patient . History of Present Illness 37 year old M presents to the emergency department with the chief complaint of lightheaded, described as moderate, Patient reports no radiation. Patient started experiencing this day(s) (1) and it has been constant. No relieving factors improve symptom(s), No exacerbating factors reported . Patient notes chest pain; denies shortness of breath. Patient did receive the following treatments prior to arrival, none Related Data Home Medications Medication Instructions Recorded Confirmed estradiol 2 mg tablet 2 mg PO BID 02/20/22 11/14/22 spironolactone 50 mg tablet 200 mg PO BID 02/20/22 11/14/22 quetiapine 25 mg tablet 25 tab PO QAM 03/12/22 10/20/22 buspirone 5 mg tablet 1 tab PO BID 04/08/22 11/14/22 allopurinol 100 mg tablet 200 mg PO DAILY 04/14/22 11/14/22 quetiapine 25 mg tablet (Seroquel) 50 mg PO HS 04/15/22 10/20/22 sertraline 100 mg tablet 100 mg PO DAILY 04/15/22 11/14/22 sertraline 25 mg tablet 25 mg PO DAILY 04/15/22 11/14/22 levothyroxine 125 mcg tablet 125 mcg PO DAILY@0600 04/16/22 11/14/22 hydroxyzine HCl 25 mg tablet 25 mg PO DAILY 10/20/22 10/20/22 trazodone 50 mg tablet 50 mg PO DAILY 11/14/22 11/14/22 Allergies Allergy/AdvReac Type Severity Reaction Status Date / Time strawberry AdvReac Verified 11/14/22 00:34 General Stated Complaint: Dizzy/Sync SCOTT: 3 Review of Systems All systems reviewed & are unremarkable except as noted in HPI and below Constitutional Constitutional: Denies chills, Denies fever(s) and Denies weakness Cardiovascular Cardiovascular: Reports chest pain and Denies dyspnea Respiratory Respiratory: Denies cough and Denies dyspnea Gastrointestinal Gastrointestinal: Denies abdominal pain, Denies nausea and Denies vomiting Integumentary/Breasts Skin/Breast: Denies rash Neurologic Neurologic: Denies weakness PFSH All Active Problems (Updated 11/14/22 @ 01:07 by Tung Perez MD) Anxiety (Chronic) Suicidal ideation (Acute) Light-headed (Acute) Suicidal thoughts (Acute) Suicide gesture (Acute) Depression (Chronic) Medical History Anxiety with depression Developmental delay, mild Dyspraxia Gout Hyperlipidemia Hyperuricemia Obesity Transgender Type 2 diabetes mellitus Surgical History No significant past surgical history Social History Smoking/Tobacco Use Status: Former Tobacco Use Smoking risk assessment performed?: Yes Drug use: Occasionally Substance use type: marijuana Do you feel safe at home: Yes (mentally no physically yes) Do you feel safe in your relationship?: Yes Exam Const General: no acute distress Orientation: alert HENMT Head: normal to inspection Ears: external ears normal General nose exam: external nose normal Mouth: moist mucous membranes Eyes General: appearance normal, both eyes and all related structures Neck Neck: normal visual inspection Resp Effort & Inspection: normal respiratory effort and able to speak in complete sentences Auscultation: clear to auscultation bilaterally Cardio Jugular venous pressure: no JVD Rate: regular rate Heart Sounds: no murmurs GI Palpation: soft and nontender Skin General skin exam: no rashes or lesions noted Neuro General: patient alert and patient oriented x3 Extrem General: normal to inspection Psych Mental Status: mental status grossly normal Course Vital Signs Vital signs: Vital Signs Temperature 36.6 C 11/13/22 23:47 Pulse 110 H 11/13/22 23:47 Respiratory Rate 18 11/13/22 23:47 Blood Pressure 134/78 11/13/22 23:47 Pulse Oximetry 98 11/13/22 23:47 Temperature 36.6 C 11/13/22 23:47 Temperature Source Oral 11/13/22 23:47 Pulse 110 H 11/13/22 23:47 Respiratory Rate 18 11/13/22 23:47 Respiratory Effort Normal 11/13/22 23:52 Blood Pressure 134/78 11/13/22 23:47 Blood Pressure Position Sitting 11/13/22 23:47 Pulse Oximetry 98 11/13/22 23:47 Oxygen Delivery Method Room Air 11/13/22 23:47 Oxygen Flow Rate 0 11/13/22 23:47 Pain Level 5 11/13/22 23:47
[2022-11-14] MEDS: Normal Saline 1,000 ML 1000 ML IV (00:09)
[2022-11-14 00:15] LABS: Basophils % 0.5; Eosinophils % 2.7; HCT 38.8 % (40.0-50.0); Immature Grans % 0.7; Lymphocytes % 29.4; MCH 28.5 pg (27.0-33.0); MCHC 33.5 % (32.0-36.0); MCV 85 fL (80-95); MPV 9.5 fL (8.0-11.0); Monocytes % 6.7; Platelet Count 358 10^3/uL (130-400); RBC 4.56 10^6/uL (4.36-5.78); RDW 12.2 % (11.8-14.1); RDW-SD 37.5 fL; WBC 14.95 10^3/uL (4.4-10.8)
[2022-11-14 00:17] LABS: Absolute Basophil Count 0.07 10^3/uL (0.0-0.2); Absolute Neutrophil Count 8.97 10^3/uL (1.2-6.7)
[2022-11-14 00:21] LABS: Bilirubin Negative (Negative); Blood Negative (Negative); Clarity Clear (Clear); Glucose Negative (Negative); Ketones Negative (Negative); Leukocyte Esterase Negative (Negative); Nitrite Negative (Negative); Specific Gravity 1.025 (1.005-1.025); pH 6.5 (5-8)
[2022-11-14 00:33] VITALS: BP 110/64; PULSE 86; RESP 18; O2SAT 96
[2022-11-14 00:34] LABS: Lipase 46 U/L (16-77); Salicylate < 2.8 mg/dL (<2.8)
[2022-11-14 00:39] LABS: ALT 23 U/L (16-63); AST 15 U/L (15-37); Albumin 3.6 g/dL (3.4-5.0); Alkaline Phosphatase 81 U/L (46-116); Anion Gap 9.4 mmol/L (3-11); BUN 17 mg/dL (7-18); Bilirubin, Total 0.2 mg/dL (0.2-1.0); CO2 26.6 mmol/L (21.0-32.0); CREATININE 1.2 mg/dL (0.70-1.30); Calcium 8.6 mg/dL (8.5-10.1); Chloride 101 mmol/L (98-107); Estimated GFR 80.38 (mL/min/1.73m2); Glucose 172 mg/dL (74-106); Potassium 3.3 mmol/L (3.5-5.1); Sodium 137 mmol/L (136-145); TSH (W/Ref FT4) 4.01 uIU/mL (0.36-3.74); Total Protein 7.4 g/dL (6.4-8.2)
[2022-11-14 00:45] LABS: Acetaminophen < 2 ug/mL (10-30); ETHANOL BLOOD < 3.0 mg/dL (<10); Troponin I < 50 ng/L (<or=60)
[2022-11-14 00:58] LABS: D-Dimer 146 ng/mlFEU (<500)
[2022-11-14 01:01] LABS: FREE T4 0.67 ng/dL (0.76-1.46)
[2022-11-14 01:14] VITALS: BP 114/67; PULSE 77; RESP 18; O2SAT 99
== END 2022-11-14 01:21 | disposition home or self-care (01) ==
PROVIDERS: Emergency Provider Emergency Medicine; PCP Nurse Practitioner Family
DX: R42 Dizziness and giddiness (principal); F32.A Depression, unspecified; E11.9 Type 2 diabetes mellitus without complications; Z87.891 Personal history of nicotine dependence; Z79.899 Other long term (current) drug therapy
CPT/HCPCS: 36415; 70496; 70498; 80053; 83690; 93005; 96360; 99283; 99284; 99285; 80320; 80329; 81003; 83735; 84439; 84443; 84484; 85025; 85379; 93010

== ENCOUNTER 2022-11-14 09:14 | Emergency (ER) | payer MEDICARE, MEDICAID, SELFPAY ==
--- NOTE | 2022-11-14 09:15 | RT.EKG_ITS ---
APPROVED REPORT Exam: Resting ECG Reason for Exam: Dizzy Patient Location: E HR:77 bpm ECG Measurements Heart Rate 77 AXIS IA 140 P 41 QRSd 83 QRS 23 QT 391 T 28 QTc 442 Conclusion Sinus rhythm...V-rate 60- [address] segment or T wave abnormalities to suggest occlusive AK
[2022-11-14 09:16] VITALS: BP 125/90; PULSE 79; RESP 16; TEMP 36.7; O2SAT 99
[2022-11-14 09:29] VITALS: RESP 16
--- NOTE | 2022-11-14 09:30 | DI.CT_ITS ---
Exam(s) CT BRAIN NECK CTA EXAM: CT BRAIN NECK CTA CLINICAL HISTORY: headache, dizziness, on exogenous hormones. TECHNIQUE: Imaging Protocol: Axial CT angiography was performed with multi-slice acquisition and mu lti-planar and/or 3D reconstructions. CONTRAST MATERIAL: Intravenous: Omnipaque 350 Contrast volume:structured data in ml COMPARISON: No exams were available for comparison FINDINGS: CTA Neck W: Aortic arch anatomy: The aortic arch anatomy is conventional and there is no significant stenosis at the origin of the great vessels off of the aortic arch. No intimal flap evident. Anterior circulation: Both common carotid arteries ascend with normal luminal diameters. At the level the carotid bulbs and proximal internal carotid arteries there is minimal plaque without hemodynamically significant stenosis evident. Posterior circulation: Both vertebral arteries originate in conventional fashion off of the subclavian arteries and there is no obvious stenosis at the origin of the vertebral arteries. Both vertebral arteries exhibit normal luminal diameters within the foramen transversarium. Right ve rtebral artery is dominant. Left vertebral artery is thinner than the right but also contributes to the formation of basilar morales ry at the skull base. Both vertebral arteries contribute to the formation of the basilar artery at the skull base. CTA Brain W: Anterior circulation: Both internal carotid arteries are patent in the skull base-carotid canals as well as within the cave rnous sinuses. The supraclinoid aspects of the ICAs are patent. Both A1 segments are patent as are the anterior cer ebral arteries and there is no evidence of aneurysm at the level of the anterior communicating artery . Both middle cerebral arteries are patent with no evidence of significant stenosis nor intraluminal th rombus. There also no aneurysms of these vessels. Posterior circulation: The basilar artery ascends in the midline. Distally it gives off patent bilateral superior cerebella r arteries. Above this level the basilar artery terminates as patent bilateral posterior cerebral arteries. There is no evidence of aneurysm at the tip of the basilar artery nor elsewhere in the [id number] is. CT BRAIN: There is no evidence of intracranial hemorrhage, mass effect, or shift of midline structures. There are no extra-axial fluid collections. Ventricles are not enlarged or shifted. There are no ring enh ancing lesions in the brain and no abnormal meningeal enhancement. IMPRESSION: 1. Patent carotid arteries in the neck. No hemodynamically significant stenosis. 2. Patent vertebral arteries. 3. Patent intracranial arteries. Called to ER pr RADIATION DOSE DELIVERED: 2,279.45mGy.cm Total DLP DATA REPOSITORY: All CT scans at this facility are submitted to the National Radiology Data Registry (NRDR) Dose Index Registry (DIR) with the [employer] ([employer]). RADIATION OPTIMIZATION: All CT scans at this facility use at least one of these dose optimization te chniques: automated exposure control; mA and/or kV adjustment per patient size (includes targeted exa ms where dose is matched to clinical indication); or iterative reconstruction.
[2022-11-14] MEDS: Meclizine 25 MG TAB PO (09:47)
[2022-11-14] MEDS: Lactated Ringers 1,000 ML 1000 ML IV (10:10)
[2022-11-14] MEDS: Normal Saline Flush 10 ML SYR IVP (10:15)
[2022-11-14] MEDS: Normal Saline - Diluent 50 ML VIAL IJ (10:15)
[2022-11-14] MEDS: Omnipaque 350 MG/ML 500 ML BTL-Imaging package 85 ML IJ (10:16)
--- NOTE | 2022-11-14 11:22 | W.ED.GENAD ---
Discharge Plan Disposition Patient Disposition: Home Discharge Details Clinical Impression: Dizziness Primary Care Provider: Makayla Noland ED Provider: Kelsey Garsia Home Meds and New Rx's Prescriptions: New meclizine 25 mg tablet 25 mg PO BID PRNQty: 10 0RF Continued spironolactone 50 mg tablet 200 mg PO BID estradiol 2 mg tablet 2 mg PO BID quetiapine 25 mg tablet 25 tab PO QAM Patient Comments: pt states they have not taken in 2 weeks Rx Instructions: pt states 25mg in AM and 50mg in PM buspirone 5 mg tablet 1 tab PO BID Patient Comments: pt states they have not taken in 2 weeks allopurinol 100 mg tablet 200 mg PO DAILY Patient Comments: TAKE 2 TABLETS BY MOUTH DAILY Rx Instructions: 2 tablets daily per [facility] records quetiapine [Seroquel] 25 mg Tablet 50 mg PO HS Patient Comments: pt states they have not taken in 2 weeks sertraline 25 mg Tablet 25 mg PO DAILY Patient Comments: pt states they have not taken in 2 weeks Rx Instructions: TOTAL DAILY DOSE: 125MG PER [place] [facility] 04/16/22 sertraline 100 mg Tablet 100 mg PO DAILY Patient Comments: pt states they have not taken in 2 weeks Rx Instructions: TOTAL DAILY DOSE: 125MG PER [place] 04/16/22 levothyroxine 125 mcg Tablet 125 mcg PO DAILY@0600 Patient Comments: pt states they have not taken in 2 weeks hydroxyzine HCl 25 mg tablet 25 mg PO DAILY trazodone 50 mg Tablet 50 mg PO DAILY Discharge Instructions Instructions: Dizziness (ED) Additional Instructions: You may take the meclizine as needed for dizziness, take it as prescribed Increase fluids and food thyroid recheckec by pcp] take a daily multivitamin Follow-up with your primary care physician tomorrow and return earlier should you have new or worsening complaints Discharge Data Discharge Date/Time-TO BE ENTERED AT DEPARTURE: 11/14/22 11:33 Medical Decision Making 37-year-old male presenting with report multiple complaints, reviewed labs from earlier today which are all within normal limits, thyroid slightly abnormal, will need follow-up with primary care physician, made aware, unlikely to be contributing to daily symptoms Mild hypokalemia, will start on a multivitamin Afebrile and nontoxic, ambulatory with steady gait, orthostatics negative, CTA was ordered secondary to headache and dizziness, also in conjunction with patient's estradiol, no acute abnormality per radiology interpretation and my review Encouraged to follow-up with primary care physician, ambulatory with steady gait, nonfocal neurological exam Return precautions reviewed and patient expressed understanding HPI General Date/Time Provider Initiated Documentation: 11/14/22 09:22. HPI Narrative: This 37-year-old male transitioning to female presents with report of feeling dizzy, tired, and headache. Denies any chest pain or current shortness of breath. Was evaluated early this morning and states that she feels worse which is why she presents. She does take estradiol daily. She denies any calf pain or swelling. She denies any new medications. She denies any trauma, recent neck manipulations, or any change in living situation or stressors. Related Data Home Medications Medication Instructions Recorded Confirmed estradiol 2 mg tablet 2 mg PO BID 02/20/22 11/14/22 spironolactone 50 mg tablet 200 mg PO BID 02/20/22 11/14/22 quetiapine 25 mg tablet 25 tab PO QAM 03/12/22 11/14/22 buspirone 5 mg tablet 1 tab PO BID 04/08/22 11/14/22 allopurinol 100 mg tablet 200 mg PO DAILY 04/14/22 11/14/22 quetiapine 25 mg tablet (Seroquel) 50 mg PO HS 04/15/22 11/14/22 sertraline 100 mg tablet 100 mg PO DAILY 04/15/22 11/14/22 sertraline 25 mg tablet 25 mg PO DAILY 04/15/22 11/14/22 levothyroxine 125 mcg tablet 125 mcg PO DAILY@0600 04/16/22 11/14/22 hydroxyzine HCl 25 mg tablet 25 mg PO DAILY 10/20/22 11/14/22 meclizine 25 mg tablet 25 mg PO BID PRN #10 tabs 11/14/22 trazodone 50 mg tablet 50 mg PO DAILY 11/14/22 11/14/22 Previous Rx's Medication Instructions Recorded meclizine 25 mg tablet 25 mg PO BID PRN #10 tabs 11/14/22 Allergies Allergy/AdvReac Type Severity Reaction Status Date / Time strawberry AdvReac Verified 11/14/22 09:21 General Stated Complaint: Dizzy/Sync SCOTT: 3 PFSH All Active Problems (Updated 11/14/22 @ 11:28 by CANDY Mann) Anxiety (Chronic) Suicidal ideation (Acute) Light-headed (Acute) Dizziness (Acute) Suicidal thoughts (Acute) Suicide gesture (Acute) Depression (Chronic) Medical History Anxiety with depression Developmental delay, mild Dyspraxia Gout Hyperlipidemia Hyperuricemia Obesity Transgender Type 2 diabetes mellitus Surgical History No significant past surgical history Social History Smoking/Tobacco Use Status: Former Tobacco Use Smoking risk assessment performed?: Yes Alcohol Intake: current Alcohol Intake frequency: a few times a month Alcohol type: beer and hard liquor Drug use: Occasionally Substance use type: marijuana Do you feel safe at home: Yes (mentally no physically yes) Do you feel safe in your relationship?: Yes Course Vital Signs Vital signs: Vital Signs Temperature 36.7 C 11/14/22 09:16 Pulse 79 11/14/22 09:16 Respiratory Rate 16 11/14/22 09:16 Blood Pressure 125/90 11/14/22 09:16 Pulse Oximetry 99 11/14/22 09:16 Temperature 36.7 C 11/14/22 09:16 Temperature Source Temporal Artery Scan 11/14/22 09:16 Pulse 79 11/14/22 09:16 Respiratory Rate 16 11/14/22 09:29 Respiratory Effort Non-Labored, Short of Breath 11/14/22 09:29 Respiratory Depth Normal 11/14/22 09:29 Respiratory Pattern Normal 11/14/22 09:29 Blood Pressure 125/90 11/14/22 09:16 Blood Pressure Position Sitting 11/14/22 09:16 Pulse Oximetry 99 11/14/22 09:16 Oxygen Delivery Method Room Air 11/14/22 09:16 Oxygen Flow Rate 0 11/14/22 09:16 Pain Level 5 11/14/22 09:16
== END 2022-11-14 11:33 | disposition home or self-care (01) ==
PROVIDERS: Emergency Provider Physician Assistant; PCP Nurse Practitioner Family
DX: R42 Dizziness and giddiness (principal)
CPT/HCPCS: 70496; 70498; 93005; 96360; 99285; 93010; 99284

== ENCOUNTER 2022-12-02 00:45 | Emergency (ER) | payer MEDICARE, MEDICAID, SELFPAY ==
--- NOTE | 2022-12-02 00:45 | DI.CT_ITS ---
Exam(s) CT HEAD WO EXAM: CT HEAD WO CLINICAL HISTORY: generalized ZENG, r/o mass. TECHNIQUE: Imaging Protocol: Axial computed tomography images with coronal and sagittal reformatted images were created and reviewed COMPARISON: CT CT BRAIN NECK CTA from 11/14/2022 FINDINGS: Ventricles and Extra axial spaces: Normal in size and morphology for the patient's age. Hemorrhage: None. Cerebral parenchyma: Normal. Midline shift: None. Brainstem/Cerebellum: Normal. Calvarium: Normal. Visualized Paranasal sinuses/Mastoids: Clear. Soft Tissues: Unremarkable. IMPRESSION: No acute intracranial process. RADIATION DOSE DELIVERED: 849.57mGy.cm Total DLP DATA REPOSITORY: All CT scans at this facility are submitted to the National Radiology Data Registry (NRDR) Dose Index Registry (DIR) with the [employer] (A[employer]). RADIATION OPTIMIZATION: All CT scans at this facility use at least one of these dose optimization te chniques: automated exposure control; mA and/or kV adjustment per patient size (includes targeted exa ms where dose is matched to clinical indication); or iterative reconstruction.
[2022-12-02 00:49] VITALS: BP 135/87; PULSE 96; RESP 16; O2SAT 100
[2022-12-02] MEDS: Normal Saline 1,000 ML 1000 ML IV (01:12)
[2022-12-02] MEDS: methylPREDNISolone SUCC 125 MG VIAL IVP (01:13)
[2022-12-02] MEDS: Prochlorperazine 10 MG/2 ML VIAL IVP (01:14)
[2022-12-02] MEDS: Ketorolac 15 MG/ML VIAL IVP (01:14)
[2022-12-02] MEDS: diphenhydrAMINE 50 MG/ML VIAL 25 MG IVP (01:14)
[2022-12-02 01:25] LABS: Abs Immature Grans 0.05 10^3/uL (0.0-0.06); Absolute Eosinophil Count 0.35 10^3/uL (0.0-0.7); Absolute Lymphocyte Count 4.19 10^3/uL (1.2-3.4); Absolute Monocyte Count 0.79 10^3/uL (0.1-0.8); Basophils % 0.5; Eosinophils % 2.7; HCT 39.9 % (40.0-50.0); HGB 13.4 g/dL (13.5-17.5); Immature Grans % 0.4; Lymphocytes % 32.4; MCH 28.3 pg (27.0-33.0); MCHC 33.6 % (32.0-36.0); MCV 84 fL (80-95); Monocytes % 6.1; Neutrophils % 57.9; RBC 4.73 10^6/uL (4.36-5.78); RDW 12.1 % (11.8-14.1); WBC 12.93 10^3/uL (4.4-10.8)
--- NOTE | 2022-12-02 01:28 | ED.GENADUL_ITS ---
Discharge Plan Disposition Patient Disposition: Home Discharge Details Chief Complaint: Headache Clinical Impression: Headache Primary Care Provider: Makayla Noland ED Provider: Evan Najera Home Meds and New Rx's Prescriptions: No Action spironolactone 50 mg tablet 200 mg PO BID estradiol 2 mg tablet See Rx Instructions .ROUTE .COMPLEX Rx Instructions: 4mg in AM, 2mg in PM quetiapine 25 mg tablet 25 tab PO QAM Patient Comments: pt states they have not taken in 2 weeks Rx Instructions: pt states 25mg in AM and 50mg in PM buspirone 5 mg tablet 15 mg PO BID Patient Comments: pt states they have not taken in 2 weeks allopurinol 100 mg tablet 200 mg PO DAILY Patient Comments: TAKE 2 TABLETS BY MOUTH DAILY Rx Instructions: 2 tablets daily per [facility] records quetiapine [Seroquel] 25 mg Tablet 50 mg PO HS Patient Comments: pt states they have not taken in 2 weeks sertraline 25 mg Tablet 25 mg PO DAILY Patient Comments: pt states they have not taken in 2 weeks Rx Instructions: TOTAL DAILY DOSE: 125MG PER [place] 04/16/22 sertraline 100 mg Tablet 200 mg PO DAILY Patient Comments: pt states they have not taken in 2 weeks Rx Instructions: TOTAL DAILY DOSE: 125MG PER [place] 04/16/22 levothyroxine 125 mcg Tablet 125 mcg PO DAILY@0600 Patient Comments: pt states they have not taken in 2 weeks meclizine 25 mg tablet 25 mg PO BID PRNQty: 10 0RF hydroxyzine HCl 25 mg tablet 25 mg PO DAILY trazodone 50 mg Tablet 50 mg PO DAILY Discharge Instructions Instructions: General Headache (ED) Additional Instructions: At this time the CAT scan of the head shows no evidence of bleed, tumor, or other significant abnormality. Your headache has resolved. If you notice any worsening of your symptoms, or any new symptoms such as vomiting, diarrhea, fever, chills, shortness of breath, chest pain, numbness, weakness, or fainting , please return immediately to the emergency department for reevaluation. Please follow up with your primary care provider as soon as possible for reassessment and reevaluation. As always, it was a pleasure participating in your medical care today. Referrals: Makayla Noland [Primary Care Provider] - Medical Decision Making 37-year-old male who is transitioning to female who goes by the name of Elsa, with a past medical history of depression, suicidality, presents today for evaluation of headache. Patient states that for the last 2 weeks she has had a mild to moderate generalized headache which she describes as achy. It is not made particularly worse by anything however it is slightly worsened with light and loud noise. She denies any visual changes. She denies any vomiting but does admit to nausea. The patient denies any headache red flags of worst headache of life, thunderclap headache, neck pain, fever, chills, concerning family history of polycystic kidney disease, Marfan syndrome, Cori-Danlos syndrome, abdominal aortic aneurysm, aortic dissection, or intracranial aneur ysm. No other complaints at this time. No other modifying factors. Exam demonstrates a well-appearing male, no nuchal rigidity. No neurologic deficits. No suggestion of acute intracranial bleed or meningitis clinically. Low likelihood for tumor, however due to symptom duration we will get a CT scan of the brain. We will treat with migraine cocktail of Compazine Benadryl Toradol Tylenol Solu-Medrol and fluids. We will monitor closely and reassess. 2:46 AM On reassessment patient is feeling much better. Headache is gone from a 10 out of 10 to a 0. Patient feels well and is requesting to go home. Patient states that she feels safe going home. Patient at this time denies any homicidal or suicidal ideations. She denies any headache or neck pain. She feels well and is requesting discharge. On current clinical assessment repeat neurologic assessment is normal. No meningeal signs. No evidence of acute life- threatening etiology, meningitis, or clinical symptoms concerning for intracranial hemorrhage. Patient stable for discharge. Discussed red flags for which to return. I have extensively reviewed the treatment plan and discharge instructions with the patient. I have addressed all patient concerns at this time. The patient was made aware of what symptoms to monitor for that would warrant a return to the emergency department. Discussed the plan with the patient, they demonstrate verbal understanding and agreement with our assessment and plan at this time. The documentation in this chart was dictated using [employer] dictation software. Please excuse any dictation errors. FINDINGS: Brain: Normal. No hemorrhage. Unremarkable white matter. No mass effect. Cerebral ventricles: No ventriculomegaly. Paranasal sinuses: Visualized sinuses are unremarkable. No fluid levels. Mastoid air cells: Visualized mastoid air cells are well aerated. Bones/joints: Unremarkable. No acute fracture. Soft tissues: Unremarkable. IMPRESSION: No acute intracranial abnormality. Thank you for allowing us to participate in the care of your patient. Dictated and Authenticated by: Tomasz Medeiros MD 12/02/2022 2:47 AM Eastern Time ([place] & [place]) HPI General Date/Time Provider Initiated Documentation: 12/02/22 00:46 . HPI Narrative: 37-year-old male who is transitioning to female who goes by the name of Elsa, with a past medical history of depression, suicidality, presents today for evaluation of headache. Patient states that for the last 2 weeks she has had a mild to moderate generalized headache which she describes as achy. It is not made particularly worse by anything however it is slightly worsened with light and loud noise. She denies any visual changes. She denies any vomiting but does admit to nausea. The patient denies any headache red flags of worst headache of life, thunderclap headache, neck pain, fever, chills, concerning family history of polycystic kidney disease, Marfan syndrome, Cori-Danlos syndrome, abdominal aortic aneurysm, aortic dissection, or intracranial aneurysm. No other complaints at this time. No other modifying factors. Related Data Home Medications Medication Instructions Recorded Confirmed estradiol 2 mg tablet See Rx Instructions .Route .COMPLEX 02/20/22 12/02/22 spironolactone 50 mg tablet 200 mg PO BID 02/20/22 12/02/22 quetiapine 25 mg tablet 25 tab PO QAM 03/12/22 11/14/22 buspirone 5 mg tablet 15 mg PO BID 04/08/22 12/02/22 allopurinol 100 mg tablet 200 mg PO DAILY 04/14/22 12/02/22 quetiapine 25 mg tablet (Seroquel) 50 mg PO HS 04/15/22 11/14/22 sertraline 100 mg tablet 200 mg PO DAILY 04/15/22 12/02/22 sertraline 25 mg tablet 25 mg PO DAILY 04/15/22 11/14/22 levothyroxine 125 mcg tablet 125 mcg PO DAILY@0600 04/16/22 12/02/22 hydroxyzine HCl 25 mg tablet 25 mg PO DAILY 10/20/22 11/14/22 meclizine 25 mg tablet 25 mg PO BID PRN #10 tabs 11/14/22 12/02/22 trazodone 50 mg tablet 50 mg PO DAILY 11/14/22 12/02/22 Previous Rx's Medication Instructions Recorded meclizine 25 mg tablet 25 mg PO BID PRN #10 tabs 11/14/22 Allergies Allergy/AdvReac Type Severity Reaction Status Date / Time strawberry AdvReac Verified 11/14/22 09:21 General Stated Complaint: Headache SCOTT: 3 Review of Systems All systems reviewed & are unremarkable except as noted in HPI and below PFSH All Active Problems (Updated 12/02/22 @ 02:49 by Evan Najera DO) Light-headed (Acute) Dizziness (Acute) Headache (Acute) Suicidal thoughts (Acute) Suicide gesture (Acute) Depression (Chronic) Medical History Anxiety with depression Developmental delay, mild Dyspraxia Gout Hyperlipidemia Hyperuricemia Obesity Transgender Type 2 diabetes mellitus Surgical History No significant past surgical history Social History Smoking/Tobacco Use Status: Former Tobacco Use Smoking risk assessment performed?: Yes Alcohol Intake: current Alcohol Intake frequency: a few times a month Alcohol type: beer and hard liquor Drug use: Occasionally Substance use type: marijuana Housing: house Do you feel safe at home: Yes (mentally no physically yes) Do you feel safe in your relationship?: Yes Exam Narrative Exam Narrative: 1.Const: Well-nourished, Well-developed, appearing stated age 2.Eyes: PERRL, no conjunctival injection, and symmetrical lids. 3.ENT: Atraumatic external nose and ears. Moist MM. Neck: Symmetric, trachea midline, No thyromegaly. Patient demonstrates good movement of cervical neck. There is no nuchal rigidity, no nuchal tenderness. Patient is able to flex the neck without any difficulty or significant pain. Negative Kernig's and Brudzinski sign. 4.CVS: +S1/S2, No murmurs or gallops. Peripheral pulses 2+ and equal in all extremities. Brisk capillary refill in all extremities. 5.RESP: Unlabored respiratory effort. Clear to auscultation bilaterally. No wheezes rales or rhonchi 6.GI: Soft, Nontender/Nondistended, No hepatosplenomegaly. No guarding or rebound. 7.MSK: Normocephalic/Atraumatic, Extremities w/o deformity or ttp No cyanosis or clubbing, Normal movement of all extremities 8.Skin: Warm, Dry. No rashes or lesions. Minimal superficial abrasions on the right forearm 9.Neuro: coremaker floor II-XII grossly intact. Sensation grossly intact, no focal neurologic deficits. All 6 cardinal planes of vision are fully intact. No evidence of rotatory or vertical nystagmus. The patient demonstrated a normal [id number], good dexterity. There was no evidence of dysdiadochokinesia. Patient was able to ambulate without difficulty. There was no wide-based gait. Romberg testing was normal. [id number] testing was normal. Sensation was intact bilaterally as well as muscle strength bilaterally for all extremities. Patient was able to verbalize butter cup with no slurring, or miss pronunciation. 10.Psych: (AAO) x3. Appropriate mood and affect Course Vital Signs Vital signs: Vital Signs Pulse 96 H 12/02/22 00:49 Respiratory Rate 16 12/02/22 00:49 Blood Pressure 135/87 12/02/22 00:49 Pulse Oximetry 100 12/02/22 00:49 Pulse 96 H 12/02/22 00:49 Respiratory Rate 16 12/02/22 00:49 Respiratory Effort Normal, Non-Labored 12/02/22 00:57 Blood Pressure 135/87 12/02/22 00:49 Blood Pressure Position Sitting 12/02/22 00:49 Pulse Oximetry 100 12/02/22 00:49 Oxygen Delivery Method Room Air 12/02/22 00:49 Oxygen Flow Rate 0 12/02/22 00:49 Pain Level 7 12/02/22 00:58
[2022-12-02 01:29] LABS: Absolute Basophil Count 0.06 10^3/uL (0.0-0.2); Absolute Neutrophil Count 7.49 10^3/uL (1.2-6.7)
[2022-12-02] MEDS: ACETAMINOPHEN 1,000 MG/100 ML BTL 1000 MG (01:38)
[2022-12-02 01:42] LABS: Salicylate < 2.8 mg/dL (<2.8)
[2022-12-02 01:46] LABS: Acetaminophen < 2 ug/mL (10-30)
[2022-12-02 01:47] LABS: ALT 20 U/L (16-63); AST 17 U/L (15-37); Albumin 3.5 g/dL (3.4-5.0); Alkaline Phosphatase 89 U/L (46-116); Anion Gap 9.6 mmol/L (3-11); BUN 15 mg/dL (7-18); Bilirubin, Total 0.2 mg/dL (0.2-1.0); CO2 25.4 mmol/L (21.0-32.0); CREATININE 1.1 mg/dL (0.70-1.30); Calcium 9.5 mg/dL (8.5-10.1); Chloride 100 mmol/L (98-107); ETHANOL BLOOD < 3.0 mg/dL (<10); Estimated GFR 89.22 (mL/min/1.73m2); Glucose 176 mg/dL (74-106); Potassium 4.1 mmol/L (3.5-5.1); Sodium 135 mmol/L (136-145); TSH (W/Ref FT4) 6.51 uIU/mL (0.36-3.74); Total Protein 7.5 g/dL (6.4-8.2)
[2022-12-02 02:05] LABS: FREE T4 0.66 ng/dL (0.76-1.46)
--- NOTE | 2022-12-02 02:48 | DI.VRAD_ITS ---
PROCEDURE INFORMATION: Exam: CT Head Without Contrast Exam date and time: 12/02/2022 1:51 AM Age: 37 years old Clinical indication: Pain; Headache not specified; Patient HX: Generalized ZENG; R/O mass TECHNIQUE: Imaging protocol: Computed tomography of the head without contrast. Radiation optimization: All CT scans at this facility use at least one of these dose optimization techniques: automated exposure control; mA and/or kV adjustment per patient size (includes targeted exams where dose is matched to clinical indication); or iterative reconstruction. COMPARISON: CT BRAIN NECK CTA 11/14/2022 10:20 AM FINDINGS: Brain: Normal. No hemorrhage. Unremarkable white matter. No mass effect. Cerebral ventricles: No ventriculomegaly. Paranasal sinuses: Visualized sinuses are unremarkable. No fluid levels. Mastoid air cells: Visualized mastoid air cells are well aerated. Bones/joints: Unremarkable. No acute fracture. Soft tissues: Unremarkable. IMPRESSION: No acute intracranial abnormality. Dictated and Authenticated by: Tomasz Medeiros MD. Ordering:BERT Gordon MD
[2022-12-02 02:57] VITALS: BP 116/63; PULSE 82; RESP 16; O2SAT 98
== END 2022-12-02 03:05 | disposition home or self-care (01) ==
PROVIDERS: Emergency Provider Student in an Organized Health Care Education/Training Program; PCP Nurse Practitioner Family
DX: R51.9 Headache, unspecified (principal); Z91.51 Personal history of suicidal behavior; E11.9 Type 2 diabetes mellitus without complications; F64.9 Gender identity disorder, unspecified
CPT/HCPCS: 36415; 80053; 80307; 96361; 96374; 96375; 99284; 70450; 80320; 80329; 84439; 84443; 85025; J0131; J0780; J1200; J1885; J2930

== ENCOUNTER 2022-12-10 23:53 | Emergency (ER) | payer MEDICARE, MEDICAID, SELFPAY ==
[2022-12-10 23:59] VITALS: BP 119/98; PULSE 94; RESP 16; TEMP 36.4; O2SAT 99
--- NOTE | 2022-12-11 00:12 | ED.GENADUL_ITS ---
Discharge Plan Discharge Details Chief Complaint: PsychEval Primary Care Provider: Makayla Noland ED Provider: Edilberto Ellison Home Meds and New Rx's Prescriptions: No Action spironolactone 50 mg tablet 200 mg PO BID estradiol 2 mg tablet See Rx Instructions .ROUTE .COMPLEX Rx Instructions: 4mg in AM, 2mg in PM quetiapine 25 mg tablet 25 tab PO QAM Patient Comments: pt states they have not taken in 2 weeks Rx Instructions: pt states 25mg in AM and 50mg in PM buspirone 5 mg tablet 15 mg PO BID Patient Comments: pt states they have not taken in 2 weeks allopurinol 100 mg tablet 200 mg PO DAILY Patient Comments: TAKE 2 TABLETS BY MOUTH DAILY Rx Instructions: 2 tablets daily per [facility] records quetiapine [Seroquel] 25 mg Tablet 50 mg PO HS Patient Comments: pt states they have not taken in 2 weeks sertraline 25 mg Tablet 25 mg PO DAILY Patient Comments: pt states they have not taken in 2 weeks Rx Instructions: TOTAL DAILY DOSE: 125MG PER [facility] 04/16/22 sertraline 100 mg Tablet 200 mg PO DAILY Patient Comments: pt states they have not taken in 2 weeks Rx Instructions: TOTAL DAILY DOSE: 125MG PER [place] [facility] 04/16/22 levothyroxine 125 mcg Tablet 125 mcg PO DAILY@0600 Patient Comments: pt states they have not taken in 2 weeks meclizine 25 mg tablet 25 mg PO BID PRNQty: 10 0RF hydroxyzine HCl 25 mg tablet 25 mg PO DAILY trazodone 50 mg Tablet 50 mg PO DAILY Medical Decision Making 37-year-old trans female presents with acute on chronic depression and worsening suicidal ideations, no definitive plan, evidence of chronic self cutting, chronic and subacute appearing excoriations/abrasions to bilateral wrist, hemostatic no foreign bodies, patient hemodynamically stable alert oriented, clinically sober denies drug or alcohol use, lives at home with parents feels safe, no abuse, no change in medications. Patient medically cleared via history and physical. Will contact with the skin and human services for mental health screening to discuss home care safety plan versus inpatient admission. 12: 54 patient evaluated by [facility] human services, will be kept on voluntary hold given risk of self-harm. 6:39AM patient resting comfortably, no acute distresss, no events overnight; awaiting reassessment by [facility] and potential placement HPI General Date/Time Provider Initiated Documentation: 12/10/22 23:55 . HPI Narrative: 37-year-old trans female presents with worsening depression and suicidal ideation, acute on chronic, no specific trigger this evening, no change in medications, lives at home with parents, feels safe, no one is abusing her. Does endorse intermittent self cutting. No definitive plan for suicide Related Data Home Medications Medication Instructions Recorded Confirmed estradiol 2 mg tablet See Rx Instructions .Route .COMPLEX 02/20/22 12/02/22 spironolactone 50 mg tablet 200 mg PO BID 02/20/22 12/02/22 quetiapine 25 mg tablet 25 tab PO QAM 03/12/22 11/14/22 buspirone 5 mg tablet 15 mg PO BID 04/08/22 12/02/22 allopurinol 100 mg tablet 200 mg PO DAILY 04/14/22 12/02/22 quetiapine 25 mg tablet (Seroquel) 50 mg PO HS 04/15/22 11/14/22 sertraline 100 mg tablet 200 mg PO DAILY 04/15/22 12/02/22 sertraline 25 mg tablet 25 mg PO DAILY 04/15/22 11/14/22 levothyroxine 125 mcg tablet 125 mcg PO DAILY@0600 04/16/22 12/02/22 hydroxyzine HCl 25 mg tablet 25 mg PO DAILY 10/20/22 11/14/22 meclizine 25 mg tablet 25 mg PO BID PRN #10 tabs 11/14/22 12/02/22 trazodone 50 mg tablet 50 mg PO DAILY 11/14/22 12/02/22 Previous Rx's Medication Instructions Recorded meclizine 25 mg tablet 25 mg PO BID PRN #10 tabs 11/14/22 Allergies Allergy/AdvReac Type Severity Reaction Status Date / Time strawberry AdvReac Verified 11/14/22 09:21 General Stated Complaint: PsychEval SCOTT: 2 Review of Systems Narrative: Review of Systems Constitutional: negative Eyes: negative ENT: negative Cardiovascular: negative Respiratory: negative Gastrointestinal: negative : negative Musculoskeletal: negative Skin: Self cutting Neurologic: Depression, SI Psych: negative PFSH All Active Problems (Updated 12/02/22 @ 02:49 by Evan Najera DO) Light-headed (Acute) Dizziness (Acute) Headache (Acute) Suicidal thoughts (Acute) Suicide gesture (Acute) Depression (Chronic) Medical History Anxiety with depression Developmental delay, mild Dyspraxia Gout Hyperlipidemia Hyperuricemia Obesity Transgender Type 2 diabetes mellitus Surgical History No significant past surgical history Social History Smoking/Tobacco Use Status: Former Tobacco Use Smoking risk assessment performed?: Yes Alcohol Intake: current Alcohol Intake frequency: a few times a month Alcohol type: beer and hard liquor Drug use: Occasionally Substance use type: marijuana Housing: house Do you feel safe at home: Yes (mentally no physically yes) Do you feel safe in your relationship?: Yes Exam Narrative Exam Narrative: Physical Examination General: alert, awake, cooperative, resting comfortably, no acute distress HEENT: normocephalic, atraumatic; PERRL, EOM intact, conjunctiva normal; no nasal discharge; moist mucous membranes, oral and pharyngeal mucosa normal, tolerating secretions Neck: supple, trachea midline; full ROM Chest: normal to inspection Respiratory: normal respiratory effort, speaking in full sentences, clear to auscultation, no wheezing, rales or rhonchi Cardiac: regular rate, regular rhythm, S1S2 intact, no murmurs rubs or gallops GI: abdomen soft, non-tender, non-distended; no palpable mass or hepatosplenomegaly Skin: See extremity Neuro: AAOx3, normal speech, moving all extremities Extremities: Superficial abrasions to bilateral wrists subacute, hemostatic no foreign bodies Psych: Depressed mood, withdrawn, SI Course Vital Signs Vital signs: Vital Signs Temperature 36.4 C L 12/10/22 23:59 Pulse 94 H 12/10/22 23:59 Respiratory Rate 16 12/10/22 23:59 Blood Pressure 119/98 H 12/10/22 23:59 Pulse Oximetry 99 12/10/22 23:59 Temperature 36.4 C L 12/10/22 23:59 Temperature Source Temporal Artery Scan 12/10/22 23:59 Pulse 94 H 12/10/22 23:59 Respiratory Rate 16 12/10/22 23:59 Respiratory Effort Normal 12/11/22 00:04 Blood Pressure 119/98 H 12/10/22 23:59 Pulse Oximetry 99 12/10/22 23:59 Oxygen Delivery Method Room Air 12/10/22 23:59 Oxygen Flow Rate 0 12/10/22 23:59 Pain Level 5 12/10/22 23:59
--- NOTE | 2022-12-11 00:48 | NUR.NOTE ---
Pt on phone pearl [place]. Pt remains calm and cooperative. Pt changed into paper scrubs. Warm blanket provided for comfort. All belongings removed from room. No 1:1 sitter needed per MD. Urine sample obtained and sent to lab per MD order. Awaiting final disposition at this time.
[2022-12-11 00:52] LABS: *AMPHETAMINES SCREEN URINE Negative (Negative); *BARBITURATES SCREEN URINE Negative (Negative); *BENZODIAZEPINES SCREEN URINE Negative (Negative); Cannabinoids THC Negative (Negative); Cocaine Screen,Urine Negative (Negative); METHADONE URINE SCREEN Negative (Negative); OPIATES URINE SCREEN Negative (Negative)
[2022-12-11 00:53] LABS: Tricyclic Antidepressants Negative (Negative)
--- NOTE | 2022-12-11 07:46 | ED.PROG_ITS ---
Date of service: 12/11/22 Time of Service: 07:46 Medical Decision Making This patient was signed out to me. Please see previous notes for H&P and initial eval. In brief, 37yo MTF presenting voluntary with suicidal ideation without plan or intent. Medically cleared, pending [facility] revaluation in the morning. Patient met with , safety planning done. Plan for followup with outpatient providers. On my assessment, patient states she feels safe to go home and is comfortable with the plan for outpatient followup. Denies any other concerns. Discharged home; discharge instructions including return precautions were reviewed with patient who verbalized understanding. All questions were answered and they are in full agreement with the plan. Discharge Plan Disposition Patient Disposition: Home Condition: Good Discharge Details Clinical Impression: Depression, Suicidal thoughts Primary Care Provider: Makayla Noland ED Provider: Erica Delvalle Home Meds and New Rx's Prescriptions: No Action spironolactone 50 mg tablet 200 mg PO BID estradiol 2 mg tablet See Rx Instructions .ROUTE .COMPLEX Rx Instructions: 4mg in AM, 2mg in PM quetiapine 25 mg tablet 25 tab PO QAM Patient Comments: pt states they have not taken in 2 weeks Rx Instructions: pt states 25mg in AM and 50mg in PM buspirone 5 mg tablet 15 mg PO BID Patient Comments: pt states they have not taken in 2 weeks allopurinol 100 mg tablet 200 mg PO DAILY Patient Comments: TAKE 2 TABLETS BY MOUTH DAILY Rx Instructions: 2 tablets daily per [facility] records quetiapine [Seroquel] 25 mg Tablet 50 mg PO HS Patient Comments: pt states they have not taken in 2 weeks sertraline 25 mg Tablet 25 mg PO DAILY Patient Comments: pt states they have not taken in 2 weeks Rx Instructions: TOTAL DAILY DOSE: 125MG PER [place] [facility] 04/16/22 sertraline 100 mg Tablet 200 mg PO DAILY Patient Comments: pt states they have not taken in 2 weeks Rx Instructions: TOTAL DAILY DOSE: 125MG PER [place] [facility] 04/16/22 levothyroxine 125 mcg Tablet 125 mcg PO DAILY@0600 Patient Comments: pt states they have not taken in 2 weeks meclizine 25 mg tablet 25 mg PO BID PRNQty: 10 0RF hydroxyzine HCl 25 mg tablet 25 mg PO DAILY trazodone 50 mg Tablet 50 mg PO DAILY Discharge Instructions Instructions: Help Prevent Suicide (ED) Additional Instructions: Follow your safety plan. Follow up with [facility] at 3pm as scheduled. Return to the emergency department for new or worsening symptoms, including worsening thoughts of self harm or if you feel unsafe.
[2022-12-11] MEDS: busPIRone 15 MG TAB PO (09:24)
[2022-12-11] MEDS: hydrOXYzine HCL 25 MG TAB PO (09:24)
[2022-12-11] MEDS: Sertraline 25 MG TAB PO (09:24)
== END 2022-12-11 14:10 | disposition home or self-care (01) ==
PROVIDERS: Emergency Medicine; Emergency Provider Student in an Organized Health Care Education/Training Program; PCP Nurse Practitioner Family
DX: R45.851 Suicidal ideations (principal); F32.A Depression, unspecified; R03.0 Elevated blood-pressure reading, without diagnosis of hypertension
CPT/HCPCS: 80307; 99285

== ENCOUNTER 2022-12-22 | Emergency (ER) | payer MEDICARE, MEDICAID, SELFPAY ==
[2022-12-22 00:06] VITALS: BP 137/94; PULSE 110; RESP 18; TEMP 36.3; O2SAT 96
--- NOTE | 2022-12-22 00:53 | W.ED.GENAD ---
Discharge Plan Discharge Details Chief Complaint: PsychEval Primary Care Provider: Makayla Noland ED Provider: Drew Turpin Home Meds and New Rx's Prescriptions: No Action spironolactone 50 mg tablet 200 mg PO BID estradiol 2 mg tablet See Rx Instructions .ROUTE .COMPLEX Rx Instructions: 4mg in AM, 2mg in PM quetiapine 25 mg tablet 25 tab PO QAM Hold Instructions: Changed by Provider Patient Comments: pt states they have not taken in 2 weeks Rx Instructions: pt states 25mg in AM and 50mg in PM buspirone 5 mg tablet 15 mg PO BID Patient Comments: pt states they have not taken in 2 weeks allopurinol 100 mg tablet 200 mg PO DAILY Patient Comments: TAKE 2 TABLETS BY MOUTH DAILY Rx Instructions: 2 tablets daily per [facility] records quetiapine [Seroquel] 25 mg Tablet 50 mg PO HS Hold Instructions: Changed by Provider Patient Comments: pt states they have not taken in 2 weeks sertraline 100 mg Tablet 200 mg PO DAILY Patient Comments: pt states they have not taken in 2 weeks Rx Instructions: TOTAL DAILY DOSE: [facility] levothyroxine 125 mcg Tablet 125 mcg PO DAILY@0600 Patient Comments: pt states they have not taken in 2 weeks meclizine 25 mg tablet 25 mg PO BID PRNQty: 10 0RF hydroxyzine HCl 25 mg tablet 25 mg PO DAILY Hold Instructions: Changed by Provider trazodone 50 mg Tablet 50 mg PO DAILY escitalopram oxalate [Lexapro] 20 mg tablet 20 mg PO DAILY trazodone 50 mg tablet 50 mg PO QHS PRN Medical Decision Making <Elle Wilson MD - Last Filed: 12/22/22 03:36> Case discussed with crisis. This is patient's fifth ER visit in a month. She is calling the suicide hotline on a daily basis. She cannot contract for safety and states that she will take an overdose of pills. She needs admission and they will work on placement later today. If the patient decides to leave she will need to be EE'd. Medical Records Medical records reviewed: Yes I reviewed the patient's medical records. Lab Data Lab results reviewed: Yes I reviewed the patient's lab results. Lab results narrative: White blood cell count 12.9 thousand with 63 polys and 27 lymphs. Glu is 168. TSH is 4.96, down from 6.51 12/02/2022. Remainder of labs unremarkable. UDS and Free T4 pending. 0300 UDS is negative. Free T4 is 0.71. HPI <Elle Wilson MD - Last Filed: 12/22/22 03:36> General Date/Time Provider Initiated Documentation: 12/22/22 00:38. HPI Narrative: This 37-year-old male identifying as female presents with a chief complaint of depression and suicidal ideation. Patient tells me that she has called the suicide hotline every day this week. The hotline evidently called the police department and asked that she be brought to the emergency department for psychiatric evaluation. The patient tells me that she does see a counselor every 2 weeks and has issues with anxiety as well. She has no systemic complaints at this time. She told nursing that she has thought of plans to kill herself but does not have anything definitive at this time. Related Data Home Medications Medication Instructions Recorded Confirmed estradiol 2 mg tablet See Rx Instructions .Route .COMPLEX 02/20/22 12/22/22 spironolactone 50 mg tablet 200 mg PO BID 02/20/22 12/22/22 quetiapine 25 mg tablet 25 tab PO QAM 03/12/22 12/22/22 buspirone 5 mg tablet 15 mg PO BID 04/08/22 12/22/22 allopurinol 100 mg tablet 200 mg PO DAILY 04/14/22 12/22/22 quetiapine 25 mg tablet (Seroquel) 50 mg PO HS 04/15/22 12/22/22 sertraline 100 mg tablet 200 mg PO DAILY 04/15/22 12/22/22 levothyroxine 125 mcg tablet 125 mcg PO DAILY@0600 04/16/22 12/22/22 hydroxyzine HCl 25 mg tablet 25 mg PO DAILY 10/20/22 12/22/22 meclizine 25 mg tablet 25 mg PO BID PRN #10 tabs 11/14/22 12/22/22 trazodone 50 mg tablet 50 mg PO DAILY 11/14/22 12/22/22 escitalopram oxalate 20 mg tablet 20 mg PO DAILY 12/22/22 12/22/22 (Lexapro) trazodone 50 mg tablet 50 mg PO QHS PRN 12/22/22 12/22/22 Previous Rx's Medication Instructions Recorded meclizine 25 mg tablet 25 mg PO BID PRN #10 tabs 11/14/22 Allergies Allergy/AdvReac Type Severity Reaction Status Date / Time strawberry AdvReac Verified 11/14/22 09:21 General Stated Complaint: PsychEval SCOTT: 2 Review of Systems <Elle Wilson MD - Last Filed: 12/22/22 03:36> Constitutional Constitutional: Denies chills, Denies fever(s), Denies headache(s) and Denies weakness Eyes Eyes: Denies diplopia and Reports other (no redness) ENT Ears, Nose, Mouth, and Throat: Denies otalgia, Denies headache(s), Denies nasal congestion, Denies nasal discharge, Denies neck pain and Denies sore throat Cardiovascular Cardiovascular: Denies chest pain, Denies palpitations and Denies dyspnea Respiratory Respiratory: Denies cough and Denies dyspnea Gastrointestinal Gastrointestinal: Denies abdominal pain, Denies diarrhea, Denies nausea and Denies vomiting Genitourinary Genitourinary: Denies difficulty urinating and Denies dysuria Musculoskeletal Musculoskeletal: Denies myalgias, Denies muscle weakness, Denies neck pain, Denies numbness and Reports other (edema) Integumentary/Breasts Skin/Breast: Denies change in pigmentation and Denies rash Neurologic Neurologic: Denies headache(s), Denies numbness and Denies weakness Psychiatric Psychiatric: Reports anxiety, Reports depression and Reports suicidal ideation Endocrine Endocrine: Denies palpitations PFSH <Elle Wilson MD - Last Filed: 12/22/22 03:36> All Active Problems Headache (Acute) Suicidal thoughts (Acute) Suicide gesture (Acute) Depression (Chronic) Medical History Dyspraxia Developmental delay, mild Obesity Hyperlipidemia Type 2 diabetes mellitus Hyperuricemia Gout Anxiety with depression Transgender Surgical History No significant past surgical history Social History Smoking/Tobacco Use Status: Current, status unknown Tobacco Type: e-cigarettes Smoking risk assessment performed?: Yes Alcohol Intake: current Alcohol Intake frequency: a few times a month Alcohol type: beer and hard liquor Drug use: Occasionally Substance use type: marijuana Housing: house Do you feel safe at home: Yes (mentally no physically yes) Do you feel safe in your relationship?: Yes Exam <Elle Wilson MD - Last Filed: 12/22/22 03:36> Const General: no acute distress, well developed, well groomed and not in acute distress Nutritional Appearance: well nourished Orientation: alert and oriented x3 Other: facial and long hair HENMT Head: normocephalic and atraumatic Ears: external ears normal Mouth: oropharynx normal and moist mucous membranes Throat: posterior oropharynx normal Eyes Conjunctivae: conjunctivae normal Neck Neck: full ROM and supple Chest Chest: normal inspection of the chest Resp Effort & Inspection: normal respiratory effort Auscultation: clear to auscultation bilaterally Cardio Rate: regular rate Rhythm: regular rhythm Heart Sounds: no murmurs and no rubs GI Inspection: normal to inspection and obesity Palpation: soft, nontender and other (non distended) Auscultation: normal bowel sounds Skin General skin exam: no rashes or lesions noted and other (pink, warm, dry) Neuro General: patient alert, patient awake and patient oriented x3 Speech: speech normal Motor: other (TEJEDA) Sensory Exam: no sensory deficits noted Extrem General: normal to inspection, full ROM and pedal edema present Psych Mental Status: mental status grossly normal Speech and Movement: speech and movement normal Affect: normal affect Course <Elle Wilson MD - Last Filed: 12/22/22 03:36> Vital Signs Vital signs: Vital Signs Temperature 36.3 C L 12/22/22 00:06 Pulse 110 H 12/22/22 00:06 Respiratory Rate 18 12/22/22 00:06 Blood Pressure 137/94 H 12/22/22 00:06 Pulse Oximetry 96 12/22/22 00:06 Temperature 36.3 C L 12/22/22 00:06 Pulse 110 H 12/22/22 00:06 Respiratory Rate 18 12/22/22 00:06 Respiratory Effort Normal 12/22/22 00:13 Blood Pressure 137/94 H 12/22/22 00:06 Pulse Oximetry 96 12/22/22 00:06 Oxygen Delivery Method Room Air 12/22/22 00:06 Oxygen Flow Rate 0 12/22/22 00:06 Pain Level 0 12/22/22 00:06 Sign Out <Elle Wilson MD - Last Filed: 12/22/22 03:36> Sign Out Data: Sign Out Comment: Patient is depressed with suicidal ideation. This 37-year-old male patient identifies as female. She has called the suicide prevention line every day this week. This is her fifth ED visit in a month. She needs psychiatric admission. Should she decide to leave then she will need to be EE'd. Last updated by Elle Wilson MD at 12/22/22 04:42 PAWSS <Elle Wilson MD - Last Filed: 12/22/22 03:36> Have you Been Recently Intoxicated or Drunk Within the Last 30 days?: No Have you Ever Experienced Previous Episodes of Alcohol Withdrawal?: No Have you ever Experienced Withdrawal Seizures?: No Have you ever Experienced Delirium Tremens(DT)s?: No Have you ever undergone Alcohol Rehabilitation Treatment (i.e, inpt ot outpatient treatment programs)?: No Have you ever Experienced Blackouts?: No Have you ever Combined Alcohol with other Downers within the last 90 days?: No Have you ever Combined Alcohol with any other Substance of Abuse during the last 90 days?: No Positive Blood Alcohol level on Presentation? [PCS.BAL]: No Evidence of Increased Autonomic Activity (i.e. HR>120, tremor, sweating, agitation, nausea)?: No Result: 0 <Drew Turpin MD - Last Filed: 12/22/22 11:25> Result: 0
[2022-12-22 01:05] LABS: Abs Immature Grans 0.07 10^3/uL (0.0-0.06); Absolute Basophil Count 0.06 10^3/uL (0.0-0.2); Absolute Eosinophil Count 0.32 10^3/uL (0.0-0.7); Absolute Lymphocyte Count 3.42 10^3/uL (1.2-3.4); Absolute Monocyte Count 0.95 10^3/uL (0.1-0.8); Absolute Neutrophil Count 8.07 10^3/uL (1.2-6.7); Basophils % 0.5; Eosinophils % 2.5; HCT 38.7 % (40.0-50.0); HGB 12.9 g/dL (13.5-17.5); Immature Grans % 0.5; Lymphocytes % 26.5; MCH 27.8 pg (27.0-33.0); MCHC 33.3 % (32.0-36.0); MCV 83 fL (80-95); Monocytes % 7.4; Neutrophils % 62.6; Platelet Count 331 10^3/uL (130-400); RBC 4.64 10^6/uL (4.36-5.78); RDW 12.7 % (11.8-14.1); RDW-SD 38.4 fL; WBC 12.89 10^3/uL (4.4-10.8)
[2022-12-22 01:23] LABS: Acetaminophen < 2 ug/mL (10-30); Salicylate < 2.8 mg/dL (<2.8)
[2022-12-22 01:27] LABS: Bilirubin Negative (Negative); Blood Negative (Negative); Clarity Clear (Clear); Glucose Negative (Negative); Ketones Negative (Negative); Leukocyte Esterase Trace (Negative); Nitrite Negative (Negative); Specific Gravity 1.015 (1.005-1.025); Urobilinogen 0.2 mg/dL (Up to 0.2)
[2022-12-22 01:28] LABS: ALT 25 U/L (16-63); AST 12 U/L (15-37); Albumin 3.6 g/dL (3.4-5.0); Alkaline Phosphatase 67 U/L (46-116); Anion Gap 7.8 mmol/L (3-11); BUN 16 mg/dL (7-18); Bilirubin, Total 0.2 mg/dL (0.2-1.0); CO2 26.2 mmol/L (21.0-32.0); CREATININE 1.1 mg/dL (0.70-1.30); Calcium 9.2 mg/dL (8.5-10.1); Chloride 101 mmol/L (98-107); Estimated GFR 89.22 (mL/min/1.73m2); Glucose 168 mg/dL (74-106); Potassium 3.6 mmol/L (3.5-5.1); Sodium 135 mmol/L (136-145); TSH (W/Ref FT4) 4.96 uIU/mL (0.36-3.74); Total Protein 7.5 g/dL (6.4-8.2)
[2022-12-22 01:33] LABS: Bacteria Rare HPF (Negative); C & S Indicated? No/Sq. Contamination; Casts Negative LPF (Negative); Crystals Negative HPF (Negative); Epithelial Cells Moderate HPF (Negative); Mucus Negative (Negative); RBC Negative HPF (0-2); WBC 0-2 HPF (0-5)
[2022-12-22 01:38] LABS: *AMPHETAMINES SCREEN URINE Negative (Negative); *BARBITURATES SCREEN URINE Negative (Negative); *BENZODIAZEPINES SCREEN URINE Negative (Negative); Cannabinoids THC Negative (Negative); Cocaine Screen,Urine Negative (Negative); METHADONE URINE SCREEN Negative (Negative); OPIATES URINE SCREEN Negative (Negative)
[2022-12-22 01:50] LABS: FREE T4 0.71 ng/dL (0.76-1.46)
[2022-12-22 01:53] LABS: ETHANOL BLOOD < 3.0 mg/dL (<10)
[2022-12-22 01:54] LABS: Tricyclic Antidepressants Negative (Negative)
[2022-12-22] MEDS: busPIRone 15 MG TAB PO (10:27)
[2022-12-22] MEDS: Allopurinol 100 MG TAB 200 MG PO (10:27)
[2022-12-22] MEDS: Escitalopram 20 MG TAB PO (10:28)
[2022-12-22] MEDS: traZODone 50 MG TAB PO (10:29)
[2022-12-22] MEDS: Levothyroxine 125 MCG TAB PO (10:29)
[2022-12-22] MEDS: Estradiol 1 MG TAB 4 MG PO (10:32)
[2022-12-22] MEDS: Spironolactone 50 MG TAB 200 MG PO (11:08)
--- NOTE | 2022-12-22 11:25 | W.EDPROG ---
Date of service: 12/22/22 Time of Service: 11:27 Medical Decision Making Care signed out by Dr. Wilson, please see her documentation regarding initial ED presentation course. Plan at signout was to await for psychiatric treatment facility placement. Patient is here voluntarily. I received a call from [facility] noting they have capacity to accept the patient in transfer. Accepting provider is nurse practitioner Jose. Lab Data Lab results reviewed: Yes I reviewed the patient's lab results. Labs: Laboratory Tests Range/Units 12/22/22 12/22/22 00:57 01:15 WBC (4.4-10.8) 10^3/uL 12.89 H RBC (4.36-5.78) 10^6/uL 4.64 Hgb (13.5-17.5) g/dL 12.9 L Hct (40.0-50.0) % 38.7 L MCV (80-95) fL 83 MCH (27.0-33.0) pg 27.8 MCHC (32.0-36.0) % 33.3 RDW (11.8-14.1) % 12.7 Plt Count (130-400) 10^3/uL 331 MPV (8.0-11.0) fL 10.0 Immature Gran % 0.5 Neutrophils % 62.6 Lymphocytes % 26.5 Monocytes % 7.4 Eosinophils % 2.5 Basophils % 0.5 Nucleated RBC % (0.0-0.3) % 0.0 Absolute Neutrophils (1.2-6.7) 10^3/uL 8.07 H Absolute Lymphocytes (1.2-3.4) 10^3/uL 3.42 H Absolute Monocytes (0.1-0.8) 10^3/uL 0.95 H Absolute Eosinophils (0.0-0.7) 10^3/uL 0.32 Absolute Basophils (0.0-0.2) 10^3/uL 0.06 Sodium (136-145) mmol/L 135 L Potassium (3.5-5.1) mmol/L 3.6 Chloride (98-107) mmol/L 101 Carbon Dioxide (21.0-32.0) mmol/L 26.2 Anion Gap (3-11) mmol/L 7.8 BUN (7-18) mg/dL 16 Creatinine (0.70-1.30) mg/dL 1.1 Est GFR (CKD-EPI 2020) (mL/min/1.73m2) 89.22 Glucose (74-106) mg/dL 168 H Calcium (8.5-10.1) mg/dL 9.2 Total Bilirubin (0.2-1.0) mg/dL 0.2 AST (15-37) U/L 12 L ALT (16-63) U/L 25 Alkaline Phosphatase (46-116) U/L 67 Total Protein (6.4-8.2) g/dL 7.5 Albumin (3.4-5.0) g/dL 3.6 TSH (0.36-3.74) uIU/mL 4.96 H Free T4 (0.76-1.46) ng/dL 0.71 L Urine Color (Yellow) Yellow Urine Clarity (Clear) Clear Urine pH (5-8) 6.0 Ur Specific [place] (1.005-1.025) 1.015 Urine Protein (Negative) mg/dL Negative Urine Ketones (Negative) mg/dL Negative Urine Blood (Negative) Negative Urine Nitrite (Negative) Negative Urine Bilirubin (Negative) Negative Urine Urobilinogen (Up to 0.2) mg/dL 0.2 Ur Leukocyte Esterase (Negative) Trace H Urine RBC (0-2) HPF Negative Urine WBC (0-5) HPF 0-2 Ur Epithelial Cells (Negative) HPF Moderate Urine Crystals (Negative) HPF Negative Urine Bacteria (Negative) HPF Rare Urine Casts (Negative) LPF Negative Urine Mucus (Negative) Negative Ur Culture Indicated? No/Sq. Contamination Urine Glucose (Negative) mg/dL Negative Salicylates (<2.8) mg/dL < 2.8 Urine Opiates Screen (Negative) Negative Urine Methadone Screen (Negative) Negative Acetaminophen (10-30) ug/mL < 2 Ur Barbiturates Screen (Negative) Negative Ur Tricyclics Screen (Negative) Negative Ur Amphetamines Screen (Negative) Negative U Benzodiazepines Scrn (Negative) Negative Urine Cocaine Screen (Negative) Negative Ur THC Screen (Negative) Negative Ethyl Alcohol (<10) mg/dL < 3.0 Sign Out Sign Out Data: Sign Out Comment: Patient is depressed with suicidal ideation. This 37-year-old male patient identifies as female. She has called the suicide prevention line every day this week. This is her fifth ED visit in a month. She needs psychiatric admission. Should she decide to leave then she will need to be EE'd. Last updated by Elle Wilson MD at 12/22/22 04:42 Discharge Plan Disposition Patient Disposition: Psychiatric Hospital/Unit Specific Psychiatric Facility: [facility] Discharge Details Chief Complaint: PsychEval Clinical Impression: Anxiety, Depression Primary Care Provider: Makayla Noland ED Provider: Drew Turpin Home Meds and New Rx's Prescriptions: No Action spironolactone 50 mg tablet 200 mg PO BID estradiol 2 mg tablet See Rx Instructions .ROUTE .COMPLEX Rx Instructions: 4mg in AM, 2mg in PM quetiapine 25 mg tablet 25 tab PO QAM Hold Instructions: Changed by Provider Patient Comments: pt states they have not taken in 2 weeks Rx Instructions: pt states 25mg in AM and 50mg in PM buspirone 5 mg tablet 15 mg PO BID Patient Comments: pt states they have not taken in 2 weeks allopurinol 100 mg tablet 200 mg PO DAILY Patient Comments: TAKE 2 TABLETS BY MOUTH DAILY Rx Instructions: 2 tablets daily per [facility] records quetiapine [Seroquel] 25 mg Tablet 50 mg PO HS Hold Instructions: Changed by Provider Patient Comments: pt states they have not taken in 2 weeks sertraline 100 mg Tablet 200 mg PO DAILY Patient Comments: pt states they have not taken in 2 weeks Rx Instructions: TOTAL DAILY [facility]: [facility] levothyroxine 125 mcg Tablet 125 mcg PO DAILY@0600 Patient Comments: pt states they have not taken in 2 weeks meclizine 25 mg tablet 25 mg PO BID PRNQty: 10 0RF hydroxyzine HCl 25 mg tablet 25 mg PO DAILY Hold Instructions: Changed by Provider trazodone 50 mg Tablet 50 mg PO DAILY escitalopram oxalate [Lexapro] 20 mg tablet 20 mg PO DAILY trazodone 50 mg tablet 50 mg PO QHS PRN
[2022-12-22 11:34] VITALS: BP 120/80; PULSE 83; RESP 18; TEMP 36.2; O2SAT 95
[2022-12-22 12:26] VITALS: BP 120/80; PULSE 83; RESP 18; TEMP 36.2; O2SAT 95
--- NOTE | 2022-12-23 16:14 | PDOC.MHPN2 ---
Date of service: 12/22/22 Time of Service: 16:14 Mental Health Emergency Note Release [facility] release signed:: Yes Reason for Visit The client was assessed by HAWA Balderas on 12.21.22 and it was decided that the client needed a higher level of care as she (identifies as a female) endorsed SI with intent. This is a follow up assessment at bedside. In the last 2 weeks has the pt presented for ES prior to today?: Unknown Impression The client is a 37 year old, single, transgender female who lives with her parents and two children in [place], [place]. The client presents lying in bed watching TV and ordering lunch. She reported she cannot explain how she is feeling or rate her mood. She stated that her SI has been more intense than usual recently. She noted she has access to her medications at home and self reported her tisk to be a 9.5/10. She stated she did not know why she was here that she thought she was only coming for medical after speaking to HAWA Balderas on 12.21.22 and then was told she was staying. She reported that she has been having anxiety and panic. She denied HI and NSSI noting her last act of NSSI was 2 weeks ago. She noted that she is forcing herself to eat and that her sleep is good. The client presents as depressed and withdrawn. She does not make eye contact, and sits with her back on the wall twirling her hair which has not been brushed in awhile. Plan/Disposition Recommended Disposition: Hospitalization facilities contacted. Plan: The client was accepted to [facility] and transportation was arraigned by [facility]. Person reported agreement to plan: Yes Facilities contacted if Applicable [facility] Accepted, Accepted/transfer pending. Information Sent to [facility]: Referral Reports/communication Outcome discussed with: ED/Personnel
== END 2022-12-22 14:12 ==
PROVIDERS: Emergency Medicine; Emergency Provider Student in an Organized Health Care Education/Training Program; PCP Nurse Practitioner Family
DX: F41.9 Anxiety disorder, unspecified (principal); F32.A Depression, unspecified; R45.851 Suicidal ideations; Z79.899 Other long term (current) drug therapy
CPT/HCPCS: 36415; 80053; 80307; 99285; 80320; 80329; 81003; 81015; 84439; 84443; 85025

== ENCOUNTER 2022-12-29 21:53 | Emergency (ER) | payer MEDICARE, MEDICAID, SELFPAY ==
[2022-12-29 21:58] VITALS: BP 127/89; PULSE 100; RESP 20; TEMP 36.6; O2SAT 100
--- NOTE | 2022-12-29 22:00 | RT.EKG_ITS ---
APPROVED REPORT Exam: Resting ECG Reason for Exam: chest pain Patient Location: E HR:81 bpm ECG Measurements Heart Rate 81 AXIS MO 140 P 43 QRSd 80 QRS 13 QT 369 T 33 QTc 429 Conclusion Sinus rhythm...normal P axis, V-rate 60- 99 Physician: no stemi, intervals normal
[2022-12-29 22:02] VITALS: RESP 20
--- NOTE | 2022-12-29 22:18 | ED.GENADUL_ITS ---
Discharge Plan Disposition Patient Disposition: Home Discharge Details Clinical Impression: Panic attack Primary Care Provider: Makayla Noland ED Provider: Evan Najera Home Meds and New Rx's Prescriptions: No Action spironolactone 50 mg tablet 200 mg PO BID estradiol 2 mg tablet See Rx Instructions .ROUTE .COMPLEX Rx Instructions: 4mg in AM, 2mg in PM quetiapine 25 mg tablet 25 tab PO QAM Hold Instructions: Changed by Provider Patient Comments: pt states they have not taken in 2 weeks Rx Instructions: pt states 25mg in AM and 50mg in PM buspirone 5 mg tablet 15 mg PO BID Patient Comments: pt states they have not taken in 2 weeks allopurinol 100 mg tablet 200 mg PO DAILY Patient Comments: TAKE 2 TABLETS BY MOUTH DAILY Rx Instructions: [address] [facility] records quetiapine [Seroquel] 25 mg Tablet 50 mg PO HS Hold Instructions: Changed by Provider Patient Comments: pt states they have not taken in 2 weeks sertraline 100 mg Tablet 200 mg PO DAILY Patient Comments: pt states they have not taken in 2 weeks Rx Instructions: TOTAL DAILY DOSE: 125MG PER [facility] 04/16/22 levothyroxine 125 mcg Tablet 125 mcg PO DAILY@0600 Patient Comments: pt states they have not taken in 2 weeks meclizine 25 mg tablet 25 mg PO BID PRNQty: 10 0RF hydroxyzine HCl 25 mg tablet 25 mg PO DAILY Hold Instructions: Changed by Provider trazodone 50 mg Tablet 50 mg PO DAILY escitalopram oxalate [Lexapro] 20 mg tablet 20 mg PO DAILY trazodone 50 mg tablet 50 mg PO QHS PRN Discharge Instructions Instructions: Panic Attack (ED) Additional Instructions: At this time your heart shows no abnormalities. Your vital signs are stable. As we discussed together I do feel a strong component is the absence of your regular daily medications. Please take your prescribed nightly medications as soon as you get home. If you notice any worsening of your symptoms, or any new symptoms such as vomiting, diarrhea, fever, chills, shortness of breath, chest pain, numbness, weakness, or fainting , please return immediately to the emergency department for reevaluation. Please follow up with your primary care provider as soon as possible for reassessment and reevaluation. As always, it was a pleasure participating in your medical care today. Referrals: Makayla Noland [Primary Care Provider] - Discharge Data Discharge Date/Time-TO BE ENTERED AT DEPARTURE: 12/29/22 22:28 Medical Decision Making 37-year-old male who is transitioning to female who goes by the name of Elsa, with a past medical history of depression, suicidality, presents today for evaluation of panic attack. Patient states that she recently got out of [facility] on Sunday and has not been taking any of her medications since then. This evening she had feelings of palpitations and panic. There have been some notable stressful situations today per friend who is at bedside. Elsa denies any chest pain, shortness of breath, headache, neck pain or other complaint. After breathing exercises the patient still had a slightly elevated heart rate at 101, and Elsa and her partner came in for further evaluation. Elsa denies any cocaine use, drug use, or other substances. No other complaints at this time. No other modifying factors. Exam demonstrates well-appearing patient, heart rate stable at 100. Blood pressure normal. EKG shows no abnormality. Patient at this time feels well and no longer feels stressed or panicky. No indication for emergent medications at this time. Patient has not taken any medications since being released from [facility], my recommendations are to go home and take regular nighttime medications. Friend who is at bedside states that she will help assist with this. Patient agrees to doing this and consents. Otherwise patient is notably stable. No homicidal or suicidal ideation . Discussed red flags for which to return. I have extensively reviewed the treatment plan and discharge instructions with the patient. I have addressed all patient concerns at this time. The patient was made aware of what symptoms to monitor for that would warrant a return to the emergency department. Discussed the plan with the patient, they demonstrate verbal understanding and agreement with our assessment and plan at this time. The documentation in this chart was dictated using [employer] dictation software. Please excuse any dictation errors. HPI General Date/Time Provider Initiated Documentation: 12/29/22 22:15 . HPI Narrative: 37-year-old male who is transitioning to female who goes by the name of Elsa, with a past medical history of depression, suicidality, presents today for evaluation of panic attack. Patient states that she recently got out of [facility] on Sunday and has not been taking any of her medications since then. This evening she had feelings of palpitations and panic. There have been some notable stressful situations today per friend who is at bedside. Elsa denies any chest pain, shortness of breath, headache, neck pain or other complaint. After breathing exercises the patient still had a slightly elevated heart rate at 101, and Elsa and her partner came in for further evaluation. Elsa denies any cocaine use, drug use, or other substances. No other complaints at this time. No other modifying factors. Related Data Home Medications Medication Instructions Recorded Confirmed estradiol 2 mg tablet See Rx Instructions .Route .COMPLEX 02/20/22 12/22/22 spironolactone 50 mg tablet 200 mg PO BID 02/20/22 12/22/22 quetiapine 25 mg tablet 25 tab PO QAM 03/12/22 12/22/22 buspirone 5 mg tablet 15 mg PO BID 04/08/22 12/22/22 allopurinol 100 mg tablet 200 mg PO DAILY 04/14/22 12/22/22 quetiapine 25 mg tablet (Seroquel) 50 mg PO HS 04/15/22 12/22/22 sertraline 100 mg tablet 200 mg PO DAILY 04/15/22 12/22/22 levothyroxine 125 mcg tablet 125 mcg PO DAILY@0600 04/16/22 12/22/22 hydroxyzine HCl 25 mg tablet 25 mg PO DAILY 10/20/22 12/22/22 meclizine 25 mg tablet 25 mg PO BID PRN #10 tabs 11/14/22 12/22/22 trazodone 50 mg tablet 50 mg PO DAILY 11/14/22 12/22/22 escitalopram oxalate 20 mg tablet 20 mg PO DAILY 12/22/22 12/22/22 (Lexapro) trazodone 50 mg tablet 50 mg PO QHS PRN 12/22/22 12/22/22 Previous Rx's Medication Instructions Recorded meclizine 25 mg tablet 25 mg PO BID PRN #10 tabs 11/14/22 Allergies Allergy/AdvReac Type Severity Reaction Status Date / Time strawberry AdvReac Verified 12/29/22 22:03 General Stated Complaint: Anxiety SCOTT: 4 Review of Systems All systems reviewed & are unremarkable except as noted in HPI and below PFSH All Active Problems Panic attack (Acute) Anxiety (Chronic) Headache (Acute) Suicidal thoughts (Acute) Suicide gesture (Acute) Depression (Chronic) Medical History Dyspraxia Developmental delay, mild Obesity Hyperlipidemia Type 2 diabetes mellitus Hyperuricemia Gout Anxiety with depression Transgender Surgical History No significant past surgical history Social History Smoking/Tobacco Use Status: Current, status unknown Tobacco Type: e-cigarettes Smoking risk assessment performed?: Yes Alcohol Intake: current Alcohol Intake frequency: a few times a month Alcohol type: beer and hard liquor Drug use: Occasionally Substance use type: marijuana Housing: house Do you feel safe at home: Yes (mentally no physically yes) Do you feel safe in your relationship?: Yes Exam Narrative Exam Narrative: 1.Const: Well-nourished, Well-developed, appearing stated age 2.Eyes: PERRL, no conjunctival injection, and symmetrical lids. 3.ENT: Atraumatic external nose and ears. Moist MM. Neck: Symmetric, trachea midline, No thyromegaly. 4.CVS: +S1/S2, No murmurs or gallops. Peripheral pulses 2+ and equal in all extremities. Brisk capillary refill in all extremities. 5.RESP: Unlabored respiratory effort. Clear to auscultation bilaterally. No wheezes rales or rhonchi 6.GI: Soft, Nontender/Nondistended, No hepatosplenomegaly. No guarding or rebound. 7.MSK: Normocephalic/Atraumatic, Extremities w/o deformity or ttp No cyanosis or clubbing, Normal movement of all extremities 8.Skin: Warm, Dry. No rashes or lesions. 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 Sensation grossly intact, no focal neurologic deficits. 10.Psych: (AAO) x3. Appropriate mood and affect Course Vital Signs Vital signs: Vital Signs Temperature 36.6 C 12/29/22 21:58 Pulse 100 H 12/29/22 21:58 Respiratory Rate 20 12/29/22 21:58 Blood Pressure 127/89 12/29/22 21:58 Pulse Oximetry 100 12/29/22 21:58 Temperature 36.6 C 12/29/22 21:58 Temperature Source Temporal Artery Scan 12/29/22 21:58 Pulse 100 H 12/29/22 21:58 Respiratory Rate 20 12/29/22 22:02 Respiratory Effort Normal, Non-Labored 12/29/22 22:02 Respiratory Depth Normal 12/29/22 22:02 Respiratory Pattern Normal 12/29/22 22:02 Blood Pressure 127/89 12/29/22 21:58 Blood Pressure Position Sitting 12/29/22 21:58 Pulse Oximetry 100 12/29/22 21:58 Oxygen Delivery Method Room Air 12/29/22 21:58 Oxygen Flow Rate 0 12/29/22 21:58 Pain Level 0 12/29/22 21:58
== END 2022-12-29 22:28 | disposition home or self-care (01) ==
PROVIDERS: Emergency Provider Student in an Organized Health Care Education/Training Program; PCP Nurse Practitioner Family
DX: F41.0 Panic disorder [episodic paroxysmal anxiety] (principal)
CPT/HCPCS: 93005; 99281; 93010; 99282

== ENCOUNTER 2023-01-02 01:47 | Emergency (ER) | payer MEDICARE, MEDICAID, SELFPAY ==
[2023-01-02 01:53] VITALS: BP 125/92; PULSE 87; RESP 20; TEMP 36.8; O2SAT 98
--- NOTE | 2023-01-02 02:00 | W.ED.GENAD ---
Discharge Plan Disposition Patient Disposition: Home Discharge Details Clinical Impression: Panic attack Primary Care Provider: Makayla Noland ED Provider: Evan Najera Home Meds and New Rx's Prescriptions: No Action spironolactone 50 mg tablet 200 mg PO BID estradiol 2 mg tablet See Rx Instructions .ROUTE .COMPLEX Rx Instructions: 4mg in AM, 2mg in PM quetiapine 25 mg tablet 25 tab PO QAM Hold Instructions: Changed by Provider Patient Comments: pt states they have not taken in 2 weeks Rx Instructions: pt states 25mg in AM and 50mg in PM buspirone 5 mg tablet 15 mg PO BID Patient Comments: pt states they have not taken in 2 weeks allopurinol 100 mg tablet 200 mg PO DAILY Patient Comments: TAKE 2 TABLETS BY MOUTH DAILY Rx Instructions: 2 tablets daily per [facility] records quetiapine [Seroquel] 25 mg Tablet 50 mg PO HS Hold Instructions: Changed by Provider Patient Comments: pt states they have not taken in 2 weeks sertraline 100 mg Tablet 200 mg PO DAILY Patient Comments: pt states they have not taken in 2 weeks Rx Instructions: TOTAL DAILY [facility]: [facility] levothyroxine 125 mcg Tablet 125 mcg PO DAILY@0600 Patient Comments: pt states they have not taken in 2 weeks meclizine 25 mg tablet 25 mg PO BID PRNQty: 10 0RF hydroxyzine HCl 25 mg tablet 25 mg PO DAILY Hold Instructions: Changed by Provider escitalopram oxalate [Lexapro] 20 mg tablet 20 mg PO DAILY trazodone 50 mg tablet 50 mg PO QHS PRN Discharge Instructions Instructions: Lorazepam (By mouth), Panic Attack (ED) Additional Instructions: At this time you are having a mild panic attack. Please take the medication only once you have returned home. Do not take it with any alcohol or other substances. Please discuss with your primary care provider having a small amount of potential anxiolytics at home to be used for episodes like this. If you notice any worsening of your symptoms, or any new symptoms such as vomiting, diarrhea, fever, chills, shortness of breath, chest pain, numbness, weakness, or fainting , please return immediately to the emergency department for reevaluation. Please follow up with your primary care provider as soon as possible for reassessment and reevaluation. As always, it was a pleasure participating in your medical care today. Referrals: Makayla Noland [Primary Care Provider] - Medical Decision Making 37-year-old male who is transitioning to female who goes by the name of Elsa, with a past medical history of depression, suicidality, presents today for evaluation of panic attack. 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 Elsa states that when going to the hospital to fruit or nut picker her friend she felt panicked secondary to seeing hospitals and these being a trigger for her panic. She took a buspirone at home, but this did not improve her symptoms. She tried breathing techniques but this also did not improve symptoms. Patient then came to the ER for further assessment. No chest pain or shortness of breath. No other complaints at this time. Exam demonstrates an anxious appearing patient, no homicidal or suicidal ideations. Discussed options of an anxiolytic tablet here or at home. 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 Through shared decision-making process, patient has elected to take the pill at home. We will give a small dose of Ativan to be given here and to be taken at home. Discussed risks and benefits of this. Patient accepts treatment option. Patient will be discharged home. Recommend further discussion of the patient with the patient's primary care provider for potential small emergency supply at home if episodes like this happen in the future. I have extensively reviewed the treatment plan and discharge instructions with the patient. I have addressed all patient concerns at this time. The patient was made aware of what symptoms to monitor for that would warrant a return to the emergency department. Discussed the plan with the patient, they demonstrate verbal understanding and agreement with our assessment and plan at this time. The documentation in this chart was dictated using [employer] dictation software. Please excuse any dictation errors. HPI General Date/Time Provider Initiated Documentation: 01/02/23 01:59. HPI Narrative: 37-year-old male who is transitioning to female who goes by the name of Elsa, with a past medical history of depression, suicidality, presents today for evaluation of panic attack. 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 Elsa states that when going to the hospital to fruit or nut picker her friend she felt panicked secondary to seeing hospitals and these being a trigger for her panic. She took a buspirone at home, but this did not improve her symptoms. She tried breathing techniques but this also did not improve symptoms. Patient then came to the ER for further assessment. No chest pain or shortness of breath. No other complaints at this time. Related Data Home Medications Medication Instructions Recorded Confirmed estradiol 2 mg tablet See Rx Instructions .Route .COMPLEX 02/20/22 01/02/23 spironolactone 50 mg tablet 200 mg PO BID 02/20/22 01/02/23 quetiapine 25 mg tablet 25 tab PO QAM 03/12/22 01/02/23 buspirone 5 mg tablet 15 mg PO BID 04/08/22 01/02/23 allopurinol 100 mg tablet 200 mg PO DAILY 04/14/22 01/02/23 quetiapine 25 mg tablet (Seroquel) 50 mg PO HS 04/15/22 01/02/23 sertraline 100 mg tablet 200 mg PO DAILY 04/15/22 01/02/23 levothyroxine 125 mcg tablet 125 mcg PO DAILY@0600 04/16/22 01/02/23 hydroxyzine HCl 25 mg tablet 25 mg PO DAILY 10/20/22 01/02/23 meclizine 25 mg tablet 25 mg PO BID PRN #10 tabs 11/14/22 01/02/23 escitalopram oxalate 20 mg tablet 20 mg PO DAILY 12/22/22 01/02/23 (Lexapro) trazodone 50 mg tablet 50 mg PO QHS PRN 12/22/22 01/02/23 Previous Rx's Medication Instructions Recorded meclizine 25 mg tablet 25 mg PO BID PRN #10 tabs 11/14/22 Allergies Allergy/AdvReac Type Severity Reaction Status Date / Time strawberry AdvReac Verified 01/02/23 01:59 General Stated Complaint: Anxiety SCOTT: 4 Review of Systems All systems reviewed & are unremarkable except as noted in HPI and below PFSH All Active Problems Panic attack (Acute) Anxiety (Chronic) Suicidal thoughts (Acute) Suicide gesture (Acute) Depression (Chronic) Medical History Dyspraxia Developmental delay, mild Obesity Hyperlipidemia Type 2 diabetes mellitus Hyperuricemia Gout Anxiety with depression Transgender Surgical History No significant past surgical history Social History Smoking/Tobacco Use Status: Current, status unknown Tobacco Type: e-cigarettes Smoking risk assessment performed?: Yes Alcohol Intake: current Alcohol Intake frequency: a few times a month Alcohol type: beer and hard liquor Drug use: Occasionally Substance use type: marijuana Housing: house Do you feel safe at home: Yes (mentally no physically yes) Do you feel safe in your relationship?: Yes Exam Narrative Exam Narrative: 1.Const: Well-nourished, Well-developed, appearing stated age 2.Eyes: PERRL, no conjunctival injection, and symmetrical lids. 3.ENT: Atraumatic external nose and ears. Moist MM. Neck: Symmetric, trachea midline, No thyromegaly. 4.CVS: +S1/S2, No murmurs or gallops. Peripheral pulses 2+ and equal in all extremities. Brisk capillary refill in all extremities. 5.RESP: Unlabored respiratory effort. Clear to auscultation bilaterally. No wheezes rales or rhonchi 6.GI: Soft, Nontender/Nondistended, No hepatosplenomegaly. No guarding or rebound. 7.MSK: Normocephalic/Atraumatic, Extremities w/o deformity or ttp No cyanosis or clubbing, Normal movement of all extremities 8.Skin: Warm, Dry. No rashes or lesions. 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 Sensation grossly intact, no focal neurologic deficits. 10.Psych: (AAO) x3. Slightly anxious appearing. Diminished eye contact Course Vital Signs Vital signs: Vital Signs Temperature 36.8 C 01/02/23 01:53 Pulse 87 01/02/23 01:53 Respiratory Rate 20 01/02/23 01:53 Blood Pressure 125/92 H 01/02/23 01:53 Pulse Oximetry 98 01/02/23 01:53 Temperature 36.8 C 01/02/23 01:53 Temperature Source Temporal Artery Scan 01/02/23 01:53 Pulse 87 01/02/23 01:53 Respiratory Rate 20 01/02/23 01:53 Respiratory Effort Normal, Splinting 01/02/23 01:56 Respiratory Depth Normal 01/02/23 01:56 Respiratory Pattern Normal 01/02/23 01:56 Blood Pressure 125/92 H 01/02/23 01:53 Blood Pressure Position Sitting 01/02/23 01:53 Pulse Oximetry 98 01/02/23 01:53 Pain Level 0 01/02/23 01:53
[2023-01-02] MEDS: LORazepam 1 MG TAB 2 MG PO (02:07)
== END 2023-01-02 02:18 | disposition home or self-care (01) ==
LOC: ER 02:13
PROVIDERS: Emergency Provider Student in an Organized Health Care Education/Training Program; PCP Nurse Practitioner Family
DX: F41.0 Panic disorder [episodic paroxysmal anxiety] (principal); F41.8 Other specified anxiety disorders; E78.5 Hyperlipidemia, unspecified; E11.9 Type 2 diabetes mellitus without complications; Z79.84 Long term (current) use of oral hypoglycemic drugs
CPT/HCPCS: 99282

== ENCOUNTER 2023-01-04 13:29 | Emergency (ER) | payer MEDICARE, MEDICAID, SELFPAY ==
[2023-01-04 13:32] VITALS: BP 164/93; PULSE 114; RESP 16; TEMP 36.4; O2SAT 99
--- NOTE | 2023-01-04 13:45 | RT.EKG_ITS ---
APPROVED REPORT Exam: Resting ECG Reason for Exam: Dizziness Patient Location: E HR:93 bpm ECG Measurements Heart Rate 93 AXIS MT 152 P 38 QRSd 78 QRS 29 QT 350 T 37 QTc 436 Conclusion Sinus rhythm...normal P axis, V-rate 60- 99 Low voltage, precordial leads...precordial leads <1.0mV Narrow complex normal sinus rhythm at a rate of 93. Normal axis. Intervals within normal limits. P oor R wave progression. Low voltage in precordial leads. Similar to prior dated earlier this month. No T wave inversions. No ST segment elevations. No acute injury pattern. Unchanged compared to steven maldonado
--- NOTE | 2023-01-04 13:45 | ED.GENADUL_ITS ---
Discharge Plan Disposition Patient Disposition: Home Discharge Details Clinical Impression: COVID-19 virus infection, Normocytic anemia Primary Care Provider: Makayla Noland ED Provider: Darrick Bocanegra Home Meds and New Rx's Prescriptions: Continued spironolactone 50 mg tablet 200 mg PO BID estradiol 2 mg tablet See Rx Instructions .ROUTE .COMPLEX Rx Instructions: 4mg in AM, 2mg in PM quetiapine 25 mg tablet 25 tab PO QAM Hold Instructions: Changed by Provider Patient Comments: pt states they have not taken in 2 weeks Rx Instructions: pt states 25mg in AM and 50mg in PM buspirone 5 mg tablet 15 mg PO BID Patient Comments: pt states they have not taken in 2 weeks allopurinol 100 mg tablet 200 mg PO DAILY Patient Comments: TAKE 2 TABLETS BY MOUTH DAILY Rx Instructions: [facility] quetiapine [Seroquel] 25 mg Tablet 50 mg PO HS Hold Instructions: Changed by Provider Patient Comments: pt states they have not taken in 2 weeks sertraline 100 mg Tablet 200 mg PO DAILY Hold Instructions: Changed by Provider Patient Comments: pt states they have not taken in 2 weeks Rx Instructions: TOTAL DAILY DOSE: [facility] 04[facility]22 levothyroxine 125 mcg Tablet 125 mcg PO DAILY@0600 Patient Comments: pt states they have not taken in 2 weeks meclizine 25 mg tablet 25 mg PO BID PRNQty: 10 0RF hydroxyzine HCl 25 mg tablet 25 mg PO DAILY Hold Instructions: Changed by Provider escitalopram oxalate [Lexapro] 20 mg tablet 20 mg PO DAILY trazodone 50 mg tablet 50 mg PO QHS PRN Discharge Instructions Additional Instructions: You are seen in the emergency department for your nausea and dizziness. You were diagnosed with a COVID infection. Please return to the emergency department if you develop difficulty breathing. In the emergency department your oxygen saturation was reassuring. Please ensure that you are urinating at least once every 8 hours while awake. Please follow-up with your primary care provider next week. As we discussed, your red blood cell count was slightly low. This was similar to prior. Please follow-up with the primary care provider. For your pain please take medications as follows: 1. Take acetaminophen (Tylenol), 1,000 mg (two 500 mg tabs) every 6 hours 2. Take ibuprofen (Advil), 400 mg every 6 hours. HPI General Date/Time Provider Initiated Documentation: 01/04/23 13:45 . HPI Narrative: MDM This is an overall very well-appearing normothermic but mildly 37-year-old patient with recent COVID exposure now with dizziness and decreased p.o. considered for possibility of acute dehydration for which patient will receive IV fluids basic labs and COVID swab. Patient is neurologically intact and based on decreased p.o. and COVID exposure I do not feel the patient is a tPA candidate as my suspicion is exceedingly low for CVA. No chiropractic manipulation nor neck pain to suggest cervical arterial dissection. Neurologically intact and given exceedingly low concern for CVA I do not feel the patient requires an MRI. Patient is nontoxic-appearing and normothermic, making my suspicion for meningitis exceedingly low so I do not feel that the patient requires a lumbar puncture. No tonic-clonic activity to suggest seizure so we will defer EEG. No pain or proportion to suggest necrotizing soft tissue infection. Patient has clear lungs and normal oxygen saturations so my suspicion for bacterial pneumonia is exceedingly low and as result I did not obtain a chest x-ray. If patient has COVID at this point patient will do well based on the patient's age and the patient's vaccination status, having completed 3 COVID vaccines. Uvula midline so I am not concerned for peritonsillar abscess. Good range of motion in neck so I am not concerned for retropharyngeal abscess. Given gradual onset generalized headache with recent COVID exposure my suspicion for subarachnoid hemorrhage is exceedingly low and based on the duration of patient's symptoms we will defer CT scan and lumbar puncture at this juncture. 2:30 PM Patient had a positive COVID infection. CBC lacked leukocytosis and thrombocytopenia. Patient did have a persistent but slightly improved normocytic anemia. Patient's heart rate normalized in the ED. 2:41 PM Basic metabolic panel showing no MARIAH. Very mild hyperglycemia but no anion gap and normal bicarbonate??not consistent with DKA. I met with the patient and explained the very mild and seemingly chronic normocytic anemia for which I advised PCP follow-up. I advised ED return if the patient did not urinate at least once every 8 hours while awake. I also advised scheduled acetaminophen and ibuprofen. We will proceed with empiric trial of expectant outpatient management. At the time of discharge patient's heart rate had gone up slightly back to 100. In looking patient's heart rates in the past patient does not infrequently have tachycardia. Given reassuring labs and clinical picture patient was discharged with a heart rate of 100 after transiently having a heart rate of 93 in the emergency department. Chronic conditions affecting the care of the patient: N/A History obtained from an outside historian: N/A External record review: [facility] EMR [Diagnostic interpretations performed by me:] [Per my independent interpretation EKG shows:] Narrow complex normal sinus rhythm at a rate of 93. Normal axis. Intervals within normal limits. Poor R wave progression. Low voltage in precordial leads. Similar to prior dated earlier this month. No T wave inversions. No ST segment elevations. No acute injury pattern. Unchanged compared to prior. Medications: Acetaminophen, IV fluids, ondansetron Social determinants of health affecting disposition: N/A Management discussed with: N/A Treatment/interventions considered: N/A Response to therapies provided: Improved symptoms in the ED following acetaminophen HPI This is a 37-year-old patient arrived to the emergency department in setting of cough and dizziness and nausea with recent COVID exposure. Patient reports that his fianc?e tested positive recently for COVID. Patient has only had limited amounts by mouth in the past 24 hours. Patient endorses a headache sore throat cough. Patient reports having received a total of 3 COVID vaccines. Patient endorses intermittent room spinning which is not abnormal. Patient does not take any falls or head any syncope. No chest pain or vomiting fevers dysuria nor frequency. Patient denies routine tobacco alcohol and illicits. Patient does endorse nausea and chills. No chiropractic manipulation recently to the neck. No neck pain. Patient endorses a generalized headache. Headache was gradual in onset. Exam General: Well-appearing in no acute distress speaking in complete sentences. Head: Normocephalic, atraumatic. Eye: Extraocular eye movements intact. No conjunctival injection. No scleral icterus. Ear, nose, mouth, throat: Grossly normal inspection. Normal voice, handling secretions normally. Uvula midline. No significant posterior oropharynx erythema. Good range of motion in neck. Neck: Trachea midline. Cardiovascular: Well-perfused distal extremities. Regular rate and rhythm. Respiratory: Nonlabored respiration. Clear lungs bilaterally. Gastrointestinal: Nondistended abdomen. Soft nontender Musculoskeletal: No edema. Moving all 4 extremities spontaneously. Skin: Normal for age and race, grossly normal temperature and turgor. No acute rash. Neurologic: Alert and appropriate, no apparent acute deficits. Cranial nerves II through XII intact grossly. No dysmetria. No dysdiadochokinesia. 5 out of 5 bilateral upper and lower extremity strength. Psychiatric: Mood and manner are appropriate. Grooming and personal hygiene are appropriate. Related Data Home Medications Medication Instructions Recorded Confirmed estradiol 2 mg tablet See Rx Instructions .Route .COMPLEX 02/20/22 01/04/23 spironolactone 50 mg tablet 200 mg PO BID 02/20/22 01/04/23 quetiapine 25 mg tablet 25 tab PO QAM 03/12/22 01/04/23 buspirone 5 mg tablet 15 mg PO BID 04/08/22 01/04/23 allopurinol 100 mg tablet 200 mg PO DAILY 04/14/22 01/04/23 quetiapine 25 mg tablet (Seroquel) 50 mg PO HS 04/15/22 01/04/23 sertraline 100 mg tablet 200 mg PO DAILY 04/15/22 01/04/23 levothyroxine 125 mcg tablet 125 mcg PO DAILY@0600 04/16/22 01/04/23 hydroxyzine HCl 25 mg tablet 25 mg PO DAILY 10/20/22 01/04/23 meclizine 25 mg tablet 25 mg PO BID PRN #10 tabs 11/14/22 01/04/23 escitalopram oxalate 20 mg tablet 20 mg PO DAILY 12/22/22 01/04/23 (Lexapro) trazodone 50 mg tablet 50 mg PO QHS PRN 12/22/22 01/04/23 Previous Rx's Medication Instructions Recorded meclizine 25 mg tablet 25 mg PO BID PRN #10 tabs 11/14/22 Allergies Allergy/AdvReac Type Severity Reaction Status Date / Time strawberry AdvReac Verified 01/04/23 13:35 General Stated Complaint: GenMedical SCOTT: 3 PFSH All Active Problems (Updated 01/04/23 @ 14:36 by Darrick Bocanegra MD) Normocytic anemia (Acute) COVID-19 virus infection (Acute) Panic attack (Acute) Anxiety (Chronic) Suicidal thoughts (Acute) Suicide gesture (Acute) Depression (Chronic) Medical History Dyspraxia Developmental delay, mild Obesity Hyperlipidemia Type 2 diabetes mellitus Hyperuricemia Gout Anxiety with depression Transgender Surgical History No significant past surgical history Social History Smoking/Tobacco Use Status: Current, status unknown Tobacco Type: e-cigarettes Smoking risk assessment performed?: Yes Alcohol Intake: current Alcohol Intake frequency: a few times a month Alcohol type: beer and hard liquor Drug use: Occasionally Substance use type: marijuana Housing: house Do you feel safe at home: Yes (mentally no physically yes) Do you feel safe in your relationship?: Yes Course Vital Signs Vital signs: Vital Signs Temperature 36.4 C L 01/04/23 13:32 Pulse 114 H 01/04/23 13:32 Respiratory Rate 16 01/04/23 13:32 Blood Pressure 164/93 H 01/04/23 13:32 Pulse Oximetry 99 01/04/23 13:32 Temperature 36.4 C L 01/04/23 13:32 Pulse 114 H 01/04/23 13:32 Respiratory Rate 16 01/04/23 13:32 Blood Pressure 164/93 H 01/04/23 13:32 Pulse Oximetry 99 01/04/23 13:32 Oxygen Delivery Method Room Air 01/04/23 13:32 Oxygen Flow Rate 0 01/04/23 13:32
[2023-01-04 13:48] VITALS: RESP 20
[2023-01-04 13:49] VITALS: TEMP 37.2; O2SAT 100
[2023-01-04 13:53] LABS: Source Nasal/Nares
[2023-01-04] MEDS: Normal Saline 1,000 ML 1000 ML IV (14:20)
[2023-01-04] MEDS: Ondansetron 4 MG/2 ML VIAL IVP (14:20)
[2023-01-04] MEDS: Acetaminophen 500 MG TAB 1000 MG PO (14:20)
[2023-01-04 14:24] LABS: COVID-19 PCR POSITIVE (Negative)
[2023-01-04 14:24] LABS: Abs Immature Grans 0.04 10^3/uL (0.0-0.06); Absolute Basophil Count 0.04 10^3/uL (0.0-0.2); Absolute Eosinophil Count 0.13 10^3/uL (0.0-0.7); Absolute Lymphocyte Count 1.19 10^3/uL (1.2-3.4); Absolute Monocyte Count 0.37 10^3/uL (0.1-0.8); Absolute Neutrophil Count 7.19 10^3/uL (1.2-6.7); Basophils % 0.4; Eosinophils % 1.5; HCT 39.8 % (40.0-50.0); Immature Grans % 0.4; Lymphocytes % 13.3; MCHC 32.7 % (32.0-36.0); MCV 86 fL (80-95); MPV 9.4 fL (8.0-11.0); Monocytes % 4.1; Neutrophils % 80.3; Platelet Count 323 10^3/uL (130-400); RBC 4.64 10^6/uL (4.36-5.78); RDW 12.5 % (11.8-14.1); RDW-SD 38.7 fL; WBC 8.96 10^3/uL (4.4-10.8)
[2023-01-04 14:33] VITALS: PULSE 93
[2023-01-04 14:37] LABS: Anion Gap 4.9 mmol/L (3-11); BUN 14 mg/dL (7-18); CO2 29.1 mmol/L (21.0-32.0); CREATININE 1.1 mg/dL (0.70-1.30); Calcium 9.2 mg/dL (8.5-10.1); Chloride 103 mmol/L (98-107); Estimated GFR 89.22 (mL/min/1.73m2); Glucose 138 mg/dL (74-106); Potassium 3.9 mmol/L (3.5-5.1); Sodium 137 mmol/L (136-145)
[2023-01-04] MEDS: Ibuprofen 600 MG TAB PO (14:52)
[2023-01-04 14:56] VITALS: PULSE 100; O2SAT 100
== END 2023-01-04 14:57 | disposition home or self-care (01) ==
PROVIDERS: Emergency Provider Emergency Medicine; PCP Nurse Practitioner Family
DX: U07.1 COVID-19 (principal); D64.9 Anemia, unspecified; E11.65 Type 2 diabetes mellitus with hyperglycemia; E78.5 Hyperlipidemia, unspecified; Z79.899 Other long term (current) drug therapy; F17.290 Nicotine dependence, other tobacco product, uncomplicated
CPT/HCPCS: 36415; 80048; 87635; 93005; 96361; 96374; 99284; 85025; 93010; J2405

== ENCOUNTER 2023-01-05 16:44 | Emergency (ER) | payer MEDICARE, MEDICAID, SELFPAY ==
[2023-01-05 17:14] VITALS: BP 120/73; PULSE 103; RESP 20; TEMP 36.8; O2SAT 99
[2023-01-05 17:34] VITALS: RESP 16
--- NOTE | 2023-01-05 18:00 | RT.EKG_ITS ---
APPROVED REPORT Exam: Resting ECG Reason for Exam: ? fainting Patient Location: E HR:81 bpm ECG Measurements Heart Rate 81 AXIS TN 141 P 30 QRSd 83 QRS 33 QT 364 T 46 QTc 423 Conclusion Sinus rhythm...normal P axis, V-rate 60- 99 no change vs yesterday, nl EKG
--- NOTE | 2023-01-05 18:00 | DI.RAD_ITS ---
Exam(s) XR PORTABLE CHEST AP EXAM: XR PORTABLE CHEST AP CLINICAL HISTORY: pleuritic CP, has COVID. TECHNIQUE: 2D digital imaging was performed. COMPARISON: No exams were available for comparison FINDINGS: Single AP portable view. Heart size normal. Mediastinum not widened. Right lung is clear. There are increased markings in t he left hilar-parahilar and infrahilar region. No pleural effusions. No pneumothorax. No fractures . Lungs are clear. No infiltrates nor obvious pleural effusions. IMPRESSION: Increased left parahilar markings possibly infiltrate. DATA REPOSITORY: RADIATION DOSE DELIVERED:
--- NOTE | 2023-01-05 18:07 | W.ED.GENAD ---
Discharge Plan Disposition Patient Disposition: Home Discharge Details Clinical Impression: COVID-19 virus infection, Pneumonia Primary Care Provider: Makayla Noland ED Provider: Elle Wilson Home Meds and New Rx's Prescriptions: New doxycycline hyclate 100 mg capsule 100 mg PO BID Qty: 20 0RF Continued spironolactone 50 mg tablet 200 mg PO BID estradiol 2 mg tablet See Rx Instructions .ROUTE .COMPLEX Rx Instructions: 4mg in AM, 2mg in PM quetiapine 25 mg tablet 25 tab PO QAM Hold Instructions: Changed by Provider Patient Comments: pt states they have not taken in 2 weeks Rx Instructions: pt states 25mg in AM and 50mg in PM buspirone 5 mg tablet 15 mg PO BID Patient Comments: pt states they have not taken in 2 weeks allopurinol 100 mg tablet 200 mg PO DAILY Patient Comments: TAKE 2 TABLETS BY MOUTH DAILY Rx Instructions: 2 tablets daily per [facility] records quetiapine [Seroquel] 25 mg Tablet 50 mg PO HS Hold Instructions: Changed by Provider Patient Comments: pt states they have not taken in 2 weeks sertraline 100 mg Tablet 200 mg PO DAILY Hold Instructions: Changed by Provider Patient Comments: pt states they have not taken in 2 weeks Rx Instructions: TOTAL DAILY DOSE: [facility] levothyroxine 125 mcg Tablet 125 mcg PO DAILY@0600 Patient Comments: pt states they have not taken in 2 weeks meclizine 25 mg tablet 25 mg PO BID PRNQty: 10 0RF hydroxyzine HCl 25 mg tablet 25 mg PO DAILY Hold Instructions: Changed by Provider escitalopram oxalate [Lexapro] 20 mg tablet 20 mg PO DAILY trazodone 50 mg tablet 50 mg PO QHS PRN Discharge Instructions Instructions: Pneumonia (ED), COVID-19 (Coronavirus Disease 2019) (ED), COVID-19: Slow the Coronavirus Spread (ED) Additional Instructions: Return home and rest. Push fluids as discussed. Use the doxycycline 1 tablet twice a day in case there is a small bacterial pneumonia as well as the COVID. Stay home for the next few days to avoid infecting anyone else--this should be 5 days from when you tested positive; you may go out after this. Return to ED for severe difficulty breathing or crushing chest pain. It may take a while for dizziness, cough, fever, etc. to go away. Tylenol 650 mg every 6 hours and/or ibuprofen 600 mg every 6 hours as needed for fever or pain. Discharge Data Discharge Date/Time-TO BE ENTERED AT DEPARTURE: 01/05/23 20:50 Medical Decision Making Patient and her girlfriend were updated on her test results. She refers to Chapo/Elsa as they and I have tried to accomodate this. Elsa continues to be nontoxic in appearance. Encouraged lots of clear fluids and rest. I have reassured both of them that lightheadedness, dizziness, etc. can be very common with COVID-19 and they will just have to wait this out. Radiology called a possible perihilar pneumonia and I will prescribe doxycycline twice daily in case there is superimposed bacterial illness. This was explained to both of them. Elsa will return for severe difficulty breathing, crushing chest pain call mom lateral leg or arm swelling, etc. Medical Records Medical records reviewed: Yes I reviewed the patient's medical records. Imaging Data Radiologic Study: Radiologist's impression: atient Name: Chapo Green Unit #: [id number] Loc: ER Ordering Provider: Elle Wilson M.D. Status: REG ER Primary Care Provider: Makayla Noland Date of Exam: 01/05/23 Sex: M Admission Date: 01/05/23 : 1985 Age: 37 Exam(s) XR PORTABLE CHEST AP EXAM: XR PORTABLE CHEST AP CLINICAL HISTORY: pleuritic CP, has COVID. TECHNIQUE: 2D digital imaging was performed. COMPARISON: No exams were available for comparison FINDINGS: Single AP portable view. Heart size normal. Mediastinum not widened. Right lung is clear. There are increased markings in the left hilar-parahilar and infrahilar region. No pleural effusions. No pneumothorax. No fractures. Lungs are clear. No infiltrates nor obvious pleural effusions. IMPRESSION: Increased left parahilar markings possibly infiltrate. Lab Data Lab results reviewed: Yes I reviewed the patient's lab results. Lab results narrative: Dimer neg ECG Data Attestation: I personally reviewed and interpreted this ECG (s) as follows: (Normal sinus rhythm at 80, no change versus 01/04/2023 which was yesterday) HPI General Date/Time Provider Initiated Documentation: 01/05/23 16:54. HPI Narrative: Is a 37-year-old old male patient who identifies as female presents with a chief complaint of cough and dizziness that have been ongoing for the past 4 days. A COVID test was positive the patient was seen in the ED yesterday. She has had CBC chemistry panel unremarkable except for mildly elevated glucose. COVID was again negative. Patient received IV fluid and was discharged in good condition. This is the patient's fourth ER visit this month. She just tells me that she has had a cough, runny nose, congestion for 4 days. She tested +2 days ago. She does report pleuritic chest pain. There is no difficulty breathing. She has a little bit of lightheadedness once. There has been no diarrhea or abdominal pain. She has no calf pain or pedal edema. There is no stiff neck or rash. There have been tactile fevers and chills but no rigors. There is no headache or focal neurologic deficits. Related Data Home Medications Medication Instructions Recorded Confirmed estradiol 2 mg tablet See Rx Instructions .Route .COMPLEX 02/20/22 01/04/23 spironolactone 50 mg tablet 200 mg PO BID 02/20/22 01/04/23 quetiapine 25 mg tablet 25 tab PO QAM 03/12/22 01/04/23 buspirone 5 mg tablet 15 mg PO BID 04/08/22 01/04/23 allopurinol 100 mg tablet 200 mg PO DAILY 04/14/22 01/04/23 quetiapine 25 mg tablet (Seroquel) 50 mg PO HS 04/15/22 01/04/23 sertraline 100 mg tablet 200 mg PO DAILY 04/15/22 01/04/23 levothyroxine 125 mcg tablet 125 mcg PO DAILY@0600 04/16/22 01/04/23 hydroxyzine HCl 25 mg tablet 25 mg PO DAILY 10/20/22 01/04/23 meclizine 25 mg tablet 25 mg PO BID PRN #10 tabs 11/14/22 01/04/23 escitalopram oxalate 20 mg tablet 20 mg PO DAILY 12/22/22 01/04/23 (Lexapro) trazodone 50 mg tablet 50 mg PO QHS PRN 10/13/23 10/26/23 doxycycline hyclate 100 mg capsule 100 mg PO BID #20 caps 01/05/23 Previous Rx's Medication Instructions Recorded meclizine 25 mg tablet 25 mg PO BID PRN #10 tabs 11/14/22 doxycycline hyclate 100 mg capsule 100 mg PO BID #20 caps 01/05/23 Allergies Allergy/AdvReac Type Severity Reaction Status Date / Time strawberry AdvReac Verified 01/04/23 13:35 General Stated Complaint: Anxiety SCOTT: 3 Review of Systems Constitutional Constitutional: Reports as per HPI, Denies chills, Denies fever(s) and Denies headache(s) Eyes Eyes: Denies blurry vision and Reports other (no redness) ENT Ears, Nose, Mouth, and Throat: Reports dizziness, Denies otalgia, Denies headache(s), Reports nasal congestion, Reports nasal discharge, Denies neck pain and Denies odynophagia Cardiovascular Cardiovascular: Denies chest pain, Denies palpitations and Denies dyspnea Respiratory Respiratory: Denies cough, Reports pain on inspiration and Denies dyspnea Gastrointestinal Gastrointestinal: Denies abdominal pain, Denies diarrhea, Reports nausea, Denies odynophagia and Reports vomiting Genitourinary Genitourinary: Denies difficulty urinating and Denies dysuria Musculoskeletal Musculoskeletal: Reports myalgias, Denies muscle weakness, Denies neck pain and Denies numbness Integumentary/Breasts Skin/Breast: Denies erythema and Denies rash Neurologic Neurologic: Reports dizziness, Denies headache(s) and Denies numbness Endocrine Endocrine: Denies palpitations PFSH All Active Problems (Updated 01/05/23 @ 20:20 by Elle Wilson MD) Pneumonia (Acute) Normocytic anemia (Acute) COVID-19 virus infection (Acute) Panic attack (Acute) Anxiety (Chronic) Suicidal thoughts (Acute) Suicide gesture (Acute) Depression (Chronic) Medical History Dyspraxia Developmental delay, mild Obesity Hyperlipidemia Type 2 diabetes mellitus Hyperuricemia Gout Anxiety with depression Transgender Surgical History No significant past surgical history Social History Smoking/Tobacco Use Status: Current, status unknown Tobacco Type: e-cigarettes Smoking risk assessment performed?: Yes Alcohol Intake: current Alcohol Intake frequency: a few times a month Alcohol type: beer and hard liquor Drug use: Occasionally Substance use type: marijuana Housing: house Do you feel safe at home: Yes (mentally no physically yes) Do you feel safe in your relationship?: Yes Exam Const General: no acute distress, well developed, well groomed and not in acute distress Nutritional Appearance: well nourished Orientation: alert and oriented x3 HENMT Head: normocephalic and atraumatic Ears: external ears normal Mouth: oropharynx normal and moist mucous membranes Throat: posterior oropharynx normal Eyes Conjunctivae: conjunctivae normal Neck Neck: full ROM and supple Chest Chest: normal inspection of the chest Resp Effort & Inspection: normal respiratory effort Auscultation: clear to auscultation bilaterally Cardio Rate: regular rate Rhythm: regular rhythm Heart Sounds: no murmurs and no rubs GI Inspection: normal to inspection Palpation: soft, nontender and other (non distended) Auscultation: normal bowel sounds Skin General skin exam: no rashes or lesions noted and other (pink, warm, dry) Neuro General: patient alert, patient awake and patient oriented x3 Speech: speech normal Motor: other (TEJEDA) Sensory Exam: no sensory deficits noted Extrem General: normal to inspection, full ROM, pedal edema present and no calf tenderness Psych Mental Status: mental status grossly normal Speech and Movement: speech and movement normal Affect: normal affect Course Vital Signs Vital signs: Vital Signs Temperature 36.8 C 01/05/23 17:14 Pulse 103 H 01/05/23 17:14 Respiratory Rate 20 01/05/23 17:14 Blood Pressure 120/73 01/05/23 17:14 Pulse Oximetry 99 01/05/23 17:14 Temperature 36.8 C 01/05/23 17:14 Pulse 103 H 01/05/23 17:14 Respiratory Rate 16 01/05/23 17:34 Respiratory Effort Normal, Non-Labored 01/05/23 17:34 Respiratory Depth Normal 01/05/23 17:34 Respiratory Pattern Normal 01/05/23 17:34 Blood Pressure 120/73 01/05/23 17:14 Blood Pressure Position Sitting 01/05/23 17:14 Pulse Oximetry 99 01/05/23 17:14 Oxygen Delivery Method Room Air 01/05/23 17:14 Oxygen Flow Rate 0 01/05/23 17:14
[2023-01-05 20:06] LABS: D-Dimer 303 ng/mlFEU (<500)
[2023-01-05] MEDS: Doxycycline Hyclate 100 MG CAP PO (20:49)
--- NOTE | 2023-01-07 02:17 | W.ED.FU ---
Date of service: 01/07/23 Time of Service: 02:17 Follow Up Plan: Patient seen in this ED yesterday; received call from Reanna monogram operator and patient with questions regarding visit. ED visit note reviewed, patient diagnosed with Covid and possibly superimposed bacterial pneumonia, discharged on doxycycline. Over the phone reports ongoing unchanged symptoms (lightheaded, cough, chills) and requested information on managing symptoms; advised OTC antipyretics, PO hydration, continuing home antibiotics. They expressed understanding of these treatments and appreciation for advice.
== END 2023-01-05 20:50 | disposition home or self-care (01) ==
PROVIDERS: Emergency Provider Emergency Medicine; PCP Nurse Practitioner Family
DX: R41.0 Disorientation, unspecified (principal); S61.512A Laceration without foreign body of left wrist, initial encounter; X78.9XXA Intentional self-harm by unspecified sharp object, initial encounter; F41.9 Anxiety disorder, unspecified; F17.200 Nicotine dependence, unspecified, uncomplicated
CPT/HCPCS: 93005; 99285; 71045; 85379; 93010; 99284

== ENCOUNTER 2023-01-07 20:54 | Emergency (ER) | payer MEDICARE, MEDICAID, SELFPAY ==
[2023-01-07 21:02] VITALS: BP 162/88; PULSE 110; RESP 20; TEMP 36.8; O2SAT 99
--- NOTE | 2023-01-07 22:09 | ED.GENADUL_ITS ---
Discharge Plan Disposition Patient Disposition: Home Condition: Stable Discharge Details Clinical Impression: Laceration of left wrist Primary Care Provider: Makayla Noland ED Provider: Kelsey Garsia Home Meds and New Rx's Prescriptions: Continued spironolactone 50 mg tablet 200 mg PO BID estradiol 2 mg tablet See Rx Instructions .ROUTE .COMPLEX Rx Instructions: 4mg in AM, 2mg in PM quetiapine 25 mg tablet 25 tab PO QAM Hold Instructions: Changed by Provider Patient Comments: pt states they have not taken in 2 weeks Rx Instructions: pt states 25mg in AM and 50mg in PM buspirone 5 mg tablet 15 mg PO BID Patient Comments: pt states they have not taken in 2 weeks allopurinol 100 mg tablet 200 mg PO DAILY Patient Comments: TAKE 2 TABLETS BY MOUTH DAILY Rx Instructions: [address] [facility] records quetiapine [Seroquel] 25 mg Tablet 50 mg PO HS Hold Instructions: Changed by Provider Patient Comments: pt states they have not taken in 2 weeks sertraline 100 mg Tablet 200 mg PO DAILY Hold Instructions: Changed by Provider Patient Comments: pt states they have not taken in 2 weeks Rx Instructions: TOTAL DAILY [facility]: [facility] levothyroxine 125 mcg Tablet 125 mcg PO DAILY@0600 Patient Comments: pt states they have not taken in 2 weeks meclizine 25 mg tablet 25 mg PO BID PRNQty: 10 0RF doxycycline hyclate 100 mg capsule 100 mg PO BID Qty: 20 0RF hydroxyzine HCl 25 mg tablet 25 mg PO DAILY Hold Instructions: Changed by Provider escitalopram oxalate [Lexapro] 20 mg tablet 20 mg PO DAILY trazodone 50 mg tablet 50 mg PO QHS PRN Discharge Instructions Instructions: Laceration (ED) Additional Instructions: keep wound clean and dry bacitracin topically return earlier with new or worsening complaints Referrals: Makayla Noland [Primary Care Provider] - Discharge Data Discharge Date/Time-TO BE ENTERED AT DEPARTURE: 01/07/23 21:25 Medical Decision Making 37-year-old male identifying as female with 7 small superficial lacerations on left forearm, wounds cleansed and dressing applied, adamantly denies any suicidal ideation, feels comfortable with discharge home, discharged home in stable condition with stable vitals, tetanus up-to-date Neurovascularly intact HPI General Date/Time Provider Initiated Documentation: 01/07/23 21:11 . HPI Narrative: This 37-year-old male identifying as female presents for evaluation of self- harm, concern regarding his lacerations, she is engaged in self-harm before, she was not attempting to take her life, just to take away her anxiety . Denies any additional injuries, tetanus up-to-date. Specifically denies any suicidal or homicidal ideation. Related Data Home Medications Medication Instructions Recorded Confirmed estradiol 2 mg tablet See Rx Instructions .Route .COMPLEX 02/20/22 01/07/23 spironolactone 50 mg tablet 200 mg PO BID 02/20/22 01/07/23 quetiapine 25 mg tablet 25 tab PO QAM 03/12/22 01/07/23 buspirone 5 mg tablet 15 mg PO BID 04/08/22 01/07/23 allopurinol 100 mg tablet 200 mg PO DAILY 04/14/22 01/07/23 quetiapine 25 mg tablet (Seroquel) 50 mg PO HS 04/15/22 01/07/23 sertraline 100 mg tablet 200 mg PO DAILY 04/15/22 01/07/23 levothyroxine 125 mcg tablet 125 mcg PO DAILY@0600 04/16/22 01/07/23 hydroxyzine HCl 25 mg tablet 25 mg PO DAILY 10/20/22 01/07/23 meclizine 25 mg tablet 25 mg PO BID PRN #10 tabs 11/14/22 01/07/23 escitalopram oxalate 20 mg tablet 20 mg PO DAILY 12/22/22 01/07/23 (Lexapro) trazodone 50 mg tablet 50 mg PO QHS PRN 12/22/22 01/07/23 doxycycline hyclate 100 mg capsule 100 mg PO BID #20 caps 01/05/23 01/07/23 Previous Rx's Medication Instructions Recorded meclizine 25 mg tablet 25 mg PO BID PRN #10 tabs 11/14/22 doxycycline hyclate 100 mg capsule 100 mg PO BID #20 caps 01/05/23 Allergies Allergy/AdvReac Type Severity Reaction Status Date / Time strawberry AdvReac Verified 01/07/23 21:07 General Stated Complaint: Laceration SCOTT: 4 PFSH All Active Problems (Updated 01/07/23 @ 21:12 by CANDY Mann) Laceration of left wrist (Acute) Pneumonia (Acute) Normocytic anemia (Acute) COVID-19 virus infection (Acute) Panic attack (Acute) Anxiety (Chronic) Suicidal thoughts (Acute) Suicide gesture (Acute) Depression (Chronic) Medical History Dyspraxia Developmental delay, mild Obesity Hyperlipidemia Type 2 diabetes mellitus Hyperuricemia Gout Anxiety with depression Transgender Surgical History No significant past surgical history Social History Smoking/Tobacco Use Status: Current, status unknown Tobacco Type: e-cigarettes Smoking risk assessment performed?: Yes Alcohol Intake: current Alcohol Intake frequency: a few times a month Alcohol type: beer and hard liquor Drug use: Occasionally Substance use type: marijuana Housing: house Do you feel safe at home: Yes (mentally no physically yes) Do you feel safe in your relationship?: Yes Course Vital Signs Vital signs: Vital Signs Temperature 36.8 C 01/07/23 21:02 Pulse 110 H 01/07/23 21:02 Respiratory Rate 20 01/07/23 21:02 Blood Pressure 162/88 H 01/07/23 21:02 Pulse Oximetry 99 01/07/23 21:02 Temperature 36.8 C 01/07/23 21:02 Temperature Source Oral 01/07/23 21:02 Pulse 110 H 01/07/23 21:02 Respiratory Rate 20 01/07/23 21:02 Respiratory Effort Normal 01/07/23 21:05 Blood Pressure 162/88 H 01/07/23 21:02 Blood Pressure Position Sitting 01/07/23 21:02 Pulse Oximetry 99 01/07/23 21:02 Oxygen Delivery Method Room Air 01/07/23 21:02 Oxygen Flow Rate 0 01/07/23 21:02
== END 2023-01-07 21:25 | disposition home or self-care (01) ==
PROVIDERS: Emergency Provider Physician Assistant; PCP Nurse Practitioner Family
DX: R45.88 Nonsuicidal self-harm (principal); S61.512A Laceration without foreign body of left wrist, initial encounter
CPT/HCPCS: 99282

== ENCOUNTER 2023-01-13 01:56 | Emergency (ER) | payer MEDICARE, MEDICAID, SELFPAY ==
[2023-01-13 02:03] VITALS: PULSE 92; RESP 14; TEMP 36.9; O2SAT 96
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
--- NOTE | 2023-01-13 02:30 | DI.RAD_ITS ---
Exam(s) XR HAND RT COMPLETE EXAM: XR HAND RT COMPLETE CLINICAL HISTORY: trauma. TECHNIQUE: 2D digital imaging was performed of the right hand. Three images were obtained. AP, late ral and oblique views were obtained. COMPARISON: No exams were available for comparison FINDINGS: BONES: No acute fracture is present. No bony destructive lesion is seen. JOINTS: No dislocation present. SOFT TISSUE: Normal. IMPRESSION: Unremarkable radiographs of the right hand. DATA REPOSITORY: RADIATION DOSE DELIVERED:
--- NOTE | 2023-01-13 02:30 | DI.RAD_ITS ---
Exam(s) XR HAND LT COMPLETE EXAM: XR HAND LT COMPLETE CLINICAL HISTORY: trauma. TECHNIQUE: 2D digital imaging was performed of the left hand. Three views were obtained. AP, later al and oblique views were obtained. COMPARISON: CR,XR XR HAND RT COMPLETE from 01/13/2023 FINDINGS: BONES: No acute fracture is present. No bony destructive lesion is seen. JOINTS: No dislocation present. SOFT TISSUE: Normal. IMPRESSION: Unremarkable radiographs of the left hand. DATA REPOSITORY: RADIATION DOSE DELIVERED:
--- NOTE | 2023-01-13 02:30 | DI.CT_ITS ---
Exam(s) CT HEAD WO EXAM: CT HEAD WO CLINICAL HISTORY: diplopia head injury. TECHNIQUE: Imaging Protocol: Axial computed tomography images with coronal and sagittal reformatted images were created and reviewed COMPARISON: No exams were available for comparison FINDINGS: Ventricles and Extra axial spaces: Normal in size and morphology for the patient's age. Hemorrhage: None. Cerebral parenchyma: Normal. Midline shift: None. Brainstem/Cerebellum: Normal. Calvarium: Normal. Visualized Paranasal sinuses/Mastoids: There is mild mucosal thickening in the visualized paranasal s inuses. The mastoid air cells are clear. Soft Tissues: Unremarkable. IMPRESSION: No acute intracranial process. RADIATION DOSE DELIVERED: Total DLP DATA REPOSITORY: All CT scans at this facility are submitted to the National Radiology Data Registry (NRDR) Dose Index Registry (DIR) with the [employer] (A[employer]). RADIATION OPTIMIZATION: All CT scans at this facility use at least one of these dose optimization te chniques: automated exposure control; mA and/or kV adjustment per patient size (includes targeted exa ms where dose is matched to clinical indication); or iterative reconstruction.
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
== END 2023-01-13 04:34 | disposition home or self-care (01) ==
PROVIDERS: Emergency Provider Emergency Medicine Emergency Medical Services; PCP Nurse Practitioner Family
DX: F44.9 Dissociative and conversion disorder, unspecified (principal); T22.112A Burn of first degree of left forearm, initial encounter; T31.0 Burns involving less than 10% of body surface; F41.9 Anxiety disorder, unspecified; H53.2 Diplopia; R41.3 Other amnesia; X08.8XXA Exposure to other specified smoke, fire and flames, initial encounter; S09.90XA Unspecified injury of head, initial encounter; E78.5 Hyperlipidemia, unspecified; E11.9 Type 2 diabetes mellitus without complications; Z79.84 Long term (current) use of oral hypoglycemic drugs
CPT/HCPCS: 99284; 70450; 73130

== ENCOUNTER 2023-01-14 01:24 | Emergency (ER) | payer MEDICARE, MEDICAID, SELFPAY ==
--- NOTE | 2023-01-14 01:10 | NUR.NOTE ---
Nursing Note:pt will not answer this nurses questions, the visitor will. its very difficult to assess the pt due to the pt not wanting to speak, the pt would only answer i don't know to any questions
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
[2023-01-14 01:40] VITALS: BP 133/93; PULSE 86; RESP 16; TEMP 36.6; O2SAT 97
== END 2023-01-14 01:54 | disposition home or self-care (01) ==
PROVIDERS: Emergency Provider Emergency Medicine Emergency Medical Services; PCP Nurse Practitioner Family
DX: F44.9 Dissociative and conversion disorder, unspecified (principal); F17.290 Nicotine dependence, other tobacco product, uncomplicated; E11.9 Type 2 diabetes mellitus without complications
CPT/HCPCS: 99283

== ENCOUNTER 2023-01-24 18:47 | Emergency (ER) | payer MEDICARE, MEDICAID, SELFPAY ==
[2023-01-24 18:52] VITALS: BP 131/90; PULSE 81; RESP 16; TEMP 36.3; O2SAT 100
[2023-01-24 19:12] VITALS: BP 123/78; BP 126/77; BP 130/83; PULSE 78; PULSE 82; PULSE 91
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
== END 2023-01-24 19:53 | disposition home or self-care (01) ==
PROVIDERS: Emergency Provider Nurse Practitioner Acute Care; PCP Nurse Practitioner Family
DX: R42 Dizziness and giddiness (principal); E78.5 Hyperlipidemia, unspecified; E11.9 Type 2 diabetes mellitus without complications; F64.0 Transsexualism; F17.290 Nicotine dependence, other tobacco product, uncomplicated; Z79.84 Long term (current) use of oral hypoglycemic drugs
CPT/HCPCS: 99282

== ENCOUNTER 2023-01-25 18:20 | Emergency (ER) | payer MEDICARE, MEDICAID, SELFPAY ==
[2023-01-25 18:26] VITALS: BP 133/89; PULSE 101; RESP 18; TEMP 36.5; O2SAT 96
--- NOTE | 2023-01-25 19:03 | DSE_ITS ---
Discharge Plan Disposition Patient Disposition: Home Condition: Stable Discharge Details Clinical Impression: Manipulative behavior, Depression Primary Care Provider: Makayla Noland ED Provider: Modesta Negron Home Meds and New Rx's Prescriptions: Continued ondansetron HCl 4 mg tablet 4 mg PO Q8H PRN (Reason: nausea and vomiting) Qty: 10 0RF spironolactone 50 mg tablet 200 mg PO BID estradiol 2 mg tablet See Rx Instructions .ROUTE .COMPLEX Rx Instructions: 4mg in AM, 2mg in PM allopurinol 100 mg tablet 200 mg PO DAILY Patient Comments: TAKE 2 TABLETS BY MOUTH DAILY Rx Instructions: 2 tablets daily per [facility] records levothyroxine 125 mcg Tablet 125 mcg PO DAILY@0600 Patient Comments: pt states they have not taken in 2 weeks meclizine 25 mg tablet 25 mg PO BID PRNQty: 10 0RF doxycycline hyclate 100 mg capsule 100 mg PO BID Qty: 20 0RF escitalopram oxalate [Lexapro] 20 mg tablet 20 mg PO DAILY trazodone 50 mg tablet 50 mg PO QHS PRN Discharge Instructions Instructions: Depression (DC) Additional Instructions: Follow-up outpatient with your psychiatric team Referrals: Makayla Noland [Primary Care Provider] - DS: Data Vitals/I&O Vitals and I&O: Vital Signs Temperature 36.5 C 01/25/23 18:26 Temperature Source Temporal Artery Scan 01/25/23 18:26 Pulse 101 H 01/25/23 18:26 Respiratory Rate 18 01/25/23 18:26 Blood Pressure 133/89 01/25/23 18:26 Pulse Oximetry 96 01/25/23 18:26 Oxygen Delivery Method Room Air 01/25/23 18:26 Oxygen Flow Rate 0 01/25/23 18:26 Intake & Output 01/24/23 01/25/23 01/25/23 23:59 11:59 23:59 Weight 124.284 kg PFSH All Active Problems (Updated 01/25/23 @ 19:08 by Modesta Negron NP) Manipulative behavior (Acute) Dizziness (Acute) Amnesia memory loss (Acute) Dissociative disorder (Acute) Burn of first degree of left forearm, initial encounter (Acute) Abrasion of forearm, left (Acute) Diplopia (Acute) Closed head injury (Acute) Laceration of left wrist (Acute) Pneumonia (Acute) Normocytic anemia (Acute) COVID-19 virus infection (Acute) Panic attack (Acute) Suicidal thoughts (Acute) Suicide gesture (Acute) Depression (Chronic) Medical History Dyspraxia Developmental delay, mild Obesity Hyperlipidemia Type 2 diabetes mellitus Hyperuricemia Gout Anxiety with depression Transgender Surgical History No significant past surgical history Social History Smoking/Tobacco Use Status: Current, status unknown Tobacco Type: e-cigarettes Smoking risk assessment performed?: Yes Alcohol Intake: current Alcohol Intake frequency: a few times a month Alcohol type: beer and hard liquor Drug use: Occasionally Substance use type: marijuana Housing: house Do you feel safe at home: Yes (mentally no physically yes) Do you feel safe in your relationship?: Yes
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
== END 2023-01-25 19:56 | disposition home or self-care (01) ==
PROVIDERS: Emergency Provider Nurse Practitioner Acute Care; PCP Nurse Practitioner Family
DX: F32.A Depression, unspecified (principal)
CPT/HCPCS: 99283; 99282

== ENCOUNTER 2023-03-07 21:08 | Emergency (ER) | payer MEDICARE, MEDICAID, SELFPAY ==
[2023-03-07 21:13] VITALS: BP 166/107; PULSE 114; RESP 16; TEMP 36.5; O2SAT 98
[2023-03-07 21:21] VITALS: BP 166/107; PULSE 114; RESP 16; TEMP 36.5; O2SAT 98
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
[2023-03-07] MEDS: Promethazine 25 MG TAB PO (22:36)
[2023-03-07 23:00] VITALS: BP 134/82; PULSE 108; RESP 18; TEMP 36.7; O2SAT 97
== END 2023-03-07 23:05 | disposition home or self-care (01) ==
PROVIDERS: Emergency Provider Nurse Practitioner Acute Care; PCP Nurse Practitioner Family
DX: B34.9 Viral infection, unspecified (principal); E78.5 Hyperlipidemia, unspecified; E11.9 Type 2 diabetes mellitus without complications; Z11.52 Encounter for screening for COVID-19
CPT/HCPCS: 87426; 99283

== ENCOUNTER 2023-03-13 17:04 | Outpatient (REF) | payer MEDICARE, MEDICAID, SELFPAY | END 2023-03-13 17:05 | disposition home or self-care (01) | LOC: NCHCN 17:04 | PROVIDERS: PCP Nurse Practitioner Family; Visit Provider Physician Assistant | DX: J02.9 Acute pharyngitis, unspecified (principal) | CPT/HCPCS: 87070 ==

== ENCOUNTER 2023-06-09 12:56 | Emergency (ER) | payer MEDICARE, MEDICAID, SELFPAY ==
[2023-06-09] VITALS (15 sets, daily range): BP systolic 94–134; BP diastolic 63–101; PULSE 81–124; RESP 8–25; TEMP 36.3–37; O2SAT 97–98
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
--- NOTE | 2023-06-09 13:15 | RT.EKG_ITS ---
APPROVED REPORT Exam: Resting ECG Reason for Exam: Dizziness Patient Location: E HR:109 bpm ECG Measurements Heart Rate 109 AXIS AL 149 P 16 QRSd 80 QRS 1 QT 328 T 32 QTc 441 Conclusion Sinus tachycardia...rate> 99 Low voltage, precordial leads...precordial leads <1.0mV Narrow complex sinus tachycardia rate of 109. Left axis deviation no signs of LVH based on voltage c riteria in aVL. Intervals within normal limits. Low voltage chest wall leads. Compared to prior da noy last year chest wall voltage is slightly decreased. Left axis deviation is new. No acute injury pattern.
[2023-06-09 13:50] LABS: Abs Immature Grans 0.05 10^3/uL (0.0-0.06); Absolute Basophil Count 0.05 10^3/uL (0.0-0.2); Absolute Eosinophil Count 0.09 10^3/uL (0.0-0.7); Absolute Lymphocyte Count 2.11 10^3/uL (1.2-3.4); Absolute Monocyte Count 0.63 10^3/uL (0.1-0.8); Basophils % 0.4; Eosinophils % 0.8; HCT 40.2 % (40.0-50.0); HGB 13.7 g/dL (13.5-17.5); Immature Grans % 0.4; Lymphocytes % 18.6; MCH 28.2 pg (27.0-33.0); MCHC 34.1 % (32.0-36.0); MCV 83 fL (80-95); Monocytes % 5.6; Neutrophils % 74.2; Platelet Count 301 10^3/uL (130-400); RBC 4.86 10^6/uL (4.36-5.78); RDW 12.8 % (11.8-14.1); RDW-SD 38.5 fL; WBC 11.33 10^3/uL (4.4-10.8)
[2023-06-09 13:51] LABS: Absolute Neutrophil Count 8.41 10^3/uL (1.2-6.7)
[2023-06-09 13:56] LABS: Anion Gap 9.3 mmol/L (3-11); BUN 14 mg/dL (7-18); CO2 27.7 mmol/L (21.0-32.0); CREATININE 1.2 mg/dL (0.70-1.30); Calcium 9.3 mg/dL (8.5-10.1); Chloride 99 mmol/L (98-107); Estimated GFR 80.38 (mL/min/1.73m2); Glucose 140 mg/dL (74-106); Sodium 136 mmol/L (136-145)
[2023-06-09] MEDS: Normal Saline 1,000 ML 1000 ML IV (14:00)
[2023-06-09] MEDS: Ketorolac 15 MG/ML VIAL IVP (14:01)
[2023-06-09] MEDS: Metoclopramide 10 MG/2 ML VIAL IVP (14:02)
== END 2023-06-09 14:47 | disposition home or self-care (01) ==
PROVIDERS: Emergency Provider Emergency Medicine; PCP Nurse Practitioner Family
DX: R51.9 Headache, unspecified (principal); R42 Dizziness and giddiness; Z86.59 Personal history of other mental and behavioral disorders
CPT/HCPCS: 36415; 80048; 93005; 96374; 96375; 99284; 85025; 93010; 99283; J1885; J2765

== ENCOUNTER 2024-01-18 16:59 | Emergency (ER) | payer MEDICARE, MEDICAID, SELFPAY ==
[2024-01-18 17:05] VITALS: BP 142/97; PULSE 110; RESP 18; TEMP 36.4; O2SAT 100
[2024-01-18 17:39] VITALS: RESP 16
[2024-01-18] MEDS: ALPRAZolam 0.5 MG TAB 1 MG PO (17:44)
[2024-01-18] MEDS: ALPRAZolam 0.5 MG TAB PO ×2 (18:20)
[2024-01-18 18:21] VITALS: BP 117/77; PULSE 98; RESP 18; O2SAT 96
--- NOTE | 2024-01-18 23:24 | ED.GENADUL_ITS ---
Discharge Plan Disposition Patient Disposition: Home Discharge Details Clinical Impression: Anxiety Primary Care Provider: Makayla Noland ED Provider: Kristen Peck Home Meds and New Rx's Prescriptions: No Action ondansetron HCl 4 mg tablet 4 mg PO Q8H PRN (Reason: nausea and vomiting) Qty: 10 0RF cyclobenzaprine 5 mg tablet 5 mg PO TID PRN (Reason: muscle spasm) Qty: 10 0RF spironolactone 50 mg tablet 200 mg PO BID estradiol 2 mg tablet See Rx Instructions .ROUTE .COMPLEX Rx Instructions: 4mg in AM, 2mg in PM allopurinol 100 mg tablet 200 mg PO DAILY Patient Comments: TAKE 2 TABLETS BY MOUTH DAILY Rx Instructions: 2 tablets daily per [facility] levothyroxine 125 mcg Tablet 125 mcg PO DAILY@0600 Patient Comments: pt states they have not taken in 2 weeks meclizine 25 mg tablet 25 mg PO BID PRNQty: 10 0RF escitalopram oxalate [Lexapro] 20 mg tablet 20 mg PO DAILY lamotrigine 200 mg tablet 200 mg PO DAILY Discharge Instructions Additional Instructions: Please follow-up with your mental health providers for any additional anxiety needs You were discharged with two 0.5 mg Xanax to take overnight as needed. Discharge Data Discharge Date/Time-TO BE ENTERED AT DEPARTURE: 01/18/24 18:27 HPI General Date/Time Provider Initiated Documentation: 01/18/24 17:40 . Limitations to Documentation: no limitations . Information obtained by: patient . HPI Narrative: 38-year-old m>f presents for evaluation of panic attack. Reports that this started around 445 this evening. States that his vision Tylenol and then went blurry. No headache. No clear trigger for the panic attacks. Has had the symptoms before. Denies any SI or HI. Feels safe going home. Denies any medication that is normally taken at home for anxiety. Related Data Home Medications ?Medication ?Instructions ?Recorded ?Confirmed estradiol 2 mg tablet See Rx Instructions .Route .COMPLEX 02/20/22 01/18/24 spironolactone 50 mg tablet 200 mg PO BID 02/20/22 01/18/24 allopurinol 100 mg tablet 200 mg PO DAILY 04/14/22 01/18/24 levothyroxine 125 mcg tablet 125 mcg PO DAILY@0600 04/16/22 01/18/24 meclizine 25 mg tablet 25 mg PO BID PRN #10 tabs 11/14/22 01/18/24 escitalopram oxalate 20 mg tablet 20 mg PO DAILY 12/22/22 01/18/24 (Lexapro) ondansetron HCl 4 mg tablet 4 mg PO Q8H PRN nausea and 01/15/23 01/18/24 vomiting #10 tabs cyclobenzaprine 5 mg tablet 5 mg PO TID PRN muscle spasm #10 02/21/23 01/18/24 tabs lamotrigine 200 mg tablet 200 mg PO DAILY 01/18/24 01/18/24 Previous Rx's ?Medication ?Instructions ?Recorded meclizine 25 mg tablet 25 mg PO BID PRN #10 tabs 11/14/22 ondansetron HCl 4 mg tablet 4 mg PO Q8H PRN nausea and 01/15/23 vomiting #10 tabs cyclobenzaprine 5 mg tablet 5 mg PO TID PRN muscle spasm #10 02/21/23 tabs Allergies Allergy/AdvReac Type Severity Reaction Status Date / Time strawberry AdvReac Skin Rash Verified 01/18/24 17:09 General Stated Complaint: Anxiety SCOTT: 4 Exam Narrative Exam Narrative: Review of Systems: All systems reviewed & are unremarkable except as noted in HPI and below Well-developed +anxious tachycardia Unlabored respiratory effort no focal neurologic deficits Course Vital Signs Vital signs: Vital Signs Temperature 36.4 C L 01/18/24 17:05 Pulse 110 H 01/18/24 17:05 Respiratory Rate 18 01/18/24 17:05 Blood Pressure 142/97 H 01/18/24 17:05 Pulse Oximetry 100 01/18/24 17:05 Temperature 36.4 C L 01/18/24 17:05 Pulse 98 H 01/18/24 18:21 Respiratory Rate 18 01/18/24 18:21 Respiratory Effort Normal, Non-Labored 01/18/24 17:39 Respiratory Depth Normal 01/18/24 17:39 Respiratory Pattern Normal 01/18/24 17:39 Blood Pressure 117/77 01/18/24 18:21 Pulse Oximetry 96 01/18/24 18:21 Pain Level 0 01/18/24 17:05 Medical Decision Making emergent evaluation of anxiety. Patient has a known extensive psychiatric comorbidities. There is no SI or HI, no indication for an EE. A dose of oral Xanax was given and was provided with 2 doses of Xanax to take at home. Quality:SDOH Health Related Social Needs: No Data to Display PFSH All Active Problems Anxiety (Chronic) COVID-19 virus infection (Acute) Suicidal thoughts (Acute) Suicide gesture (Acute) Depression (Chronic) Medical History Dyspraxia Developmental delay, mild Obesity Hyperlipidemia Type 2 diabetes mellitus Hyperuricemia Gout Anxiety with depression Transgender Surgical History No significant past surgical history Social History Smoking/Tobacco Use Status: Current, status unknown Tobacco Type: e-cigarettes Smoking risk assessment performed?: Yes Alcohol Intake: current Alcohol Intake frequency: a few times a month Alcohol type: beer and hard liquor Drug use: Occasionally Substance use type: marijuana Housing: house Do you feel safe at home: Yes (mentally no physically yes) Do you feel safe in your relationship?: Yes Additional Social history: patient lives at home with parents, and fianc?. Was endorsed that home life is jose luis and there was police involved in altercation. DOTTIE PALM 01/25/23
== END 2024-01-18 18:27 | disposition home or self-care (01) ==
LOC: ER 18:10
PROVIDERS: Emergency Provider Emergency Medicine; PCP Nurse Practitioner Family
DX: F41.9 Anxiety disorder, unspecified (principal); E78.5 Hyperlipidemia, unspecified; E11.9 Type 2 diabetes mellitus without complications; F17.290 Nicotine dependence, other tobacco product, uncomplicated; Z79.84 Long term (current) use of oral hypoglycemic drugs
CPT/HCPCS: 99283

== ENCOUNTER 2024-01-21 06:32 | Emergency (ER) | payer MEDICARE, MEDICAID, SELFPAY ==
[2024-01-21] VITALS (16 sets, daily range): BP systolic 110–156; BP diastolic 75–83; PULSE 78–96; RESP 15–19; TEMP 36.3; O2SAT 92–98
--- NOTE | 2024-01-21 06:30 | RT.EKG_ITS ---
APPROVED REPORT Exam: Resting ECG Reason for Exam: syncope Patient Location: E HR:88 bpm ECG Measurements Heart Rate 88 AXIS WY 162 P 26 QRSd 82 QRS -1 QT 372 T 30 QTc 450 Conclusion Sinus rhythm. 88 NORMAL AXIS NO STEMI
--- NOTE | 2024-01-21 07:25 | W.ED.GENAD ---
Discharge Plan Disposition Patient Disposition: Home Condition: Stable Discharge Details Clinical Impression: Headache Primary Care Provider: Makayla Noland ED Provider: Kristen Peck Home Meds and New Rx's Prescriptions: No Action ondansetron HCl 4 mg tablet 4 mg PO Q8H PRN (Reason: nausea and vomiting) Qty: 10 0RF spironolactone 50 mg tablet 200 mg PO BID estradiol 2 mg tablet See Rx Instructions .ROUTE .COMPLEX Rx Instructions: 4mg in AM, 2mg in PM allopurinol 100 mg tablet 200 mg PO DAILY Patient Comments: TAKE 2 TABLETS BY MOUTH DAILY Rx Instructions: 2 tablets daily per [facility] levothyroxine 125 mcg Tablet 125 mcg PO DAILY@0600 Patient Comments: pt states they have not taken in 2 weeks meclizine 25 mg tablet 25 mg PO BID PRNQty: 10 0RF escitalopram oxalate [Lexapro] 20 mg tablet 20 mg PO DAILY lamotrigine 200 mg tablet 200 mg PO DAILY Discharge Instructions Instructions: Headache, Adult ED Additional Instructions: please drink lots of water and follow up with your PCP HPI General Date/Time Provider Initiated Documentation: 01/21/24 06:44. Limitations to Documentation: no limitations. Information obtained by: patient. HPI Narrative: 38y M>F with PMH of depression presents for evaluation of abdominal pain, headache and syncope. reports symptoms started this morning, but she felt fine yesterday. Headache consistent with priors, not worst of life. No medications tried for relief. Denies CP or SOB but localizes pain to LUQ. Denies n/v/d. Denies any preceeding symptoms just reports thats shes passed out a lot. Cannot enumerate. Denies alcohol or drugs. Related Data Home Medications ?Medication ?Instructions ?Recorded ?Confirmed estradiol 2 mg tablet See Rx Instructions .Route .COMPLEX 02/20/22 01/21/24 spironolactone 50 mg tablet 200 mg PO BID 02/20/22 01/21/24 allopurinol 100 mg tablet 200 mg PO DAILY 04/14/22 01/21/24 levothyroxine 125 mcg tablet 125 mcg PO DAILY@0600 04/16/22 01/21/24 meclizine 25 mg tablet 25 mg PO BID PRN #10 tabs 11/14/22 01/21/24 escitalopram oxalate 20 mg tablet 20 mg PO DAILY 12/22/22 01/21/24 (Lexapro) ondansetron HCl 4 mg tablet 4 mg PO Q8H PRN nausea and 01/15/23 01/21/24 vomiting #10 tabs lamotrigine 200 mg tablet 200 mg PO DAILY 01/18/24 01/21/24 Previous Rx's ?Medication ?Instructions ?Recorded meclizine 25 mg tablet 25 mg PO BID PRN #10 tabs 11/14/22 ondansetron HCl 4 mg tablet 4 mg PO Q8H PRN nausea and 01/15/23 vomiting #10 tabs Allergies Allergy/AdvReac Type Severity Reaction Status Date / Time strawberry AdvReac Skin Rash Verified 01/21/24 06:38 General Stated Complaint: Dizzy/Sync SCOTT: 3 Exam Narrative Exam Narrative: Review of Systems: All systems reviewed & are unremarkable except as noted in HPI and below Well-developed, no acute distress NCAT moist mucus membranes RRR, no murmur Unlabored respiratory effort, CTAB Nondistended abdomen, soft nt, no guarding or rebound no focal neurologic deficits flat affect, avoids eye contact Course Vital Signs Vital signs: Vital Signs Temperature 36.3 C L 01/21/24 06:39 Pulse 94 H 01/21/24 06:39 Respiratory Rate 16 01/21/24 06:39 Blood Pressure 156/83 H 01/21/24 06:39 Pulse Oximetry 98 01/21/24 06:39 Temperature 36.3 C L 01/21/24 06:39 Temperature Source Temporal Artery Scan 01/21/24 06:39 Pulse 94 H 01/21/24 06:39 Respiratory Rate 16 01/21/24 06:39 Respiratory Effort Normal, Non-Labored 01/21/24 06:45 Respiratory Depth Normal 01/21/24 06:45 Respiratory Pattern Normal 01/21/24 06:45 Blood Pressure 156/83 H 01/21/24 06:39 Blood Pressure Position Sitting 01/21/24 06:39 Pulse Oximetry 98 01/21/24 06:39 Oxygen Delivery Method Room Air 01/21/24 06:39 Oxygen Flow Rate 0 01/21/24 06:39 Pain Level 9 01/21/24 06:39 Medical Decision Making Emergent evaluation of headache abdominal pain and reported syncope. EKG reviewed and independently interpreted: Sinus 88 normal axis normal intervals, QTc 450. The patient is not able to fully describe the episodes of syncope or confirm that they are even existing. I doubt acute intracranial process given the lack of neurologic findings and that this headache is consistent with prior. There are no infectious symptoms concerning for this headache. She does take estrogen supplements which would increase her risk for thromboembolic event. Plan for cardiac monitoring, lab work to evaluate for electrolyte derangement and screen for cardiac and DVT etiologies. Will give droperidol for treatment of symptoms and reassess. Lab work reviewed. There is a mild leukocytosis at 13 which is consistent with prior values for this patient. No anemia. The D-dimer is within normal limits making DVT or PE unlikely. There is no electrolyte derangement there is mild hyperglycemia without evidence of DKA. Troponin is below the detectable level. The patient reports symptom improvement after medication. At this time it is unclear that there is been true syncope so I do not feel that hospitalization is warranted. Recommend continued home treatment and close PCP follow-up. Return precautions Quality:SDOH Health Related Social Needs: No Data to Display PFSH All Active Problems (Updated 01/21/24 @ 08:52 by Kristen Pcek MD) Headache (Acute) Anxiety (Chronic) COVID-19 virus infection (Acute) Suicidal thoughts (Acute) Suicide gesture (Acute) Depression (Chronic) Medical History Dyspraxia Developmental delay, mild Obesity Hyperlipidemia Type 2 diabetes mellitus Hyperuricemia Gout Anxiety with depression Transgender Surgical History No significant past surgical history Social History Smoking/Tobacco Use Status: Current, status unknown Tobacco Type: e-cigarettes Smoking risk assessment performed?: Yes Alcohol Intake: current Alcohol Intake frequency: a few times a month Alcohol type: beer and hard liquor Drug use: Occasionally Substance use type: marijuana Housing: house Do you feel safe at home: Yes (mentally no physically yes) Do you feel safe in your relationship?: Yes Additional Social history: patient lives at home with parents, and fianc?. Was endorsed that home life is jose luis and there was police involved in altercation. ARPITA RN 01/25/23
[2024-01-21] MEDS: Droperidol 5 MG/2 ML VIAL IVP (07:50)
[2024-01-21 07:51] LABS: Absolute Basophil Count 0.07 10^3/uL (0.0-0.2); Absolute Lymphocyte Count 3.08 10^3/uL (1.2-3.4); Absolute Neutrophil Count 9.08 10^3/uL (1.2-6.7); Basophils % 0.5 %; Eosinophils % 1.1 %; HCT 40.3 % (40.0-50.0); HGB 13.4 g/dL (13.5-17.5); Immature Grans % 0.8 %; Lymphocytes % 23.5 %; MCHC 33.3 % (32.0-36.0); MCV 84 fL (80-95); MPV 9.8 fL (8.0-11.0); Monocytes % 4.7 %; Neutrophils % 69.4 %; Platelet Count 302 10^3/uL (130-400); RBC 4.79 10^6/uL (4.36-5.78); RDW 12.2 % (11.8-14.1); RDW-SD 36.6 fL; WBC 13.09 10^3/uL (4.4-10.8)
[2024-01-21 07:54] LABS: Absolute Eosinophil Count 0.14 10^3/uL (0.0-0.7); Absolute Monocyte Count 0.62 10^3/uL (0.1-0.8)
[2024-01-21 08:12] LABS: ALT 29 U/L (16-63); AST 19 U/L (15-37); Albumin 3.7 g/dL (3.4-5.0); Alkaline Phosphatase 84 U/L (46-116); Anion Gap 10.7 mmol/L (3-11); BUN 13 mg/dL (7-18); Bilirubin, Total 0.38 mg/dL (0.2-1.0); CO2 27.3 mmol/L (21.0-32.0); CREATININE 1.3 mg/dL (0.70-1.30); Calcium 9.1 mg/dL (8.5-10.1); Chloride 101 mmol/L (98-107); Estimated GFR 72.56 (mL/min/1.73m2); Glucose 172 mg/dL (74-106); Potassium 4.2 mmol/L (3.5-5.1); Sodium 139 mmol/L (136-145); Total Protein 7.7 g/dL (6.4-8.2)
[2024-01-21 08:13] LABS: Troponin I < 4 ng/L (<or=76)
[2024-01-21 08:20] LABS: Lipase 29 U/L (16-77)
[2024-01-21 08:31] LABS: D-Dimer 168 ng/mlFEU (<500)
== END 2024-01-21 09:06 | disposition home or self-care (01) ==
PROVIDERS: Emergency Provider Emergency Medicine; PCP Nurse Practitioner Family
DX: R51.9 Headache, unspecified (principal); E78.5 Hyperlipidemia, unspecified; E11.9 Type 2 diabetes mellitus without complications; F17.290 Nicotine dependence, other tobacco product, uncomplicated; Z79.84 Long term (current) use of oral hypoglycemic drugs
CPT/HCPCS: 80053; 83690; 93005; 84484; 85025; 85379; 93010; J1790

== ENCOUNTER 2024-02-20 15:53 | Outpatient (REF) | payer MEDICARE, MEDICAID, SELFPAY ==
[2024-02-20 16:55] LABS: Hemoglobin A1C 6.4 % (<5.7)
[2024-02-20 17:05] LABS: Calculated LDL 164 mg/dL (<100); Cholesterol 249 mg/dL (<200); HDL Cholesterol 53 mg/dL (40-60); Triglyceride 160 mg/dL (<150)
[2024-02-20 17:22] LABS: FREE T4 0.69 ng/dL (0.76-1.46); Uric Acid 7.1 mg/dL (3.5-7.2)
== END 2024-02-20 15:54 | disposition home or self-care (01) ==
LOC: NCHCN 15:53
PROVIDERS: PCP Nurse Practitioner Family; Visit Provider Nurse Practitioner Family
DX: E11.9 Type 2 diabetes mellitus without complications (principal)
CPT/HCPCS: 80061; 83036; 84439; 84443; 84550

== ENCOUNTER 2024-09-29 13:51 | Outpatient (REF) | payer MEDICARE, MEDICAID, SELFPAY ==
[2024-09-29 15:40] LABS: TSH (W/Ref FT4) 3.60 uIU/mL (0.36-3.74)
== END 2024-09-29 13:52 | disposition home or self-care (01) ==
LOC: NCHCN 13:51
PROVIDERS: PCP Nurse Practitioner Family; Visit Provider Nurse Practitioner Family
DX: E03.9 Hypothyroidism, unspecified (principal)
CPT/HCPCS: 84443

== ENCOUNTER 2024-10-31 05:08 | Observation (INO) | payer MEDICARE, MEDICAID, SELFPAY ==
[2024-10-31] VITALS (55 sets, daily range): BP systolic 104–122; BP diastolic 50–82; PULSE 65–90; RESP 12–20; TEMP 36.5–36.6; O2SAT 93–98
--- NOTE | 2024-10-31 05:00 | RT.EKG_ITS ---
APPROVED REPORT Exam: Resting ECG Reason for Exam: OD Patient Location: E HR:71 bpm ECG Measurements Heart Rate 71 AXIS RI 157 P 29 QRSd 82 QRS 21 QT 399 T 26 QTc 433 Conclusion Sinus rhythm...normal P axis, V-rate 60- 99 Low voltage, precordial leads...precordial leads <1.0mV appropriate intervals
--- NOTE | 2024-10-31 05:16 | W.ED.GENAD ---
Discharge Plan Discharge Details Chief Complaint: OD/Poison Clinical Impression: Overdose, Suicide attempt, Altered mental status Primary Care Provider: Makayla Noland ED Provider: Erica Delvalle Home Meds and New Rx's Prescriptions: No Action spironolactone 50 mg tablet 200 mg PO BID estradiol 2 mg tablet See Rx Instructions .ROUTE .COMPLEX Rx Instructions: 4mg in AM, 2mg in PM allopurinol 100 mg tablet 200 mg PO DAILY Patient Comments: TAKE 2 TABLETS BY MOUTH DAILY Rx Instructions: 2 tablets daily per [facility] records levothyroxine 125 mcg Tablet 125 mcg PO DAILY@0600 Patient Comments: pt states they have not taken in 2 weeks meclizine 25 mg tablet 25 mg PO BID PRNQty: 10 0RF escitalopram oxalate [Lexapro] 20 mg tablet 20 mg PO DAILY lamotrigine 200 mg tablet 200 mg PO DAILY quetiapine 50 mg tablet 50 mg PO HS HPI General Mode of arrival: EMS. Date/Time Provider Initiated Documentation: 10/31/24 05:13. Limitations to Documentation: altered mental status. Information obtained by: patient and EMS. HPI Narrative: 39yo MTF individual with hx depression, T2DM, gout, presenting via EMS for unresponsiveness after intentional overdose. For EMS somnolent but arousable, GCS 14, normal vital signs en route. They state they took their home medications in attempt to end their life. Not sure which ones or how much; thinks they took their mood stabilizer as well as trazadone (not currently prescribed but had some left over from prior prescription). Feels sleepy, otherwise denies medical complaints. No chest pain, shortenss of breath, nasuea, vomiting, diarrhea, abdominal pain, or other concerns. Related Data Home Medications ?Medication ?Instructions ?Recorded ?Confirmed estradiol 2 mg tablet See Rx Instructions .Route .COMPLEX 02/20/22 10/31/24 spironolactone 50 mg tablet 200 mg PO BID 02/20/22 10/31/24 allopurinol 100 mg tablet 200 mg PO DAILY 04/14/22 10/31/24 levothyroxine 125 mcg tablet 125 mcg PO DAILY@0600 04/16/22 10/31/24 meclizine 25 mg tablet 25 mg PO BID PRN #10 tabs 11/14/22 10/31/24 escitalopram oxalate 20 mg tablet 20 mg PO DAILY 12/22/22 10/31/24 (Lexapro) lamotrigine 200 mg tablet 200 mg PO DAILY 01/18/24 10/31/24 quetiapine 50 mg tablet 50 mg PO HS 10/31/24 10/31/24 Previous Rx's ?Medication ?Instructions ?Recorded meclizine 25 mg tablet 25 mg PO BID PRN #10 tabs 11/14/22 Allergies Allergy/AdvReac Type Severity Reaction Status Date / Time strawberry AdvReac Skin Rash Verified 10/31/24 05:17 General Stated Complaint: OD/Poison SCOTT: 2 Review of Systems Narrative: see HPI Exam Narrative Exam Narrative: General:Somnolent, arouses to voice. Head: Normocephalic, atraumatic Neck: Trachea midline, ?Neck supple. ENT: ?MMM.? No oropharygeal lesions or exudate. TM's clear. Cardiac: ?RRR, no murmurs appreciated Resp: No respiratory distress. CTAB. Abd: ?Soft, non-distended, nontender : ?No suprapubic tenderness. Extremities: ?No deformities.? No peripheral edema. Neuro: ? GCS 14 ([id number]).? PERR, miosis.? EOMI.? Fluent speech, no dysarthria. Motor- Moves all extremities against gravity. Sensation- ?Intact to light touch and symmetric multiple dermatomes including upper and lower extremities Coordination- Non adherent with assessment Reflexes- 2/4 achilles & patellar, no clonus Gait/station: ?Not tested CRANIAL NERVES: II: Pupils equal and reactive, III, IV, : EOM intact, no gaze preference or deviation, no nystagmus. V: normal sensation in V1, V2, and V3 segments bilaterally VII: no asymmetry, no nasolabial fold flattening VIII: normal hearing to speech IX, X: normal palatal elevation, no uvular deviation XI: Non adherent with assessment XII: midline tongue protrusion Course Vital Signs Vital signs: Vital Signs Temperature 36.6 C 10/31/24 05:08 Pulse 76 10/31/24 05:08 Respiratory Rate 18 10/31/24 05:08 Blood Pressure 117/79 10/31/24 05:08 Pulse Oximetry 95 10/31/24 05:08 Temperature 36.6 C 10/31/24 05:08 Temperature Source Tympanic 10/31/24 05:08 Pulse 76 10/31/24 05:08 Respiratory Rate 18 10/31/24 05:08 Blood Pressure 117/79 10/31/24 05:08 Pulse Oximetry 95 10/31/24 05:08 Pain Level 0 10/31/24 05:08 Medical Decision Making 39yo MTF individual with hx depression, T2DM, gout, presenting via EMS for unresponsiveness after intentional overdose on unknown medications. Patient states trazadone, mood stabilizer (likely lamotrigine based on med list), and the rest of them. Med list includes: allopurinol, lexapro, estradiol, lamotrigine, levothyroxine, meclizine, quetiapine, spirinolactone. This occurred at around 0200 this morning. Currently sleepy, otherwise no symptoms. Vital signs reassuring on arrival, on exam somnolent but arousable to voice, GCS 14, no focal neurologic deficits. Miosis, PERRL. Normal reflexes. EKG NSR, appropriate intervals. 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 No indication of serotonin syndrome. No indication of trauma on exam, no hx to suggest head trauma; would not get head CT. Labs reviewed as below, CBC wtih mild leukocytosis and anemia, CMP with no actionable abnormalities, Mg normal, TSH elevated with low T4 consistent with known hypothyroidism and not suggestive of overdose on levothyroxine, serum tox negative (lamotrigene level sent out), VBG with mild respiratory alkalosis. Discussed with poison control including all of the medications pt is prescribed, agree with assessment of primary PROCESS ENGINEERING TECHNICIAN depressant picture. Advised observation until mental status improving and patient more alert (anticipate 6-8 hours from time of ingestion). Once medically cleared will need HS referall. Placed on safety sit. Will be signed out to onomcing tanishaan, plan as above. Lab Data Lab results reviewed: Yes I reviewed the patient's lab results. PFSH All Active Problems (Updated 10/31/24 @ 06:49 by Erica Delvalle MD) Altered mental status (Acute) Suicide attempt (Acute) Overdose (Acute) COVID-19 virus infection (Acute) Suicidal thoughts (Acute) Suicide gesture (Acute) Depression (Chronic) Medical History Dyspraxia Developmental delay, mild Obesity Hyperlipidemia Type 2 diabetes mellitus Hyperuricemia Gout Anxiety with depression Transgender Surgical History No significant past surgical history Social History Smoking/Tobacco Use Status: Current, status unknown Tobacco Type: e-cigarettes Smoking risk assessment performed?: Yes Alcohol Intake: current Alcohol Intake frequency: a few times a month Alcohol type: beer and hard liquor Drug use: Occasionally Substance use type: marijuana Housing: house Do you feel safe at home: Yes (mentally no physically yes) Do you feel safe in your relationship?: Yes Additional Social history: patient lives at home with parents, and fianc?. Was endorsed that home life is jose luis and there was police involved in altercation. ARPITA RN 01/25/23
[2024-10-31 05:32] LABS: BE (Venous) -1 mmol/L (-2-3); HCO3 (Venous) 23 mmol/L (23-28); O2 Sat (Venous) 98 %; TCO2 (Venous) 21 mmol/L (24-29); pCO2 (Venous) 32 mmHg (41-51); pO2 (Venous) 131 mmHg
[2024-10-31 05:43] LABS: Abs Immature Grans 0.05 10^3/uL (0.0-0.06); HCT 37.8 % (40.0-50.0); HGB 12.4 g/dL (13.5-17.5); Immature Grans % 0.4 %; MCH 28.1 pg (27.0-33.0); MCHC 32.8 % (32.0-36.0); MCV 86 fL (80-95); MPV 9.8 fL (8.0-11.0); Platelet Count 297 10^3/uL (130-400); RBC 4.42 10^6/uL (4.36-5.78); RDW 12.5 % (11.8-14.1); RDW-SD 38.5 fL; WBC 12.24 10^3/uL (4.4-10.8)
[2024-10-31 06:01] LABS: Acetaminophen < 2 ug/mL (10-30); Salicylate < 2.8 mg/dL (<2.8)
[2024-10-31 06:02] LABS: ALT 20 U/L (16-63); AST 12 U/L (15-37); Albumin 3.7 g/dL (3.4-5.0); Alkaline Phosphatase 85 U/L (46-116); Anion Gap 6.7 mmol/L (3-11); BUN 15 mg/dL (7-18); Bilirubin, Total 0.2 mg/dL (0.2-1.0); CO2 30.3 mmol/L (21.0-32.0); Calcium 9.9 mg/dL (8.5-10.1); Chloride 102 mmol/L (98-107); Estimated GFR 88.12 (mL/min/1.73m2); Glucose 139 mg/dL (74-106); Magnesium 2.1 mg/dL (1.8-2.4); Potassium 4.0 mmol/L (3.5-5.1); Sodium 139 mmol/L (136-145); Total Protein 7.3 g/dL (6.4-8.2); Troponin I 4 ng/L (<or=76)
[2024-10-31 06:14] LABS: ALT 20 U/L (16-63); AST 13 U/L (15-37); Albumin 3.7 g/dL (3.4-5.0); Alkaline Phosphatase 85 U/L (46-116); Bilirubin, Direct 0.1 mg/dL (0.0-0.2); Bilirubin, Total 0.2 mg/dL (0.2-1.0); Total Protein 7.2 g/dL (6.4-8.2)
[2024-10-31 06:35] LABS: TSH (W/Ref FT4) 14.18 uIU/mL (0.36-3.74)
[2024-10-31 07:08] LABS: Troponin I 4 ng/L (<or=76)
--- NOTE | 2024-10-31 09:08 | W.EDPROG ---
Date of service: 10/31/24 Time of Service: 09:08 Medical Decision Making Patient was signed out to me pending prolonged observation. Please refer to Dr. Nolasco's physical exam, history, assessment and plan. Patient's laboratory workup returned fairly unremarkable, minimally elevated white count, slightly alkalotic VBG, likely respiratory related. Electrolytes normal, EKG stable, troponins normal. TSH elevated with a low free T4, likely secondary to medication noncompliance. This appears chronic on review of labs, and less likely acute. Salicylate acetaminophen and alcohol level negative. Pending UDS. Patient was reassessed by myself, patient still notably sleepy, but certainly not obtunded. Patient rouses easily, but feels extremely fatigued. Patient feels weak in all extremities, but no focal component to suggest stroke. No hyperreflexia, hyperthermia, or leadpipe rigidity. Poison control feels that the patient needs a minimum of 6 to 12 hours until the patient would be medically cleared. The actual amount of ingested medications is uncertain, and was described as a handful. At this time the patient would benefit from prolonged observation until symptomatology from medications has resolved. Discussed the case with the hospitalist Dr. Saleh, he agrees with the assessment and plan. I have extensively reviewed the treatment plan with the patient. I have addressed all patient concerns at this time. I have also discussed the plan with the admitting physician and they agree with the current assessment and plan and have agreed to assume responsibility for the patient. All parties demonstrate verbal understanding and agreement with our assessment and plan at this time. The documentation in this chart was dictated using [email or web address] dictation software. Please excuse any dictation errors. Critical Care Time Critical Care Time Critical Care Time: Yes Total Critical Care Time: 25 Attestation: Upon my evaluation, this patient had a high probability of imminent or life-threatening deterioration, which required my direct attention, intervention, and personal management. I have personally provided 25 minutes of critical care time exclusive of time spent on separately billable procedures. Time includes review of laboratory data, radiology results, discussion with consultants, and monitoring for potential decompensation. Interventions were performed as documented. Discharge Plan Disposition Patient Disposition: Admit to [facility] Condition: Improving Discharge Details Clinical Impression: Overdose, Suicide attempt, Altered mental status Primary Care Provider: Makayla Noland ED Provider: Evan Najera Home Meds and New Rx's Prescriptions: No Action spironolactone 50 mg tablet 200 mg PO BID estradiol 2 mg tablet See Rx Instructions .ROUTE .COMPLEX Rx Instructions: 4mg in AM, 2mg in PM allopurinol 100 mg tablet 200 mg PO DAILY Patient Comments: TAKE 2 TABLETS BY MOUTH DAILY Rx Instructions[facility] levothyroxine 125 mcg Tablet 125 mcg PO DAILY@0600 Patient Comments: pt states they have not taken in 2 weeks meclizine 25 mg tablet 25 mg PO BID PRNQty: 10 0RF escitalopram oxalate [Lexapro] 20 mg tablet 20 mg PO DAILY lamotrigine 200 mg tablet 200 mg PO DAILY quetiapine 50 mg tablet 50 mg PO HS
--- NOTE | 2024-10-31 10:57 | W.PC.ACHO ---
Registration Status: REG ER Primary Language: Preferred Language: Arabic ED Information & Data Chief Complaint OD/Poison 10/31/24 05:16 Triage Note family found PT crumpled on 10/31/24 05:08 the floor. PTs friend said they saw PT with a mouth full of pills but they spit some of them out. EMS found a bottle of trazadone with some chewed up pills near the PT. PT states that they took trazadone and their other meds at 0200 Medical / Surgical History Dyspraxia Developmental delay, mild Obesity Hyperlipidemia Type 2 diabetes mellitus Hyperuricemia Gout Anxiety with depression Transgender (Last Reviewed 01/21/24 @ 07:27 by Kristen Peck MD) No significant past surgical history Most Recent Vital Signs Temperature 36.6 C 10/31/24 05:08 Temperature Source Tympanic 10/31/24 05:08 Pulse 71 10/31/24 10:46 Pulse 72 10/31/24 10:46 Respiratory Rate 16 10/31/24 10:46 Respiratory Effort Normal 10/31/24 05:13 Blood Pressure 109/50 L 10/31/24 10:46 Blood Pressure Mean 71 10/31/24 10:46 Pulse Oximetry 96 10/31/24 10:46 Respiratory End-tidal CO2 39 10/31/24 10:46 Pain Level 0 10/31/24 05:08 Allergies strawberry Adverse Reaction (Verified 10/31/24 05:17) Skin Rash IV IV Catheter Type [Left Upper Peripheral IV arm] IV Catheter Gauge [Left Upper 18 arm] Diet Orders Category Date Time Status Regular/Normal [DIET] Nutrition 10/31/24 Breakfast Active Diagnostics 10/31/24 10/31/24 10/31/24 Range/Units 08:14 06:35 05:35 WBC (4.4-10.8) 10^3/uL RBC (4.36-5.78) 10^6/uL Hgb (13.5-17.5) g/dL Hct (40.0-50.0) % MCV (80-95) fL MCH (27.0-33.0) pg MCHC (32.0-36.0) % RDW (11.8-14.1) % Plt Count (130-400) 10^3/uL MPV (8.0-11.0) fL Immature Gran % % Neutrophils % % Lymphocytes % % Monocytes % % Eosinophils % % Basophils % % Nucleated RBC % (0.0-0.3) % Absolute Neutrophils (1.2-6.7) 10^3/uL Absolute Lymphocytes (1.2-3.4) 10^3/uL Absolute Monocytes (0.1-0.8) 10^3/uL Absolute Eosinophils (0.0-0.7) 10^3/uL Absolute Basophils (0.0-0.2) 10^3/uL VBG pH (7.31-7.41) VBG pCO2 (41-51) mmHg VBG pO2 mmHg VBG HCO3 (23-28) mmol/L VBG Total CO2 (24-29) mmol/L VBG O2 Saturation % VBG Base Excess (-2-3) mmol/L Sodium (136-145) mmol/L Potassium (3.5-5.1) mmol/L Chloride (98-107) mmol/L Carbon Dioxide (21.0-32.0) mmol/L Anion Gap (3-11) mmol/L BUN (7-18) mg/dL Creatinine (0.70-1.30) mg/dL Est GFR (CKD-EPI 2020) (mL/min/1.73m2) Glucose (74-106) mg/dL Calcium (8.5-10.1) mg/dL Magnesium (1.8-2.4) mg/dL Total Bilirubin (0.2-1.0) mg/dL Conjugated Bilirubin (0.0-0.2) mg/dL AST (15-37) U/L ALT (16-63) U/L Alkaline Phosphatase (46-116) U/L Troponin I Cancelled 4 (<or=76) ng/L Total Protein (6.4-8.2) g/dL Albumin 3.7 (3.4-5.0) g/dL TSH 14.18 H (0.36-3.74) uIU/mL Free T4 0.64 L (0.76-1.46) ng/dL Salicylates < 2.8 (<2.8) mg/dL Acetaminophen < 2 (10-30) ug/mL Lamotrigine Pending Ethyl Alcohol < 3.0 (<10) mg/dL 10/31/24 10/31/24 10/31/24 Range/Units 05:35 05:35 05:35 WBC (4.4-10.8) 10^3/uL RBC (4.36-5.78) 10^6/uL Hgb (13.5-17.5) g/dL Hct (40.0-50.0) % MCV (80-95) fL MCH (27.0-33.0) pg MCHC (32.0-36.0) % RDW (11.8-14.1) % Plt Count (130-400) 10^3/uL MPV (8.0-11.0) fL Immature Gran % % Neutrophils % % Lymphocytes % % Monocytes % % Eosinophils % % Basophils % % Nucleated RBC % (0.0-0.3) % Absolute Neutrophils (1.2-6.7) 10^3/uL Absolute Lymphocytes (1.2-3.4) 10^3/uL Absolute Monocytes (0.1-0.8) 10^3/uL Absolute Eosinophils (0.0-0.7) 10^3/uL Absolute Basophils (0.0-0.2) 10^3/uL VBG pH (7.31-7.41) VBG pCO2 (41-51) mmHg VBG pO2 mmHg VBG HCO3 (23-28) mmol/L VBG Total CO2 (24-29) mmol/L VBG O2 Saturation % VBG Base Excess (-2-3) mmol/L Sodium (136-145) mmol/L Potassium (3.5-5.1) mmol/L Chloride (98-107) mmol/L Carbon Dioxide (21.0-32.0) mmol/L Anion Gap (3-11) mmol/L BUN (7-18) mg/dL Creatinine (0.70-1.30) mg/dL Est GFR (CKD-EPI 2020) (mL/min/1.73m2) Glucose (74-106) mg/dL Calcium (8.5-10.1) mg/dL Magnesium (1.8-2.4) mg/dL Total Bilirubin (0.2-1.0) mg/dL Conjugated Bilirubin (0.0-0.2) mg/dL AST (15-37) U/L ALT 20 (16-63) U/L Alkaline Phosphatase 85 85 (46-116) U/L Troponin I 4 (<or=76) ng/L Total Protein 7.3 7.2 (6.4-8.2) g/dL Albumin 3.7 (3.4-5.0) g/dL TSH (0.36-3.74) uIU/mL Free T4 (0.76-1.46) ng/dL Salicylates (<2.8) mg/dL Acetaminophen (10-30) ug/mL Lamotrigine Ethyl Alcohol (<10) mg/dL 10/31/24 10/31/24 10/31/24 Range/Units 05:35 05:35 05:35 WBC 12.24 H (4.4-10.8) 10^3/uL RBC 4.42 (4.36-5.78) 10^6/uL Hgb 12.4 L (13.5-17.5) g/dL Hct 37.8 L (40.0-50.0) % MCV 86 (80-95) fL MCH 28.1 (27.0-33.0) pg MCHC 32.8 (32.0-36.0) % RDW 12.5 (11.8-14.1) % Plt Count 297 (130-400) 10^3/uL MPV 9.8 (8.0-11.0) fL Immature Gran % 0.4 % Neutrophils % 65.4 % Lymphocytes % 25.7 % Monocytes % 6.4 % Eosinophils % 1.6 % Basophils % 0.5 % Nucleated RBC % 0.0 (0.0-0.3) % Absolute Neutrophils 8.00 H (1.2-6.7) 10^3/uL Absolute Lymphocytes 3.15 (1.2-3.4) 10^3/uL Absolute Monocytes 0.78 (0.1-0.8) 10^3/uL Absolute Eosinophils 0.20 (0.0-0.7) 10^3/uL Absolute Basophils 0.06 (0.0-0.2) 10^3/uL VBG pH (7.31-7.41) VBG pCO2 (41-51) mmHg VBG pO2 mmHg VBG HCO3 (23-28) mmol/L VBG Total CO2 (24-29) mmol/L VBG O2 Saturation % VBG Base Excess (-2-3) mmol/L Sodium 139 (136-145) mmol/L Potassium 4.0 (3.5-5.1) mmol/L Chloride 102 (98-107) mmol/L Carbon Dioxide 30.3 (21.0-32.0) mmol/L Anion Gap 6.7 (3-11) mmol/L BUN 15 (7-18) mg/dL Creatinine 1.1 (0.70-1.30) mg/dL Est GFR (CKD-EPI 2020) 88.12 (mL/min/1.73m2) Glucose 139 H (74-106) mg/dL Calcium 9.9 (8.5-10.1) mg/dL Magnesium 2.1 (1.8-2.4) mg/dL Total Bilirubin 0.2 0.2 (0.2-1.0) mg/dL Conjugated Bilirubin 0.1 (0.0-0.2) mg/dL AST 12 L 13 L (15-37) U/L ALT 20 (16-63) U/L Alkaline Phosphatase (46-116) U/L Troponin I (<or=76) ng/L Total Protein (6.4-8.2) g/dL Albumin (3.4-5.0) g/dL TSH (0.36-3.74) uIU/mL Free T4 (0.76-1.46) ng/dL Salicylates (<2.8) mg/dL Acetaminophen (10-30) ug/mL Lamotrigine Ethyl Alcohol (<10) mg/dL 10/31/24 Range/Units 05:27 WBC (4.4-10.8) 10^3/uL RBC (4.36-5.78) 10^6/uL Hgb (13.5-17.5) g/dL Hct (40.0-50.0) % MCV (80-95) fL MCH (27.0-33.0) pg MCHC (32.0-36.0) % RDW (11.8-14.1) % Plt Count (130-400) 10^3/uL MPV (8.0-11.0) fL Immature Gran % % Neutrophils % % Lymphocytes % % Monocytes % % Eosinophils % % Basophils % % Nucleated RBC % (0.0-0.3) % Absolute Neutrophils (1.2-6.7) 10^3/uL Absolute Lymphocytes (1.2-3.4) 10^3/uL Absolute Monocytes (0.1-0.8) 10^3/uL Absolute Eosinophils (0.0-0.7) 10^3/uL Absolute Basophils (0.0-0.2) 10^3/uL VBG pH 7.47 H (7.31-7.41) VBG pCO2 32 L (41-51) mmHg VBG pO2 131 mmHg VBG HCO3 23 (23-28) mmol/L VBG Total CO2 21 L (24-29) mmol/L VBG O2 Saturation 98 % VBG Base Excess -1 (-2-3) mmol/L Sodium (136-145) mmol/L Potassium (3.5-5.1) mmol/L Chloride (98-107) mmol/L Carbon Dioxide (21.0-32.0) mmol/L Anion Gap (3-11) mmol/L BUN (7-18) mg/dL Creatinine (0.70-1.30) mg/dL Est GFR (CKD-EPI 2020) (mL/min/1.73m2) Glucose (74-106) mg/dL Calcium (8.5-10.1) mg/dL Magnesium (1.8-2.4) mg/dL Total Bilirubin (0.2-1.0) mg/dL Conjugated Bilirubin (0.0-0.2) mg/dL AST (15-37) U/L ALT (16-63) U/L Alkaline Phosphatase (46-116) U/L Troponin I (<or=76) ng/L Total Protein (6.4-8.2) g/dL Albumin (3.4-5.0) g/dL TSH (0.36-3.74) uIU/mL Free T4 (0.76-1.46) ng/dL Salicylates (<2.8) mg/dL Acetaminophen (10-30) ug/mL Lamotrigine Ethyl Alcohol (<10) mg/dL Intake and Output - 24 Hour Total 10/31/24 04:54 thru 10/31/24 05:08 Weight 118.6 kg Falls Risk Assessment History of Falls No History 10/31/24 05:13 Contributing Factors Confusion 10/31/24 05:13 Ambulatory Aids Independent 10/31/24 05:13 Tubes/Lines None 10/31/24 05:13 Gait Evaluation No gait disturbance 10/31/24 05:13 Cognition No cognitive impairment 10/31/24 05:13 Fall Total Score 3 10/31/24 05:13 Level of Risk Standard/Low Risk 10/31/24 05:13 v v v v v v v v v Sending and/or Receiving Nurses: Please use comment section below to note any information pertinent to the patient hand-off not included above. Information / Comments: Report received from: Carlee [facility] ED @ 10:57
[2024-10-31 12:24] LABS: Glucose Negative (Negative)
--- NOTE | 2024-10-31 12:34 | HPE_ITS ---
Date of service: 10/31/24 Time of Service: 09:00 Assessment and Plan Assessment and plan (1) Suicidal ideation: Status: Acute Assessment and plan: Intentional overdose, suicide attempt Likely ingestion of multiple medications: lamotrigine, trazodone, possibly quetiapine and others. Altered mental status Currently somnolent but arousable; no focal deficits. Continuous cardiac and pulse oximetry monitoring Maintain NPO until more alert Supportive care; no antidote indicated at this time [facility] (behavioral health) consult once medically cleared * Safety & Monitoring * Place on suicide precautions / safety sit * Continuous observation (1:1 or as per unit protocol) * Remove potentially harmful items from patient environment * Medical Stabilization * Monitor vital signs, mental status, and level of consciousness * Supportive care for overdose (as per Poison Control guidance) * Repeat labs or med levels if clinically indicated * Psychiatric Evaluation & Treatment * Psychiatry consult [facility] when medically cleared * Assess risk factors, intent, and triggers * Initiate behavioral health interventions (e.g., safety planning, coping strategies) * Consider medication adjustments once medically stable * Therapeutic & Social Interventions * Engage social work / case management for family support and home environment assessment * Discuss inpatient psychiatric unit transfer if higher level of care required * Coordinate follow-up after discharge * Disposition * Remain admitted until medically and psychiatrically stable * Consider voluntary or involuntary inpatient psychiatric placement depending on ongoing risk (2) Major depression: Status: Acute History of Present Illness History of Present Illness Chief Complaint: Polysubstance overdosel; suicidal ideation Narrative: 39-year-old MTF (transgender woman) individual with a history of depression, anxiety, T2DM, gout, hypothyroidism, and gender-affirming hormone therapy presented via EMS after an intentional overdose in a suicide attempt. EMS reports the patient was somnolent but arousable (GCS 14) with stable vital signs during transport. The patient admits ingesting an unknown quantity of home medications around 0200 hours, including mood stabilizers (likely lamotrigine) and trazodone from an old prescription, as well as ?the rest? of their medications. Denies chest pain, shortness of breath, nausea, vomiting, abdominal pain, or trauma. Primary complaint is feeling extremely fatigued and ?sleepy.? Home medications include: * Psych meds: escitalopram 20 mg daily, lamotrigine 200 mg daily, quetiapine 50 mg HS, prior trazodone * Hormone therapy: estradiol, spironolactone * Other: allopurinol, levothyroxine, meclizine Social context: Lives with parents and fianc?; history of relationship stress and prior police involvement. Reports feeling mentally unsafe at home. * Intentional overdose, suicide attempt Likely ingestion of multiple medications: lamotrigine, trazodone, possibly quetiapine and others. * Altered mental status Currently somnolent but arousable; no focal deficits. * Chronic conditions: depression, anxiety, hypothyroidism (noncompliant with levothyroxine), T2DM, gout, transgender on hormone therapy Workup & Course: * Labs: CBC mild leukocytosis/anemia, CMP stable, TSH elevated with low T4 (chronic noncompliance), tox screen negative (lamotrigine pending), VBG mild respiratory alkalosis * ECG: NSR, normal intervals * Consult: Poison Control?recommend observation until mental status improves (~6?12 hrs) * No indication for head CT (no trauma, neuro intact) Plan: * Admit for observation and suicide precautions * Continuous cardiac and pulse oximetry monitoring * Serial neuro checks * Maintain NPO until more alert * Supportive care; no antidote indicated at this time * [facility] (behavioral health) consult once medically cleared * CPSO / suicide precautions Disposition: Admit to medical floor for prolonged observation and psychiatric evaluation. Patient is a full code. Review of Systems Narrative: * Constitutional: Fatigue * Neuro: Somnolence, denies headache * Cardiac: Denies chest pain * Respiratory: Denies SOB * GI: Denies nausea, vomiting, abdominal pain * Psych: Admits intentional overdose, suicidal ideation PFSH All Active Problems (Updated 10/31/24 @ 12:44 by Jesusita Watson NP) Altered mental status (Acute) Suicide attempt (Acute) Overdose (Acute) Suicidal ideation (Acute) Major depression (Acute) COVID-19 virus infection (Acute) Suicidal thoughts (Acute) Suicide gesture (Acute) Depression (Chronic) Medical History Dyspraxia Developmental delay, mild Obesity Hyperlipidemia Type 2 diabetes mellitus Hyperuricemia Gout Anxiety with depression Transgender Surgical History No significant past surgical history Social History Smoking/Tobacco Use Status: Current, status unknown Tobacco Type: e-cigarettes Smoking risk assessment performed?: Yes Alcohol Intake: current Alcohol Intake frequency: a few times a month Alcohol type: beer and hard liquor Drug use: Occasionally Substance use type: marijuana Housing: house Do you feel safe at home: Yes (mentally no physically yes) Do you feel safe in your relationship?: Yes Additional Social history: patient lives at home with parents, and fianc?. Was endorsed that home life is jose luis and there was police involved in altercation. ARPITA RN 01/25/23 Meds Allergies and Home Medications Allergies Allergy/AdvReac Type Severity Reaction Status Date / Time strawberry AdvReac Skin Rash Verified 10/31/24 05:17 Home Medications ?Medication ?Instructions ?Recorded ?Confirmed ?Type estradiol 2 mg tablet See Rx Instructions .Route . COMPLEX 02/20/22 10/31/24 History spironolactone 50 mg tablet 200 mg PO BID 02/20/22 History allopurinol 100 mg tablet 200 mg PO DAILY 04/14/22 History levothyroxine 125 mcg tablet 125 mcg PO DAILY@0600 08/0110/31/24 History meclizine 25 mg tablet 25 mg PO BID PRN #10 tabs 10/31/24 Rx escitalopram oxalate 20 mg tablet 20 mg PO DAILY 12/2210/31/24 History (Lexapro) lamotrigine 200 mg tablet 200 mg PO DAILY 01/18/24 History quetiapine 50 mg tablet 50 mg PO HS 10/31/24 5 History Exam Narrative Exam Narrative: Vital signs and nurses notes reviewed * General: Somnolent but arousable to voice, GCS 14 * HEENT: Normocephalic, atraumatic; PERRL, miosis; mucous membranes moist * Neck: Supple, trachea midline * Cardiac: RRR, no murmurs * Respiratory: No distress, CTAB * Abdomen: Soft, non-tender, non-distended * Neuro: Moves all extremities, no focal deficits, speech fluent, sensation intact, reflexes 2+, no clonus, cranial nerves grossly intact * Skin: No rash or trauma Results Labs 10/31/24 05:35 10/31/24 05:35 Labs: Laboratory Results - last 24 hr 10/31/24 10/31/24 10/31/24 05:27 05:35 05:35 WBC 12.24 H RBC 4.42 Hgb 12.4 L Hct 37.8 L MCV 86 MCH 28.1 MCHC 32.8 RDW 12.5 Plt Count 297 MPV 9.8 Immature Gran % 0.4 Neutrophils % 65.4 Lymphocytes % 25.7 Monocytes % 6.4 Eosinophils % 1.6 Basophils % 0.5 Nucleated RBC % 0.0 Absolute Neutrophils 8.00 H Absolute Lymphocytes 3.15 Absolute Monocytes 0.78 Absolute Eosinophils 0.20 Absolute Basophils 0.06 VBG pH 7.47 H VBG pCO2 32 L VBG pO2 131 VBG HCO3 23 VBG Total CO2 21 L VBG O2 Saturation 98 VBG Base Excess -1 Sodium 139 Potassium 4.0 Chloride 102 Carbon Dioxide 30.3 Anion Gap 6.7 BUN 15 Creatinine 1.1 Est GFR (CKD-EPI 2020) 88.12 Glucose 139 H Calcium 9.9 Magnesium 2.1 Total Bilirubin 0.2 0.2 Conjugated Bilirubin 0.1 AST 13 L ALT Alkaline Phosphatase Troponin I Total Protein Albumin TSH Free T4 Urine Color Urine Clarity Urine pH Ur Specific [place] Urine Protein Urine Ketones Urine Blood Urine Nitrite Urine Bilirubin Urine Urobilinogen Ur Leukocyte Esterase Urine Glucose Salicylates Acetaminophen Ethyl Alcohol 10/31/24 10/31/24 10/31/24 05:35 05:35 05:35 WBC RBC Hgb Hct MCV MCH MCHC RDW Plt Count MPV Immature Gran % Neutrophils % Lymphocytes % Monocytes % Eosinophils % Basophils % Nucleated RBC % Absolute Neutrophils Absolute Lymphocytes Absolute Monocytes Absolute Eosinophils Absolute Basophils VBG pH VBG pCO2 VBG pO2 VBG HCO3 VBG Total CO2 VBG O2 Saturation VBG Base Excess Sodium Potassium Chloride Carbon Dioxide Anion Gap BUN Creatinine Est GFR (CKD-EPI 2020) Glucose Calcium Magnesium Total Bilirubin Conjugated Bilirubin AST 12 L ALT 20 20 Alkaline Phosphatase 85 85 Troponin I 4 Total Protein 7.2 Albumin TSH Free T4 Urine Color Urine Clarity Urine pH Ur Specific [place] Urine Protein Urine Ketones Urine Blood Urine Nitrite Urine Bilirubin Urine Urobilinogen Ur Leukocyte Esterase Urine Glucose Salicylates Acetaminophen Ethyl Alcohol 10/31/24 10/31/24 10/31/24 05:35 05:35 06:35 WBC RBC Hgb Hct MCV MCH MCHC RDW Plt Count MPV Immature Gran % Neutrophils % Lymphocytes % Monocytes % Eosinophils % Basophils % Nucleated RBC % Absolute Neutrophils Absolute Lymphocytes Absolute Monocytes Absolute Eosinophils Absolute Basophils VBG pH VBG pCO2 VBG pO2 VBG HCO3 VBG Total CO2 VBG O2 Saturation VBG Base Excess Sodium Potassium Chloride Carbon Dioxide Anion Gap BUN Creatinine Est GFR (CKD-EPI 2020) Glucose Calcium Magnesium Total Bilirubin Conjugated Bilirubin AST ALT Alkaline Phosphatase Troponin I 4 Total Protein 7.3 Albumin 3.7 3.7 TSH 14.18 H Free T4 0.64 L Urine Color Urine Clarity Urine pH Ur Specific [place] Urine Protein Urine Ketones Urine Blood Urine Nitrite Urine Bilirubin Urine Urobilinogen Ur Leukocyte Esterase Urine Glucose Salicylates < 2.8 Acetaminophen < 2 Ethyl Alcohol < 3.0 10/31/24 10/31/24 08:14 11:54 WBC RBC Hgb Hct MCV MCH MCHC RDW Plt Count MPV Immature Gran % Neutrophils % Lymphocytes % Monocytes % Eosinophils % Basophils % Nucleated RBC % Absolute Neutrophils Absolute Lymphocytes Absolute Monocytes Absolute Eosinophils Absolute Basophils VBG pH VBG pCO2 VBG pO2 VBG HCO3 VBG Total CO2 VBG O2 Saturation VBG Base Excess Sodium Potassium Chloride Carbon Dioxide Anion Gap BUN Creatinine Est GFR (CKD-EPI 2020) Glucose Calcium Magnesium Total Bilirubin Conjugated Bilirubin AST ALT Alkaline Phosphatase Troponin I Cancelled Total Protein Albumin TSH Free T4 Urine Color Yellow Urine Clarity Clear Urine pH 6.0 Ur Specific [place] 1.020 Urine Protein Negative Urine Ketones 15 H Urine Blood Trace-intact H Urine Nitrite Negative Urine Bilirubin Negative Urine Urobilinogen 0.2 Ur Leukocyte Esterase Negative Urine Glucose Negative Salicylates Acetaminophen Ethyl Alcohol Last Vital Signs Temp 36.5 C 10/31/24 11:13 Pulse 87 10/31/24 11:13 Resp 18 10/31/24 11:13 BP 116/81 10/31/24 11:13 Pulse Ox 96 10/31/24 11:13 PAWSS Have you Been Recently Intoxicated or Drunk Within the Last 30 days?: Yes Have you Ever Experienced Previous Episodes of Alcohol Withdrawal?: No Have you ever Experienced Withdrawal Seizures?: No Have you ever Experienced Delirium Tremens(DT)s?: No Have you ever undergone Alcohol Rehabilitation Treatment (i.e, inpt ot outpatient treatment programs)?: No Have you ever Experienced Blackouts?: No Have you ever Combined Alcohol with other Downers within the last 90 days?: No Have you ever Combined Alcohol with any other Substance of Abuse during the last 90 days?: No Positive Blood Alcohol level on Presentation? [PCS.BAL]: No Evidence of Increased Autonomic Activity (i.e. HR>120, tremor, sweating, agitation, nausea)?: No Result: 1 Time Spent Time spent with Patient: 40-54 minutes Time was spent: preparing to see the patient(eg.review tests), obtaining and/or reviewing separately otained hiistory, ordering medications,tests, procedures, referring, communicating with other health day care worker, indepentently interpreting results, counseling the patient and care coordination
[2024-10-31 12:41] LABS: Cannabinoids THC Negative (Negative); METHADONE URINE SCREEN Negative (Negative)
[2024-11-01 02:34] VITALS: BP 107/75; PULSE 85; RESP 16; TEMP 36; O2SAT 98
[2024-11-01] MEDS: Normal Saline Flush 10 ML SYR IVP ×2 (06:07→08:44)
[2024-11-01 07:15] VITALS: BP 109/80; PULSE 76; RESP 18; TEMP 36.4; O2SAT 97
[2024-11-01 07:35] LABS: Abs Immature Grans 0.04 10^3/uL (0.0-0.06); HCT 39.8 % (40.0-50.0); HGB 13.1 g/dL (13.5-17.5); Immature Grans % 0.4 %; MCH 28.2 pg (27.0-33.0); MCHC 32.9 % (32.0-36.0); MCV 86 fL (80-95); MPV 10.1 fL (8.0-11.0); Platelet Count 325 10^3/uL (130-400); RBC 4.65 10^6/uL (4.36-5.78); RDW 12.5 % (11.8-14.1); RDW-SD 38.7 fL; WBC 11.23 10^3/uL (4.4-10.8)
[2024-11-01 07:48] LABS: Anion Gap 8.2 mmol/L (3-11); BUN 14 mg/dL (7-18); CO2 27.8 mmol/L (21.0-32.0); Calcium 9.2 mg/dL (8.5-10.1); Chloride 102 mmol/L (98-107); Estimated GFR 98.80 (mL/min/1.73m2); Glucose 124 mg/dL (74-106); Magnesium 2.1 mg/dL (1.8-2.4); Potassium 3.8 mmol/L (3.5-5.1); Sodium 138 mmol/L (136-145)
--- NOTE | 2024-11-01 09:19 | PDOC.CMIN ---
Date of service: 11/01/24 Time of Service: 09:19 Care Management Initial Assmt Initial Assessment Reason for Hospitalization: intentional overdose Functional Status/Living Situation Patient Presentation: Tanesha was sitting up on the side of the bed when CM met with her. She had just met with [facility] Crisis screener and completed a safety plan for discharge home. Per Michelle [facility], Maggie (fiancee) will keep all medications safe and away from Donna. Donna has contacted her father for transportation home. She was provided with a copy of her safety plan and a copy was also placed in her medical record. Town of Residence: [place] Resides with: Parent (lives with parents and grace) Significant Other/Family: Local Instrumental Activities of Daily Living (ADLs): Independent Medications Medication Management: Issues/Barriers with Other (suicide attempt with OD on home meds) Advance Directives Advance Directives: Do you have an Advance Directive: N 05/29/17, 00:16 AD On File at [facility]: N 05/29/17, 00:16 Date Asked 09/29/24 09/29/24, 10:22 AD Date Reviewed COLST On File at [facility] No 01/18/24, 18:10 COLST Date Scanned Code Status Resuscitation Status Full Code Portal Pt does not currently have a portal and education provided: Yes Insurance Coverage/Financial Issues Insurance: Medicare Medicaid Care Team Visit Care Team Role Provider Type Modesta Negron NP NURSE PRACTITIONER Makayla Noland Primary Care Provider NURSE PRACTITIONER Evan Najera DO Emergency Provider [facility] STAFF PHYSICIAN Pastor Saleh MD Admit Provider [facility] STAFF PHYSICIAN Attending Provider Discharge Potential Discharge Needs: PCP F/U Appt Anticipated Barriers to Discharge: Bed availability Patient/Family Education Needs: Review discharge instructions, discuss Ask Me Three Transportation: Other (to be determined by disposition) Plan: Donna was screened by [facility] Yvonne Martinez and was deemed safe to be discharged home on a safety plan. An in-person follow up meeting will take place on Sunday. She will transport via private vehicle with family vs transport with RCT. Social Determinants of Health Screening Social Determinants of health last assessed in clinic: 10/31/24 Will the Patient Participate in the Screening?: Yes Do you worry about having a steady place to live?: no Problems where you live: no known problems In the past 12 months, have you had to go without electric, gas, oil or water in your home?: no Has lack of transportation kept you from medical appointments or from doing things needed for daily living?: no Has anyone in your life made you feel unsafe or unsupported?: no How hard is it for you to pay for the very basics like food, housing, medical care, and heating? Would you say it is:: Not hard at all Do you want help finding or keeping work or a job?: I do not need or want help If for any reason you need help with day-to-day activities such as bathing, preparing meals, shopping, managing finances, etc., do you get the help you need?: I don?t need any help How often do you feel lonely or isolated from those around you?: Sometimes Do you speak a language other than Spanish at home?: No Does the patient want assistance with any of the above?: No Health Related Social Needs Health related social needs: feeling lonely/isolated (Z60.8) Health related social needs details: Pt states feeling lonely sometimes but does not want assistance PFSH All Active Problems (Updated 10/31/24 @ 12:44 by Jesusita Watson NP) Altered mental status (Acute) Suicide attempt (Acute) Overdose (Acute) Suicidal ideation (Acute) Major depression (Acute) COVID-19 virus infection (Acute) Suicidal thoughts (Acute) Suicide gesture (Acute) Depression (Chronic) Medical History Dyspraxia Developmental delay, mild Obesity Hyperlipidemia Type 2 diabetes mellitus Hyperuricemia Gout Anxiety with depression Transgender Surgical History No significant past surgical history Social History Smoking/Tobacco Use Status: Current, status unknown Tobacco Type: e-cigarettes Smoking risk assessment performed?: Yes Alcohol Intake: current Alcohol Intake frequency: a few times a month Alcohol type: beer and hard liquor Drug use: Occasionally Substance use type: marijuana Housing: house Do you feel safe at home: Yes (mentally no physically yes) Do you feel safe in your relationship?: Yes Additional Social history: patient lives at home with parents, and fianc?. Was endorsed that home life is jose luis and there was police involved in altercation. AK, RN 01/25/23
--- NOTE | 2024-11-01 09:27 | PDOC.CMSAFE ---
Date of service: 11/01/24 Time of Service: 09:27 Care Management Safety Plan Status Status: Interim Reason for Wait Reason for Wait: Medical Clearance Safety Plan Safety Plan: CM will respond to assess patient after patient has been medically cleared and assessed by screener. If screener deems patient meets criteria for psychiatric stabilization CM will facilitate interdepartmental huddle with [facility] screener for safety planning considerations and meet with patient to review [facility] policy and safety plan, establish individual wishes for treatment and maintain patient rights. In the interim; please note safety plan below to guide patient care while awaiting further assessment.? SAFETY PLAN: 1. Will remain on suicide precautions and in paper clothes.? 2. Will remain in room under direct supervision of one-on-one staff at all times provided by DIEGO, FURRIER APPRENTICE medical records clerk. 3. May have paper cups, plates, finger foods as well as a cardboard spoon with which to eat meals. 4. Follow [facility] Management of the Admitted Behavioral Health Patient policy. 5. Comfort bath system only. 6. No personal belongings 7. No visitors. 8. Phone contact limited to legal roofing sales representative at this time. 9. Due to VOLUNTARY status, if patient wishes to leave [facility], staff will contact [facility] Crisis Screener ([phone]) and On-Call Cryogenic Transport Driver ([phone]) as soon as possible. In the event of elopement, notify [facility] Police ([phone]). ? If deemed appropriate for inpatient psychiatric care, safety plan will be established with patient, and care team, to adhere to patient goals, identify restrictions based on behavioral status, address nutrition, and determine allowed personal belongings, tools for hygiene and personal care. As well plan will determine level of activity including ambulation, level of supervision, visitors, and determine privileges based on level of acuity, behaviors and level of engagement by patient.
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
--- NOTE | 2024-11-01 12:46 | NUR.NOTE ---
Nursing Note: Pt A/Ox3, VSS. IV site removed and telemetry box was returned to desk. All pt belongings were returned to pt. Discharge instructions were reviewed, including medications, follow-up care, signs and symptoms to report. Patient verbalized understanding. Pt was brought to the main lobby entrance where their father picked them up. Pt is to be discharged back to previous space of living.
== END 2024-11-01 12:38 | disposition home or self-care (01) ==
LOC: ER 09:12 → MS 11:06
PROVIDERS: Nurse Practitioner Family; Student in an Organized Health Care Education/Training Program; Admitting Provider Family Medicine; Emergency Provider Student in an Organized Health Care Education/Training Program; PCP Nurse Practitioner Family; Responsible Provider Nurse Practitioner Acute Care; Visit Provider Family Medicine
DX: T65.892A Toxic effect of other specified substances, intentional self-harm, initial encounter (principal); R41.82 Altered mental status, unspecified; R45.851 Suicidal ideations; F32.9 Major depressive disorder, single episode, unspecified; F64.0 Transsexualism; E11.9 Type 2 diabetes mellitus without complications; Z79.899 Other long term (current) drug therapy; F12.90 Cannabis use, unspecified, uncomplicated; F17.290 Nicotine dependence, other tobacco product, uncomplicated; Z79.890 Hormone replacement therapy; F41.9 Anxiety disorder, unspecified; D64.9 Anemia, unspecified; D72.829 Elevated white blood cell count, unspecified; R45.89 Other symptoms and signs involving emotional state
CPT/HCPCS: 00123; 36415; 80048; 80053; 80076; 80175; 80307; 82805; 93005; 96127; 99285; 80320; 80329; 81003; 81015; 83735; 84439; 84443; 84484; 85025; 93010; 99222; 99238

== ENCOUNTER 2025-02-25 11:58 | Outpatient (REF) | payer MEDICARE, MEDICAID, SELFPAY ==
[2025-02-25 15:01] LABS: HCT 38.3 % (40.0-50.0); HGB 12.0 g/dL (13.5-17.5); MCH 26.9 pg (27.0-33.0); MCHC 31.3 % (32.0-36.0); MCV 86 fL (80-95); MPV 9.9 fL (8.0-11.0); Platelet Count 342 10^3/uL (130-400); RBC 4.46 10^6/uL (4.36-5.78); RDW 13.4 % (11.8-14.1); RDW-SD 41.4 fL; WBC 9.96 10^3/uL (4.4-10.8)
[2025-02-25 15:30] LABS: TSH (W/Ref FT4) 2.70 uIU/mL (0.55-4.78)
[2025-02-25 15:31] LABS: Uric Acid 6.4 mg/dL (3.7-9.2)
[2025-02-25 15:33] LABS: ALT 20 U/L (10-49); AST 20 U/L (<34); Albumin 4.3 g/dL (3.2-5.0); Alkaline Phosphatase 80 U/L (46-116); Anion Gap 8.3 mmol/L (3-11); BUN 11 mg/dL (9-23); Bilirubin, Total 0.2 mg/dL (0.2-1.2); CO2 27.7 mmol/L (20.0-31.0); Calcium 9.4 mg/dL (8.3-10.6); Chloride 102 mmol/L (98-107); Glucose 208 mg/dL (74-106); Potassium 4.3 mmol/L (3.5-5.1); Sodium 138 mmol/L (136-145); Total Protein 6.8 g/dL (5.7-8.2)
== END 2025-02-25 11:59 | disposition home or self-care (01) ==
LOC: NCHCN 11:58
PROVIDERS: PCP Nurse Practitioner Family; Visit Provider Nurse Practitioner Family
DX: M10.9 Gout, unspecified (principal); R00.2 Palpitations; E03.9 Hypothyroidism, unspecified
CPT/HCPCS: 80053; 85027; 84443; 84550